=== PATIENT | male | born 1935 | race Caucasian/White ===

== ENCOUNTER 2016-12-31 15:19 | Emergency (ER) | payer OTHER ==
[2016-12-31 15:20] VITALS: BMI 30.7
[2016-12-31 15:38] VITALS: TEMP 98.5
[2016-12-31 16:12] LABS: URINE BILIRUBIN NEGATIVE (NEGATIVE); URINE BLOOD TRACE-LYSED (NEGATIVE); URINE GLUCOSE (UA) >=1000 mg/dL (NEGATIVE); URINE LEUKOCYTE ESTERASE NEGATIVE Leu/uL (NEGATIVE); URINE NITRATE NEGATIVE (NEGATIVE); URINE PROTEIN NEGATIVE mg/dL (<30 mg/dL); URINE UROBILINOGEN 0.2 E.U./dL (<1 E.U./dL)
[2016-12-31 16:20] LABS: URINE APPEARANCE CLEAR (CLEAR); URINE COLOR YELLOW (YELLOW)
[2016-12-31 16:32] LABS: URINE BACTERIA NEG (NEG); URINE RBC 0 - 2 /hpf (0-2); URINE WBC 0 - 2 /hpf (0-6)
--- NOTE | 2016-12-31 16:34 | ED PDOC ---
Arrival/HPI - General Historian: Patient - History of Present Illness Time/Duration: 24 hours Symptom Onset: Gradual Symptom Course: Worsening Quality: Pressure Activities at Onset: Rest <Long Cardoso - Last Filed: 12/31/16 17:24> <Janell Gambino - Last Filed: 12/31/16 18:12> - General Chief Complaint: Male Genitourinary Time Seen by Provider: 12/31/16 15:26 - History of Present Illness Narrative History of Present Illness (Text): 12/31/16 16:21 81yo M with Past medical history of BPH s/p TURP in [place] here for evaluation of urinary retention. Patient states that his symptoms started 4 days ago and was able to pass urine last night at 10PM. He has been unable to pass urine since. She states that he has had similar symptoms in the past after undergoing the TURP in [place] and was told to self-cath at home whenever symptoms such as this arise. He last saw his urologist in [place] 13 months ago, when he moved here to visit family. He states that he follows up with Dr. Nery Joyner while he has been here, however, he has not been needing to self-cath since moving up to [place] 13 months ago. He is unable to travel back to [facility] due to Right Hip Fracture s/p ORIF. Currently, patient states that he has received complete relief of symptoms since having a catheter placed here in the emergency department. He denies any nausea, vomiting. No abd pain. No diarrhea. No headaches. No Fevers, chills. No chest pain, no shortness of breath. No back pain. No flank pain. No other complaints. Urologist - Dr. Nery Joyner PMHx; HTN, Hypercholesterolemia, Diabetes, Hip Fx s/p ORIF, Vitiligo, BPH s/p TURP PSHx: Carotid Endarterectomy, Right Hip Fx ORIF, TURP Social Hx: Denies any Tobacco products, Denies any ETOH, Denies any illicit drugs NKDA (Long Cardoso) Past Medical History - Provider Review Nursing Documentation Reviewed: Yes - Infectious Disease Hx of Infectious Diseases: None - Tetanus Immunization Tetanus Immunization: Unknown - Reproductive Currently : No Currently Lactating: No - Cardiac Hx Pacemaker: No - Pulmonary Hx Respiratory Disorders: No - Neurological Hx Paralysis: No - HEENT Hx HEENT Disorder: Yes (eyeglasses) - Renal Hx Renal Disorder: No - Endocrine/Metabolic Hx Diabetes Mellitus Type 1: Yes - Hematological/Oncological Hx Blood Transfusions: Yes Hx Blood Transfusion Reaction: No - Integumentary Hx Dermatological Disorder: Yes - Musculoskeletal/Rheumatological Hx Musculoskeletal Disorders: Yes (b/l knees) - Gastrointestinal Hx Gastrointestinal Disorders: No - Genitourinary/Gynecological Hx Reproductive Disorders: Yes - Psychiatric Hx Emotional Abuse: No Hx Physical Abuse: No Hx Substance Use: No - Surgical History Other/Comment: Right femur ORIF (12/07/2015) - Anesthesia Hx Anesthesia Reactions: No Hx Malignant Hyperthermia: No - Suicidal Assessment Feels Threatened In Home Enviroment: No <Long Cardoso - Last Filed: 12/31/16 17:24> <Janell Gambino - Last Filed: 12/31/16 18:12> - Patient History Narrative Patient History: Pertinent history: BPH s/p TURP (Long Cardoso) Family/Social History - Physician Review Nursing Documentation Reviewed: Yes Family/Social History: No Known Family HX Smoking Status: Former Smoker Hx Alcohol Use: No Hx Substance Use: No Hx Substance Use Treatment: No <Long Cardoso - Last Filed: 12/31/16 17:24> Allergies/Home Meds <Long Cardoso - Last Filed: 12/31/16 17:24> <Janell Gambino - Last Filed: 12/31/16 18:12> Allergies/Adverse Reactions: Allergies No Known Allergies Allergy (Verified 01/09/16 18:32) Home Medications: Home Meds Medication Instructions Recorded Confirmed Aspirin [Ecotrin] 81 mg PO DAILY 12/02/15 12/31/16 Metformin HCl 1,000 mg PO BID 12/02/15 12/31/16 Simvastatin 40 mg PO DAILY 12/02/15 12/31/16 GlipiZIDE SR [Glucotrol XL] 10 mg PO PRN PRN 02/23/16 12/31/16 Pantoprazole [Protonix EC Tab] 40 mg PO PRN PRN 02/23/16 12/31/16 Insulin 70/30 50 units SC BID 12/31/16 12/31/16 Levocetirizine Dihydrochloride 5 mg PO DAILY 12/31/16 12/31/16 [Xyzal] Linaclotide [Linzess] 290 mcg PO DAILY 12/31/16 12/31/16 Prednisone [Deltasone] 10 mg PO DAILY 12/31/16 12/31/16 Pregabalin [Lyrica] 300 mg PO DAILY 12/31/16 12/31/16 Vitamind 50,000 iu PO QWK 12/31/16 12/31/16 Review of Systems - Physician Review All systems were reviewed & negative as marked: Yes - Review of Systems Constitutional: absent: Fevers Respiratory: absent: Cough Cardiovascular: absent: Chest Pain, Edema, Calf Pain Gastrointestinal: absent: Abdominal Pain, Nausea, Vomiting Genitourinary Male: Urinary Output Changes, Other (urinary retention) Musculoskeletal: absent: Back Pain Neurological: absent: Dizziness <Long Cardoso - Last Filed: 12/31/16 17:24> Physical Exam Vital Signs Reviewed: Yes Temperature: Afebrile Blood Pressure: Hypertensive Pulse: Regular Respiratory Rate: Normal Appearance: Positive for: Well-Appearing, Non-Toxic, Comfortable Pain Distress: None Mental Status: Positive for: Alert and Oriented X 3 - Systems Exam Head: Present: Atraumatic, Normocephalic Extroacular Muscles: Present: EOMI Mouth: Present: Moist Mucous Membranes Neck: Present: Normal Range of Motion Respiratory/Chest: Present: Clear to Auscultation, Good Air Exchange. No: Respiratory Distress, Accessory Muscle Use, Wheezes Cardiovascular: Present: Normal S1, S2. No: Murmurs Abdomen: No: Tenderness, Distention, Rebound, Guarding Genitourinary Male: Present: Normal External Genitalia, Other (Urinary catheter in place, clear/yellow urine in bag. No suprapubic tenderness. ) Upper Extremity: Present: Normal Inspection. No: Edema Lower Extremity: Present: Normal Inspection. No: Edema, CALF TENDERNESS Neurological: Present: GCS=15 Skin: Present: Warm, Dry, Normal Color. No: Rashes Psychiatric: Present: Alert, Oriented x 3 <Long Cardoso - Last Filed: 12/31/16 17:24> Medical Decision Making - Lab Interpretations I have reviewed the lab results: Yes <Long Cardoso - Last Filed: 12/31/16 17:24> <Janell Gambino - Last Filed: 12/31/16 18:12> ED Course and Treatment: 12/31/16 16:38 81yo M with Past medical history including BPH s/p TURP here for urinary retention - Symptoms significantly improved s/p placement of Sharp catheter - Urinalysis - Will discuss case with Dr. Joyner - Reassess and dispo 12/31/16 17:24 - Upon re-examination, patient complaining of penile pain. Ordered Lidocaine gel topical - Urinalysis negative - Patient is improved with his urinary symptoms. - Call placed to Dr. Joyner in order to discuss case. - Plan for discharge home with leg bag and follow up with Dr. Joyner next week. - Patient understands and agrees with plan (Long Cardoso) 12/31/16 18:10 Patient seen and examined with resident. Seen with urinary retention. Suprapubic discomfort resolved with sharp catheter. Patient put out 1050 cc of urine. Urine shows no UTI - will d/c with leg bag. Case discussed with Dr. Joyner, who said to have the patient see him in the office in two days. Ok for d/c. (Janell Gambino) - Lab Interpretations Lab Results: Lab Results 12/31/16 15:50: Urine Color Yellow, Urine Appearance Clear, Urine pH 6.0, Ur Specific [place] 1.010, Urine Protein Negative, Urine Glucose (UA) >=1000, Urine Ketones Negative, Urine Blood Trace-lysed H, Urine Nitrate Negative, Urine Bilirubin Negative, Urine Urobilinogen 0.2, Ur Leukocyte Esterase Negative , Urine RBC 0 - 2, Urine WBC 0 - 2, Ur Epithelial Cells 1 - 3, Urine Bacteria Neg - Medication Orders Current Medication Orders: Discontinued Medications Lidocaine HCl (Xylocaine 2% (Uro-Jet)) 1 ea TOP ONCE ONE Stop: 12/31/16 17:23 Last Admin: 12/31/16 17:32 Dose: 1 applic Comments: 1 application to tip of penis - PA / COSTUME MAKER / Resident Statement PAULINA has reviewed & agrees with the documentation as recorded. PAULINA has examined the patient and agrees with the treatment plan. <Long Cardoso - Last Filed: 12/31/16 17:24> - PA / COSTUME MAKER / Resident Statement PAULINA has reviewed & agrees with the documentation as recorded. PAULINA has examined the patient and agrees with the treatment plan. - Scribe Statement The provider has reviewed the documentation as recorded by the Scribe <Janell Gambino - Last Filed: 12/31/16 18:12> - Scribe Statement Carlita De La Garza Provider Scribe Attestation: All medical record entries made by the Scribe were at my direction and personally dictated by me. I have reviewed the chart and agree that the record accurately reflects my personal performance of the history, physical exam, medical decision making, and the department course for this patient. I have also personally directed, reviewed, and agree with the discharge instructions and disposition. (Janell Gambino) Disposition/Present on Arrival - Present on Arrival Any Indicators Present on Arrival: Yes History of DVT/PE: No History of Uncontrolled Diabetes: Yes Urinary Catheter: Yes History of Decub. Ulcer: No History Surgical Site Infection Following: None - Disposition Have Diagnosis and Disposition been Completed?: Yes Disposition Time: 17:28 Patient Plan: Discharge <Long Cardoso - Last Filed: 12/31/16 17:24> <Janell Gambino - Last Filed: 12/31/16 18:12> - Disposition Diagnosis: Urinary retention, Sharp catheter in place Disposition: HOME/ ROUTINE Patient Problems: Current Active Problems Problem Status Onset Sharp catheter in place Acute Urinary retention Acute Condition: GOOD Discharge Instructions (ExitCare): Urinary Retention in Men (ED) Additional Instructions: 1. Follow up with Dr. Nery Joyner in 2 days - Monday (01/02 at 5 pm in [place]). 2. Keep Sharp in place until follow up with Urology 3. Return to the emergency department with any concerning symptoms Referrals: Bandar Joyner MD [Staff Provider] - Follow up with primary Forms: [employer] ([place])
[2016-12-31] MEDS ORDERED: Lidocaine 2% Jelly (Uro-Jet) TOP ONE (17:22)
[2016-12-31 18:55] VITALS: BP 150/83; PULSE 85; RESP 18; O2SAT 98
== END 2016-12-31 18:57 | disposition home or self-care (01) ==
LOC: ED 15:19
DX: N40.1 Benign prostatic hyperplasia with lower urinary tract symptoms (principal); R33.8 Other retention of urine; I10 Essential (primary) hypertension; E11.9 Type 2 diabetes mellitus without complications; E78.00 Pure hypercholesterolemia, unspecified

== ENCOUNTER 2017-08-23 06:25 | Day surgery (SDC) | payer OTHER ==
[2017-08-22 10:23] VITALS: BMI 32.1
[2017-08-23] MEDS ORDERED: Sevoflurane - Inhalation Anesthetic Liq (250 ml) ONE (07:58)
[2017-08-23] MEDS ORDERED: ePHEDrine 50 mg/ml Inj ONE (08:02)
[2017-08-23] MEDS ORDERED: Lidocaine 1% Inj (20ml) ONE (08:02)
[2017-08-23] MEDS ORDERED: Propofol 10 mg/ml Inj (20 ML) ONE (08:02)
[2017-08-23] MEDS ORDERED: cefTRIAXone (Rocephin) 1 gm Inj ONE (08:13)
[2017-08-23] MEDS ORDERED: Liquid Adhesive TOP ONE (08:54)
[2017-08-23 10:52] VITALS: RESP 18; TEMP 96.4; O2SAT 98
[2017-08-23 11:20] VITALS: BP 162/68; PULSE 84
--- NOTE | 2017-08-23 14:45 | PN ---
DATE: This is an immediate postop note. PREOPERATIVE DIAGNOSES: Voiding dysfunction, prostate cancer, urinary incontinence, incomplete bladder emptying, urinary retention. POSTOPERATIVE DIAGNOSES: Voiding dysfunction, prostate cancer, urinary incontinence, incomplete bladder emptying, urinary retention. PROCEDURE: As mentioned, PVP GreenLight laser. The patient is in recovery room in stable condition. Diamond catheter draining well. The plans as before, he will be discharged home or admission for observation depending on the patient how he is feeling. He is currently stable. Vital signs within normal limits. The patient tolerated the procedure without complication. Bang Joyner MD
--- NOTE | 2017-08-23 20:39 | HP ---
UROLOGY HISTORY AND PHYSICAL REASON FOR ADMISSION: PVP GreenLight laser. In preparation for eventually an artificial urinary sphincter, see below plan. HISTORY OF PRESENT ILLNESS: This is a very pleasant gentleman. He is 81 years old. He has a history of prostate cancer, this was treated down in [place] with radiation. He has much voiding dysfunction since that time. He also has a history of TUR. Besides various medications for the patient including the anticholinergic including Sudafed. Today, he is coming in for a GreenLight laser to make sure he is wide open and then afterwards, we are planning for an artificial urinary sphincter. I explained to the patient he is currently NAD, but he is still fairly elderly for such procedures, but it bothers him a lot. PAST MEDICAL AND SURGICAL HISTORY: As follows: A patient of Dr. Griffith with multiple medical issues. See the medical clearance noted moderate risk of surgery. No history of NE or CVA. REVIEW OF SYSTEMS: In general, no weight loss, chest pain, shortness of breath, night sweats. He is actually in reasonably good shape. Of note, one little thing is that he has underlying vitiligo . This is stable and not under the care . MEDICATIONS: See chart. ALLERGIES: NONE. SOCIAL HISTORY: He comes to the office with his children and grandchildren. PHYSICAL EXAMINATION: GENERAL: A well-nourished male, in no apparent distress. VITAL SIGNS: Noted. SKIN: Noted. HEENT: Normocephalic, atraumatic. NECK: No cervical or axillary lymphadenopathy. LUNGS: Clear. HEART: Normal S1, S2. ABDOMEN: Soft, nontender. GENITOURINARY: Normal phallus with discharge. No testicular masses. RECTAL: Relatively soft prostate, 20 to 30 g. LABORATORY DATA: See chart. BUN and creatinine noted. Hematocrit noted. PSA noted. DIAGNOSES: 1. History of prostate cancer. 2. Status post radiation, NAD, with voiding dysfunction, urinary incontinence, incomplete bladder emptying, and multiple issues. PLAN: We discussed the options. At this point, the plan is as follows: 1. We are going to do a GreenLight laser today to make sure he is wide open. 2. We are going to plan when he heals for an artificial urinary sphincter. I discussed with him AMS and prosthesis and that is going to be our plan. So further plans will follow. I discussed with the patient, but it is not very relevant to him in terms of sexual functioning and ejaculatory function, risks, benefits, and treatment alternatives. The plan is as follows: 1. Antibiotic prophylaxis. 2. PVP and then further plans will follow. Bang Joyner MD
--- NOTE | 2017-08-24 07:49 | OP ---
PROCEDURE DATE:08/23/2017 PREOPERATIVE DIAGNOSES: Prostate cancer, no evidence of disease, voiding dysfunction, incomplete bladder emptying, retention, incontinence. POSTOPERATIVE DIAGNOSES: Prostate cancer, no evidence of disease, voiding dysfunction, incomplete bladder emptying, retention, incontinence. PROCEDURE: Photoselective vaporization of the prostate GreenLight laser. SURGEON: Bandar Joyner M.D. ESTIMATED BLOOD LOSS: Less than 10 mL. COMPLICATIONS: There were no complications. DRAIN: Diamond catheter with about 50 mL with moderate amount of traction. FINDINGS: Normal anterior urethra, no strictures, Verumontanum is somewhat open, not wide open, by the time we finished it was wide wide open. Ureteral orifices were draining clear efflux. No other abnormality noted. No bladder tumors or cancers identified. No bladder stones identified. INDICATIONS: See history and physical for further details. This is a very pleasant gentleman here for part one. We are going to make sure it is wide open and then afterwards we are planning for an artificial urinary sphincter. I discussed with the patient after so much surgery, we are very concerned. I do want to ensure he does not develop any bladder neck contracture or urethral stricture. He does not have any urethral strictures. I discussed with him radiation side effects years later, etc. But at this point, we are making sure he is wide open in preparation for the artificial urinary sphincter. DESCRIPTION OF PROCEDURE: The patient was placed on the table. Routine monitors were placed. Timeout was called. We confirmed the patient positioning. Risk and benefits were discussed, risk of incontinence getting worse, risks of scar tissue, risks of ejaculatory dysfunction although he does not seem to be concerned to this. After discussing all these options, I also discussed the benefits of perhaps even this may solve some of his problems as he is able to void better, but also make it easier when we plan for the prosthesis to make sure he is not going back into retention. After discussing all these options, I also discussed the above procedure, we obtained medical clearance for the patient seeing Dr. Griffith, his medical doctor. We discussed all the options, risks, benefits and alternatives and will plan to proceed. Antibiotic prophylaxis was given. Timeout was called. Patient is appropriately positioned on the table. Fire risk assessment is assessed. All the usual monitoring is done. We proceeded to begin with inserted the cystoscope via the urethra under direct vision with visual obturator. We identified landmark verumontanum on in. Bladder neck was identified. Ureteral orifice was identified with clear efflux from both, bladder was inspected carefully and there were no bladder tumors. We now converted to laser fiber bridge and we began at bladder neck between 5 and 7 and make sure we work with 7 and 11, and we go along the roof making sure it is time to achieve systematically, making sure we are wide open in achieving hemostasis, where appropriate we did coagulation. Overall, patient is tolerating procedure well. Turned off the water, I washed. There is no bleeders. It is nicely wide open and multiple pictures are taken. The ureteral orifice was grossly intact. At this point, we inserted Diamond catheter via urethra, put it on a mild traction. Patient tolerated it without any complications. I want to mention I took some pictures of urine flow, it is a good flow. Pictures were little bit blurry, but we did take some pictures with a good flow. Patient tolerated it without complications. Addendum: The plan will be for an AUS (artificial urinary sphincter) at an appropriate time. Bang Joyner MD KIANNA
== END 2017-08-23 12:34 | disposition home or self-care (01) ==
LOC: SDS 06:25
PROVIDERS: ATTEND Urology
DX: C61 Malignant neoplasm of prostate (principal); R33.9 Retention of urine, unspecified; Z92.3 Personal history of irradiation; R32 Unspecified urinary incontinence
CPT/HCPCS: 52648; 82948; A4358; J0696; J2704; J2765; J3010; J7120

== ENCOUNTER 2018-01-07 09:36 | Emergency (ER) | payer OTHER ==
[2018-01-07 09:41] VITALS: BMI 32.1
--- NOTE | 2018-01-07 10:09 | ED PDOC ---
Arrival/HPI - General Chief Complaint: Male Genitourinary Time Seen by Provider: 01/07/18 09:43 Historian: Patient - History of Present Illness Narrative History of Present Illness (Text): 01/07/18 10:03 82 year old male, with past medical history of hypertension, hyperlipidemia, IDDM, hip fracture, vitiligo, BPH s/p TURP, urinary incontinence, UTI, presents to the Emergency department accompanied by grandson complaining of leaking sharp since this morning. Patient informs associated pain to the groin area and states blood in the bag. Patient denies taking any antibiotics and states his last sharp bag placement was 10 days ago. Patient does not know when he is scheduled for a replacement but believed it is on the of this month. Patient denies any fever, chills, nausea, vomiting, diarrhea, abdominal pain, chest pain, shortness of breath, cough, headache, dizziness, neck pain, chest pain or any other complaints. Time/Duration: 1-3 hours Symptom Onset: Gradual Symptom Course: Unchanged Activities at Onset: Light Context: Home Past Medical History - Provider Review Nursing Documentation Reviewed: Yes - Past History Past History: Non-Contributing - Infectious Disease Hx of Infectious Diseases: None - Tetanus Immunization Tetanus Immunization: Unknown - Reproductive Currently Lactating: No - Cardiac Hx Hypertension: Yes - Pulmonary Hx Respiratory Disorders: No - Neurological Hx Neurological Disorder: No - HEENT Hx HEENT Disorder: Yes (eyeglasses) - Renal Hx Renal Disorder: No - Endocrine/Metabolic Hx Diabetes Mellitus Type 1: Yes - Hematological/Oncological Hx Blood Transfusions: Yes - Integumentary Hx Dermatological Disorder: Yes - Musculoskeletal/Rheumatological Hx Musculoskeletal Disorders: Yes (b/l knees) - Gastrointestinal Hx Gastrointestinal Disorders: No - Genitourinary/Gynecological Hx Genitourinary Disorders: (has 2 way sharp) - Psychiatric Hx Psychophysiologic Disorder: No Hx Substance Use: No - Surgical History Other/Comment: Right femur ORIF (12/07/2015) - Anesthesia Hx Anesthesia Reactions: No Hx Malignant Hyperthermia: No - Suicidal Assessment Feels Threatened In Home Enviroment: No Family/Social History - Physician Review Nursing Documentation Reviewed: Yes Family/Social History: No Known Family HX Smoking Status: Never Smoked Hx Alcohol Use: No Hx Substance Use: No Hx Substance Use Treatment: No Allergies/Home Meds Allergies/Adverse Reactions: Allergies No Known Allergies Allergy (Verified 01/07/18 09:50) Review of Systems - Physician Review All systems were reviewed & negative as marked: Yes - Review of Systems Constitutional: absent: Fevers Respiratory: absent: SOB, Cough Cardiovascular: absent: Chest Pain Gastrointestinal: absent: Abdominal Pain, Diarrhea, Nausea, Vomiting Genitourinary Male: Other (leaking sharp bag) Musculoskeletal: absent: Back Pain, Neck Pain Neurological: absent: Headache, Dizziness Physical Exam Vital Signs Reviewed: Yes Vital Signs Temp Pulse Resp BP Pulse Ox 01/07/18 11:17 98.4 F 97 01/07/18 11:14 82 18 139/85 97 01/07/18 09:41 98.2 F 85 18 140/87 98 Temperature: Afebrile Respiratory Rate: Normal Appearance: Positive for: Well-Appearing, Non-Toxic, Comfortable Pain Distress: None Mental Status: Positive for: Alert and Oriented X 3 - Systems Exam Head: Present: Atraumatic, Normocephalic Pupils: Present: PERRL Extroacular Muscles: Present: EOMI Conjunctiva: Present: Normal Respiratory/Chest: Present: Clear to Auscultation, Good Air Exchange. No: Respiratory Distress, Accessory Muscle Use Cardiovascular: Present: Regular Rate and Rhythm, Normal S1, S2. No: Murmurs Abdomen: Present: Normal Bowel Sounds. No: Tenderness, Distention, Peritoneal Signs Back: Present: Normal Inspection Upper Extremity: Present: Normal Inspection. No: Cyanosis, Edema Lower Extremity: Present: Normal Inspection. No: Edema Neurological: Present: GCS=15, CN II-XII Intact, Speech Normal Skin: Present: Warm, Dry, Normal Color. No: Rashes Psychiatric: Present: Alert, Oriented x 3, Normal Insight, Normal Concentration Medical Decision Making ED Course and Treatment: 01/07/18 10:11 Impression: 82 year old male presents to the Emergency department for leaking sharp bag. Plan: -- Urine Culture -- Urinalysis -- Reassess and disposition Prior Visits: Notes and results from previous visits were reviewed. Progress Notes: 01/07/18 11:[address] bandar joyner, states ok to dc. no antibiotics to be initiated. - Lab Interpretations Lab Results: Lab Results 01/07/18 10:19: Urine Color Dark yellow, Urine Appearance Cloudy, Urine pH 7.0, Ur Specific [place] 1.020, Urine Protein 100 H, Urine Glucose (UA) Negative, Urine Ketones Negative, Urine Blood Large H, Urine Nitrate Negative, Urine Bilirubin Negative, Urine Urobilinogen 0.2, Ur Leukocyte Esterase Large H, Urine RBC Pending, Urine WBC Pending - Scribe Statement The provider has reviewed the documentation as recorded by the Scribe Celena Winters. All medical record entries made by the Scribe were at my direction and personally dictated by me. I have reviewed the chart and agree that the record accurately reflects my personal performance of the history, physical exam, medical decision making, and the department course for this patient. I have also personally directed, reviewed, and agree with the discharge instructions and disposition. Disposition/Present on Arrival - Present on Arrival Any Indicators Present on Arrival: No History of DVT/PE: No History of Uncontrolled Diabetes: Yes Urinary Catheter: Yes History of Decub. Ulcer: No History Surgical Site Infection Following: None - Disposition Have Diagnosis and Disposition been Completed?: Yes Diagnosis: Sharp catheter problem Disposition: HOME/ ROUTINE Disposition Time: 11:00 Condition: STABLE Discharge Instructions (ExitCare): How to Care for Your Sharp Catheter, Male, Sharp Catheter, Male Additional Instructions: please follow up with your doctor/and specailsit. return to er with worsening s ymptoms or concerns. Referrals: Bandar Joyner MD [Staff Provider] - Follow up with primary Forms: [employer] ([place])
[2018-01-07 10:20] VITALS: RESP 18
[2018-01-07 10:32] LABS: URINE BILIRUBIN NEGATIVE (NEGATIVE); URINE BLOOD LARGE (NEGATIVE); URINE GLUCOSE (UA) NEGATIVE (NEGATIVE); URINE LEUKOCYTE ESTERASE LARGE Leu/uL (NEGATIVE); URINE PROTEIN 100 mg/dL (<30 mg/dL); URINE UROBILINOGEN 0.2 E.U./dL (<1 E.U./dL)
[2018-01-07 10:38] LABS: URINE APPEARANCE CLOUDY (CLEAR); URINE COLOR DARK YELLOW (YELLOW)
[2018-01-07 11:16] VITALS: BP 139/85; PULSE 82; O2SAT 97
[2018-01-07 11:17] VITALS: TEMP 98.4
[2018-01-07 11:29] LABS: URINE BACTERIA FEW (NEG); URINE EPITHELIAL CELLS MANY /hpf (0-5); URINE RBC 20 - 25 /hpf (0-2); URINE WBC TNTC /hpf (0-6)
== END 2018-01-07 11:16 | disposition home or self-care (01) ==
LOC: ED 09:36
DX: T83.098A Other mechanical complication of other urinary catheter, initial encounter (principal); Y84.8 Other medical procedures as the cause of abnormal reaction of the patient, or of later complication, without mention of misadventure at the time of the procedure; Y92.89 Other specified places as the place of occurrence of the external cause

== ENCOUNTER 2018-04-07 11:22 | Emergency (ER) | payer OTHER ==
[2018-04-07 11:23] VITALS: BMI 32.1
--- NOTE | 2018-04-07 11:38 | ED PDOC ---
Arrival/HPI - General Time Seen by Provider: 04/07/18 11:31 Historian: Patient - History of Present Illness Narrative History of Present Illness (Text): 04/07/18 11:37 82 year old male, whose past medical history includes hypertension, hyperlipidemia, IDDM, hip fracture, vitiligo, BPH s/p TURP, urinary incontinence, UTI, presents to the Emergency department complaining of lower abdominal pain and urinary retention that began 3-4 hours ago. Patient reports he had his sharp cath placed 1 week ago. Patient reports similar symptoms in the past. Patient denies any fever, chills, chest pain, shortness of breath, nausea, vomiting, diarrhea, back pain, neck pain, headache, dizziness, or any other complaints. PMD: Dr. Griffith Urologist: Dr. Joyner Time/Duration: Other (3-4 hours ago) Symptom Onset: Gradual Symptom Course: Unchanged Activities at Onset: Light Context: Home Past Medical History - Provider Review Nursing Documentation Reviewed: Yes - Past History Past History: Non-Contributing - Infectious Disease Hx of Infectious Diseases: None - Tetanus Immunization Tetanus Immunization: Unknown - Reproductive Currently Lactating: No - Cardiac Hx Hypertension: Yes - Pulmonary Hx Respiratory Disorders: No - Neurological Hx Neurological Disorder: No - HEENT Hx HEENT Disorder: Yes (eyeglasses) - Renal Hx Renal Disorder: No - Endocrine/Metabolic Hx Diabetes Mellitus Type 1: Yes - Hematological/Oncological Hx Blood Transfusions: Yes - Integumentary Hx Dermatological Disorder: Yes - Musculoskeletal/Rheumatological Hx Musculoskeletal Disorders: Yes (b/l knees) - Gastrointestinal Hx Gastrointestinal Disorders: No - Genitourinary/Gynecological Hx Genitourinary Disorders: (has 2 way sharp) - Psychiatric Hx Psychophysiologic Disorder: No Hx Substance Use: No - Surgical History Other/Comment: Right femur ORIF (12/07/2015) - Anesthesia Hx Anesthesia Reactions: No Hx Malignant Hyperthermia: No - Suicidal Assessment Feels Threatened In Home Enviroment: No Family/Social History - Physician Review Nursing Documentation Reviewed: Yes Family/Social History: No Known Family HX Smoking Status: Never Smoked Hx Alcohol Use: No Hx Substance Use: No Hx Substance Use Treatment: No Allergies/Home Meds Allergies/Adverse Reactions: Allergies No Known Allergies Allergy (Verified 01/07/18 09:50) Home Medications: Home Meds Medication Instructions Recorded Confirmed Carvedilol [Coreg] 3.125 mg PO BID 04/07/18 04/07/18 Furosemide [Lasix] 40 mg PO DAILY 04/07/18 04/07/18 GlipiZIDE [Glucotrol] 10 mg PO BID 04/07/18 04/07/18 Levocetirizine Dihydrochloride 5 mg PO DAILY 04/07/18 04/07/18 Metformin HCl [Fortamet] 1,000 mg PO BID 04/07/18 04/07/18 Montelukast [Singulair] 10 mg PO DAILY 04/07/18 04/07/18 Pantoprazole [Protonix EC Tab] 40 mg PO DAILY 04/07/18 04/07/18 Pregabalin [Lyrica] 100 mg PO TID 04/07/18 04/07/18 Simvastatin [Zocor] 40 mg PO DAILY 04/07/18 04/07/18 Tamsulosin [Flomax] 0.4 mg PO BID 04/07/18 04/07/18 Review of Systems - Physician Review All systems were reviewed & negative as marked: Yes - Review of Systems Constitutional: absent: Fevers, Other (Chills) Respiratory: absent: SOB Cardiovascular: absent: Chest Pain Gastrointestinal: Abdominal Pain. absent: Diarrhea, Nausea, Vomiting Genitourinary Male: Urinary Output Changes. absent: Dysuria, Frequency, Hematuria Musculoskeletal: absent: Back Pain, Neck Pain Neurological: absent: Headache, Dizziness Physical Exam - Physical Exam Narrative Physical Exam (Text): Gen: VS reviewed, alert, well developed, well nourished, nontoxic, mild distress. ENT: normal pharynx. Eye: EOMI, PERRL. Neck: no JVD, supple, no adenopathy. CV: regular rate, regular rhythm, no rubs, no murmur, no gallops, S1, S2, pulses equal and strong. Pulm: no distress, clear to auscultation, no wheeze, no rhonchi, breath sounds equal, no rales. Abd: mild to moderate lower abdominal tenderness, no guarding, no rebound, no rigidity, normal bowel sounds. Sharp cath in place with yellow urine in collection bag Ext: no edema. Skin: good color, no rash, no cyanosis. Psych: responds appropriately to questions, normal affect. Neuro: oriented x 3, CN2-12 intact grossly, motor intact, sensation intact. Vital Signs Reviewed: Yes Temperature: Afebrile Blood Pressure: Hypertensive Pulse: Regular Respiratory Rate: Normal Medical Decision Making ED Course and Treatment: 04/07/18 11:38 Impression: 82 year old male presents complaining lower abdominal pain and urinary retention that began 3-4 hours ago. Plan: -- Bladder Scan PRN -- CT Abdomen and Pelvis IV contrast -- Labs -- Morphine -- Reassess and disposition Prior Visits: Notes and results from previous visits were reviewed. Progress Notes: 04/07/18 14:12 re-eval, patient reports that his pain has resolved. patient reports that he had a bout of diarrhea yesterday but stools nonbloody. urine appears to be following well throughout sharp catheter, patient feels well to go home and he will follow up with his pcp. - RAD Interpretation Narrative RAD Interpretations (Text): PROCEDURE: CT Abdomen and Pelvis with contrast Dictator : Marsha Richards MD Report Date : 04/07/2018 13:57:07 IMPRESSION: Mild dilatation of fluid-filled proximal and mid small bowel loops which may represent nonspecific infectious/inflammatory enteritis or ileus. No evidence for bowel obstruction. Computer Systems Analyst: Radiologist - Scribe Statement The provider has reviewed the documentation as recorded by the James August Provider Scribe Attestation: All medical record entries made by the Scribe were at my direction and personally dictated by me. I have reviewed the chart and agree that the record accurately reflects my personal performance of the history, physical exam, medical decision making, and the department course for this patient. I have also personally directed, reviewed, and agree with the discharge instructions and disposition. Disposition/Present on Arrival - Present on Arrival Any Indicators Present on Arrival: No History of DVT/PE: No History of Uncontrolled Diabetes: Yes Urinary Catheter: Yes History Surgical Site Infection Following: None - Disposition Have Diagnosis and Disposition been Completed?: Yes Diagnosis: Abdominal pain Disposition: HOME/ ROUTINE Disposition Time: 14:14 Patient Plan: Discharge Condition: STABLE Discharge Instructions (ExitCare): Acute Abdomen (Belly Pain) Additional Instructions: Return for any new or worsening symptoms especially persistent pain, vomiting, fever greater than 100.4, bloody stools. Follow up with your primary care doctors as soon as possible. BAN CARLSON, thank you for letting us take care of you today. Your provider was Dr.Lamont Barillas and you were treated for abdominal pain. The emergency medical care you received today was directed at your acute symptoms. If you were prescribed any medication, please fill it and take as directed. It may take several days for your symptoms to resolve. Return to the Emergency Department if your symptoms worsen, do not improve, or if you have any other problems. Please contact your doctor or call one of the physicians/clinics you have been referred to that are listed on the Patient Visit Information form that is included in your discharge packet. Bring any paperwork you were given at [facility] with you along with any medications you are taking to your follow up visit. Our treatment cannot replace ongoing medical care by a primary care provider outside of the emergency department. Thank you for allowing the [facility] team to be part of your care today. If you had an X-Ray or CT scan: A Radiologist will review the ED reading if any change in treatment is needed we will contact you. If you had a blood, urine, or wound culture: It will take several days for the results, if any change in treatment is needed we will contact you. If you had an STI test: It will take 48 hours for the results. Please call after 1 week if you have not heard back.
[2018-04-07 11:41] VITALS: RESP 18; TEMP 98
[2018-04-07] MEDS ORDERED: Morphine 4 mg/ml ISec IVP STA (12:02)
[2018-04-07 12:17] LABS: BASO # 0.02 K/mm3 (0.0-2.0); BASO % 0.2 % (0.0-3.0); EOS # 0.5 (0.0-0.7); EOS % 6.3 % (1.5-5.0); GRAN # 3.11 (1.4-6.5); GRAN % 37.9 % (50.0-68.0); HEMOGLOBIN 10.9 g/dL (14.0-18.0); LYMPH # 3.8 (1.2-3.4); LYMPH % 46.4 % (22.0-35.0); MEAN CELL VOLUME 87.1 fl (80.0-105.0); MEAN CORPUSCULAR HEMOGLOBIN 28.7 pg (25.0-35.0); MEAN CORPUSCULAR HGB CONC 32.9 g/dl (31.0-37.0); MEAN PLATELET VOLUME 10.3 fl (7.0-11.0); MONO # 0.8 (0.1-0.6); MONO % 9.2 % (1.0-6.0); RBC 3.8 10^6/uL (3.5-6.1); RED CELL DISTRIBUTION WIDTH 15.7 % (11.5-14.5); WHITE BLOOD COUNT 8.2 10^3/uL (4.5-11.0)
[2018-04-07 12:38] VITALS: O2SAT 96
[2018-04-07 12:42] LABS: ALBUMIN 3.5 g/dL (3.0-4.8); ALT/SGPT 43 U/L (7-56); AST/SGOT 32 U/L (17-59); BLOOD UREA NITROGEN 18 mg/dL (7-21); CALCIUM 9.2 mg/dL (8.4-10.5); GFR NON-AFRICAN AMERICAN > 60
[2018-04-07] MEDS ORDERED: Iohexol 350 MG/100 ML VIAL ONE (13:38)
[2018-04-07 13:56] VITALS: BP 135/67; PULSE 66
--- NOTE | 2018-04-07 14:00 | CT ---
Date of service: 04/07/2018 PROCEDURE: CT Abdomen and Pelvis with contrast HISTORY: Lower abdominal pain, sharp cath in place COMPARISON: 10/02/2017. TECHNIQUE: CT scan of the abdomen and pelvis was performed after administration of intravenous contrast. Oral contrast was not administered. Coronal and sagittal reformatted images were obtained. Contrast dose: 100 mL Omnipaque 350 Radiation dose: Total exam DLP = 1076.94 mGy-cm. This CT exam was performed using one or more of the following dose reduction techniques: Automated exposure control, adjustment of the mA and/or kV according to patient size, and/or use of iterative reconstruction technique. FINDINGS: LOWER THORAX: The visualized lungs are clear. LIVER: Mild hepatomegaly and fatty liver. No gross lesion or ductal dilatation. GALLBLADDER AND BILE DUCTS: Well distended. No calcified gallstones, wall thickening or pericholecystic fluid. PANCREAS: Diffuse fatty atrophy of the pancreas. No gross lesion or ductal dilatation. SPLEEN: Normal in size and appearance. ADRENALS: No discrete nodule. KIDNEYS AND URETERS: Normal in size with homogeneous enhancement. No hydronephrosis. No solid mass. There is a 3.9 x 4.1 cm simple cyst in the lower pole of the right kidney. VASCULATURE: No aortic aneurysm. Aortic and iliac arteries atherosclerotic vascular calcifications and mural plaque present. BOWEL: Evaluation of the bowel is limited in the absence of oral contrast. There is mild dilatation of fluid-filled proximal and mid small bowel loops. The distal small bowel loops are normal in caliber. The colon is grossly normal in appearance. No bowel wall thickening or obstruction. APPENDIX: Normal appendix. PERITONEUM: No free fluid. No free air. LYMPH NODES: No enlarged lymph nodes. BLADDER: Indwelling Sharp catheter with partial decompression of the urinary bladder. REPRODUCTIVE: The uterus is normal in size. BONES: Status post open reduction and internal fixation of right intertrochanteric fracture. Old superior endplate compression deformities in the L1 and L2 vertebral bodies. Diffuse bone demineralization and multilevel degenerative changes. OTHER FINDINGS: Small right inguinal scrotal hernia and a presumable postsurgical changes in the right lower abdomen and groin. IMPRESSION: Mild dilatation of fluid-filled proximal and mid small bowel loops which may represent nonspecific infectious/inflammatory enteritis or ileus. No evidence for bowel obstruction.
--- NOTE | 2018-04-08 10:40 | CARD ---
APPROVED REPORT Date of service: 04/07/2018 EKG Measurement Heart [id number] <Conclusion> Sinus rhythm with fusion complexes Otherwise normal ECG
== END 2018-04-07 14:32 | disposition home or self-care (01) ==
LOC: ED 11:22
DX: R10.9 Unspecified abdominal pain (principal); I10 Essential (primary) hypertension; E78.5 Hyperlipidemia, unspecified; N40.1 Benign prostatic hyperplasia with lower urinary tract symptoms
CPT/HCPCS: 74177; 80053; 85025; 93005; 96374; 99284; J2270; Q9967

== ENCOUNTER 2018-06-15 16:10 | Emergency (ER) | payer OTHER ==
[2018-06-15 16:12] VITALS: BMI 32.1
--- NOTE | 2018-06-15 17:28 | ED PDOC ---
Arrival/HPI - General Chief Complaint: Male Genitourinary Time Seen by Provider: 06/15/18 16:35 Historian: Patient - History of Present Illness Narrative History of Present Illness (Text): 06/15/18 17:25 82 year old male, whose past medical history includes hypertension, hyperlipidemia, IDDM, hip fracture, vitiligo, BPH s/p TURP, urinary incontinence, UTI, presents to the Emergency department complaining of suprapubic discomfort, and leaking around the urinary catheter, states that he is currently wearing a pad and diaper and urine is leaking around the catheter. He states that he has had the sharp in x 10 days. Patient denies any fever, chills, chest pain, shortness of breath, nausea, vomiting, diarrhea, back pain, neck pain, headache, dizziness, or any other complaints. PMD: Dr. Griffith Urologist: Dr. Joyner Past Medical History - Past History Past History: Non-Contributing - Infectious Disease Hx of Infectious Diseases: None - Tetanus Immunization Tetanus Immunization: Unknown - Reproductive Currently Lactating: No - Cardiac Hx Hypertension: Yes - Pulmonary Hx Respiratory Disorders: No - Neurological Hx Neurological Disorder: No - HEENT Hx HEENT Disorder: Yes (eyeglasses) - Renal Hx Renal Disorder: No - Endocrine/Metabolic Hx Diabetes Mellitus Type 1: Yes - Hematological/Oncological Hx Blood Transfusions: Yes - Integumentary Hx Dermatological Disorder: Yes - Musculoskeletal/Rheumatological Hx Musculoskeletal Disorders: Yes (b/l knees) - Gastrointestinal Hx Gastrointestinal Disorders: No - Genitourinary/Gynecological Hx Genitourinary Disorders: (has 2 way sharp) - Psychiatric Hx Psychophysiologic Disorder: No Hx Substance Use: No - Surgical History Other/Comment: Right femur ORIF (12/07/2015) - Anesthesia Hx Anesthesia Reactions: No Hx Malignant Hyperthermia: No - Suicidal Assessment Feels Threatened In Home Enviroment: No Family/Social History Family/Social History: No Known Family HX Smoking Status: Never Smoked Hx Alcohol Use: No Hx Substance Use: No Hx Substance Use Treatment: No Allergies/Home Meds Allergies/Adverse Reactions: Allergies No Known Allergies Allergy (Verified 01/07/18 09:50) Home Medications: Home Meds Medication Instructions Recorded Confirmed Furosemide [Lasix] 40 mg PO DAILY 04/07/18 04/07/18 Levocetirizine Dihydrochloride 5 mg PO DAILY 04/07/18 04/07/18 Montelukast [Singulair] 10 mg PO DAILY 04/07/18 04/07/18 Pregabalin [Lyrica] 100 mg PO TID 04/07/18 04/07/18 RX: Carvedilol [Coreg] 3.125 mg PO BID 04/07/18 04/07/18 RX: GlipiZIDE [Glucotrol] 10 mg PO BID 04/07/18 04/07/18 RX: Metformin HCl [Fortamet] 1,000 mg PO BID 04/07/18 04/07/18 RX: Pantoprazole [Protonix EC Tab] 40 mg PO DAILY 04/07/18 04/07/18 Simvastatin [Zocor] 40 mg PO DAILY 04/07/18 04/07/18 Tamsulosin [Flomax] 0.4 mg PO BID 04/07/18 04/07/18 Review of Systems - Review of Systems Constitutional: absent: Fatigue, Weight Change Respiratory: absent: SOB, Cough Cardiovascular: absent: Chest Pain, Palpitations Gastrointestinal: Abdominal Pain. absent: Diarrhea, Nausea, Vomiting Musculoskeletal: absent: Arthralgias, Back Pain Skin: absent: Rash, Pruritis Physical Exam Vital Signs Temp Pulse Resp BP Pulse Ox 06/15/18 16:29 97.4 F L 65 18 127/59 L 95 Temperature: Afebrile Blood Pressure: Normal Pulse: Regular Respiratory Rate: Normal Appearance: Positive for: Well-Appearing, Non-Toxic, Comfortable Pain Distress: None Mental Status: Positive for: Alert and Oriented X 3 - Systems Exam Head: Present: Atraumatic, Normocephalic Pupils: Present: PERRL Extroacular Muscles: Present: EOMI Conjunctiva: Present: Normal Mouth: Present: Moist Mucous Membranes Neck: Present: Normal Range of Motion Respiratory/Chest: Present: Clear to Auscultation, Good Air Exchange. No: Respiratory Distress, Accessory Muscle Use Cardiovascular: Present: Regular Rate and Rhythm, Normal S1, S2. No: Murmurs Abdomen: No: Tenderness, Distention, Peritoneal Signs, Rebound Genitourinary Male: Present: Normal External Genitalia, Circumcised Penis, Other (+sharp catheter in place, there is noted leakage of urine from the urethra, +leg bag with yellow urine insde) Back: Present: Normal Inspection Upper Extremity: Present: Normal Inspection. No: Cyanosis, Edema Lower Extremity: Present: Normal Inspection. No: Edema Neurological: Present: GCS=15, CN II-XII Intact, Speech Normal, Motor Func Grossly Intact, Normal Sensory Function Skin: Present: Warm, Dry, Normal Color. No: Rashes Psychiatric: Present: Alert, Oriented x 3, Normal Insight, Normal Concentration Medical Decision Making ED Course and Treatment: 06/15/18 17:28 Plan : - bladder scan - UA - Urine cx - toradol IM 30 mg Bladder scan shows 36 ml of urine in the bladder. Sharp catheter changed. Irrigated sharp catheter with NS, which flushes well. Dr. Joyner called, notified that catheter was changed, he states that the patient can then follow up as an outpatient as long as the sharp is changed and is functional. UA shows +UTI, on last urine cx, patient tested + for e coli sensitive to bactrim. Patient given a dose of bactrim PO. 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 Advised to follow up with Dr. Joyner in 1-2 days without fail. Advised to take medication as prescribed. Return to the emergency room at any time for any new or worsening symptoms. Patient states he fully agrees with and understands discharge instructions. States that he agrees with the plan and disposition. Verbalized and repeated discharge instructions and plan. I have given the patient opportunity to ask any additional questions. - Medication Orders Current Medication Orders: Ketorolac Tromethamine (Toradol) 30 mg IM STAT STA Stop: 06/15/18 17:25 - PA / CABINET BUILDER / Resident Statement MD/DO has reviewed & agrees with the documentation as recorded. Disposition/Present on Arrival - Present on Arrival Any Indicators Present on Arrival: Yes History of DVT/PE: No History of Uncontrolled Diabetes: Yes Urinary Catheter: Yes History of Decub. Ulcer: No History Surgical Site Infection Following: None - Disposition Have Diagnosis and Disposition been Completed?: Yes Diagnosis: UTI (urinary tract infection), Malfunction of Sharp catheter Disposition: HOME/ ROUTINE Disposition Time: 18:30 Patient Plan: Discharge Condition: STABLE Discharge Instructions (ExitCare): Urinary Tract Infections in Adults Additional Instructions: Thank you for letting us take care of you today. You were treated for sharp catheter malfunction, UTI. The emergency medical care you received today was directed at your acute symptoms. If you were prescribed any medication, please fill it and take as directed. It may take several days for your symptoms to resolve. Return to the Emergency Department if your symptoms worsen, do not improve, or if you have any other problems. Please contact your doctor in 2 days for re-evaluation and follow up. Bring any paperwork you were given at discharge with you along with any medications you are taking to your follow up visit. Our treatment cannot replace ongoing medical care by a primary care provider (PCP) outside of the emergency department. Thank you for allowing the [facility] team to be part of your care today. If you had a urine culture: It will take several days for the results, if any change in treatment is needed we will contact you. Prescriptions: Sulfamethoxazole/Trimethoprim [Bactrim DS 800 mg-160 mg] 1 tab PO BID #14 tab Referrals: Tramaine Griffith MD [Primary Care Provider] - Follow up with primary Forms: [employer] (Citizen [place])
[2018-06-15 18:23] LABS: URINE BILIRUBIN NEGATIVE (NEGATIVE); URINE BLOOD LARGE (NEGATIVE); URINE GLUCOSE (UA) NEGATIVE (NEGATIVE); URINE LEUKOCYTE ESTERASE MODERATE Leu/uL (NEGATIVE); URINE PROTEIN 100 mg/dL (<30 mg/dL); URINE UROBILINOGEN 0.2 E.U./dL (<1 E.U./dL)
[2018-06-15 18:29] LABS: URINE APPEARANCE SL CLOUDY (CLEAR); URINE COLOR YELLOW (YELLOW)
[2018-06-15] MEDS ORDERED: Tmp-Smz 800 mg-160 mg DS Tab PO STA (18:36)
[2018-06-15 18:55] LABS: URINE RBC 25 - 30 /hpf (0-2)
[2018-06-15 18:56] LABS: URINE BACTERIA MANY /hpf; URINE WBC TNTC /hpf (0-6)
[2018-06-15 19:39] VITALS: BP 131/79; PULSE 68; RESP 16; TEMP 97.6; O2SAT 100
== END 2018-06-15 20:09 | disposition home or self-care (01) ==
LOC: ED 16:10
DX: N39.0 Urinary tract infection, site not specified (principal); T83.018A Breakdown (mechanical) of other urinary catheter, initial encounter; Y84.8 Other medical procedures as the cause of abnormal reaction of the patient, or of later complication, without mention of misadventure at the time of the procedure; Y92.89 Other specified places as the place of occurrence of the external cause; I10 Essential (primary) hypertension; E11.9 Type 2 diabetes mellitus without complications; Z79.4 Long term (current) use of insulin
CPT/HCPCS: 81001; 87086; 87181; 96372; 99284; J1885

== ENCOUNTER 2018-06-20 10:23 | Inpatient (IN) | payer OTHER ==
--- NOTE | 2018-06-20 10:30 | ED PDOC ---
Arrival/HPI - General Historian: Patient - History of Present Illness Narrative History of Present Illness (Text): 06/20/18 10:30 82 year old male, whose past medical history includes hypertension, hyperlipidemia, IDDM, hip fracture, vitiligo, BPH s/p TURP, urinary incontinence, UTI, presents to the Emergency department complaining of Left Sided Chest Pain x 2 hours. Patient reports the pain came on suddenly while laying in bed and reading. Patient reports the pain was pressure-like and radiating down his left arm. Patient quantifies the pain at 9/10 at its worst and constant. After ALS arrived to his house, Patient states the pain was relieved to 5/10 in intensity after taking ASA 324mg PO and having Nitro sprays in the field. Patient otherwise denies nausea, vomiting, fever, chills, shortness of breath, blurred vision, headache, abdominal pain, diarrhea, numbness/tingling and/or weakness. PMD: Dr. Griffith Urologist: Dr. Joyner Time/Duration: 1-3 hours Symptom Onset: Sudden Symptom Course: Improving Quality: Pressure Severity Level: 5 <Mai Pang - Last Filed: 06/20/18 12:22> <Yvon Aguayo - Last Filed: 06/20/18 13:08> - General Time Seen by Provider: 06/20/18 10:25 Past Medical History - Past History Past History: Non-Contributing - Infectious Disease Hx of Infectious Diseases: None - Tetanus Immunization Tetanus Immunization: Unknown - Reproductive Currently Lactating: No - Cardiac Hx Hypertension: Yes - Pulmonary Hx Respiratory Disorders: No - Neurological Hx Neurological Disorder: No - HEENT Hx HEENT Disorder: Yes (eyeglasses) - Renal Hx Renal Disorder: No - Endocrine/Metabolic Hx Diabetes Mellitus Type 1: Yes - Hematological/Oncological Hx Blood Transfusions: Yes - Integumentary Hx Dermatological Disorder: Yes - Musculoskeletal/Rheumatological Hx Musculoskeletal Disorders: Yes (b/l knees) - Gastrointestinal Hx Gastrointestinal Disorders: No - Genitourinary/Gynecological Hx Genitourinary Disorders: (has 2 way sharp) - Psychiatric Hx Psychophysiologic Disorder: No Hx Substance Use: No - Surgical History Other/Comment: Right femur ORIF (12/07/2015) - Anesthesia Hx Anesthesia Reactions: No Hx Malignant Hyperthermia: No - Suicidal Assessment Feels Threatened In Home Enviroment: No <TerriguimimiMai - Last Filed: 06/20/18 12:22> Family/Social History Family/Social History: No Known Family HX Smoking Status: Never Smoked Hx Alcohol Use: No Hx Substance Use: No Hx Substance Use Treatment: No <TseringMai zapata - Last Filed: 06/20/18 12:22> Allergies/Home Meds <TerriMai palacios - Last Filed: 06/20/18 12:22> <DanielpiaYvon L - Last Filed: 06/20/18 13:08> Allergies/Adverse Reactions: Allergies No Known Allergies Allergy (Verified 01/07/18 09:50) Home Medications: Home Meds Medication Instructions Recorded Confirmed Carvedilol [Coreg] 3.125 mg PO BID 04/07/18 06/20/18 Furosemide [Lasix] 40 mg PO DAILY 04/07/18 06/20/18 GlipiZIDE [Glucotrol] 10 mg PO BID 04/07/18 06/20/18 Levocetirizine Dihydrochloride 5 mg PO DAILY 04/07/18 06/20/18 Metformin HCl [Fortamet] 1,000 mg PO BID 04/07/18 06/20/18 Montelukast [Singulair] 10 mg PO DAILY 04/07/18 06/20/18 Pantoprazole [Protonix EC Tab] 40 mg PO DAILY 04/07/18 06/20/18 Pregabalin [Lyrica] 100 mg PO TID 04/07/18 06/20/18 Simvastatin [Zocor] 40 mg PO DAILY 04/07/18 06/20/18 Tamsulosin [Flomax] 0.4 mg PO BID 04/07/18 06/20/18 Linaclotide [Linzess] 290 mcg PO DAILY 06/20/18 06/20/18 Review of Systems - Review of Systems Constitutional: Normal. absent: Night Sweats Eyes: Normal. absent: Vision Changes ENT: Normal Respiratory: Normal. absent: SOB Cardiovascular: Chest Pain. absent: Palpitations, Calf Pain, Syncope Gastrointestinal: Normal. absent: Abdominal Pain, Nausea, Vomiting Musculoskeletal: Normal Neurological: Normal Endocrine: Normal Hemo/Lymphatic: Normal Psychiatric: Normal <Mai Pang - Last Filed: 06/20/18 12:22> Physical Exam Vital Signs Reviewed: Yes Blood Pressure: Normal Pulse: Regular Respiratory Rate: Normal Appearance: Positive for: Non-Toxic, Comfortable Pain Distress: Mild Mental Status: Positive for: Alert and Oriented X 3 - Systems Exam Head: Present: Atraumatic, Normocephalic Pupils: Present: PERRL Extroacular Muscles: Present: EOMI Conjunctiva: Present: Normal Mouth: Present: Moist Mucous Membranes Nose (Internal): Present: Normal Inspection Neck: Present: Normal Range of Motion Respiratory/Chest: Present: Clear to Auscultation, Good Air Exchange. No: Respi ratory Distress, Accessory Muscle Use Cardiovascular: Present: Regular Rate and Rhythm, Normal S1, S2, Peripheal Pulses Present. No: Murmurs, Tachycardic, Bradycardic Abdomen: Present: Normal Bowel Sounds. No: Tenderness, Distention, Peritoneal Signs, Rebound, Guarding Back: Present: Normal Inspection Upper Extremity: Present: Normal Inspection. No: Cyanosis, Edema Lower Extremity: Present: Normal Inspection. No: Edema, CALF TENDERNESS Neurological: Present: GCS=15, CN II-XII Intact, Speech Normal Skin: Present: Warm, Dry, Other (vitiligo throughout face and body). No: Rashes Psychiatric: Present: Alert, Oriented x 3, Normal Insight, Normal Concentration <Mai Pang - Last Filed: 06/20/18 12:22> Vital Signs Pulse Resp BP Pulse Ox 06/20/18 10:31 70 18 132/75 97 <Yvon Aguayo - Last Filed: 06/20/18 13:08> Medical Decision Making ED Course and Treatment: 06/20/18 11:05 IMPRESSION 82 year old male, whose past medical history includes hypertension, hyperlipidemia, IDDM, hip fracture, vitiligo, BPH s/p TURP, urinary incontinence, UTI, presents to the Emergency department complaining of Left Sided Chest Pain x 2 hours. ASSESSMENT Chest Pain / ACS Rule-Out PLAN - EKG obtained, results per above - CXR - Troponin - CMP - CBC - Nitro Ointment PRN 06/20/18 12:23 Patient will be admitted under Dr. Griffith's service. <Mai Pang - Last Filed: 06/20/18 12:22> ED Course and Treatment: 06/20/18 10:45 EKG: Ordered, reviewed, and independently interpreted the EKG. Rate : 61 BPM Rhythm : NSR Interpretation : T-wave inversions. Comparison : 04/07/2018 no change. In agreement with resident note, which includes further HPI details. Patient was seen and evaluated with resident, came up with plan and treatment together. 06/20/18 13:06 I discussed the case in detail with Dr. Griffith who agrees to admit patient to Telemetry. Patient improved and chest pain almost resolved. Consult was placed for Dr. Finch. <Yvon Aguayo - Last Filed: 06/20/18 13:08> Disposition/Present on Arrival - Present on Arrival Any Indicators Present on Arrival: Yes History of DVT/PE: No History of Uncontrolled Diabetes: Yes Urinary Catheter: Yes History Surgical Site Infection Following: None - Disposition Have Diagnosis and Disposition been Completed?: Yes Disposition Time: 11:45 Patient Plan: Admission <Mai Pang - Last Filed: 06/20/18 12:22> <Yvon Aguayo - Last Filed: 06/20/18 13:08> - Disposition Diagnosis: Chest pain Disposition: HOSPITALIZED Patient Problems: Current Active Problems Problem Status Onset Chest pain Acute Condition: GUARDED
[2018-06-20] MEDS ORDERED: Nitroglycerin 2% Ointment Foilpak UD TOP STA (10:57)
[2018-06-20 11:01] LABS: BASO # 0.03 K/mm3 (0.0-2.0); BASO % 0.4 % (0.0-3.0); EOS # 0.3 (0.0-0.7); EOS % 4.3 % (1.5-5.0); GRAN # 2.97 (1.4-6.5); GRAN % 38.1 % (50.0-68.0); HEMOGLOBIN 11.5 g/dL (14.0-18.0); LYMPH # 3.8 (1.2-3.4); LYMPH % 48.8 % (22.0-35.0); MEAN CELL VOLUME 86.4 fl (80.0-105.0); MEAN CORPUSCULAR HEMOGLOBIN 27.9 pg (25.0-35.0); MEAN CORPUSCULAR HGB CONC 32.3 g/dl (31.0-37.0); MEAN PLATELET VOLUME 10.5 fl (7.0-11.0); MONO # 0.7 (0.1-0.6); MONO % 8.4 % (1.0-6.0); RBC 4.12 10^6/uL (3.5-6.1); RED CELL DISTRIBUTION WIDTH 15.5 % (11.5-14.5); WHITE BLOOD COUNT 7.8 10^3/uL (4.5-11.0)
[2018-06-20 11:14] LABS: ALB/GLOB RATIO 1.1 (1.1-1.8); ALT/SGPT 34 U/L (7-56); AST/SGOT 38 U/L (17-59); BLOOD UREA NITROGEN 17 mg/dL (7-21); CALCIUM 9.2 mg/dL (8.4-10.5); GFR NON-AFRICAN AMERICAN > 60
[2018-06-20 11:25] LABS: TROPONIN I < 0.01 ng/mL
[2018-06-20] MEDS ORDERED: Dextrose 50% SYRINGE Inj (50 ml) IV PRN (11:42)
[2018-06-20] MEDS ORDERED: Pantoprazole 40 mg EC Tab PO SCH (11:45)
[2018-06-20] MEDS ORDERED: Enoxaparin 40 mg Syringe SC SCH (11:45)
[2018-06-20 12:17] VITALS: BMI 31.8
[2018-06-20] MEDS ORDERED: Influenza Vaccine 60 mcg/0.5 mL SYR (4YR UP) IM ONE (13:40)
[2018-06-20] MEDS ORDERED: Pneumococcal 23-Valent Vaccine IM ONE (13:40)
--- NOTE | 2018-06-20 13:45 | RAD ---
Date of service: 06/20/2018 HISTORY: Chest pain COMPARISON: 09/18/2017 FINDINGS: LUNGS: No active pulmonary disease. PLEURA: No significant pleural effusion identified, no pneumothorax apparent. CARDIOVASCULAR: No aortic atherosclerotic calcification present. Mild cardiomegaly no pulmonary vascular congestion. OSSEOUS STRUCTURES: No significant abnormalities. VISUALIZED UPPER ABDOMEN: Normal. OTHER FINDINGS: None. IMPRESSION: No active disease.
[2018-06-20 14:05] LABS: FREE T4 0.95 ng/dL (0.78-2.19)
[2018-06-20] MEDS: POLYETHYLENE GLYCOL 3350 17 GM/Dose PACKET PO SCH ×2 (14:11→17:18)
[2018-06-20] MEDS: Nitroglycerin 2% Ointment Foilpak UD TOP SCH ×3 (14:12→23:04)
--- NOTE | 2018-06-20 14:28 | CP.PCM.HP ---
History of Present Illness - History of Present Illness History of Present Illness: H&P for Dr. Griffith Chief Complaint: Chest pain with radiation to the arm HPI: Patient is a 82 year old male with a past medical history of hypertension, hyperlipidemia, DM, hip fracture, vitiligo, BPH s/p TURP, urinary incontinence, UTI, who presented to the Emergency department complaining of Left Sided Chest Pain which began 8:30 this morning after prayer. Patient states the pain started while he was reading the news on his ipad. Patient then told hi daughter which called EMS right away. When pain started, he states it radiated down his left arm. He rates the pain 10/10 initially describing it as sharp pain which he has never experienced before. When EMS arrived he was given aspirin 324 and nitrog lycerin, this he states decreased his pain to a 4/10. Patient denies any associated nausea, vomiting, dizziness, shortness of breath. PMD: Dr. Griffith Social Hx: denies tobacco, alcohol, or drug abuse Surgical Hx:Right femur ORIF, BPH s/p TURP Present on Admission - Present on Admission Any Indicators Present on Admission: No Review of Systems - Review of Systems All systems: reviewed and no additional remarkable complaints except (for what's stated in the HPI) Past Patient History - Infectious Disease Hx of Infectious Diseases: None - Tetanus Immunizations Tetanus Immunization: Unknown - Past Social History Smoking Status: Former Smoker - CARDIAC Hx Cardiac Disorders: Yes Hx Hypercholesterolemia: Yes Hx Hypertension: Yes - PULMONARY Hx Respiratory Disorders: Yes (USED TO SMOKE 2 PPD. QUIT 50 YRS AGO.) - NEUROLOGICAL Hx Neurological Disorder: No - HEENT Hx HEENT Problems: Yes (eyeglasses) Hx Cataracts: Yes (L EYE SX) - RENAL Hx Chronic Kidney Disease: No - ENDOCRINE/METABOLIC Hx Endocrine Disorders: Yes Hx Diabetes Mellitus Type 1: Yes - HEMATOLOGICAL/ONCOLOGICAL Hx Blood Disorders: Yes Hx Anemia: Yes (BLOOD TRANSFUSION.) Hx Cancer: Yes (prostate w/ radiation in 2004) - INTEGUMENTARY Hx Dermatological Problems: Yes (VITILIGO) - MUSCULOSKELETAL/RHEUMATOLOGICAL Hx Musculoskeletal Disorders: Yes (b/l knee SX) Hx Falls: No Hx Fractures: Yes (RIGHT FEMUR FX 2016 ORIF) - GASTROINTESTINAL Hx Gastrointestinal Disorders: No - GENITOURINARY/GYNECOLOGICAL Hx Genitourinary Disorders: Yes (has 2 way sharp) Hx Urinary Tract Infection: Yes - PSYCHIATRIC Hx Psychophysiologic Disorder: No Hx Substance Use: No - SURGICAL HISTORY Hx Surgeries: Yes (BILATERAL KNEE SX,LEFT EYE SX,PROSTATE SX.) Other/Comment: Right femur ORIF (12/07/2015) - ANESTHESIA Hx Anesthesia Reactions: No Hx Malignant Hyperthermia: No Meds Allergies/Adverse Reactions: Allergies Allergy/AdvReac Type Severity Reaction Status Date / Time No Known Allergies Allergy Verified 01/07/18 09:50 Physical Exam - Head Exam Head Exam: ATRAUMATIC, NORMAL INSPECTION, NORMOCEPHALIC - Eye Exam Eye Exam: EOMI - ENT Exam ENT Exam: Mucous Membranes Moist - Respiratory Exam Respiratory Exam: Clear to Auscultation Bilateral, NORMAL BREATHING PATTERN. absent: Rhonchi, Wheezes - Cardiovascular Exam Cardiovascular Exam: REGULAR RHYTHM, +S1, +S2 - GI/Abdominal Exam GI & Abdominal Exam: Normal Bowel Sounds, Soft - Extremities Exam Extremities exam: Positive for: normal inspection - Back Exam Back exam: NORMAL INSPECTION - Neurological Exam Neurological exam: Alert, CN II-XII Intact, Oriented x3 - Psychiatric Exam Psychiatric exam: Normal Affect, Normal Mood (vitiligo) Results - Vital Signs Recent Vital Signs: Last Vital Signs Temp Pulse 67 06/20/18 12:59 Resp 18 06/20/18 13:02 BP 181/101 H 06/20/18 12:59 Pulse Ox 97 06/20/18 10:31 - Labs Result Diagrams: 06/20/18 10:35 06/20/18 10:35 Labs: Laboratory Results - last 24 hr 06/20/18 06/20/18 06/20/18 10:35 10:35 11:50 WBC 7.8 RBC 4.12 Hgb 11.5 L Hct 35.6 L MCV 86.4 MCH 27.9 MCHC 32.3 RDW 15.5 H Plt Count 234 MPV 10.5 Gran % 38.1 L Lymph % (Auto) 48.8 H [place] % (Auto) 8.4 H Eos % (Auto) 4.3 Baso % (Auto) 0.4 Gran # 2.97 Lymph # (Auto) 3.8 H [place] # (Auto) 0.7 H Eos # (Auto) 0.3 Baso # (Auto) 0.03 ESR 43 H Sodium 134 Potassium 4.9 Chloride 97 L Carbon Dioxide 31 Anion Gap 11 BUN 17 Creatinine 0.8 Est GFR ( Amer) > 60 Est GFR (Non-Af Amer) > 60 Random Glucose 163 H Calcium 9.2 Total Bilirubin 0.3 AST 38 ALT 34 Alkaline Phosphatase 86 Troponin I < 0.01 Total Protein 7.6 Albumin 4.0 Globulin 3.6 Albumin/Globulin Ratio 1.1 Free T4 Thyroxine (T4) TSH 3rd Generation 06/20/18 13:25 WBC RBC Hgb Hct MCV MCH MCHC RDW Plt Count MPV Gran % Lymph % (Auto) [place] % (Auto) Eos % (Auto) Baso % (Auto) Gran # Lymph # (Auto) [place] # (Auto) Eos # (Auto) Baso # (Auto) ESR Sodium Potassium Chloride Carbon Dioxide Anion Gap BUN Creatinine Est GFR ( Amer) Est GFR (Non-Af Amer) Random Glucose Calcium Total Bilirubin AST ALT Alkaline Phosphatase Troponin I Total Protein Albumin Globulin Albumin/Globulin Ratio Free T4 0.95 Thyroxine (T4) 6.0 TSH 3rd Generation 1.14 Assessment & Plan - Assessment and Plan (Free Text) Assessment: Patient is a 82 year old male with a past medical history of hypertension, hyperlipidemia, NIDDM, hip fracture, vitiligo, BPH s/p TURP, urinary incontinence, UTI, who presented to the Emergency department complaining of Left Sided Chest Pain which began 8:30 this morning after prayer. Chest pain r/o ACS -Continue with serial EKGs; initital EKG shows t wave inversions as seen in previous EKGs -Initial and second troponins were <0.01, will continue with serial troponins -Continue with aspirin, nitroglycerin, carvedilol, lipitor -Cardiology consulted -Echoardiogram ordered -Consistent carb diet -Physical and occupational therapy Hypertension -Continue carvedilol -Start lisinopril considering DM and hypertension DM -ISS-Med -HgA1c BPH s/p TURP -Continue flomax GI/DVT prophylaxis: Protonix/Lovenox
[2018-06-20 15:40] LABS: TROPONIN I < 0.01 ng/mL
[2018-06-20 15:47] LABS: PARTIAL THROMBOPLASTIN TIME 29.8 Seconds (26.9-38.3); PROTHROMBIN TIME 11.1 SECONDS (9.4-12.5)
--- NOTE | 2018-06-20 17:01 | CARD ---
APPROVED REPORT Date of service: 06/20/2018 EXAM: Two-dimensional and M-mode echocardiogram with Doppler and color Doppler. INDICATION Chest Pain 2D DIMENSIONS Left Atrium (2D)3.9 (1.6-4.0cm)IVSd1.0 (0.7-1.1cm) LVDd4.6 (3.9-5.9cm)PWd1.1 (0.7-1.1cm) LVDs3.3 (2.5-4.0cm)FS (%) 28.7 % LVEF (%)55.4 (>50%) M-Mode DIMENSIONS Aortic Root3.90 (2.2-3.7cm)Aortic Cusp Exc.1.90 (1.5-2.0cm) Aortic Valve AoV Peak Wunnuzjk128.0cm/Oscar Peak GR.9mmHg Mitral Valve MV E Orryuwgd50.7cm/sMV A Mmqvoevt443.0cm/sE/A ratio0.6 TDI Lateral E' Peak V7.90cm/sMedial E' Peak V7.24cm/sE/Lateral E'8.8 E/Medial E'9.6 Pulmonary Valve PV Peak Elxzgzam19.5cm/sPV Peak Grad.2mmHg Tricuspid Valve TR Peak Pitnuyrw916dk/sRAP [id number] Peak Gr.6mmHg [id number] LEFT VENTRICLE The left ventricle is normal size. There is normal left ventricular wall thickness. The left ventricular function is normal. The left ventricular ejection fraction is within the normal range. There is normal LV segmental wall motion. Transmitral Doppler flow pattern is Grade I-abnormal relaxation pattern. RIGHT VENTRICLE The right ventricle is normal size. There is normal right ventricular wall thickness. The right ventricular systolic function is normal. ATRIA The left atrium size is normal. The right atrium size is normal. AORTIC VALVE The aortic valve is not well visualized. No aortic regurgitation is present. There is no aortic valvular stenosis. MITRAL VALVE The mitral valve is not well visualized. There is no mitral valve regurgitation noted. There is no mitral valve stenosis. TRICUSPID VALVE There is no tricuspid valve regurgitation noted. GREAT VESSELS The aortic root is mildly enlarged. The IVC is normal in size and collapses >50% with inspiration. PERICARDIAL EFFUSION There is a trace pericardial effusion. <Conclusion> There is normal left ventricular wall thickness. The left ventricular function is normal. The left ventricular ejection fraction is within the normal range. There is normal LV segmental wall motion. Transmitral Doppler flow pattern is Grade I-abnormal relaxation pattern. The aortic root is mildly enlarged.
[2018-06-20] MEDS: Insulin Lispro (humaLOG) MEDIUM Coverage SC SCH (17:17)
--- NOTE | 2018-06-20 20:58 | CON ---
DATE: 06/20/2018 CARDIOLOGY CONSULTATION HISTORY: The patient is an 82-year-old male who presents with new onset of substernal chest discomfort, radiation down the left arm, at rest. PAST MEDICAL HISTORY: Notable for history of hypercholesterolemia, diabetes mellitus and hypertension. No previous cardiac history was noted. No previous peptic ulcer disease or bleeding disorder noted. SOCIAL HISTORY: The patient does not smoke. REVIEW OF SYSTEMS: Fourteen-point review of systems was reviewed. No allergies noted. No edema in the lower extremities. No dyspnea. PHYSICAL EXAMINATION: VITAL SIGNS: Blood pressure is 132/75, heart rate is in the 70s. NECK: Negative JVD. LUNGS: Without rales. HEART: S1, S2. EXTREMITIES: Without edema. EKG shows normal sinus rhythm with nonspecific ST-T changes. LABORATORY DATA: Hemoglobin is 11.5. Troponin is negative x1. The glucose is 163. IMPRESSION: 1. New-onset angina including angina at rest consistent with unstable angina. 2. High probability for coronary artery disease. 3. Diabetes mellitus. 4. Hypertension. 5. Hypercholesterolemia. 6. Diabetes mellitus. 7. Hypertension. Given these findings, we will start the patient on aspirin which was given on the field. Plavix 300 mg was ordered and given. We will start the patient on subcu Lovenox. Given these ongoing symptoms and high probability for CAD, we will proceed to cardiac catheterization in the morning which the patient is agreeable. Hermilo Finch MD
[2018-06-20] MEDS ORDERED: Insulin Lispro 1 UNITS/0.01 ML SC ONE (21:58)
--- NOTE | 2018-06-21 00:05 | CARD ---
APPROVED REPORT Date of service: 06/20/2018 EKG Measurement Heart [id number] <Conclusion> Sinus bradycardia Otherwise normal ECG
--- NOTE | 2018-06-21 00:19 | CARD ---
APPROVED REPORT Date of service: 06/20/2018 EKG Measurement Heart [id number] <Conclusion> Normal sinus rhythm Nonspecific T wave abnormality Abnormal ECG
[2018-06-21 00:20] LABS: TROPONIN I < 0.01 ng/mL
[2018-06-21] MEDS: Pantoprazole 40 mg EC Tab PO SCH (05:51)
[2018-06-21] MEDS: Nitroglycerin 2% Ointment Foilpak UD TOP SCH ×3 (05:52→17:44)
[2018-06-21 06:48] LABS: BASO # 0.02 K/mm3 (0.0-2.0); BASO % 0.3 % (0.0-3.0); EOS # 0.3 (0.0-0.7); EOS % 4.1 % (1.5-5.0); GRAN # 4.02 (1.4-6.5); GRAN % 51.8 % (50.0-68.0); HEMOGLOBIN 11.1 g/dL (14.0-18.0); LYMPH # 2.6 (1.2-3.4); LYMPH % 33.6 % (22.0-35.0); MEAN CORPUSCULAR HEMOGLOBIN 27.8 pg (25.0-35.0); MEAN CORPUSCULAR HGB CONC 32.6 g/dl (31.0-37.0); MEAN PLATELET VOLUME 10.6 fl (7.0-11.0); MONO # 0.8 (0.1-0.6); MONO % 10.2 % (1.0-6.0); RED CELL DISTRIBUTION WIDTH 15.3 % (11.5-14.5); WHITE BLOOD COUNT 7.8 10^3/uL (4.5-11.0)
[2018-06-21 06:50] LABS: LDL CHOLESTEROL 63 mg/dL (0-129)
[2018-06-21 06:55] LABS: ALBUMIN 3.6 g/dL (3.0-4.8); ALT/SGPT 39 U/L (7-56); AST/SGOT 30 U/L (17-59); BILIRUBIN,DIRECT 0.1 mg/dL (0.0-0.4); BLOOD UREA NITROGEN 15 mg/dL (7-21); CALCIUM 8.8 mg/dL (8.4-10.5); GFR NON-AFRICAN AMERICAN > 60; HDL CHOLESTEROL 44 mg/dL (29-60)
[2018-06-21] MEDS: Insulin Lispro (humaLOG) MEDIUM Coverage SC SCH ×3 (08:15→17:16)
[2018-06-21] MEDS ORDERED: Lidocaine 2% Inj (20ml) ONE (09:17)
[2018-06-21] MEDS ORDERED: Iohexol 350mgl/ml 50 ML ONE (09:17)
[2018-06-21] MEDS ORDERED: Iodixanol 320 MG/ML 100 ML BOTTLE IV ONE (09:17)
[2018-06-21] MEDS ORDERED: Iodixanol 320 MG/ML 200 ML BOTTLE IV ONE (09:18)
[2018-06-21] MEDS ORDERED: Midazolam 2 MG/2 ML VIAL ONE ×3 (09:33→09:57)
--- NOTE | 2018-06-21 09:33 | PN ---
DATE: 06/21/2018 SUBJECTIVE: The patient is in room 276, bed 2. The patient is awake, responsive. Overnight nurse's notes were reviewed. The patient overnight complained of neuropathic pain for which the patient was given Lyrica 100 mg with relief. The patient's chest pain has significantly responded to the treatment with aspirin, Plavix and Nitropaste. The patient does have some mild left-sided chest pain with and without left upper extremity radiation. Patient seen and examined in component lab tech holding area. OBJECTIVE: VITAL SIGNS: Telemetry shows sinus rhythm, heart rate 71-75, T-max 98.6, blood pressure 126/62, respiration 20, O2 sat 97%. HEENT: Head is normocephalic, atraumatic. Skin examination shows positive . Eyes; pinkish pale conjunctivae. Anicteric sclerae. No oropharyngeal lesion. NECK: No neck rigidity. CHEST: Kyphosis. LUNGS: Shows no audible crackle, rales, or wheezing. CARDIOVASCULAR: S1, S2, regular rhythm. No audible murmur, gallop, or rub. ABDOMEN: Protuberant, obese. Positive bowel sound. Healed surgical scar of suprapubic cystostomy. GENITALIA: Male. Positive Diamond catheter. EXTREMITIES: Shows no pitting edema, no calf tenderness, no Homans' sign. Positive LOU stockings and SCDs noted. MUSCULOSKELETAL: Shows an elevated body mass index. DIAGNOSTICS: On 06/21/2018; WBC 7.8, hemoglobin/hematocrit 11.1/34.0, platelet 223. Sodium 133, potassium 4.4, chloride 98, CO2 of 29, BUN 15, creatinine 0.7, glucose 213, calcium 8.8, phosphorus 3.9, magnesium 2.1. LFTs are within normal limit. Cholesterol 128, LDL 68, HDL 44, triglyceride 116. IMPRESSION: 1. New onset unstable angina and rest angina. 2. Chest pain. 3. Elevated erythrocyte sedimentation rate of 43. 4. Uncontrolled insulin-requiring diabetes mellitus with hemoglobin A1c of 8.9 and fructosamine of 305. 5. History of left ventricle ejection fraction of 55%. 6. Grade I abnormal relaxation pattern. 7. Inferolateral nonspecific ST changes. 8. Morbid obesity. 9. Neurogenic bladder. 10. History of prostate carcinoma, history of prostate surgery. 11. Voiding dysfunction and neurogenic bladder, Diamond catheter requiring. 12. Chronic indwelling Diamond catheter. 13. Normocytic anemia. 14. History of hyperlipidemia. 15. History of hypertriglyceridemia. 16. Diabetic neuropathy. 17. Hyperglycemia. PLAN: At this time, the patient is to be continued on aspirin, Plavix, statins, Nitropaste, GI, DVT prophylaxis, sliding scale insulin coverage, and Lyrica. The patient is awaiting for a cardiac catheterization today by Dr. Hermilo Finch, which the patient was explained about yesterday at length and the patient's grandson was also explained about the patient's need for further diagnostic therapeutic intervention including cardiac catheterization and depending upon the results of the cardiac catheterization and angiogram, further therapeutic intervention. The patient is agreeable to proceed with above which has also been discussed with the patient by the Cardiology. The patient's further management will be dependent upon the patient's clinical condition, hemodynamic status and as per the patient response to therapeutic intervention as per the patient's diagnostic test results and as per therapeutic intervention as per recommendation by all the physician involved the care of the patient. The patient and the patient's family updated about his condition, diagnosis, test results and other data. Dictated and electronically signed, not read. Tramaine Griffith MD MTDD
[2018-06-21] MEDS ORDERED: D5W IV ONE (10:19)
[2018-06-21] MEDS ORDERED: NITROGLYCERIN IV ONE (10:19)
[2018-06-21] MEDS ORDERED: Morphine 2 mg/ml ISec ONE ×4 (10:24→10:43)
[2018-06-21] MEDS ORDERED: Phenylephrine 10 mg/ml Inj ONE (10:40)
[2018-06-21] MEDS ORDERED: Morphine 4 mg/ml ISec ONE (10:48)
[2018-06-21] MEDS ORDERED: Metoprolol 1 mg/ml Inj ONE (10:53)
[2018-06-21] MEDS ORDERED: Heparin25000 units/250ml 1/2NS 25,000 UNITS/250 ML BAG IV SCH (11:30)
[2018-06-21] MEDS ORDERED: Nitroglycerin 50mg in D5W 50 MG/250 ML BOTTLE IV PRN (11:34)
[2018-06-21] MEDS: Morphine 2 mg/ml ISec IVP PRN ×3 (12:00→21:31)
--- NOTE | 2018-06-21 12:13 | CP.PCM.CON ---
<Fede Bowers - Last Filed: 06/21/18 13:00> History of Present Illness - History of Present Illness History of Present Illness: Gabriel Robinson PGY2 - ICU Consult Note on behalf of Dr. Tapia Consult: s/p LHC showing LAD occlusion requiring IABP HPI: Patient is an 82 year old male with past medical history of HTN, HLD, DM2, BPH s/p TURP who presented to [facility] in the AM of 06/20/18 with complaints for left sided chest pain x 2 hours. At that time patient had been given ASA 325mg and nitro spray with some relief of his pain symptoms. Patient was evaluated with EKG showing NSR with T wave inversions and admitted to telemetry floor for monitoring. Patient was evaluated by cardiology with Dr. Finch and was taken for scheduled cardiac catheterization in AM of 06/21/18 for high suspicion for CAD. During LHC patient was noted to have occlusion of the distal LAD. Patient had attempted angioplasty with limited success and subsequent coronary artery dissection. He was placed on Intra-aortic balloon pump in high density press laborer for further supplementation of diastolic heart function and transferred to ICU for further monitoring. While in ICU patient complained of continued left sided chest pain described as pressure. He denies shortness of breath, abdominal pain, numbness, neurological deficits, nausea, vomiting, fever, chills. PMH: Angina, HTN, HLD, DM, Vitiligo, BPH s/p TURP, UTI, urinary incontinence PSH: Hx of right femur ORIF, BPH s/p TURP SOCHX: Denies tobacco, ETOH, ID ALL: [id number] MEDS: MAR reviewed PDM: Dr. Tramaine Griffith Review of Systems - Review of Systems All systems: reviewed and no additional remarkable complaints except (as mentioned in HPI) Past Patient History - Infectious Disease Hx of Infectious Diseases: None - Tetanus Immunizations Tetanus Immunization: Unknown - Past Social History Smoking Status: Former Smoker Cigar Use: No Alcohol: None Drugs: Denies - CARDIAC Hx Cardiac Disorders: Yes Hx Hypercholesterolemia: Yes Hx Hypertension: Yes - PULMONARY Hx Respiratory Disorders: Yes (USED TO SMOKE 2 PPD. QUIT 50 YRS AGO.) - NEUROLOGICAL Hx Neurological Disorder: No - HEENT Hx HEENT Problems: Yes (eyeglasses) Hx Cataracts: Yes (L EYE SX) - RENAL Hx Chronic Kidney Disease: No - ENDOCRINE/METABOLIC Hx Endocrine Disorders: Yes Hx Diabetes Mellitus Type 1: Yes - HEMATOLOGICAL/ONCOLOGICAL Hx Blood Disorders: Yes Hx Anemia: Yes (BLOOD TRANSFUSION.) Hx Cancer: Yes (prostate w/ radiation in 2004) - INTEGUMENTARY Hx Dermatological Problems: Yes (VITILIGO) - MUSCULOSKELETAL/RHEUMATOLOGICAL Hx Musculoskeletal Disorders: Yes (b/l knee SX) Hx Falls: No Hx Fractures: Yes (RIGHT FEMUR FX 2016 ORIF) - GASTROINTESTINAL Hx Gastrointestinal Disorders: No - GENITOURINARY/GYNECOLOGICAL Hx Genitourinary Disorders: Yes (has 2 way sharp) Hx Urinary Tract Infection: Yes - PSYCHIATRIC Hx Psychophysiologic Disorder: No Hx Substance Use: No - SURGICAL HISTORY Hx Surgeries: Yes (BILATERAL KNEE SX,LEFT EYE SX,PROSTATE SX.) Other/Comment: Right femur ORIF (12/07/2015) - ANESTHESIA Hx Anesthesia Reactions: No Hx Malignant Hyperthermia: No Meds Allergies/Adverse Reactions: Allergies Allergy/AdvReac Type Severity Reaction Status Date / Time No Known Allergies Allergy Verified 01/07/18 09:50 - Medications Medications: Current Medications Acetaminophen (Tylenol 325mg Tab) 650 mg PO Q6 PRN PRN Reason: TEMP>=99.5F Last Admin: 06/20/18 15:48 Dose: 650 mg Acetaminophen (Tylenol 650 Mg Supp) 650 mg RC Q6H PRN PRN Reason: TEMP>=99.5F Aspirin (Ecotrin) 81 mg PO DAILY [facility] Last Admin: 06/21/18 05:51 Dose: 81 mg Atorvastatin Calcium (Lipitor) 20 mg PO DAILY [facility] Last Admin: 06/20/18 12:59 Dose: 20 mg Carvedilol (Coreg) 3.125 mg PO BID [facility] Last Admin: 06/20/18 17:25 Dose: 3.125 mg Dextrose (Dextrose 50% Inj) 0 ml IV STAT PRN; Protocol PRN Reason: Hypoglycemia Protocol Docusate Sodium (Colace) 100 mg PO TID [facility] Last Admin: 06/20/18 17:18 Dose: 100 mg Dextrose (Dextrose 5% In Water 1000 Ml) 1,000 mls @ 0 mls/hr IV .Q0M PRN; Protocol PRN Reason: Hypoglycemia Protocol Heparin Sodium/Sodium Chloride (Heparin 18561 Units/250ml 1/2 Normal Saline) 25,000 units in 250 mls @ 12.41 mls/hr IV .Q20H9M [facility]; Protocol Last Admin: 06/21/18 11:46 Dose: 12 units/kg/hr, 12.41 mls/hr Nitroglycerin/Dextrose (Nitroglycerin 50 Mg/250 Ml D5w) 50 mg in 250 mls @ 1.5 mls/hr IV .Q24H PRN; Protocol PRN Reason: Pain, severe (8-10) Insulin Human Lispro (Humalog Med) 0 units SC [facility]; Protocol Last Admin: 06/21/18 08:15 Dose: Not Given Lisinopril (Zestril) 5 mg PO DAILY [facility] Last Admin: 06/20/18 17:17 Dose: 5 mg Montelukast Sodium (Singulair) 10 mg PO DAILY [facility] Last Admin: 06/20/18 13:04 Dose: 10 mg Morphine Sulfate (Morphine) 2 mg IVP Q4H PRN PRN Reason: Pain, moderate (4-7) Nitroglycerin (Nitro-Bid 2% Oint) 1 ea TOP Q6H [facility] Last Admin: 06/21/18 05:52 Dose: 1 ea Ondansetron HCl (Zofran Inj) 4 mg IVP Q4H PRN PRN Reason: Nausea/Vomiting Pantoprazole Sodium (Protonix Ec Tab) 40 mg PO 0600 [facility] Last Admin: 06/21/18 05:51 Dose: 40 mg Polyethylene Glycol (Miralax) 17 gm PO BID [facility] Last Admin: 06/20/18 17:18 Dose: 17 gm Pregabalin (Lyrica) 100 mg PO TID [facility] Tamsulosin HCl (Flomax) 0.4 mg PO BID [facility] Last Admin: 06/20/18 17:17 Dose: 0.4 mg Physical Exam - Constitutional Appears: Non-toxic - Head Exam Head Exam: ATRAUMATIC, NORMAL INSPECTION, NORMOCEPHALIC - Eye Exam Eye Exam: EOMI, PERRL - ENT Exam ENT Exam: Mucous Membranes Moist - Neck Exam Neck exam: Positive for: Full Rom - Respiratory Exam Respiratory Exam: Clear to Auscultation Bilateral, NORMAL BREATHING PATTERN. absent: Rales, Rhonchi - Cardiovascular Exam Cardiovascular Exam: REGULAR RHYTHM, +S1, +S2. absent: JVD - GI/Abdominal Exam GI & Abdominal Exam: Normal Bowel Sounds, Soft. absent: Firm, Guarding, Tenderness - Extremities Exam Extremities exam: Negative for: pedal edema Additional comments: right lower extremity with cath site clean, dry, without hematoma and dressing intact IABP tubing intact Distal pulses attainable b/l - Neurological Exam Neurological exam: Alert, Oriented x3 Additional comments: Neuro exam limited secondary to patient being s/p cath - Psychiatric Exam Psychiatric exam: Normal Affect, Normal Mood - Skin Skin Exam: Dry, Intact Additional comments: Vitligo Results - Vital Signs Recent Vital Signs: Last Vital Signs Temp 98.6 F 06/21/18 06:00 Pulse 75 06/21/18 06:00 Resp 20 06/21/18 06:00 BP 126/62 06/21/18 06:00 Pulse Ox 97 06/21/18 06:00 - Labs Result Diagrams: 06/21/18 06:10 06/21/18 06:10 Labs: Laboratory Results - last 24 hr 06/20/18 06/20/18 06/20/18 11:50 11:50 13:25 WBC RBC Hgb Hct MCV MCH MCHC RDW Plt Count MPV Gran % Lymph % (Auto) [place] % (Auto) Eos % (Auto) Baso % (Auto) Gran # Lymph # (Auto) [place] # (Auto) Eos # (Auto) Baso # (Auto) ESR 43 H PT INR APTT Sodium Potassium Chloride Carbon Dioxide Anion Gap BUN Creatinine Est GFR ( Amer) Est GFR (Non-Af Amer) POC Glucose (mg/dL) Random Glucose Hemoglobin A1c 8.9 H Fructosamine 305 H Calcium Phosphorus Magnesium Total Bilirubin Direct Bilirubin AST ALT Alkaline Phosphatase Total Creatine Kinase Troponin I Total Protein Albumin Globulin Albumin/Globulin Ratio Triglycerides Cholesterol LDL Cholesterol Direct HDL Cholesterol Free T4 Thyroxine (T4) TSH 3rd Generation 06/20/18 06/20/18 06/20/18 13:25 15:00 15:16 WBC RBC Hgb Hct MCV MCH MCHC RDW Plt Count MPV Gran % Lymph % (Auto) [place] % (Auto) Eos % (Auto) Baso % (Auto) Gran # Lymph # (Auto) [place] # (Auto) Eos # (Auto) Baso # (Auto) ESR PT 11.1 INR 1.00 APTT 29.8 Sodium Potassium Chloride Carbon Dioxide Anion Gap BUN Creatinine Est GFR ( Amer) Est GFR (Non-Af Amer) POC Glucose (mg/dL) Random Glucose Hemoglobin A1c Fructosamine Calcium Phosphorus Magnesium Total Bilirubin Direct Bilirubin AST ALT Alkaline Phosphatase Total Creatine Kinase 68 Troponin I < 0.01 Total Protein Albumin Globulin Albumin/Globulin Ratio Triglycerides Cholesterol LDL Cholesterol Direct HDL Cholesterol Free T4 0.95 Thyroxine (T4) 6.0 TSH 3rd Generation 1.14 06/20/18 06/20/18 06/20/18 16:59 21:15 23:50 WBC RBC Hgb Hct MCV MCH MCHC RDW Plt Count MPV Gran % Lymph % (Auto) [place] % (Auto) Eos % (Auto) Baso % (Auto) Gran # Lymph # (Auto) [place] # (Auto) Eos # (Auto) Baso # (Auto) ESR PT INR APTT Sodium Potassium Chloride Carbon Dioxide Anion Gap BUN Creatinine Est GFR ( Amer) Est GFR (Non-Af Amer) POC Glucose (mg/dL) 241 H 355 H Random Glucose Hemoglobin A1c Fructosamine Calcium Phosphorus Magnesium Total Bilirubin Direct Bilirubin AST ALT Alkaline Phosphatase Total Creatine Kinase 69 Troponin I < 0.01 Total Protein Albumin Globulin Albumin/Globulin Ratio Triglycerides Cholesterol LDL Cholesterol Direct HDL Cholesterol Free T4 Thyroxine (T4) TSH 3rd Generation 06/21/18 06/21/18 06/21/18 02:00 06:10 06:10 WBC 7.8 RBC 4.00 Hgb 11.1 L Hct 34.0 L MCV 85.0 MCH 27.8 MCHC 32.6 RDW 15.3 H Plt Count 223 MPV 10.6 Gran % 51.8 Lymph % (Auto) 33.6 [place] % (Auto) 10.2 H Eos % (Auto) 4.1 Baso % (Auto) 0.3 Gran # 4.02 Lymph # (Auto) 2.6 [place] # (Auto) 0.8 H Eos # (Auto) 0.3 Baso # (Auto) 0.02 ESR PT INR APTT Sodium 133 Potassium 4.4 Chloride 98 Carbon Dioxide 29 Anion Gap 10 BUN 15 Creatinine 0.7 L Est GFR ( Amer) > 60 Est GFR (Non-Af Amer) > 60 POC Glucose (mg/dL) 173 H Random Glucose 213 H Hemoglobin A1c Fructosamine Calcium 8.8 Phosphorus 3.9 Magnesium 2.1 Total Bilirubin 0.3 Direct Bilirubin 0.1 AST 30 ALT 39 Alkaline Phosphatase 88 Total Creatine Kinase Troponin I Total Protein 7.1 Albumin 3.6 Globulin 3.5 Albumin/Globulin Ratio 1.0 L Triglycerides 116 Cholesterol 128 L LDL Cholesterol Direct 63 HDL Cholesterol 44 Free T4 Thyroxine (T4) TSH 3rd Generation 06/21/18 07:17 WBC RBC Hgb Hct MCV MCH MCHC RDW Plt Count MPV Gran % Lymph % (Auto) [place] % (Auto) Eos % (Auto) Baso % (Auto) Gran # Lymph # (Auto) [place] # (Auto) Eos # (Auto) Baso # (Auto) ESR PT INR APTT Sodium Potassium Chloride Carbon Dioxide Anion Gap BUN Creatinine Est GFR ( Amer) Est GFR (Non-Af Amer) POC Glucose (mg/dL) 236 H Random Glucose Hemoglobin A1c Fructosamine Calcium Phosphorus Magnesium Total Bilirubin Direct Bilirubin AST ALT Alkaline Phosphatase Total Creatine Kinase Troponin I Total Protein Albumin Globulin Albumin/Globulin Ratio Triglycerides Cholesterol LDL Cholesterol Direct HDL Cholesterol Free T4 Thyroxine (T4) TSH 3rd Generation Assessment & Plan - Assessment and Plan (Free Text) Assessment: 82 year old male with past medical history of of HTN, HLD, DM2, BPH s/p TURP who presented to [facility] 06/20 with new onset angina taken for heart catheterization by Dr. Finch 06/21. Patient was noted to have mid-distal LAD disease/occlusion with unsuccessful angioplasty and subsequent coronary artery dissection. Patient was stabilized and IABP placed for diastolic supplementation and transferred to ICU for further monitoring and evaluation. Plan: Neuro: -AAOx3 without sedation Cardio: s/p LHC with unsuccessful angioplasty of mid/distal LAD and subsequent coronary artery dissection -Initial EKG showing T wave inversions and trop negative x2 from admission -Trend troponins, serial ekg's to monitor for further evolution of ischemia -Patient placed on IABP at 1:1 setting, 100% inflation with goal MAP >60 -Daily CXR for evaluation of placement of IABP to be above Left main stem -Started on Heparin gtt and Nitro gtt -Check PT/PTT this evening -Start Morphine 2mg Q4H PRN pain -Continue with ASA, Lipitor -Plavix held per cardiology -Cardiology with Dr. Finch consulted, follow up recs Stable CAD, HTN -Maintain MAP >60s as per cardiology -Continue coreg 3.125mg BID, Lisinopril 5mg Daily, ASA 81mg, Plavix as per Dr. Finch HLD -Continue with Lipitor Pulm: -Supplemental O2, maintain SaO2 >90% -Incentive spirometer GI: Chronic constipation -Continue with linzess and miralax as per primary GI ppx with protonix Renal: BPH s/p TURP -Continue with flomax Hx of cystitis, hx of hematuria -monitor UOP, WBC Monitor and replete lytes as necessary Heme/Onc: -Monitor PT/PTT while patient on heparin gtt Normocytic anemia -Anemia of chronic disease -Monitor CBC, Maintain Hg >8 in cardiac patient, transfuse as needed Endo: DM2 -HgA1C of 8.9, fructosamine of 305 -Continue with ISS medium and ACHS -Maintain euglycemia with target bg 140-180 Peripheral Neuropathy -Continue with Lyrica 100mg PO TID ID: -No leukocytosis, afebrile -Continue to monitor - Date & Time Date: 06/21/18 Time: 13:07 <Elio Tapia - Last Filed: 06/21/18 13:33> Meds - Medications Medications: Current Medications Acetaminophen (Tylenol 325mg Tab) 650 mg PO Q6 PRN PRN Reason: TEMP>=99.5F Last Admin: 06/20/18 15:48 Dose: 650 mg Acetaminophen (Tylenol 650 Mg Supp) 650 mg RC Q6H PRN PRN Reason: TEMP>=99.5F Aspirin (Ecotrin) 81 mg PO DAILY [facility] Last Admin: 06/21/18 05:51 Dose: 81 mg Atorvastatin Calcium (Lipitor) 20 mg PO DAILY [facility] Last Admin: 06/20/18 12:59 Dose: 20 mg Carvedilol (Coreg) 3.125 mg PO BID [facility] Last Admin: 06/20/18 17:25 Dose: 3.125 mg Dextrose (Dextrose 50% Inj) 0 ml IV STAT PRN; Protocol PRN Reason: Hypoglycemia Protocol Docusate Sodium (Colace) 100 mg PO TID [facility] Last Admin: 06/20/18 17:18 Dose: 100 mg Dextrose (Dextrose 5% In Water 1000 Ml) 1,000 mls @ 0 mls/hr IV .Q0M PRN; Protocol PRN Reason: Hypoglycemia Protocol Heparin Sodium/Sodium Chloride (Heparin 58361 Units/250ml 1/2 Normal Saline) 25,000 units in 250 mls @ 12.41 mls/hr IV .Q20H9M [facility]; Protocol Last Admin: 06/21/18 11:46 Dose: 12 units/kg/hr, 12.41 mls/hr Nitroglycerin/Dextrose (Nitroglycerin 50 Mg/250 Ml D5w) 50 mg in 250 mls @ 1.5 mls/hr IV .Q24H PRN; Protocol PRN Reason: Pain, severe (8-10) Last Titration: 06/21/18 12:45 Dose: 40 mcg/min, 12 mls/hr Insulin Human Lispro (Humalog Med) 0 units SC [facility]; Protocol Last Admin: 06/21/18 08:15 Dose: Not Given Lisinopril (Zestril) 5 mg PO DAILY [facility] Last Admin: 06/20/18 17:17 Dose: 5 mg Montelukast Sodium (Singulair) 10 mg PO DAILY [facility] Last Admin: 06/20/18 13:04 Dose: 10 mg Morphine Sulfate (Morphine) 2 mg IVP Q4H PRN PRN Reason: Pain, moderate (4-7) Last Admin: 06/21/18 12:00 Dose: 2 mg Nitroglycerin (Nitro-Bid 2% Oint) 1 ea TOP Q6H [facility] Last Admin: 06/21/18 12:50 Dose: Not Given Ondansetron HCl (Zofran Inj) 4 mg IVP Q4H PRN PRN Reason: Nausea/Vomiting Pantoprazole Sodium (Protonix Ec Tab) 40 mg PO 0600 [facility] Last Admin: 06/21/18 05:51 Dose: 40 mg Polyethylene Glycol (Miralax) 17 gm PO BID [facility] Last Admin: 06/20/18 17:18 Dose: 17 gm Pregabalin (Lyrica) 100 mg PO TID [facility] Tamsulosin HCl (Flomax) 0.4 mg PO BID [facility] Last Admin: 06/20/18 17:17 Dose: 0.4 mg Results - Vital Signs Recent Vital Signs: Last Vital Signs Temp 98.6 F 06/21/18 06:00 Pulse 67 06/21/18 12:30 Resp 12 06/21/18 12:30 BP 130/79 06/21/18 12:30 Pulse Ox 96 06/21/18 12:30 - Labs Result Diagrams: 06/21/18 06:10 06/21/18 06:10 Labs: Laboratory Results - last 24 hr 06/20/18 06/20/18 06/20/18 11:50 13:25 13:25 WBC RBC Hgb Hct MCV MCH MCHC RDW Plt Count MPV Gran % Lymph % (Auto) [place] % (Auto) Eos % (Auto) Baso % (Auto) Gran # Lymph # (Auto) [place] # (Auto) Eos # (Auto) Baso # (Auto) PT INR APTT Sodium Potassium Chloride Carbon Dioxide Anion Gap BUN Creatinine Est GFR ( Amer) Est GFR (Non-Af Amer) POC Glucose (mg/dL) Random Glucose Hemoglobin A1c 8.9 H Fructosamine 305 H Calcium Phosphorus Magnesium Total Bilirubin Direct Bilirubin AST ALT Alkaline Phosphatase Total Creatine Kinase Troponin I Total Protein Albumin Globulin Albumin/Globulin Ratio Triglycerides Cholesterol LDL Cholesterol Direct HDL Cholesterol Free T4 0.95 Thyroxine (T4) 6.0 TSH 3rd Generation 1.14 06/20/18 06/20/18 06/20/18 15:00 15:16 16:59 WBC RBC Hgb Hct MCV MCH MCHC RDW Plt Count MPV Gran % Lymph % (Auto) [place] % (Auto) Eos % (Auto) Baso % (Auto) Gran # Lymph # (Auto) [place] # (Auto) Eos # (Auto) Baso # (Auto) PT 11.1 INR 1.00 APTT 29.8 Sodium Potassium Chloride Carbon Dioxide Anion Gap BUN Creatinine Est GFR ( Amer) Est GFR (Non-Af Amer) POC Glucose (mg/dL) 241 H Random Glucose Hemoglobin A1c Fructosamine Calcium Phosphorus Magnesium Total Bilirubin Direct Bilirubin AST ALT Alkaline Phosphatase Total Creatine Kinase 68 Troponin I < 0.01 Total Protein Albumin Globulin Albumin/Globulin Ratio Triglycerides Cholesterol LDL Cholesterol Direct HDL Cholesterol Free T4 Thyroxine (T4) TSH 3rd Generation 06/20/18 06/20/18 06/21/18 21:15 23:50 02:00 WBC RBC Hgb Hct MCV MCH MCHC RDW Plt Count MPV Gran % Lymph % (Auto) [place] % (Auto) Eos % (Auto) Baso % (Auto) Gran # Lymph # (Auto) [place] # (Auto) Eos # (Auto) Baso # (Auto) PT INR APTT Sodium Potassium Chloride Carbon Dioxide Anion Gap BUN Creatinine Est GFR ( Amer) Est GFR (Non-Af Amer) POC Glucose (mg/dL) 355 H 173 H Random Glucose Hemoglobin A1c Fructosamine Calcium Phosphorus Magnesium Total Bilirubin Direct Bilirubin AST ALT Alkaline Phosphatase Total Creatine Kinase 69 Troponin I < 0.01 Total Protein Albumin Globulin Albumin/Globulin Ratio Triglycerides Cholesterol LDL Cholesterol Direct HDL Cholesterol Free T4 Thyroxine (T4) TSH 3rd Generation 06/21/18 06/21/18 06/21/18 06:10 06:10 07:17 WBC 7.8 RBC 4.00 Hgb 11.1 L Hct 34.0 L MCV 85.0 MCH 27.8 MCHC 32.6 RDW 15.3 H Plt Count 223 MPV 10.6 Gran % 51.8 Lymph % (Auto) 33.6 [place] % (Auto) 10.2 H Eos % (Auto) 4.1 Baso % (Auto) 0.3 Gran # 4.02 Lymph # (Auto) 2.6 [place] # (Auto) 0.8 H Eos # (Auto) 0.3 Baso # (Auto) 0.02 PT INR APTT Sodium 133 Potassium 4.4 Chloride 98 Carbon Dioxide 29 Anion Gap 10 BUN 15 Creatinine 0.7 L Est GFR ( Amer) > 60 Est GFR (Non-Af Amer) > 60 POC Glucose (mg/dL) 236 H Random Glucose 213 H Hemoglobin A1c Fructosamine Calcium 8.8 Phosphorus 3.9 Magnesium 2.1 Total Bilirubin 0.3 Direct Bilirubin 0.1 AST 30 ALT 39 Alkaline Phosphatase 88 Total Creatine Kinase Troponin I Total Protein 7.1 Albumin 3.6 Globulin 3.5 Albumin/Globulin Ratio 1.0 L Triglycerides 116 Cholesterol 128 L LDL Cholesterol Direct 63 HDL Cholesterol 44 Free T4 Thyroxine (T4) TSH 3rd Generation 06/21/18 12:48 WBC RBC Hgb Hct MCV MCH MCHC RDW Plt Count MPV Gran % Lymph % (Auto) [place] % (Auto) Eos % (Auto) Baso % (Auto) Gran # Lymph # (Auto) [place] # (Auto) Eos # (Auto) Baso # (Auto) PT INR APTT Sodium Potassium Chloride Carbon Dioxide Anion Gap BUN Creatinine Est GFR ( Amer) Est GFR (Non-Af Amer) POC Glucose (mg/dL) 292 H Random Glucose Hemoglobin A1c Fructosamine Calcium Phosphorus Magnesium Total Bilirubin Direct Bilirubin AST ALT Alkaline Phosphatase Total Creatine Kinase Troponin I Total Protein Albumin Globulin Albumin/Globulin Ratio Triglycerides Cholesterol LDL Cholesterol Direct HDL Cholesterol Free T4 Thyroxine (T4) TSH 3rd Generation Attending/Attestation - Attestation I have personally seen and examined this patient.: Yes I have fully participated in the care of the patient.: Yes I have reviewed all pertinent clinical information: Yes Notes (Text): 06/21/18 13:25 82 yo male who came for scheduled angiography and was found to have clinically significant stenosis of LAD, s/p unsuccessful attempt of angioplasty, complicated by plaque dissection. Patient remained hemodynamically stable and not in shock, but decision to IABP was made to augmentate diastolic blood flow in to the coronaries. Patient was trasnfered to ICU, heparin drip started, nitro drip started and morphine prn for pain control initiated. no expanding hematoma. dopplerable pulss on both DPAs. will cont bb, statins, DAP. IABP 1:1 ccm time 40 min
--- NOTE | 2018-06-21 14:20 | CP.PCM.PN ---
Subjective - Date & Time of Evaluation Date of Evaluation: 06/21/18 Time of Evaluation: 14:18 - Subjective Subjective: Patient seen and examined at bedside s/p catheterization with daughter and grandaughters. Patient states he is currently having chest pain. Patient is aware of the outcome of his procedure. Objective - Vital Signs/Intake and Output Vital Signs (last 24 hours): Temp Pulse Resp BP Pulse Ox 98.6 F 78 14 129/65 98 06/21/18 06:00 06/21/18 14:00 06/21/18 14:00 06/21/18 14:00 06/21/18 14:00 Intake and Output: 06/21/18 06/21/18 06:59 18:59 Intake Total 0 47 Output Total 1000 Balance -1000 47 - Medications Medications: Current Medications Acetaminophen (Tylenol 325mg Tab) 650 mg PO Q6 PRN PRN Reason: TEMP>=99.5F Last Admin: 06/20/18 15:48 Dose: 650 mg Acetaminophen (Tylenol 650 Mg Supp) 650 mg RC Q6H PRN PRN Reason: TEMP>=99.5F Aspirin (Ecotrin) 81 mg PO DAILY [facility] Last Admin: 06/21/18 05:51 Dose: 81 mg Atorvastatin Calcium (Lipitor) 20 mg PO DAILY [facility] Last Admin: 06/20/18 12:59 Dose: 20 mg Carvedilol (Coreg) 3.125 mg PO BID [facility] Last Admin: 06/20/18 17:25 Dose: 3.125 mg Dextrose (Dextrose 50% Inj) 0 ml IV STAT PRN; Protocol PRN Reason: Hypoglycemia Protocol Docusate Sodium (Colace) 100 mg PO TID [facility] Last Admin: 06/21/18 14:11 Dose: Not Given Dextrose (Dextrose 5% In Water 1000 Ml) 1,000 mls @ 0 mls/hr IV .Q0M PRN; Protocol PRN Reason: Hypoglycemia Protocol Heparin Sodium/Sodium Chloride (Heparin 65861 Units/250ml 1/2 Normal Saline) 25,000 units in 250 mls @ 12.41 mls/hr IV .Q20H9M [facility]; Protocol Last Admin: 06/21/18 11:46 Dose: 12 units/kg/hr, 12.41 mls/hr Nitroglycerin/Dextrose (Nitroglycerin 50 Mg/250 Ml D5w) 50 mg in 250 mls @ 1.5 mls/hr IV .Q24H PRN; Protocol PRN Reason: Pain, severe (8-10) Last Titration: 06/21/18 12:45 Dose: 40 mcg/min, 12 mls/hr Insulin Human Lispro (Humalog Med) 0 units SC [facility]; Protocol Last Admin: 06/21/18 08:15 Dose: Not Given Lisinopril (Zestril) 5 mg PO DAILY [facility] Last Admin: 06/20/18 17:17 Dose: 5 mg Montelukast Sodium (Singulair) 10 mg PO DAILY [facility] Last Admin: 06/20/18 13:04 Dose: 10 mg Morphine Sulfate (Morphine) 2 mg IVP Q4H PRN PRN Reason: Pain, moderate (4-7) Last Admin: 06/21/18 12:00 Dose: 2 mg Nitroglycerin (Nitro-Bid 2% Oint) 1 ea TOP Q6H [facility] Last Admin: 06/21/18 12:50 Dose: Not Given Ondansetron HCl (Zofran Inj) 4 mg IVP Q4H PRN PRN Reason: Nausea/Vomiting Pantoprazole Sodium (Protonix Ec Tab) 40 mg PO 0600 [facility] Last Admin: 06/21/18 05:51 Dose: 40 mg Polyethylene Glycol (Miralax) 17 gm PO BID [facility] Last Admin: 06/20/18 17:18 Dose: 17 gm Pregabalin (Lyrica) 100 mg PO TID [facility] Tamsulosin HCl (Flomax) 0.4 mg PO BID [facility] Last Admin: 06/20/18 17:17 Dose: 0.4 mg - Labs Labs: 06/21/18 06:10 06/21/18 06:10 PT 11.1 SECONDS (9.4-12.5) 06/20/18 15:00 INR 1.00 06/20/18 15:00 APTT 29.8 Seconds (26.9-38.3) 06/20/18 15:00 Assessment and Plan - Assessment and Plan (Free Text) Assessment: Patient is a 82 year old male with a past medical history of hypertension, hyperlipidemia, NIDDM, hip fracture, vitiligo, BPH s/p TURP, urinary incontinence, UTI, who presented to the Emergency department complaining of Left Sided Chest Pain which began 8:30 am 06/20. Chest pain r/o ACS -Trop negative x 3 -EKG reveals non specific ST-T wave changes -Continue with aspirin and heparin drip -Nitrogylcerin drip started -Continue with statin IABP s/p PTCA -Patient found to have significant stenosis of LAD, however cath not successful -IABP placed to continue blood flow into coronary arteries -Continue with aspirin and heparin drip -Nitrogylcerin drip started -Morphine for pain Hypertension -Continue carvedilol -Start lisinopril considering DM and hypertension DM -ISS-Med -HgA1c 8.9; poorly controlled -Diabetic education BPH s/p TURP -Continue flomax GI/DVT prophylaxis: Protonix/Lovenox
--- NOTE | 2018-06-21 15:46 | CARDCATH ---
PROCEDURE DATE: 06/21/2018 HISTORY: The patient is a 82-year-old male who presents with symptoms consistent with unstable angina. His troponins on admission x1 was negative. 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 PROCEDURE: Left heart catheterization with coronary aortography, attempted PTCA of an LAD followed by intra-aortic balloon pump placement. The right femoral artery was cannulated with 6-[place] sheath. I performed moderate sedation which included the presence of an independent trained observer that assisted in monitoring the patient's level of consciousness and physiologic status. After administration of Versed and fentanyl, my intra-service time was 1 hour. Findings on catheterization revealed a left ventricle that contracted normally. Estimated ejection fraction is 50-55%. His coronary anatomy revealed a left dominant circulation. The RCA was a small vessel with intimal irregularities without critical lesions. The left main artery revealed intimal irregularities without critical lesions. The circumflex artery was a large vessel with diffuse atherosclerosis and calcification without critical lesions. The LAD was a long vessel that had diffuse calcification and intimal irregularities. At the area of the lesion, there was a marked tortuous segment with a lesion of approximately 90% stenoses. The patient was started on intravenous Angiomax under fluoroscopic guide, the guiding catheter was placed in the ostium of left main artery. A 0.014 ATW wire followed by a run-through wire followed by BMW, followed by across the wire was used to try to cross the 90% lesion. Multiple techniques were used after extensive work at his marked tortuosity, the wire would not cross, instead resulted occlusion of the LAD at the point of the 90% stenoses. The patient developed chest pain at that point. Multiple attempts were used to cross the total occlusion which were unsuccessful. The right groin sheath was then exchanged for a balloon pump sheath. The intra-aortic balloon pump was placed for hemodynamic support and to increase diastolic filling of the coronary arteries. The patient was brought to the coronary care unit with hemodynamically stable condition with a balloon pump. In summary, the procedure was unsuccessful for PTCA of a 90% mid LAD stenoses which was markedly tortuous and calcified. The attempted PTCA resulted in an occluded mid and distal LAD which could not be reopened. The patient remained hemodynamically stable. 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 As long as the patient remains hemodynamically stable, we will continue the balloon pump for the next 24 to 48 hours. Hermilo Finch MD
[2018-06-21] MEDS: POLYETHYLENE GLYCOL 3350 17 GM/Dose PACKET PO SCH ×2 (16:40→17:18)
[2018-06-21 18:03] LABS: HEMOGLOBIN 10.2 g/dL (14.0-18.0); MEAN CELL VOLUME 86.5 fl (80.0-105.0); MEAN CORPUSCULAR HEMOGLOBIN 28.1 pg (25.0-35.0); MEAN CORPUSCULAR HGB CONC 32.5 g/dl (31.0-37.0); MEAN PLATELET VOLUME 10.4 fl (7.0-11.0); RBC 3.63 10^6/uL (3.5-6.1); RED CELL DISTRIBUTION WIDTH 15.5 % (11.5-14.5); WHITE BLOOD COUNT 8.4 10^3/uL (4.5-11.0)
[2018-06-21 18:17] LABS: INR 1.16; PROTHROMBIN TIME 12.9 SECONDS (9.4-12.5)
[2018-06-21 18:27] LABS: PARTIAL THROMBOPLASTIN TIME 102.9 Seconds (26.9-38.3)
--- NOTE | 2018-06-21 23:01 | CARD ---
APPROVED REPORT Date of service: 06/21/2018 EKG Measurement Heart [id number] <Conclusion> Sinus bradycardia Possible Anterior infarct, age undetermined Abnormal ECG
[2018-06-22] MEDS: Nitroglycerin 2% Ointment Foilpak UD TOP SCH ×4 (00:06→17:18)
[2018-06-22 01:35] LABS: URINE BILIRUBIN NEGATIVE (NEGATIVE); URINE BLOOD LARGE (NEGATIVE); URINE GLUCOSE (UA) NEGATIVE (NEGATIVE); URINE LEUKOCYTE ESTERASE TRACE Leu/uL (NEGATIVE); URINE PROTEIN 30 mg/dL (<30 mg/dL); URINE UROBILINOGEN 0.2 E.U./dL (<1 E.U./dL)
[2018-06-22 01:41] LABS: URINE APPEARANCE CLEAR (CLEAR); URINE COLOR YELLOW (YELLOW)
[2018-06-22 02:03] LABS: URINE BACTERIA FEW /hpf
[2018-06-22 05:33] LABS: BASO # 0.02 K/mm3 (0.0-2.0); BASO % 0.2 % (0.0-3.0); EOS # 0.2 (0.0-0.7); EOS % 1.6 % (1.5-5.0); GRAN # 7.05 (1.4-6.5); GRAN % 64.6 % (50.0-68.0); HEMOGLOBIN 10.2 g/dL (14.0-18.0); LYMPH # 2.5 (1.2-3.4); LYMPH % 22.4 % (22.0-35.0); MEAN CELL VOLUME 86.9 fl (80.0-105.0); MEAN CORPUSCULAR HEMOGLOBIN 28.5 pg (25.0-35.0); MEAN CORPUSCULAR HGB CONC 32.8 g/dl (31.0-37.0); MEAN PLATELET VOLUME 10.7 fl (7.0-11.0); MONO # 1.2 (0.1-0.6); MONO % 11.2 % (1.0-6.0); RBC 3.58 10^6/uL (3.5-6.1); RED CELL DISTRIBUTION WIDTH 15.6 % (11.5-14.5); WHITE BLOOD COUNT 10.9 10^3/uL (4.5-11.0)
[2018-06-22 05:34] LABS: INR 1.13; PROTHROMBIN TIME 12.8 SECONDS (9.4-12.5)
[2018-06-22 05:43] LABS: ALBUMIN 3.5 g/dL (3.0-4.8); ALT/SGPT 38 U/L (7-56); AST/SGOT 78 U/L (17-59); BILIRUBIN,DIRECT 0.2 mg/dL (0.0-0.4); BLOOD UREA NITROGEN 14 mg/dL (7-21); CALCIUM 8.7 mg/dL (8.4-10.5); GFR NON-AFRICAN AMERICAN > 60
[2018-06-22] MEDS: Pantoprazole 40 mg EC Tab PO SCH (05:45)
[2018-06-22] MEDS: Morphine 2 mg/ml ISec IVP PRN ×2 (06:13→09:47)
[2018-06-22] MEDS: Insulin Lispro (humaLOG) MEDIUM Coverage SC SCH ×3 (07:58→17:22)
--- NOTE | 2018-06-22 09:17 | CP.CCUPN ---
<Priscila Ho - Last Filed: 06/22/18 11:00> CCU Subjective - Physician Review Subjective (Free Text): 06/22/18 09:15 Priscila Ho PGY1 Critical Care Progress Note Patient seen and examined at bedside this morning. No acute events overnight. Patient states he slept comfortably and denies any complaints at this time including chest pain, SOB, back pain, numbness, tingling, swelling, back pain, nausea and vomiting. He is s/p IABP removal this morning. Echo pending today. CCU Objective - Vital Signs / Intake & Output Vital Signs (Last 4 hours): Vital Signs Temp Pulse 06/22/18 09:00 77 06/22/18 08:00 78 06/22/18 07:49 98.2 F 06/22/18 07:00 74 06/22/18 06:00 78 Intake and Output (Last 8hrs): Intake & Output 06/21/18 06/22/18 06/22/18 22:59 06:59 14:59 Intake Total 1597 54 13 Output Total 1350 Balance 247 54 13 Weight 228 lb Intake: IV 957 54 13 Left Antecubital 849 Oral 640 Output: Urine 1350 Urethral (Sharp) 1350 Other: # Bowel Movements 0 - Physical Exam Head: Positive for: Atraumatic, Normocephalic Pupils: Positive for: PERRL Extroacular Muscles: Positive for: EOMI Conjunctiva: Positive for: Normal Mouth: Positive for: Moist Mucous Membranes Nose (Internal): Positive for: Normal Inspection Neck: Positive for: Normal Range of Motion Respiratory/Chest: Positive for: Clear to Auscultation, Good Air Exchange. Negative for: Respiratory Distress, Accessory Muscle Use Cardiovascular: Positive for: Regular Rate and Rhythm, Normal S1, S2, Peripheal Pulses Present. Negative for: Murmurs, Tachycardic, Bradycardic Abdomen: Positive for: Normal Bowel Sounds. Negative for: Tenderness, Distention, Peritoneal Signs, Rebound, Guarding Back: Positive for: Normal Inspection Upper Extremity: Positive for: Normal Inspection. Negative for: Cyanosis, Edema Lower Extremity: Positive for: Normal Inspection, Other (right groin balloon insertion site is clean, minimial bleeding, no hemotoma appreciated ). Negative for: Edema, CALF TENDERNESS Neurological: Positive for: GCS=15, CN II-XII Intact, Speech Normal Skin: Positive for: Warm, Dry, Other (vitiligo throughout face and body). Negative for: Rashes Psychiatric: Positive for: Alert, Oriented x 3, Normal Insight, Normal Concentration - Medications Active Medications: Active Medications Generic Name Dose Route Start Last Admin Trade Name Freq PRN Reason Stop Dose Admin Acetaminophen 650 mg 06/20/18 11:42 06/22/18 04:05 Tylenol 325mg Tab PO 650 mg Q6 PRN Administration TEMP>=99.5F Acetaminophen 650 mg 06/20/18 11:42 Tylenol 650 Mg Supp RC Q6H PRN TEMP>=99.5F Aspirin 81 mg 06/20/18 11:45 06/21/18 16:39 Ecotrin PO Not Given DAILY PENDING SALE TO [facility] Atorvastatin Calcium 20 mg 06/20/18 11:45 06/21/18 16:40 Lipitor PO Not Given DAILY PENDING SALE TO [facility] Carvedilol 3.125 mg 06/20/18 11:45 06/21/18 17:17 Coreg PO 3.125 mg BID PENDING SALE TO [facility] Administration Dextrose 0 ml 06/20/18 11:42 Dextrose 50% Inj IV STAT PRN Hypoglycemia Protocol Protocol Docusate Sodium 100 mg 06/20/18 14:00 06/21/18 17:18 Colace PO Not Given TID PENDING SALE TO [facility] Dextrose 1,000 mls @ 0 mls/hr 06/20/18 11:42 Dextrose 5% In Water 1000 Ml IV .Q0M PRN Hypoglycemia Protocol Protocol Per Protocol Nitroglycerin/Dextrose 50 mg in 250 mls @ 1.5 mls/hr 06/21/18 11:34 06/22/18 08:03 Nitroglycerin 50 Mg/250 Ml D5w IV 30 mcg/min .Q24H PRN 9 mls/hr Pain, severe (8-10) Titration Protocol 5 MCG/MIN Insulin Human Lispro 0 units 06/20/18 16:30 06/22/18 07:58 Humalog Med SC 7 units AC KAUSHIK Administration Protocol Lisinopril 5 mg 06/20/18 16:00 06/21/18 16:41 Zestril PO Not Given DAILY PENDING SALE TO [facility] Montelukast Sodium 10 mg 06/20/18 11:45 06/22/18 09:01 Singulair PO 10 mg DAILY KAUSHIK Administration Morphine Sulfate 2 mg 06/21/18 11:31 06/22/18 06:13 Morphine IVP 2 mg Q4H PRN Administration Pain, moderate (4-7) Nitroglycerin 1 ea 06/20/18 12:00 06/22/18 05:46 Nitro-Bid 2% Oint TOP Not Given Q6H PENDING SALE TO [facility] Ondansetron HCl 4 mg 06/20/18 11:42 Zofran Inj IVP Q4H PRN Nausea/Vomiting Pantoprazole Sodium 40 mg 06/21/18 06:00 06/22/18 05:45 Protonix Ec Tab PO 40 mg 0600 KAUSHIK Administration Polyethylene Glycol 17 gm 06/20/18 11:45 06/21/18 17:18 Miralax PO Not Given BID PENDING SALE TO [facility] Pregabalin 100 mg 06/21/18 10:00 06/22/18 09:01 Lyrica PO 100 mg TID KAUSHIK Administration Tamsulosin HCl 0.4 mg 06/20/18 11:45 06/21/18 17:18 Flomax PO 0.4 mg BID KAUSHIK Administration - Patient Studies Lab Studies: Lab Studies 06/22/18 06/22/18 06/22/18 Range/Units 05:05 05:05 03:10 WBC 10.9 D (4.5-11.0) 10^3/uL RBC 3.58 (3.5-6.1) 10^6/uL Hgb 10.2 L (14.0-18.0) g/dL Hct 31.1 L (42.0-52.0) % MCV 86.9 (80.0-105.0) fl MCH 28.5 (25.0-35.0) pg MCHC 32.8 (31.0-37.0) g/dl RDW 15.6 H (11.5-14.5) % Plt Count 204 (120.0-450.0) 10^3/uL MPV 10.7 (7.0-11.0) fl Gran % 64.6 (50.0-68.0) % Lymph % (Auto) 22.4 (22.0-35.0) % Gre[place] % (Auto) 11.2 H (1.0-6.0) % Eos % (Auto) 1.6 (1.5-5.0) % Baso % (Auto) 0.2 (0.0-3.0) % Gran # 7.05 H (1.4-6.5) Lymph # (Auto) 2.5 (1.2-3.4) [place] # (Auto) 1.2 H (0.1-0.6) Eos # (Auto) 0.2 (0.0-0.7) Baso # (Auto) 0.02 (0.0-2.0) K/mm3 PT (9.4-12.5) SECONDS INR APTT 57.5 H (26.9-38.3) Seconds Sodium 132 (132-148) mmol/L Potassium 4.6 (3.6-5.0) mmol/L Chloride 94 L (98-107) mmol/L Carbon Dioxide 32 (21-33) mmol/L Anion Gap 10 (10-20) BUN 14 (7-21) mg/dL Creatinine 0.8 (0.8-1.5) mg/dl Est GFR ( Amer) > 60 Est GFR (Non-Af Amer) > 60 POC Glucose (mg/dL) (65-110) mg/dL Random Glucose 226 H (70-110) mg/dL Calcium 8.7 (8.4-10.5) mg/dL Phosphorus 3.3 (2.5-4.5) mg/dL Magnesium 2.0 (1.7-2.2) mg/dL Total Bilirubin 0.2 (0.2-1.3) mg/dL Direct Bilirubin 0.2 (0.0-0.4) mg/dL AST 78 H D (17-59) U/L ALT 38 (7-56) U/L Alkaline Phosphatase 87 (38-126) U/L Total Protein 6.9 (5.8-8.3) g/dL Albumin 3.5 (3.0-4.8) g/dL Globulin 3.4 gm/dL Albumin/Globulin Ratio 1.0 L (1.1-1.8) Urine Color (YELLOW) Urine Appearance (CLEAR) Urine pH (4.7-8.0) Ur Specific [place] (1.005-1.035) Urine Protein (<30 mg/dL) mg/dL Urine Glucose (UA) (NEGATIVE) mg/dL Urine Ketones (NEGATIVE) mg/dL Urine Blood (NEGATIVE) Urine Nitrate (NEGATIVE) Urine Bilirubin (NEGATIVE) Urine Urobilinogen (<1 E.U./dL) E.U./dL Ur Leukocyte Esterase (NEGATIVE) Sunshine/uL Urine RBC (0-2) /hpf Urine WBC (0-6) /hpf Ur Epithelial Cells (0-5) /hpf Urine Bacteria (NONE) /hpf 06/22/18 06/22/18 06/21/18 Range/Units 03:10 01:15 21:59 WBC (4.5-11.0) 10^3/uL RBC (3.5-6.1) 10^6/uL Hgb (14.0-18.0) g/dL Hct (42.0-52.0) % MCV (80.0-105.0) fl MCH (25.0-35.0) pg MCHC (31.0-37.0) g/dl RDW (11.5-14.5) % Plt Count (120.0-450.0) 10^3/uL MPV (7.0-11.0) fl Gran % (50.0-68.0) % Lymph % (Auto) (22.0-35.0) % [place] % (Auto) (1.0-6.0) % Eos % (Auto) (1.5-5.0) % Baso % (Auto) (0.0-3.0) % Gran # (1.4-6.5) Lymph # (Auto) (1.2-3.4) [place] # (Auto) (0.1-0.6) Eos # (Auto) (0.0-0.7) Baso # (Auto) (0.0-2.0) K/mm3 PT 12.8 H (9.4-12.5) SECONDS INR 1.13 APTT (26.9-38.3) Seconds Sodium (132-148) mmol/L Potassium (3.6-5.0) mmol/L Chloride (98-107) mmol/L Carbon Dioxide (21-33) mmol/L Anion Gap (10-20) BUN (7-21) mg/dL Creatinine (0.8-1.5) mg/dl Est GFR ( Amer) Est GFR (Non-Af Amer) POC Glucose (mg/dL) 264 H (65-110) mg/dL Random Glucose (70-110) mg/dL Calcium (8.4-10.5) mg/dL Phosphorus (2.5-4.5) mg/dL Magnesium (1.7-2.2) mg/dL Total Bilirubin (0.2-1.3) mg/dL Direct Bilirubin (0.0-0.4) mg/dL AST (17-59) U/L ALT (7-56) U/L Alkaline Phosphatase (38-126) U/L Total Protein (5.8-8.3) g/dL Albumin (3.0-4.8) g/dL Globulin gm/dL Albumin/Globulin Ratio (1.1-1.8) Urine Color Yellow (YELLOW) Urine Appearance Clear (CLEAR) Urine pH 6.0 (4.7-8.0) Ur Specific [place] >= 1.030 (1.005-1.035) Urine Protein 30 H (<30 mg/dL) mg/dL Urine Glucose (UA) Negative (NEGATIVE) mg/dL Urine Ketones Negative (NEGATIVE) mg/dL Urine Blood Large H (NEGATIVE) Urine Nitrate Negative (NEGATIVE) Urine Bilirubin Negative (NEGATIVE) Urine Urobilinogen 0.2 (<1 E.U./dL) E.U./dL Ur Leukocyte Esterase Trace H (NEGATIVE) Sunshine/uL Urine RBC 2 - 5 H (0-2) /hpf Urine WBC 2 - 5 (0-6) /hpf Ur Epithelial Cells 1 - 3 (0-5) /hpf Urine Bacteria Few (NONE) /hpf 06/21/18 06/21/18 06/21/18 Range/Units 17:50 17:50 16:12 WBC 8.4 (4.5-11.0) 10^3/uL RBC 3.63 (3.5-6.1) 10^6/uL Hgb 10.2 L (14.0-18.0) g/dL Hct 31.4 L (42.0-52.0) % MCV 86.5 (80.0-105.0) fl MCH 28.1 (25.0-35.0) pg MCHC 32.5 (31.0-37.0) g/dl RDW 15.5 H (11.5-14.5) % Plt Count 205 (120.0-450.0) 10^3/uL MPV 10.4 (7.0-11.0) fl Gran % (50.0-68.0) % Lymph % (Auto) (22.0-35.0) % [place] % (Auto) (1.0-6.0) % Eos % (Auto) (1.5-5.0) % Baso % (Auto) (0.0-3.0) % Gran # (1.4-6.5) Lymph # (Auto) (1.2-3.4) [place] # (Auto) (0.1-0.6) Eos # (Auto) (0.0-0.7) Baso # (Auto) (0.0-2.0) K/mm3 PT 12.9 H (9.4-12.5) SECONDS INR 1.16 APTT 102.9 H* (26.9-38.3) Seconds Sodium (132-148) mmol/L Potassium (3.6-5.0) mmol/L Chloride (98-107) mmol/L Carbon Dioxide (21-33) mmol/L Anion Gap (10-20) BUN (7-21) mg/dL Creatinine (0.8-1.5) mg/dl Est GFR ( Amer) Est GFR (Non-Af Amer) POC Glucose (mg/dL) 311 H (65-110) mg/dL Random Glucose (70-110) mg/dL Calcium (8.4-10.5) mg/dL Phosphorus (2.5-4.5) mg/dL Magnesium (1.7-2.2) mg/dL Total Bilirubin (0.2-1.3) mg/dL Direct Bilirubin (0.0-0.4) mg/dL AST (17-59) U/L ALT (7-56) U/L Alkaline Phosphatase (38-126) U/L Total Protein (5.8-8.3) g/dL Albumin (3.0-4.8) g/dL Globulin gm/dL Albumin/Globulin Ratio (1.1-1.8) Urine Color (YELLOW) Urine Appearance (CLEAR) Urine pH (4.7-8.0) Ur Specific [place] (1.005-1.035) Urine Protein (<30 mg/dL) mg/dL Urine Glucose (UA) (NEGATIVE) mg/dL Urine Ketones (NEGATIVE) mg/dL Urine Blood (NEGATIVE) Urine Nitrate (NEGATIVE) Urine Bilirubin (NEGATIVE) Urine Urobilinogen (<1 E.U./dL) E.U./dL Ur Leukocyte Esterase (NEGATIVE) Sunshine/uL Urine RBC (0-2) /hpf Urine WBC (0-6) /hpf Ur Epithelial Cells (0-5) /hpf Urine Bacteria (NONE) /hpf 06/21/18 06/21/18 Range/Units 12:48 07:17 WBC (4.5-11.0) 10^3/uL RBC (3.5-6.1) 10^6/uL Hgb (14.0-18.0) g/dL Hct (42.0-52.0) % MCV (80.0-105.0) fl MCH (25.0-35.0) pg MCHC (31.0-37.0) g/dl RDW (11.5-14.5) % Plt Count (120.0-450.0) 10^3/uL MPV (7.0-11.0) fl Gran % (50.0-68.0) % Lymph % (Auto) (22.0-35.0) % [place] % (Auto) (1.0-6.0) % Eos % (Auto) (1.5-5.0) % Baso % (Auto) (0.0-3.0) % Gran # (1.4-6.5) Lymph # (Auto) (1.2-3.4) [place] # (Auto) (0.1-0.6) Eos # (Auto) (0.0-0.7) Baso # (Auto) (0.0-2.0) K/mm3 PT (9.4-12.5) SECONDS INR APTT (26.9-38.3) Seconds Sodium (132-148) mmol/L Potassium (3.6-5.0) mmol/L Chloride (98-107) mmol/L Carbon Dioxide (21-33) mmol/L Anion Gap (10-20) BUN (7-21) mg/dL Creatinine (0.8-1.5) mg/dl Est GFR ( Amer) Est GFR (Non-Af Amer) POC Glucose (mg/dL) 292 H 236 H (65-110) mg/dL Random Glucose (70-110) mg/dL Calcium (8.4-10.5) mg/dL Phosphorus (2.5-4.5) mg/dL Magnesium (1.7-2.2) mg/dL Total Bilirubin (0.2-1.3) mg/dL Direct Bilirubin (0.0-0.4) mg/dL AST (17-59) U/L ALT (7-56) U/L Alkaline Phosphatase (38-126) U/L Total Protein (5.8-8.3) g/dL Albumin (3.0-4.8) g/dL Globulin gm/dL Albumin/Globulin Ratio (1.1-1.8) Urine Color (YELLOW) Urine Appearance (CLEAR) Urine pH (4.7-8.0) Ur Specific [place] (1.005-1.035) Urine Protein (<30 mg/dL) mg/dL Urine Glucose (UA) (NEGATIVE) mg/dL Urine Ketones (NEGATIVE) mg/dL Urine Blood (NEGATIVE) Urine Nitrate (NEGATIVE) Urine Bilirubin (NEGATIVE) Urine Urobilinogen (<1 E.U./dL) E.U./dL Ur Leukocyte Esterase (NEGATIVE) Sunshine/uL Urine RBC (0-2) /hpf Urine WBC (0-6) /hpf Ur Epithelial Cells (0-5) /hpf Urine Bacteria (NONE) /hpf Laboratory Results - last 24 hr 06/21/18 06/21/18 06/21/18 07:17 12:48 16:12 WBC RBC Hgb Hct MCV MCH MCHC RDW Plt Count MPV Gran % Lymph % (Auto) [place] % (Auto) Eos % (Auto) Baso % (Auto) Gran # Lymph # (Auto) [place] # (Auto) Eos # (Auto) Baso # (Auto) PT INR APTT Sodium Potassium Chloride Carbon Dioxide Anion Gap BUN Creatinine Est GFR ( Amer) Est GFR (Non-Af Amer) POC Glucose (mg/dL) 236 H 292 H 311 H Random Glucose Calcium Phosphorus Magnesium Total Bilirubin Direct Bilirubin AST ALT Alkaline Phosphatase Total Protein Albumin Globulin Albumin/Globulin Ratio Urine Color Urine Appearance Urine pH Ur Specific [place] Urine Protein Urine Glucose (UA) Urine Ketones Urine Blood Urine Nitrate Urine Bilirubin Urine Urobilinogen Ur Leukocyte Esterase Urine RBC Urine WBC Ur Epithelial Cells Urine Bacteria 06/21/18 06/21/18 06/21/18 17:50 17:50 21:59 WBC 8.4 RBC 3.63 Hgb 10.2 L Hct 31.4 L MCV 86.5 MCH 28.1 MCHC 32.5 RDW 15.5 H Plt Count 205 MPV 10.4 Gran % Lymph % (Auto) [place] % (Auto) Eos % (Auto) Baso % (Auto) Gran # Lymph # (Auto) [place] # (Auto) Eos # (Auto) Baso # (Auto) PT 12.9 H INR 1.16 APTT 102.9 H* Sodium Potassium Chloride Carbon Dioxide Anion Gap BUN Creatinine Est GFR ( Amer) Est GFR (Non-Af Amer) POC Glucose (mg/dL) 264 H Random Glucose Calcium Phosphorus Magnesium Total Bilirubin Direct Bilirubin AST ALT Alkaline Phosphatase Total Protein Albumin Globulin Albumin/Globulin Ratio Urine Color Urine Appearance Urine pH Ur Specific [place] Urine Protein Urine Glucose (UA) Urine Ketones Urine Blood Urine Nitrate Urine Bilirubin Urine Urobilinogen Ur Leukocyte Esterase Urine RBC Urine WBC Ur Epithelial Cells Urine Bacteria 06/22/18 06/22/18 06/22/18 01:15 03:10 03:10 WBC RBC Hgb Hct MCV MCH MCHC RDW Plt Count MPV Gran % Lymph % (Auto) [place] % (Auto) Eos % (Auto) Baso % (Auto) Gran # Lymph # (Auto) [place] # (Auto) Eos # (Auto) Baso # (Auto) PT 12.8 H INR 1.13 APTT 57.5 H Sodium Potassium Chloride Carbon Dioxide Anion Gap BUN Creatinine Est GFR ( Amer) Est GFR (Non-Af Amer) POC Glucose (mg/dL) Random Glucose Calcium Phosphorus Magnesium Total Bilirubin Direct Bilirubin AST ALT Alkaline Phosphatase Total Protein Albumin Globulin Albumin/Globulin Ratio Urine Color Yellow Urine Appearance Clear Urine pH 6.0 Ur Specific [place] >= 1.030 Urine Protein 30 H Urine Glucose (UA) Negative Urine Ketones Negative Urine Blood Large H Urine Nitrate Negative Urine Bilirubin Negative Urine Urobilinogen 0.2 Ur Leukocyte Esterase Trace H Urine RBC 2 - 5 H Urine WBC 2 - 5 Ur Epithelial Cells 1 - 3 Urine Bacteria Few 06/22/18 06/22/18 05:05 05:05 WBC 10.9 D RBC 3.58 Hgb 10.2 L Hct 31.1 L MCV 86.9 MCH 28.5 MCHC 32.8 RDW 15.6 H Plt Count 204 MPV 10.7 Gran % 64.6 Lymph % (Auto) 22.4 [place] % (Auto) 11.2 H Eos % (Auto) 1.6 Baso % (Auto) 0.2 Gran # 7.05 H Lymph # (Auto) 2.5 [place] # (Auto) 1.2 H Eos # (Auto) 0.2 Baso # (Auto) 0.02 PT INR APTT Sodium 132 Potassium 4.6 Chloride 94 L Carbon Dioxide 32 Anion Gap 10 BUN 14 Creatinine 0.8 Est GFR ( Amer) > 60 Est GFR (Non-Af Amer) > 60 POC Glucose (mg/dL) Random Glucose 226 H Calcium 8.7 Phosphorus 3.3 Magnesium 2.0 Total Bilirubin 0.2 Direct Bilirubin 0.2 AST 78 H D ALT 38 Alkaline Phosphatase 87 Total Protein 6.9 Albumin 3.5 Globulin 3.4 Albumin/Globulin Ratio 1.0 L Urine Color Urine Appearance Urine pH Ur Specific [place] Urine Protein Urine Glucose (UA) Urine Ketones Urine Blood Urine Nitrate Urine Bilirubin Urine Urobilinogen Ur Leukocyte Esterase Urine RBC Urine WBC Ur Epithelial Cells Urine Bacteria EKG/Cardiology Studies: Cardiology / EKG Studies 06/22/18 07:00 EKG [ELECTROCARDIOGRAM] DAILY Comment: Reason For Exam: CP Fingerstick Blood Sugar Results: 316 Critical Care Progress Note - Nutrition Nutrition: Nutrition Category Date Time Status Consistent Carbohydrate [DIET] Diets 06/22/18 Breakfast Ordered Assessment/Plan - Assessment and Plan (Free Text) Assessment: 82 year old male with past medical history of of HTN, HLD, DM2, BPH s/p TURP who [place] [facility] [place] with new onset angina taken for heart catheterization by Dr. Finch 06/21. Patient was noted to have mid-distal LAD disease/occlusion with unsuccessful angioplasty and subsequent coronary artery dissection. Patient was stabilized with IABP placed on 06/21 and subsequently removed on 06/22. Patient is currently being monitored in the ICU. Plan: Neuro: -AAOx3 without sedation, moving extremities spontaneously past midline, speaking in full sentences Cardio: s/p LHC with angioplasty of mid/distal LAD on 06/21/18 -intra aortic balloon pump placed on 06/21 to augment coronary blood flow, with removal of balloon pump on 06/22 -goal MAP >60 -troponin x 1 pending -echo pending -CXR 06/22 shows no active disease per my interpretation -heparin drip stopped this morning, currently on day 2 drip of nitro -continue Morphine 2mg Q4H PRN pain -Continue with ASA, Lipitor -Plavix held per cardiology -Cardiology with Dr. Finch consulted, follow up recs -PT/OT for deconditioning Stable CAD, HTN -Continue coreg 3.125mg BID, Lisinopril 5mg Daily, ASA 81mg, Plavix as per Dr. Finch HLD -Continue with Lipitor Pulm: -Supplemental O2 as needed, maintain SaO2 >90% -continue singulair -Incentive spirometer ID: Urine Cx positive for MRSA -day 1 vancomycin -No leukocytosis, afebrile -blood culture pending -contact precautions -continue to monitor GI: Chronic constipation -Continue with linzess, miralax -GI ppx with protonix Renal: BPH s/p TURP with chronic indwelling sharp catheter, hx of cystitis -Continue with flomax -BUN/Cr WNL -sharp output of 1.35L today, positive balance of 364cc today -monitor UOP -Monitor and replete lytes as necessary Heme/Onc: -heparin drip stopped this morning as per cardiology recommendations Normocytic anemia -Anemia of chronic disease -Monitor CBC, Maintain Hg >8 in cardiac patient, transfuse as needed Endo: DM2 -HgA1C of 8.9 -Continue with ISS medium and ACHS -Maintain euglycemia with target blood glucose of 140-180 Peripheral Neuropathy -Continue with Lyrica 100mg PO TID Patient seen and case discussed with attending, Dr. Tapia <Elio Tapia - Last Filed: 06/22/18 15:25> CCU Objective - Vital Signs / Intake & Output Vital Signs (Last 4 hours): Vital Signs Pulse Resp BP Pulse Ox 06/22/18 14:00 76 14 97 06/22/18 13:50 77 15 97 06/22/18 13:43 74 14 132/70 06/22/18 13:40 74 13 97 06/22/18 13:32 72 13 132/70 96 06/22/18 13:30 73 30 H 96 06/22/18 13:20 78 15 95 06/22/18 13:10 76 15 96 06/22/18 13:00 76 14 131/78 97 06/22/18 12:53 78 19 167/106 H 97 06/22/18 12:50 92 H 19 97 06/22/18 12:40 76 16 97 06/22/18 12:30 73 22 142/74 97 06/22/18 12:20 68 13 99 06/22/18 12:10 71 18 98 06/22/18 12:00 68 13 142/67 98 06/22/18 11:50 70 14 97 06/22/18 11:45 69 13 146/84 97 06/22/18 11:43 69 18 146/84 06/22/18 11:40 70 13 97 06/22/18 11:30 68 12 146/67 96 06/22/18 11:28 70 18 151/69 H Intake and Output (Last 8hrs): Intake & Output 06/22/18 06/22/18 06/22/18 06:59 14:59 22:59 Intake Total 54 13 63 Balance 54 13 63 Weight 228 lb Intake: IV 54 13 63 - Medications Active Medications: Active Medications Generic Name Dose Route Start Last Admin Trade Name Freq PRN Reason Stop Dose Admin Acetaminophen 650 mg 06/20/18 11:42 06/22/18 04:05 Tylenol 325mg Tab PO 650 mg Q6 PRN Administration TEMP>=99.5F Acetaminophen 650 mg 06/20/18 11:42 Tylenol 650 Mg Supp RC Q6H PRN TEMP>=99.5F Aspirin 81 mg 06/20/18 11:45 06/22/18 11:03 Ecotrin PO 81 mg DAILY KAUSHIK Administration Atorvastatin Calcium 20 mg 06/20/18 11:45 06/22/18 11:02 Lipitor PO 20 mg DAILY KAUSHIK Administration Carvedilol 3.125 mg 06/20/18 11:45 06/22/18 11:03 Coreg PO 3.125 mg BID KAUSHIK Administration Dextrose 0 ml 06/20/18 11:42 Dextrose 50% Inj IV STAT PRN Hypoglycemia Protocol Protocol Docusate Sodium 100 mg 06/20/18 14:00 06/22/18 14:13 Colace PO 100 mg TID KAUSHIK Administration Dextrose 1,000 mls @ 0 mls/hr 06/20/18 11:42 Dextrose 5% In Water 1000 Ml IV .Q0M PRN Hypoglycemia Protocol Protocol Per Protocol Nitroglycerin/Dextrose 50 mg in 250 mls @ 1.5 mls/hr 06/21/18 11:34 06/22/18 15:09 Nitroglycerin 50 Mg/250 Ml D5w IV 20 mcg/min .Q24H PRN 6 mls/hr Pain, severe (8-10) Titration Protocol 5 MCG/MIN Vancomycin HCl 500 mg in 100 mls @ 200 mls/hr 06/22/18 10:00 06/22/18 11:04 Vancomycin 500mg In Ns IVPB 200 mls/hr Q12 KAUSHIK Administration Protocol Insulin Human Lispro 0 units 06/20/18 16:30 06/22/18 11:16 Humalog Med SC 5 units AC KAUSHIK Administration Protocol Isosorbide Mononitrate 60 mg 06/23/18 10:00 Imdur PO DAILY KAUSHIK Lisinopril 5 mg 06/20/18 16:00 06/22/18 11:02 Zestril PO 5 mg DAILY KAUSHIK Administration Montelukast Sodium 10 mg 06/20/18 11:45 06/22/18 09:01 Singulair PO 10 mg DAILY KAUSHIK Administration Morphine Sulfate 2 mg 06/21/18 11:31 06/22/18 09:47 Morphine IVP 2 mg Q4H PRN Administration Pain, moderate (4-7) Nitroglycerin 1 ea 06/20/18 12:00 06/22/18 12:01 Nitro-Bid 2% Oint TOP 1 ea Q6H KAUSHIK Administration Ondansetron HCl 4 mg 06/20/18 11:42 06/22/18 12:54 Zofran Inj IVP 4 mg Q4H PRN Administration Nausea/Vomiting Pantoprazole Sodium 40 mg 06/21/18 06:00 06/22/18 05:45 Protonix Ec Tab PO 40 mg 0600 KAUSHIK Administration Polyethylene Glycol 17 gm 06/20/18 11:45 06/22/18 11:04 Miralax PO 17 gm BID KAUSHIK Administration Pregabalin 100 mg 06/21/18 10:00 06/22/18 14:15 Lyrica PO 100 mg TID KAUSHIK Administration Tamsulosin HCl 0.4 mg 06/20/18 11:45 06/22/18 11:03 Flomax PO 0.4 mg BID KAUSHIK Administration - Patient Studies Lab Studies: Lab Studies 06/22/18 06/22/18 06/22/18 Range/Units 11:00 11:00 05:05 WBC 10.9 D (4.5-11.0) 10^3/uL RBC 3.58 (3.5-6.1) 10^6/uL Hgb 10.2 L (14.0-18.0) g/dL Hct 31.1 L (42.0-52.0) % MCV 86.9 (80.0-105.0) fl MCH 28.5 (25.0-35.0) pg MCHC 32.8 (31.0-37.0) g/dl RDW 15.6 H (11.5-14.5) % Plt Count 204 (120.0-450.0) 10^3/uL MPV 10.7 (7.0-11.0) fl Gran % 64.6 (50.0-68.0) % Lymph % (Auto) 22.4 (22.0-35.0) % [place] % (Auto) 11.2 H (1.0-6.0) % Eos % (Auto) 1.6 (1.5-5.0) % Baso % (Auto) 0.2 (0.0-3.0) % Gran # 7.05 H (1.4-6.5) Lymph # (Auto) 2.5 (1.2-3.4) Greer # (Auto) 1.2 H (0.1-0.6) Eos # (Auto) 0.2 (0.0-0.7) Baso # (Auto) 0.02 (0.0-2.0) K/mm3 PT (9.4-12.5) SECONDS INR APTT 28.0 (26.9-38.3) Seconds Sodium (132-148) mmol/L Potassium (3.6-5.0) mmol/L Chloride (98-107) mmol/L Carbon Dioxide (21-33) mmol/L Anion Gap (10-20) BUN (7-21) mg/dL Creatinine (0.8-1.5) mg/dl Est GFR ( Amer) Est GFR (Non-Af Amer) POC Glucose (mg/dL) (65-110) mg/dL Random Glucose (70-110) mg/dL Calcium (8.4-10.5) mg/dL Phosphorus (2.5-4.5) mg/dL Magnesium (1.7-2.2) mg/dL Total Bilirubin (0.2-1.3) mg/dL Direct Bilirubin (0.0-0.4) mg/dL AST (17-59) U/L ALT (7-56) U/L Alkaline Phosphatase (38-126) U/L Troponin I 8.67 H* D ng/mL Total Protein (5.8-8.3) g/dL Albumin (3.0-4.8) g/dL Globulin gm/dL Albumin/Globulin Ratio (1.1-1.8) Urine Color (YELLOW) Urine Appearance (CLEAR) Urine pH (4.7-8.0) Ur Specific [place] (1.005-1.035) Urine Protein (<30 mg/dL) mg/dL Urine Glucose (UA) (NEGATIVE) mg/dL Urine Ketones (NEGATIVE) mg/dL Urine Blood (NEGATIVE) Urine Nitrate (NEGATIVE) Urine Bilirubin (NEGATIVE) Urine Urobilinogen (<1 E.U./dL) E.U./dL Ur Leukocyte Esterase (NEGATIVE) Sunshine/uL Urine RBC (0-2) /hpf Urine WBC (0-6) /hpf Ur Epithelial Cells (0-5) /hpf Urine Bacteria (NONE) /hpf 06/22/18 06/22/18 06/22/18 Range/Units 05:05 03:10 03:10 WBC (4.5-11.0) 10^3/uL RBC (3.5-6.1) 10^6/uL Hgb (14.0-18.0) g/dL Hct (42.0-52.0) % MCV (80.0-105.0) fl MCH (25.0-35.0) pg MCHC (31.0-37.0) g/dl RDW (11.5-14.5) % Plt Count (120.0-450.0) 10^3/uL MPV (7.0-11.0) fl Gran % (50.0-68.0) % Lymph % (Auto) (22.0-35.0) % [place] % (Auto) (1.0-6.0) % Eos % (Auto) (1.5-5.0) % Baso % (Auto) (0.0-3.0) % Gran # (1.4-6.5) Lymph # (Auto) (1.2-3.4) [place] # (Auto) (0.1-0.6) Eos # (Auto) (0.0-0.7) Baso # (Auto) (0.0-2.0) K/mm3 PT 12.8 H (9.4-12.5) SECONDS INR 1.13 APTT 57.5 H (26.9-38.3) Seconds Sodium 132 (132-148) mmol/L Potassium 4.6 (3.6-5.0) mmol/L Chloride 94 L (98-107) mmol/L Carbon Dioxide 32 (21-33) mmol/L Anion Gap 10 (10-20) BUN 14 (7-21) mg/dL Creatinine 0.8 (0.8-1.5) mg/dl Est GFR ( Amer) > 60 Est GFR (Non-Af Amer) > 60 POC Glucose (mg/dL) (65-110) mg/dL Random Glucose 226 H (70-110) mg/dL Calcium 8.7 (8.4-10.5) mg/dL Phosphorus 3.3 (2.5-4.5) mg/dL Magnesium 2.0 (1.7-2.2) mg/dL Total Bilirubin 0.2 (0.2-1.3) mg/dL Direct Bilirubin 0.2 (0.0-0.4) mg/dL AST 78 H D (17-59) U/L ALT 38 (7-56) U/L Alkaline Phosphatase 87 (38-126) U/L Troponin I ng/mL Total Protein 6.9 (5.8-8.3) g/dL Albumin 3.5 (3.0-4.8) g/dL Globulin 3.4 gm/dL Albumin/Globulin Ratio 1.0 L (1.1-1.8) Urine Color (YELLOW) Urine Appearance (CLEAR) Urine pH (4.7-8.0) Ur Specific [place] (1.005-1.035) Urine Protein (<30 mg/dL) mg/dL Urine Glucose (UA) (NEGATIVE) mg/dL Urine Ketones (NEGATIVE) mg/dL Urine Blood (NEGATIVE) Urine Nitrate (NEGATIVE) Urine Bilirubin (NEGATIVE) Urine Urobilinogen (<1 E.U./dL) E.U./dL Ur Leukocyte Esterase (NEGATIVE) Sunshine/uL Urine RBC (0-2) /hpf Urine WBC (0-6) /hpf Ur Epithelial Cells (0-5) /hpf Urine Bacteria (NONE) /hpf 06/22/18 06/21/18 06/21/18 Range/Units 01:15 21:59 17:50 WBC 8.4 (4.5-11.0) 10^3/uL RBC 3.63 (3.5-6.1) 10^6/uL Hgb 10.2 L (14.0-18.0) g/dL Hct 31.4 L (42.0-52.0) % MCV 86.5 (80.0-105.0) fl MCH 28.1 (25.0-35.0) pg MCHC 32.5 (31.0-37.0) g/dl RDW 15.5 H (11.5-14.5) % Plt Count 205 (120.0-450.0) 10^3/uL MPV 10.4 (7.0-11.0) fl Gran % (50.0-68.0) % Lymph % (Auto) (22.0-35.0) % [place] % (Auto) (1.0-6.0) % Eos % (Auto) (1.5-5.0) % Baso % (Auto) (0.0-3.0) % Gran # (1.4-6.5) Lymph # (Auto) (1.2-3.4) Greer # (Auto) (0.1-0.6) Eos # (Auto) (0.0-0.7) Baso # (Auto) (0.0-2.0) K/mm3 PT (9.4-12.5) SECONDS INR APTT (26.9-38.3) Seconds Sodium (132-148) mmol/L Potassium (3.6-5.0) mmol/L Chloride (98-107) mmol/L Carbon Dioxide (21-33) mmol/L Anion Gap (10-20) BUN (7-21) mg/dL Creatinine (0.8-1.5) mg/dl Est GFR ( Amer) Est GFR (Non-Af Amer) POC Glucose (mg/dL) 264 H (65-110) mg/dL Random Glucose (70-110) mg/dL Calcium (8.4-10.5) mg/dL Phosphorus (2.5-4.5) mg/dL Magnesium (1.7-2.2) mg/dL Total Bilirubin (0.2-1.3) mg/dL Direct Bilirubin (0.0-0.4) mg/dL AST (17-59) U/L ALT (7-56) U/L Alkaline Phosphatase (38-126) U/L Troponin I ng/mL Total Protein (5.8-8.3) g/dL Albumin (3.0-4.8) g/dL Globulin gm/dL Albumin/Globulin Ratio (1.1-1.8) Urine Color Yellow (YELLOW) Urine Appearance Clear (CLEAR) Urine pH 6.0 (4.7-8.0) Ur Specific [place] >= 1.030 (1.005-1.035) Urine Protein 30 H (<30 mg/dL) mg/dL Urine Glucose (UA) Negative (NEGATIVE) mg/dL Urine Ketones Negative (NEGATIVE) mg/dL Urine Blood Large H (NEGATIVE) Urine Nitrate Negative (NEGATIVE) Urine Bilirubin Negative (NEGATIVE) Urine Urobilinogen 0.2 (<1 E.U./dL) E.U./dL Ur Leukocyte Esterase Trace H (NEGATIVE) Sunshine/uL Urine RBC 2 - 5 H (0-2) /hpf Urine WBC 2 - 5 (0-6) /hpf Ur Epithelial Cells 1 - 3 (0-5) /hpf Urine Bacteria Few (NONE) /hpf 06/21/18 06/21/18 Range/Units 17:50 16:12 WBC (4.5-11.0) 10^3/uL RBC (3.5-6.1) 10^6/uL Hgb (14.0-18.0) g/dL Hct (42.0-52.0) % MCV (80.0-105.0) fl MCH (25.0-35.0) pg MCHC (31.0-37.0) g/dl RDW (11.5-14.5) % Plt Count (120.0-450.0) 10^3/uL MPV (7.0-11.0) fl Gran % (50.0-68.0) % Lymph % (Auto) (22.0-35.0) % Greer % (Auto) (1.0-6.0) % Eos % (Auto) (1.5-5.0) % Baso % (Auto) (0.0-3.0) % Gran # (1.4-6.5) Lymph # (Auto) (1.2-3.4) Greer # (Auto) (0.1-0.6) Eos # (Auto) (0.0-0.7) Baso # (Auto) (0.0-2.0) K/mm3 PT 12.9 H (9.4-12.5) SECONDS INR 1.16 APTT 102.9 H* (26.9-38.3) Seconds Sodium (132-148) mmol/L Potassium (3.6-5.0) mmol/L Chloride (98-107) mmol/L Carbon Dioxide (21-33) mmol/L Anion Gap (10-20) BUN (7-21) mg/dL Creatinine (0.8-1.5) mg/dl Est GFR ( Amer) Est GFR (Non-Af Amer) POC Glucose (mg/dL) 311 H (65-110) mg/dL Random Glucose (70-110) mg/dL Calcium (8.4-10.5) mg/dL Phosphorus (2.5-4.5) mg/dL Magnesium (1.7-2.2) mg/dL Total Bilirubin (0.2-1.3) mg/dL Direct Bilirubin (0.0-0.4) mg/dL AST (17-59) U/L ALT (7-56) U/L Alkaline Phosphatase (38-126) U/L Troponin I ng/mL Total Protein (5.8-8.3) g/dL Albumin (3.0-4.8) g/dL Globulin gm/dL Albumin/Globulin Ratio (1.1-1.8) Urine Color (YELLOW) Urine Appearance (CLEAR) Urine pH (4.7-8.0) Ur Specific [place] (1.005-1.035) Urine Protein (<30 mg/dL) mg/dL Urine Glucose (UA) (NEGATIVE) mg/dL Urine Ketones (NEGATIVE) mg/dL Urine Blood (NEGATIVE) Urine Nitrate (NEGATIVE) Urine Bilirubin (NEGATIVE) Urine Urobilinogen (<1 E.U./dL) E.U./dL Ur Leukocyte Esterase (NEGATIVE) Sunshine/uL Urine RBC (0-2) /hpf Urine WBC (0-6) /hpf Ur Epithelial Cells (0-5) /hpf Urine Bacteria (NONE) /hpf Laboratory Results - last 24 hr 06/21/18 06/21/18 06/21/18 16:12 17:50 17:50 WBC 8.4 RBC 3.63 Hgb 10.2 L Hct 31.4 L MCV 86.5 MCH 28.1 MCHC 32.5 RDW 15.5 H Plt Count 205 MPV 10.4 Gran % Lymph % (Auto) [place] % (Auto) Eos % (Auto) Baso % (Auto) Gran # Lymph # (Auto) [place] # (Auto) Eos # (Auto) Baso # (Auto) PT 12.9 H INR 1.16 APTT 102.9 H* Sodium Potassium Chloride Carbon Dioxide Anion Gap BUN Creatinine Est GFR ( Amer) Est GFR (Non-Af Amer) POC Glucose (mg/dL) 311 H Random Glucose Calcium Phosphorus Magnesium Total Bilirubin Direct Bilirubin AST ALT Alkaline Phosphatase Troponin I Total Protein Albumin Globulin Albumin/Globulin Ratio Urine Color Urine Appearance Urine pH Ur Specific [place] Urine Protein Urine Glucose (UA) Urine Ketones Urine Blood Urine Nitrate Urine Bilirubin Urine Urobilinogen Ur Leukocyte Esterase Urine RBC Urine WBC Ur Epithelial Cells Urine Bacteria 06/21/18 06/22/18 06/22/18 21:59 01:15 03:10 WBC RBC Hgb Hct MCV MCH MCHC RDW Plt Count MPV Gran % Lymph % (Auto) Gre[place] % (Auto) Eos % (Auto) Baso % (Auto) Gran # Lymph # (Auto) [place] # (Auto) Eos # (Auto) Baso # (Auto) PT 12.8 H INR 1.13 APTT Sodium Potassium Chloride Carbon Dioxide Anion Gap BUN Creatinine Est GFR ( Amer) Est GFR (Non-Af Amer) POC Glucose (mg/dL) 264 H Random Glucose Calcium Phosphorus Magnesium Total Bilirubin Direct Bilirubin AST ALT Alkaline Phosphatase Troponin I Total Protein Albumin Globulin Albumin/Globulin Ratio Urine Color Yellow Urine Appearance Clear Urine pH 6.0 Ur Specific [place] >= 1.030 Urine Protein 30 H Urine Glucose (UA) Negative Urine Ketones Negative Urine Blood Large H Urine Nitrate Negative Urine Bilirubin Negative Urine Urobilinogen 0.2 Ur Leukocyte Esterase Trace H Urine RBC 2 - 5 H Urine WBC 2 - 5 Ur Epithelial Cells 1 - 3 Urine Bacteria Few 06/22/18 06/22/18 06/22/18 03:10 05:05 05:05 WBC 10.9 D RBC 3.58 Hgb 10.2 L Hct 31.1 L MCV 86.9 MCH 28.5 MCHC 32.8 RDW 15.6 H Plt Count 204 MPV 10.7 Gran % 64.6 Lymph % (Auto) 22.4 Greer % (Auto) 11.2 H Eos % (Auto) 1.6 Baso % (Auto) 0.2 Gran # 7.05 H Lymph # (Auto) 2.5 Greer # (Auto) 1.2 H Eos # (Auto) 0.2 Baso # (Auto) 0.02 PT INR APTT 57.5 H Sodium 132 Potassium 4.6 Chloride 94 L Carbon Dioxide 32 Anion Gap 10 BUN 14 Creatinine 0.8 Est GFR ( Amer) > 60 Est GFR (Non-Af Amer) > 60 POC Glucose (mg/dL) Random Glucose 226 H Calcium 8.7 Phosphorus 3.3 Magnesium 2.0 Total Bilirubin 0.2 Direct Bilirubin 0.2 AST 78 H D ALT 38 Alkaline Phosphatase 87 Troponin I Total Protein 6.9 Albumin 3.5 Globulin 3.4 Albumin/Globulin Ratio 1.0 L Urine Color Urine Appearance Urine pH Ur Specific [place] Urine Protein Urine Glucose (UA) Urine Ketones Urine Blood Urine Nitrate Urine Bilirubin Urine Urobilinogen Ur Leukocyte Esterase Urine RBC Urine WBC Ur Epithelial Cells Urine Bacteria 06/22/18 06/22/18 11:00 11:00 WBC RBC Hgb Hct MCV MCH MCHC RDW Plt Count MPV Gran % Lymph % (Auto) [place] % (Auto) Eos % (Auto) Baso % (Auto) Gran # Lymph # (Auto) [place] # (Auto) Eos # (Auto) Baso # (Auto) PT INR APTT 28.0 Sodium Potassium Chloride Carbon Dioxide Anion Gap BUN Creatinine Est GFR ( Amer) Est GFR (Non-Af Amer) POC Glucose (mg/dL) Random Glucose Calcium Phosphorus Magnesium Total Bilirubin Direct Bilirubin AST ALT Alkaline Phosphatase Troponin I 8.67 H* D Total Protein Albumin Globulin Albumin/Globulin Ratio Urine Color Urine Appearance Urine pH Ur Specific [place] Urine Protein Urine Glucose (UA) Urine Ketones Urine Blood Urine Nitrate Urine Bilirubin Urine Urobilinogen Ur Leukocyte Esterase Urine RBC Urine WBC Ur Epithelial Cells Urine Bacteria Radiology Impressions: Radiology Impressions Chest X-Ray 06/22/18 05:00 IMPRESSION: The tip of the aortic balloon pump is seen in the proximal descending aorta. EKG/Cardiology Studies: Cardiology / EKG Studies 06/22/18 07:00 EKG [ELECTROCARDIOGRAM] DAILY Comment: Reason For Exam: CP Critical Care Progress Note - Nutrition Nutrition: Nutrition Category Date Time Status Consistent Carbohydrate [DIET] Diets 06/22/18 Breakfast Ordered Attending/Attestation - Attestation I have personally seen and examined this patient.: Yes I have fully participated in the care of the patient.: Yes I have reviewed all pertinent clinical information: Yes Notes (Text): 06/22/18 15:24 patient remains hemodynamically and respiratory coulter stable. IABP was removed. small hematoma at the place of insertion, pressure applied. bb-ers, sattins, asa, cardiology follow up. will follow troponin ccm time 40 min
--- NOTE | 2018-06-22 09:55 | RAD ---
Date of service: 06/22/2018 HISTORY: evaluation of IABP COMPARISON: 06/20/2018 FINDINGS: LUNGS: No active pulmonary disease. PLEURA: No significant pleural effusion identified, no pneumothorax apparent. CARDIOVASCULAR: The tip of the aortic balloon pump is seen in the proximal descending aorta. Mild aortic calcification Mild cardiomegaly no pulmonary vascular congestion. OSSEOUS STRUCTURES: No significant abnormalities. VISUALIZED UPPER ABDOMEN: Normal. OTHER FINDINGS: None. IMPRESSION: The tip of the aortic balloon pump is seen in the proximal descending aorta.
[2018-06-22 10:50] LABS: GLYCOMARK(R) 4.1 mcg/mL (7.3-36.6)
[2018-06-22] MEDS: Vancomycin 500mg in NS 500 MG/100 ML BAG IVPB SCH ×2 (11:04→21:20)
[2018-06-22] MEDS: POLYETHYLENE GLYCOL 3350 17 GM/Dose PACKET PO SCH ×2 (11:04→17:18)
--- NOTE | 2018-06-22 12:03 | PN ---
DATE: 06/22/2018 SUBJECTIVE: The patient is seen in ICU bed 4. The patient is lying in the bed. The patient's balloon pump has been removed. The patient is comfortable. The patient denies any chest pain today. Denies any nausea, vomiting, diarrhea, denies any constipation. OBJECTIVE: VITAL SIGNS: T-max 98.6. Telemetry shows sinus rhythm, heart rate 78, 74, blood pressure 129/55, 116/68, respirations 20, O2 sat 97%. INTAKE/OUTPUT: Intake was 1597, output is 1350. GENERAL: The patient is seen lying in the bed. HEAD: Normocephalic, atraumatic. HEENT examination shows pinkish conjunctivae. Anicteric sclerae. No oropharyngeal lesion. NECK: No neck rigidity. CHEST: Kyphosis. LUNGS: Shows no audible crackle, rales or wheezing. CARDIOVASCULAR: Shows S1, S2, regular rhythm. Questionable soft systolic murmur left sternal border, left second intercostal space. ABDOMEN: Soft, obese, protuberant. GENITALIA: Male. Positive Diamond catheter. Right groin dressing is noted. The patient's intra-aortic balloon pump is removed. EXTREMITIES AND SKIN: Shows positive atypical. MUSCULOSKELETAL: Shows a body mass index of 32. GAIT: Deferred. DIAGNOSTICS: 06/22, WBC 10.9, hemoglobin/hematocrit 10.2, 31.1, platelet 204. PTT is 57.5. Sodium 132, potassium 4.6, chloride 94, CO2 32, anion gap 10, BUN 14, creatinine 0.8, GFR greater than 60, glucose 226. Fingerstick blood sugar 264, 311 292, 236, calcium 8.7, phosphorus 3.3, magnesium 2.0, AST 78. Chest x-ray report was reviewed which was done prior to the removal of the balloon pump. The tip of the intra-aortic balloon pump was proximal descending aorta with cardiomegaly. EKG shows sinus rhythm, age-indeterminate anterior infarct. The patient's cardiac catheterization report was noted. IMPRESSION AND PLAN: 1. Status post intra-aortic balloon placement. 2. Status post cardiac catheterization, attempted angioplasty of the left anterior descending artery, unsuccessful. 3. Left ventricle ejection fraction of 50-55%. 4. Right coronary artery, left main coronary artery intimal irregularities. 5. 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 6. Acute left anterior descending artery occlusion with development of chest pain. 7. Status post unsuccessful angioplasty of the 90% mid-left anterior descending stenosis. 8. Questionable possible anterior wall apical infarct secondary to acute left anterior descending closure and occlusion. 9. Hyper and hypotension. 10. Normocytic anemia. 11. Elevated erythrocyte sedimentation rate of 43. 12. Uncontrolled insulin-requiring diabetes mellitus with hemoglobin A1c of 8.9 with hyperglycemia. 13. History of hyperlipidemia. 14. Hyperfructosenemia. 15. Proteinuria. 16. Microscopic hematuria, pyuria, bacteriuria. 17. 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 18. Left ventricular ejection fraction of 55%. 19. Grade 1 abnormal relaxation pattern. 20. Acute left anterior descending occlusion secondary to unsuccessful angioplasties status attempt of the left anterior descending. 21. Morbid obesity with elevated body mass index of 32. 22. History of constipation. 23. Neurogenic bladder and voiding dysfunction with indwelling Diamond catheter. 24. Diabetic neuropathy. 25. Constipation. 26. Unstable angina. 27. Methicillin-resistant Staphylococcus aureus urinary tract infection from urine culture of 06/15/2018. 28. Gait dysfunction. PLAN: At this time, the patient has been ordered serial labs. Repeat urine cultures ordered. Current consultation Cardiology. The patient's case is referred for diabetic education evaluation, TCU evaluation. CURRENT MEDICATIONS: Colace 100 three times a day, Coreg 3.125 twice a day, Ecotrin 81 mg daily, Flomax 0.4 mg twice a day, Lipitor 20 mg daily, Lyrica 100 mg three times a day, MiraLax 17 g twice a day, morphine 2 mg IV every four hours p.r.n., nitro paste 1 inch every six hours, Protonix 40 mg daily, Singulair 10 mg daily, Tylenol p.r.n. suppository p.o., vancomycin 500 mg IV every 12 hours, Zestril 5 mg daily, Zofran 4 mg IV every four hours p.r.n. At present, we are awaiting for further Cardiology recommendation at this time for further management details. Dictated and electronically signed, not read. Tramaine Griffith MD [facility] # [id number]
--- NOTE | 2018-06-22 13:07 | PN ---
DATE: 06/22/2018 SUBJECTIVE: The patient through the night on a balloon pump was stable. He is chest pain free. PHYSICAL EXAMINATION: VITAL SIGNS: Stable. NECK: Negative JVD. LUNGS: Without rales. HEART: S1 and S2. EXTREMITIES: Without edema. EKG shows nonspecific ST-T changes. IMPRESSION: 1. Unstable angina. 2. 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 3. Diabetes mellitus. 4. Hypertension. 5. Hypercholesterolemia. PLAN: Given these findings, the patient is hemodynamically stable. EKG shows no major changes. We will discontinue the balloon pump today and obtain an echocardiogram later in the day. Hermilo Finch MD
--- NOTE | 2018-06-22 15:46 | CARD ---
APPROVED REPORT Date of service: 06/22/2018 EKG Measurement [id number] <Conclusion> Normal sinus rhythm Low voltage QRS Poor R wave progression in Precordial leads Abnormal ECG
[2018-06-23] MEDS: Nitroglycerin 2% Ointment Foilpak UD TOP SCH ×2 (00:45→05:53)
[2018-06-23] MEDS: Pantoprazole 40 mg EC Tab PO SCH (05:52)
[2018-06-23 06:01] LABS: INR 1.13; PARTIAL THROMBOPLASTIN TIME 27.6 Seconds (26.9-38.3); PROTHROMBIN TIME 12.8 SECONDS (9.4-12.5)
[2018-06-23 06:04] LABS: BASO # 0.01 K/mm3 (0.0-2.0); BASO % 0.1 % (0.0-3.0); EOS # 0.1 (0.0-0.7); EOS % 1.4 % (1.5-5.0); HEMOGLOBIN 10.8 g/dL (14.0-18.0); LYMPH # 2.4 (1.2-3.4); LYMPH % 24.6 % (22.0-35.0); MEAN CELL VOLUME 86.2 fl (80.0-105.0); MEAN CORPUSCULAR HEMOGLOBIN 28.2 pg (25.0-35.0); MEAN CORPUSCULAR HGB CONC 32.7 g/dl (31.0-37.0); MEAN PLATELET VOLUME 10.9 fl (7.0-11.0); MONO # 1.3 (0.1-0.6); MONO % 13.7 % (1.0-6.0); RBC 3.83 10^6/uL (3.5-6.1); RED CELL DISTRIBUTION WIDTH 15.2 % (11.5-14.5); WHITE BLOOD COUNT 9.7 10^3/uL (4.5-11.0)
[2018-06-23 06:26] LABS: ALBUMIN 3.7 g/dL (3.0-4.8); ALT/SGPT 37 U/L (7-56); AST/SGOT 83 U/L (17-59); BILIRUBIN,DIRECT 0.1 mg/dL (0.0-0.4); BLOOD UREA NITROGEN 10 mg/dL (7-21); CALCIUM 8.8 mg/dL (8.4-10.5); GFR NON-AFRICAN AMERICAN > 60; TROPONIN I 9.52 ng/mL
[2018-06-23 08:17] LABS: CK-MB 9.8 ng/mL (0.0-3.6)
--- NOTE | 2018-06-23 08:21 | CP.CCUPN ---
<Priscila Ho - Last Filed: 06/23/18 11:44> CCU Subjective - Physician Review Subjective (Free Text): Priscila Ho PGY1 Critical Care Progress Note Patient seen and examined at bedside this morning. No acute events overnight. Right groin site is non bleeding and non draining. Patient denies any chest pain, SOB, numbness, tingling, nausea at this time. He is resting comfortably and admits to good appetite. CCU Objective - Vital Signs / Intake & Output Vital Signs (Last 4 hours): Vital Signs Temp Pulse Resp BP Pulse Ox 06/23/18 07:10 83 26 H 95 06/23/18 07:00 85 17 125/73 94 L 06/23/18 06:55 98.9 F 06/23/18 06:50 83 10 L 96 06/23/18 06:40 88 36 H 94 L 06/23/18 06:30 90 19 95 06/23/18 06:20 85 21 95 06/23/18 06:10 86 18 95 06/23/18 06:00 81 21 124/53 L 97 06/23/18 05:50 80 18 96 06/23/18 05:40 82 97 06/23/18 05:30 81 19 97 06/23/18 05:20 78 18 97 06/23/18 05:10 90 19 97 06/23/18 05:01 80 18 117/47 L 96 06/23/18 05:00 84 98 06/23/18 04:50 84 17 96 06/23/18 04:40 85 96 06/23/18 04:30 87 16 96 06/23/18 04:20 79 15 94 L 06/23/18 04:17 98.5 F 80 15 147/67 94 L Intake and Output (Last 8hrs): Intake & Output 06/22/18 06/23/18 06/23/18 22:59 06:59 14:59 Intake Total 890 820 Output Total 1200 1850 Balance -310 -1030 Intake: IV 890 0 Left Antecubital 708 0 Left Wrist 100 0 Oral 720 Tube Feeding 0 TPN/PPN 0 Blood Product 0 Lipid 0 Albumin 0 Other 100 Output: Urine 1200 1850 Urethral (Sharp) 1200 1850 Stool 0 Urine/Stool Mix 0 Emesis 0 Oral Regurgitation 0 Other 0 Other: # Voids Urethral (Sharp) 0 # Bowel Movements 0 - Physical Exam Head: Positive for: Atraumatic, Normocephalic Pupils: Positive for: PERRL Extroacular Muscles: Positive for: EOMI Conjunctiva: Positive for: Normal Mouth: Positive for: Moist Mucous Membranes Nose (Internal): Positive for: Normal Inspection Neck: Positive for: Normal Range of Motion Respiratory/Chest: Positive for: Clear to Auscultation, Good Air Exchange. Negative for: Respiratory Distress, Accessory Muscle Use Cardiovascular: Positive for: Regular Rate and Rhythm, Normal S1, S2, Peripheal Pulses Present. Negative for: Murmurs, Tachycardic, Bradycardic Abdomen: Positive for: Normal Bowel Sounds. Negative for: Tenderness, Distention, Peritoneal Signs, Rebound, Guarding Back: Positive for: Normal Inspection Upper Extremity: Positive for: Normal Inspection. Negative for: Cyanosis, Edema Lower Extremity: Positive for: Normal Inspection, Other (right groin site is clean, no bleeding, no hemotoma appreciated ). Negative for: Edema, CALF TENDERNESS Neurological: Positive for: GCS=15, CN II-XII Intact, Speech Normal Skin: Positive for: Warm, Dry, Other (vitiligo throughout face and body). Negative for: Rashes Psychiatric: Positive for: Alert, Oriented x 3, Normal Insight, Normal Concentration - Medications Active Medications: Active Medications Generic Name Dose Route Start Last Admin Trade Name Freq PRN Reason Stop Dose Admin Acetaminophen 650 mg 06/20/18 11:42 06/23/18 06:55 Tylenol 325mg Tab PO 650 mg Q6 PRN Administration TEMP>=99.5F Acetaminophen 650 mg 06/20/18 11:42 Tylenol 650 Mg Supp RC Q6H PRN TEMP>=99.5F Aspirin 81 mg 06/20/18 11:45 06/22/18 11:03 Ecotrin PO 81 mg DAILY KAUSHIK Administration Atorvastatin Calcium 20 mg 06/20/18 11:45 06/22/18 11:02 Lipitor PO 20 mg DAILY KAUSHIK Administration Carvedilol 3.125 mg 06/20/18 11:45 06/22/18 17:19 Coreg PO 3.125 mg BID KAUSHIK Administration Dextrose 0 ml 06/20/18 11:42 Dextrose 50% Inj IV STAT PRN Hypoglycemia Protocol Protocol Docusate Sodium 100 mg 06/20/18 14:00 06/22/18 17:18 Colace PO 100 mg TID KAUSHIK Administration Nitroglycerin/Dextrose 50 mg in 250 mls @ 1.5 mls/hr 06/21/18 11:34 06/22/18 19:12 Nitroglycerin 50 Mg/250 Ml D5w IV 0 mcg/min .Q24H PRN 0 mls/hr Pain, severe (8-10) Titration Protocol 5 MCG/MIN Vancomycin HCl 500 mg in 100 mls @ 200 mls/hr 06/22/18 10:00 06/22/18 21:20 Vancomycin 500mg In Ns IVPB 200 mls/hr Q12 KAUSHIK Administration Protocol Sodium Chloride 1,000 mls @ 60 mls/hr 06/23/18 07:30 Sodium Chloride 0.9% IV 06/30/18 22:49 .[id number] [facility] Insulin Human Lispro 0 units 06/20/18 16:30 06/22/18 17:22 Humalog Med SC 5 units AC KAUSHIK Administration Protocol Isosorbide Mononitrate 60 mg 06/23/18 10:00 Imdur PO DAILY [facility] Lisinopril 5 mg 06/20/18 16:00 06/22/18 11:02 Zestril PO 5 mg DAILY KAUSHIK Administration Montelukast Sodium 10 mg 06/20/18 11:45 06/22/18 09:01 Singulair PO 10 mg DAILY KAUSHIK Administration Morphine Sulfate 2 mg 06/21/18 11:31 06/22/18 09:47 Morphine IVP 2 mg Q4H PRN Administration Pain, moderate (4-7) Nitroglycerin 1 ea 06/20/18 12:00 06/23/18 05:53 Nitro-Bid 2% Oint TOP 1 ea Q6H KAUSHIK Administration Ondansetron HCl 4 mg 06/20/18 11:42 06/22/18 12:54 Zofran Inj IVP 4 mg Q4H PRN Administration Nausea/Vomiting Pantoprazole Sodium 40 mg 06/21/18 06:00 06/23/18 05:52 Protonix Ec Tab PO 40 mg 0600 KAUSHIK Administration Polyethylene Glycol 17 gm 06/20/18 11:45 06/22/18 17:18 Miralax PO 17 gm BID KAUSHIK Administration Pregabalin 100 mg 06/21/18 10:00 06/22/18 17:19 Lyrica PO 100 mg TID KAUSHIK Administration Tamsulosin HCl 0.4 mg 06/20/18 11:45 06/22/18 17:18 Flomax PO 0.4 mg BID KAUSHIK Administration - Patient Studies Lab Studies: Microbiology Studies 06/21/18 14:30 MRSA Culture (Admit) - Final Naris MRSA NOT DETECTED Lab Studies 06/23/18 06/23/18 06/23/18 Range/Units 05:00 05:00 05:00 WBC 9.7 (4.5-11.0) 10^3/uL RBC 3.83 (3.5-6.1) 10^6/uL Hgb 10.8 L (14.0-18.0) g/dL Hct 33.0 L (42.0-52.0) % MCV 86.2 (80.0-105.0) fl MCH 28.2 (25.0-35.0) pg MCHC 32.7 (31.0-37.0) g/dl RDW 15.2 H (11.5-14.5) % Plt Count 190 (120.0-450.0) 10^3/uL MPV 10.9 (7.0-11.0) fl Neut % (Auto) 60.2 (50.0-68.0) % Lymph % (Auto) 24.6 (22.0-35.0) % [place] % (Auto) 13.7 H (1.0-6.0) % Eos % (Auto) 1.4 L (1.5-5.0) % Baso % (Auto) 0.1 (0.0-3.0) % Lymph # (Auto) 2.4 (1.2-3.4) [place] # (Auto) 1.3 H (0.1-0.6) Eos # (Auto) 0.1 (0.0-0.7) Baso # (Auto) 0.01 (0.0-2.0) K/mm3 Absolute Neuts (auto) 5.85 (1.4-6.5) PT 12.8 H (9.4-12.5) SECONDS INR 1.13 APTT 27.6 (26.9-38.3) Seconds Sodium 131 L (132-148) mmol/L Potassium 4.2 (3.6-5.0) mmol/L Chloride 90 L (98-107) mmol/L Carbon Dioxide 36 H (21-33) mmol/L Anion Gap 10 (10-20) BUN 10 (7-21) mg/dL Creatinine 0.7 L (0.8-1.5) mg/dl Est GFR ( Amer) > 60 Est GFR (Non-Af Amer) > 60 POC Glucose (mg/dL) (65-110) mg/dL Random Glucose 268 H (70-110) mg/dL Calcium 8.8 (8.4-10.5) mg/dL Phosphorus 2.7 (2.5-4.5) mg/dL Magnesium 2.0 (1.7-2.2) mg/dL Total Bilirubin 0.3 (0.2-1.3) mg/dL Direct Bilirubin 0.1 (0.0-0.4) mg/dL AST 83 H (17-59) U/L ALT 37 (7-56) U/L Alkaline Phosphatase 83 (38-126) U/L Total Creatine Kinase 323 H (35-230) U/L Troponin I 9.52 H* ng/mL Total Protein 7.3 (5.8-8.3) g/dL Albumin 3.7 (3.0-4.8) g/dL Globulin 3.6 gm/dL Albumin/Globulin Ratio 1.0 L (1.1-1.8) 06/22/18 06/22/18 06/22/18 Range/Units 21:30 16:27 11:09 WBC (4.5-11.0) 10^3/uL RBC (3.5-6.1) 10^6/uL Hgb (14.0-18.0) g/dL Hct (42.0-52.0) % MCV (80.0-105.0) fl MCH (25.0-35.0) pg MCHC (31.0-37.0) g/dl RDW (11.5-14.5) % Plt Count (120.0-450.0) 10^3/uL MPV (7.0-11.0) fl Neut % (Auto) (50.0-68.0) % Lymph % (Auto) (22.0-35.0) % [place] % (Auto) (1.0-6.0) % Eos % (Auto) (1.5-5.0) % Baso % (Auto) (0.0-3.0) % Lymph # (Auto) (1.2-3.4) [place] # (Auto) (0.1-0.6) Eos # (Auto) (0.0-0.7) Baso # (Auto) (0.0-2.0) K/mm3 Absolute Neuts (auto) (1.4-6.5) PT (9.4-12.5) SECONDS INR APTT (26.9-38.3) Seconds Sodium (132-148) mmol/L Potassium (3.6-5.0) mmol/L Chloride (98-107) mmol/L Carbon Dioxide (21-33) mmol/L Anion Gap (10-20) BUN (7-21) mg/dL Creatinine (0.8-1.5) mg/dl Est GFR ( Amer) Est GFR (Non-Af Amer) POC Glucose (mg/dL) 284 H 278 H 289 H (65-110) mg/dL Random Glucose (70-110) mg/dL Calcium (8.4-10.5) mg/dL Phosphorus (2.5-4.5) mg/dL Magnesium (1.7-2.2) mg/dL Total Bilirubin (0.2-1.3) mg/dL Direct Bilirubin (0.0-0.4) mg/dL AST (17-59) U/L ALT (7-56) U/L Alkaline Phosphatase (38-126) U/L Total Creatine Kinase (35-230) U/L Troponin I ng/mL Total Protein (5.8-8.3) g/dL Albumin (3.0-4.8) g/dL Globulin gm/dL Albumin/Globulin Ratio (1.1-1.8) 06/22/18 06/22/18 06/22/18 Range/Units 11:00 11:00 07:43 WBC (4.5-11.0) 10^3/uL RBC (3.5-6.1) 10^6/uL Hgb (14.0-18.0) g/dL Hct (42.0-52.0) % MCV (80.0-105.0) fl MCH (25.0-35.0) pg MCHC (31.0-37.0) g/dl RDW (11.5-14.5) % Plt Count (120.0-450.0) 10^3/uL MPV (7.0-11.0) fl Neut % (Auto) (50.0-68.0) % Lymph % (Auto) (22.0-35.0) % [place] % (Auto) (1.0-6.0) % Eos % (Auto) (1.5-5.0) % Baso % (Auto) (0.0-3.0) % Lymph # (Auto) (1.2-3.4) [place] # (Auto) (0.1-0.6) Eos # (Auto) (0.0-0.7) Baso # (Auto) (0.0-2.0) K/mm3 Absolute Neuts (auto) (1.4-6.5) PT (9.4-12.5) SECONDS INR APTT 28.0 (26.9-38.3) Seconds Sodium (132-148) mmol/L Potassium (3.6-5.0) mmol/L Chloride (98-107) mmol/L Carbon Dioxide (21-33) mmol/L Anion Gap (10-20) BUN (7-21) mg/dL Creatinine (0.8-1.5) mg/dl Est GFR ( Amer) Est GFR (Non-Af Amer) POC Glucose (mg/dL) 316 H (65-110) mg/dL Random Glucose (70-110) mg/dL Calcium (8.4-10.5) mg/dL Phosphorus (2.5-4.5) mg/dL Magnesium (1.7-2.2) mg/dL Total Bilirubin (0.2-1.3) mg/dL Direct Bilirubin (0.0-0.4) mg/dL AST (17-59) U/L ALT (7-56) U/L Alkaline Phosphatase (38-126) U/L Total Creatine Kinase (35-230) U/L Troponin I 8.67 H* D ng/mL Total Protein (5.8-8.3) g/dL Albumin (3.0-4.8) g/dL Globulin gm/dL Albumin/Globulin Ratio (1.1-1.8) Laboratory Results - last 24 hr 06/22/18 06/22/18 06/22/18 07:43 11:00 11:00 WBC RBC Hgb Hct MCV MCH MCHC RDW Plt Count MPV Neut % (Auto) Lymph % (Auto) [place] % (Auto) Eos % (Auto) Baso % (Auto) Lymph # (Auto) [place] # (Auto) Eos # (Auto) Baso # (Auto) Absolute Neuts (auto) PT INR APTT 28.0 Sodium Potassium Chloride Carbon Dioxide Anion Gap BUN Creatinine Est GFR ( Amer) Est GFR (Non-Af Amer) POC Glucose (mg/dL) 316 H Random Glucose Calcium Phosphorus Magnesium Total Bilirubin Direct Bilirubin AST ALT Alkaline Phosphatase Total Creatine Kinase Troponin I 8.67 H* D Total Protein Albumin Globulin Albumin/Globulin Ratio 06/22/18 06/22/18 06/22/18 11:09 16:27 21:30 WBC RBC Hgb Hct MCV MCH MCHC RDW Plt Count MPV Neut % (Auto) Lymph % (Auto) [place] % (Auto) Eos % (Auto) Baso % (Auto) Lymph # (Auto) [place] # (Auto) Eos # (Auto) Baso # (Auto) Absolute Neuts (auto) PT INR APTT Sodium Potassium Chloride Carbon Dioxide Anion Gap BUN Creatinine Est GFR ( Amer) Est GFR (Non-Af Amer) POC Glucose (mg/dL) 289 H 278 H 284 H Random Glucose Calcium Phosphorus Magnesium Total Bilirubin Direct Bilirubin AST ALT Alkaline Phosphatase Total Creatine Kinase Troponin I Total Protein Albumin Globulin Albumin/Globulin Ratio 06/23/18 06/23/18 06/23/18 05:00 05:00 05:00 WBC 9.7 RBC 3.83 Hgb 10.8 L Hct 33.0 L MCV 86.2 MCH 28.2 MCHC 32.7 RDW 15.2 H Plt Count 190 MPV 10.9 Neut % (Auto) 60.2 Lymph % (Auto) 24.6 [place] % (Auto) 13.7 H Eos % (Auto) 1.4 L Baso % (Auto) 0.1 Lymph # (Auto) 2.4 [place] # (Auto) 1.3 H Eos # (Auto) 0.1 Baso # (Auto) 0.01 Absolute Neuts (auto) 5.85 PT 12.8 H INR 1.13 APTT 27.6 Sodium 131 L Potassium 4.2 Chloride 90 L Carbon Dioxide 36 H Anion Gap 10 BUN 10 Creatinine 0.7 L Est GFR ( Amer) > 60 Est GFR (Non-Af Amer) > 60 POC Glucose (mg/dL) Random Glucose 268 H Calcium 8.8 Phosphorus 2.7 Magnesium 2.0 Total Bilirubin 0.3 Direct Bilirubin 0.1 AST 83 H ALT 37 Alkaline Phosphatase 83 Total Creatine Kinase 323 H Troponin I 9.52 H* Total Protein 7.3 Albumin 3.7 Globulin 3.6 Albumin/Globulin Ratio 1.0 L Radiology Impressions: Radiology Impressions Chest X-Ray 06/22/18 05:00 IMPRESSION: The tip of the aortic balloon pump is seen in the proximal descending aorta. Fingerstick Blood Sugar Results: 284 Critical Care Progress Note - Nutrition Nutrition: Nutrition Category Date Time Status Consistent Carbohydrate [DIET] Diets 06/22/18 Breakfast Ordered Assessment/Plan - Assessment and Plan (Free Text) Assessment: 82 year old male with past medical history of of HTN, HLD, DM2, BPH s/p TURP who presented to [facility] ED 06/20 with new onset angina taken for heart catheterization by Dr. Finch 06/21. Patient was noted to have mid-distal LAD disease/occlusion with unsuccessful angioplasty and subsequent coronary artery dissection. Patient was stabilized with IABP placed on 06/21 and subsequently removed on 06/22. Patient is currently being monitored in the ICU. No cardiopulmonary issue at this time. Plan: Neuro: -AAOx3 without sedation, moving extremities spontaneously past midline, speaking in full sentences Cardio: s/p LHC with angioplasty of mid/distal LAD on 06/21/18 -intra aortic balloon pump placed on 06/21 to augment coronary blood flow, with removal of balloon pump on 06/22 -goal MAP >60 -troponin x2 are elevated, as expected s/p LHC -echo final read pending -CXR 06/22 shows no active disease per my interpretation -heparin drip stopped this morning, currently on day 2 drip of nitro -continue Morphine 2mg Q4H PRN pain -Continue with ASA, Lipitor -Cardiology with Dr. Finch consulted, follow up recs -PT/OT for deconditioning Stable CAD, HTN -Continue coreg 3.125mg BID, Lisinopril 5mg Daily, ASA 81mg, Plavix as per Dr. Finch HLD -Continue with Lipitor Pulm: -Supplemental O2 as needed, maintain SaO2 >90% -continue singulair -Incentive spirometer ID: Urine Cx positive for MRSA -day 2 vancomycin -No leukocytosis, afebrile -blood cx pending, urine cx shows staph aureus -contact precautions -continue to monitor GI: Chronic constipation -Continue with linzess, miralax -GI ppx with protonix Renal: BPH s/p TURP with chronic indwelling sharp catheter, hx of cystitis -Continue with flomax -BUN/Cr WNL -sharp output of 3L today, negative balance of 1.3L -monitor UOP -Monitor and replete lytes as necessary Heme/Onc: -s/p heparin drip discontinued on 06/22 Normocytic anemia -Anemia of chronic disease -Monitor CBC, Maintain Hg >8 in cardiac patient, transfuse as needed Endo: DM2 -HgA1C of 8.9 -Continue with ISS medium and ACHS -Maintain euglycemia with target blood glucose of 140-180 Peripheral Neuropathy -Continue with Lyrica 100mg PO TID Patient seen and case discussed with attending, Dr. Moran <J Luis Moran - Last Filed: 06/23/18 17:57> CCU Objective - Vital Signs / Intake & Output Vital Signs (Last 4 hours): Vital Signs Pulse Resp BP Pulse Ox 06/23/18 17:40 78 18 93 L 06/23/18 17:30 76 39 H 96 06/23/18 17:20 73 22 95 06/23/18 17:10 74 26 H 95 06/23/18 17:01 74 108/64 06/23/18 17:00 74 29 H 109/58 L 94 L 06/23/18 16:50 72 94 L 06/23/18 16:40 76 14 93 L 06/23/18 16:30 76 36 H 94 L 06/23/18 16:20 72 20 97 06/23/18 16:10 70 20 99 06/23/18 16:00 73 18 108/42 L 98 06/23/18 15:50 75 20 99 06/23/18 15:40 71 21 98 06/23/18 15:30 79 98 06/23/18 15:20 72 12 96 01/26/19 15:10 73 25 H 99 06/23/18 15:00 75 19 81/49 L 96 06/23/18 14:50 77 17 98 06/23/18 14:40 70 14 98 06/23/18 14:30 74 14 97 06/23/18 14:20 75 98 06/23/18 14:10 77 25 H 92 L 06/23/18 14:01 76 17 94/57 L 93 L 06/23/18 14:00 79 26 H 93 L Intake and Output (Last 8hrs): Intake & Output 06/23/18 06/23/18 06/23/18 06:59 14:59 22:59 Intake Total 820 Output Total 1850 Balance -1030 Intake: IV 0 Left Antecubital 0 Left Wrist 0 Oral 720 Tube Feeding 0 TPN/PPN 0 Blood Product 0 Lipid 0 Albumin 0 Other 100 Output: Urine 1850 Urethral (Sharp) 1850 Stool 0 Urine/Stool Mix 0 Emesis 0 Oral Regurgitation 0 Other 0 Other: # Voids Urethral (Sharp) 0 # Bowel Movements 0 - Medications Active Medications: Active Medications Generic Name Dose Route Start Last Admin Trade Name Freq PRN Reason Stop Dose Admin Acetaminophen 650 mg 06/20/18 11:42 06/23/18 06:55 Tylenol 325mg Tab PO 650 mg Q6 PRN Administration TEMP>=99.5F Acetaminophen 650 mg 06/20/18 11:42 Tylenol 650 Mg Supp RC Q6H PRN TEMP>=99.5F Aspirin 81 mg 06/20/18 11:45 06/23/18 09:07 Ecotrin PO 81 mg DAILY KAUSHIK Administration Atorvastatin Calcium 20 mg 06/20/18 11:45 06/23/18 09:10 Lipitor PO 20 mg DAILY KAUSHIK Administration Carvedilol 3.125 mg 06/20/18 11:45 06/23/18 17:01 Coreg PO 3.125 mg BID KAUSHIK Administration Dextrose 0 ml 06/20/18 11:42 Dextrose 50% Inj IV STAT PRN Hypoglycemia Protocol Protocol Docusate Sodium 100 mg 06/20/18 14:00 06/23/18 17:00 Colace PO 100 mg TID KAUSHIK Administration Vancomycin HCl 500 mg in 100 mls @ 200 mls/hr 06/22/18 10:00 06/23/18 11:00 Vancomycin 500mg In Ns IVPB 200 mls/hr Q12 KAUSHIK Administration Protocol Sodium Chloride 1,000 mls @ 60 mls/hr 06/23/18 07:30 06/23/18 09:30 Sodium Chloride 0.9% IV 06/30/18 22:49 60 mls/hr .[id number] KAUSHIK Administration Insulin Human Lispro 0 units 06/23/18 16:30 06/23/18 17:46 Humalog High SC Not Given ACHS KAUSHIK Protocol Insulin Lispro Protam/Lispro Human 50 units 06/23/18 16:30 06/23/18 17:47 Humalog Mix 75/25 SC 50 u ACBD KAUSHIK Administration Isosorbide Mononitrate 60 mg 06/23/18 10:00 06/23/18 09:08 Imdur PO 60 mg DAILY KAUSHIK Administration Lisinopril 5 mg 06/20/18 16:00 06/23/18 09:12 Zestril PO 5 mg DAILY KAUSHIK Administration Montelukast Sodium 10 mg 06/20/18 11:45 06/23/18 10:00 Singulair PO 10 mg DAILY KAUSHIK Administration Morphine Sulfate 2 mg 06/21/18 11:31 06/22/18 09:47 Morphine IVP 2 mg Q4H PRN Administration Pain, moderate (4-7) Ondansetron HCl 4 mg 06/20/18 11:42 06/22/18 12:54 Zofran Inj IVP 4 mg Q4H PRN Administration Nausea/Vomiting Pantoprazole Sodium 40 mg 06/21/18 06:00 06/23/18 05:52 Protonix Ec Tab PO 40 mg 0600 KAUSHIK Administration Polyethylene Glycol 17 gm 06/20/18 11:45 06/23/18 17:00 Miralax PO 17 gm BID KAUSHIK Administration Pregabalin 100 mg 06/21/18 10:00 06/23/18 14:00 Lyrica PO 100 mg TID KAUSHIK Administration Tamsulosin HCl 0.4 mg 06/20/18 11:45 06/23/18 17:01 Flomax PO 0.4 mg BID KAUSHIK Administration - Patient Studies Lab Studies: Microbiology Studies 06/22/18 01:15 Urine Culture - Preliminary Urine,Sharp Staphylococcus Aureus 06/21/18 14:30 MRSA Culture (Admit) - Final Naris MRSA NOT DETECTED Lab Studies 06/23/18 06/23/18 06/23/18 Range/Units 05:00 05:00 05:00 WBC 9.7 (4.5-11.0) 10^3/uL RBC 3.83 (3.5-6.1) 10^6/uL Hgb 10.8 L (14.0-18.0) g/dL Hct 33.0 L (42.0-52.0) % MCV 86.2 (80.0-105.0) fl MCH 28.2 (25.0-35.0) pg MCHC 32.7 (31.0-37.0) g/dl RDW 15.2 H (11.5-14.5) % Plt Count 190 (120.0-450.0) 10^3/uL MPV 10.9 (7.0-11.0) fl Neut % (Auto) 60.2 (50.0-68.0) % Lymph % (Auto) 24.6 (22.0-35.0) % [place] % (Auto) 13.7 H (1.0-6.0) % Eos % (Auto) 1.4 L (1.5-5.0) % Baso % (Auto) 0.1 (0.0-3.0) % Lymph # (Auto) 2.4 (1.2-3.4) [place] # (Auto) 1.3 H (0.1-0.6) Eos # (Auto) 0.1 (0.0-0.7) Baso # (Auto) 0.01 (0.0-2.0) K/mm3 Absolute Neuts (auto) 5.85 (1.4-6.5) PT 12.8 H (9.4-12.5) SECONDS INR 1.13 APTT 27.6 (26.9-38.3) Seconds Sodium 131 L (132-148) mmol/L Potassium 4.2 (3.6-5.0) mmol/L Chloride 90 L (98-107) mmol/L Carbon Dioxide 36 H (21-33) mmol/L Anion Gap 10 (10-20) BUN 10 (7-21) mg/dL Creatinine 0.7 L (0.8-1.5) mg/dl Est GFR ( Amer) > 60 Est GFR (Non-Af Amer) > 60 POC Glucose (mg/dL) (65-110) mg/dL Random Glucose 268 H (70-110) mg/dL Calcium 8.8 (8.4-10.5) mg/dL Phosphorus 2.7 (2.5-4.5) mg/dL Magnesium 2.0 (1.7-2.2) mg/dL Total Bilirubin 0.3 (0.2-1.3) mg/dL Direct Bilirubin 0.1 (0.0-0.4) mg/dL AST 83 H (17-59) U/L ALT 37 (7-56) U/L Alkaline Phosphatase 83 (38-126) U/L Total Creatine Kinase 323 H (35-230) U/L CK-MB (CK-2) 9.8 H (0.0-3.6) ng/mL CK-MB (CK-2) % 3.0 (2.5-3.0) % Troponin I 9.52 H* ng/mL Total Protein 7.3 (5.8-8.3) g/dL Albumin 3.7 (3.0-4.8) g/dL Globulin 3.6 gm/dL Albumin/Globulin Ratio 1.0 L (1.1-1.8) 06/22/18 Range/Units 21:30 WBC (4.5-11.0) 10^3/uL RBC (3.5-6.1) 10^6/uL Hgb (14.0-18.0) g/dL Hct (42.0-52.0) % MCV (80.0-105.0) fl MCH (25.0-35.0) pg MCHC (31.0-37.0) g/dl RDW (11.5-14.5) % Plt Count (120.0-450.0) 10^3/uL MPV (7.0-11.0) fl Neut % (Auto) (50.0-68.0) % Lymph % (Auto) (22.0-35.0) % [place] % (Auto) (1.0-6.0) % Eos % (Auto) (1.5-5.0) % Baso % (Auto) (0.0-3.0) % Lymph # (Auto) (1.2-3.4) [place] # (Auto) (0.1-0.6) Eos # (Auto) (0.0-0.7) Baso # (Auto) (0.0-2.0) K/mm3 Absolute Neuts (auto) (1.4-6.5) PT (9.4-12.5) SECONDS INR APTT (26.9-38.3) Seconds Sodium (132-148) mmol/L Potassium (3.6-5.0) mmol/L Chloride (98-107) mmol/L Carbon Dioxide (21-33) mmol/L Anion Gap (10-20) BUN (7-21) mg/dL Creatinine (0.8-1.5) mg/dl Est GFR ( Amer) Est GFR (Non-Af Amer) POC Glucose (mg/dL) 284 H (65-110) mg/dL Random Glucose (70-110) mg/dL Calcium (8.4-10.5) mg/dL Phosphorus (2.5-4.5) mg/dL Magnesium (1.7-2.2) mg/dL Total Bilirubin (0.2-1.3) mg/dL Direct Bilirubin (0.0-0.4) mg/dL AST (17-59) U/L ALT (7-56) U/L Alkaline Phosphatase (38-126) U/L Total Creatine Kinase (35-230) U/L CK-MB (CK-2) (0.0-3.6) ng/mL CK-MB (CK-2) % (2.5-3.0) % Troponin I ng/mL Total Protein (5.8-8.3) g/dL Albumin (3.0-4.8) g/dL Globulin gm/dL Albumin/Globulin Ratio (1.1-1.8) Laboratory Results - last 24 hr 06/22/18 06/23/18 06/23/18 21:30 05:00 05:00 WBC 9.7 RBC 3.83 Hgb 10.8 L Hct 33.0 L MCV 86.2 MCH 28.2 MCHC 32.7 RDW 15.2 H Plt Count 190 MPV 10.9 Neut % (Auto) 60.2 Lymph % (Auto) 24.6 [place] % (Auto) 13.7 H Eos % (Auto) 1.4 L Baso % (Auto) 0.1 Lymph # (Auto) 2.4 [place] # (Auto) 1.3 H Eos # (Auto) 0.1 Baso # (Auto) 0.01 Absolute Neuts (auto) 5.85 PT INR APTT Sodium 131 L Potassium 4.2 Chloride 90 L Carbon Dioxide 36 H Anion Gap 10 BUN 10 Creatinine 0.7 L Est GFR ( Amer) > 60 Est GFR (Non-Af Amer) > 60 POC Glucose (mg/dL) 284 H Random Glucose 268 H Calcium 8.8 Phosphorus 2.7 Magnesium 2.0 Total Bilirubin 0.3 Direct Bilirubin 0.1 AST 83 H ALT 37 Alkaline Phosphatase 83 Total Creatine Kinase 323 H CK-MB (CK-2) 9.8 H CK-MB (CK-2) % 3.0 Troponin I 9.52 H* Total Protein 7.3 Albumin 3.7 Globulin 3.6 Albumin/Globulin Ratio 1.0 L 06/23/18 05:00 WBC RBC Hgb Hct MCV MCH MCHC RDW Plt Count MPV Neut % (Auto) Lymph % (Auto) [place] % (Auto) Eos % (Auto) Baso % (Auto) Lymph # (Auto) [place] # (Auto) Eos # (Auto) Baso # (Auto) Absolute Neuts (auto) PT 12.8 H INR 1.13 APTT 27.6 Sodium Potassium Chloride Carbon Dioxide Anion Gap BUN Creatinine Est GFR ( Amer) Est GFR (Non-Af Amer) POC Glucose (mg/dL) Random Glucose Calcium Phosphorus Magnesium Total Bilirubin Direct Bilirubin AST ALT Alkaline Phosphatase Total Creatine Kinase CK-MB (CK-2) CK-MB (CK-2) % Troponin I Total Protein Albumin Globulin Albumin/Globulin Ratio Radiology Impressions: Radiology Impressions Chest X-Ray 06/23/18 05:00 IMPRESSION: No evidence of acute pulmonary disease. EKG/Cardiology Studies: Cardiology / EKG Studies 06/24/18 07:00 ELECTROCARDIOGRAM Routine Comment: s/p ptca Reason For Exam: CAD PRE OP:: N Does Patient Have a Pacemaker?: No Critical Care Progress Note - Nutrition Nutrition: Nutrition Category Date Time Status Consistent Carbohydrate [DIET] Diets 06/22/18 Breakfast Ordered Addendum Addendum: 06/23/18 17:57 MICU Attending Addendum: Patient seen and examined with housestaff. Agree with note above with the following additions/exceptions: 82 M HTN, HLD, DM2, BPH s/p TURP p/w ACS s/p cath 06/21 found to have mid-distal LAD disease/occlusion with unsuccessful angioplasty and subsequent coronary artery dissection. Patient was stabilized with IABP placed on 06/21 removed on 06/22. hemodynmcailly stable no acute chest pain cont to monitor in ICU f/u cardio recs on vanc for SA in urine (chronic indwelling sharp) Rest of care as above J Luis Moran MD MICU Attending
--- NOTE | 2018-06-23 08:50 | RAD ---
Date of service: 06/23/2018 HISTORY: evaluation of IABP COMPARISON: Comparison is made with 06/22/2018 FINDINGS: LUNGS: No evidence of new infiltrate or consolidation in the lungs. PLEURA: No significant pleural effusion identified, no pneumothorax apparent. CARDIOVASCULAR: No aortic atherosclerotic calcification present. Normal cardiac size. No pulmonary vascular congestion. OSSEOUS STRUCTURES: No significant abnormalities. VISUALIZED UPPER ABDOMEN: Normal. OTHER FINDINGS: Previously noted the tip of the aortic balloon pump in left aspect of the mediastinum in the previous exam is not seen in the current study. IMPRESSION: No evidence of acute pulmonary disease.
--- NOTE | 2018-06-23 08:50 | PN ---
DATE: 06/23/2018 SUBJECTIVE: The patient is seen in ICU, bed 4. Overnight nurse's notes were reviewed. The patient tolerated the removal of intra-aortic balloon pump. There was no reports or documentation or calls about the patient's chest pain or shortness of breath. There was no groin bleeding noted. Right groin site was intact. PHYSICAL EXAMINATION: VITAL SIGNS: T-max 98.5. Telemetry shows sinus rhythm, heart rate 80-83; blood pressure 147/67; respiration 15-18 and O2 sat 97%. HEENT: Head examination, normocephalic and atraumatic. HEENT examination shows pinkish pale conjunctivae. Anicteric sclerae. No oropharyngeal lesion. No neck rigidity. CHEST: Symmetrical. LUNGS: Shows no audible crackle, rales or wheezing. Questionable decreased breath sound at the bases. CARDIOVASCULAR: S1 and S2, regular rhythm. Questionable soft systolic murmur left sternal border, left second intercostal space. ABDOMEN: Protuberant and obese. Positive bowel sound. GENITALIA: Male. Positive Diamond catheter. EXTREMITIES: Shows upper and lower extremity and skin examination shows positive vitiligo. No pitting edema noted. MUSCULOSKELETAL: Shows an elevated body mass index. NEUROLOGIC: The patient is alert, awake, oriented x3. Gait examination is not tested. DIAGNOSTICS: June 23, 2018, WBC 9.7, hemoglobin/hematocrit 10.8 and 33.0 with platelet 190. Sodium is going down to 131, potassium 4.2, chloride 90, CO2 of 36, BUN 10, creatinine 0.7, glucose 268, calcium 8.8, phosphorus 2.7, magnesium 2.0. Troponin has gone up to 8.67 and 9.52 today. CPK has gone up to 323. IMPRESSION: 1. Acute non-ST elevation myocardial infarction with elevated troponin and mid to distal left anterior descending artery dissection and acute occlusion. 2. Status post unsuccessful angioplasty and stent placement of the left anterior descending artery leading into mid to distal left anterior descending artery dissection and acute closure and occlusion with acute non-ST elevation myocardial infarction with elevated troponin. 3. Normocytic anemia. 4. Hyponatremia. 5. Uncontrolled insulin-requiring diabetes mellitus with hyperglycemia and elevated hemoglobin A1c. 6. Morbid obesity. 7. Diabetic neuropathy. 8. Neurogenic bladder with chronic indwelling Diamond catheter placement. 9. Methicillin-resistant Staphylococcus aureus urinary tract infection. 10. History of left carotid endarterectomy. 11. History of left carotid stenosis and left carotid endarterectomy. 12. History of vitiligo. 13. Deconditioning. 14. Gait dysfunction. 15. Hyperlipidemia and hypertriglyceridemia. 16. Unstable angina. 17. Acute coronary syndrome. PLAN: At this time, the patient is to be started on low-dose a normal saline to reverse hyponatremia. The patient is to be continued on sliding scale insulin coverage. The patient is already started on nitroglycerin. The patient will be continued on GI, DVT prophylaxis. The patient will be considered out of bed to chair. The patient is awaiting further cardiology evaluation and recommendation. If the patient is found to be stable subjectively, objectively and if the patient is cleared by Cardiology for transfer out of ICU, the patient will be considered for transfer out of ICU. Once the patient is out of the ICU, the patient will be ordered physical therapy, occupational therapy, ambulation therapy and gait training. I have met with the patient and the patient's granddaughter yesterday at length and the night before. I have explained to the patient and the patient's granddaughter who is a former medical student. I have explained to her and the patient extensively about the patient's condition, diagnosis, overall guarded prognosis in detail. All tests, diagnostics, recommendation by all physician involved in the care of the patient was extensively explained to the patient and the patient's granddaughter in layman's language and all questions concerned answered. Dictated and electronically signed, not read. Tramaine Griffith MD
[2018-06-23] MEDS: Sodium Chloride 0.9% 1,000 ML IV SCH (09:30)
[2018-06-23] MEDS: POLYETHYLENE GLYCOL 3350 17 GM/Dose PACKET PO SCH ×2 (10:00→17:00)
[2018-06-23] MEDS: Insulin Lispro (humaLOG) MEDIUM Coverage SC SCH (10:29)
[2018-06-23] MEDS: Vancomycin 500mg in NS 500 MG/100 ML BAG IVPB SCH ×2 (11:00→21:33)
--- NOTE | 2018-06-23 14:21 | PN ---
DATE: 06/23/2018 REASON FOR CONSULTATION: Covering Dr. Hermilo Finch. SUBJECTIVE: The patient denies any chest pain, shortness of breath, any palpitation, feels a lot better, though occasionally feels chest pain, but feels essentially headache, nitrate. OBJECTIVE: GENERAL: Not in apparent distress, is still in ICU, lying flat in the bed. VITAL SIGNS: Temperature afebrile, heart rate , blood pressure 114/68. HEENT: PERRLA. Extraocular muscles intact. NECK: Supple. No carotid bruits. No thyromegaly. CHEST: Clear to auscultation. HEART: S1, S2 regular. ABDOMEN: Soft. EXTREMITIES: Clubbing, cyanosis negative. LABORATORY DATA: EKG shows normal sinus, decreased in V2, V3. Blood work: WBC 9.7, hemoglobin 10.8, hematocrit 33, platelet count 190. Chemistry shows sodium 131, potassium 4.2, chloride 90, carbon dioxide 36, anion gap 10, BUN 10 and creatinine 0.7. Troponin 9.52. IMPRESSION: An 82-year-old male with past medical history significant for coronary artery disease, status post percutaneous transluminal coronary angioplasty attempted, dissection distal left anterior descending, hemodynamically stable, off balloon pump. He has diabetes, hypertension, hyperlipidemia. RECOMMENDATIONS: Continue Coreg, continue aspirin, continue isosorbide nitrate 60 mg, we will discontinue Nitropaste. Continue Tylenol p.r.n. Upon discharge, the patient can get the benefit from Ranexa which is non formulary here, 500 mg p.o. b.i.d. His blood pressure is tolerated. Discussed with the team present here in taking care of the patient, will follow with you. We will transfer care on Monday to Dr. Hermilo Finch. We will discontinue Nitropaste and put Imdur. We will also discontinue Tridil and see the response with Imdur. Repeat the blood workup in the morning and EKG in the morning. Thank you Dr. Griffith for providing us the opportunity in taking care of the patient, Erin Chi. Adalberto Fontenot MD [facility] # [phone]
[2018-06-23] MEDS ORDERED: Insulin Reg-HIGH-Coverage SC SCH (16:30)
[2018-06-23] MEDS: Insulin Lispro (HUMAlog) HIGH Coverage SC SCH ×2 (17:46→21:17)
[2018-06-23] MEDS: Insulin Lispro (humaLOG) MIX 75/25(10 ml) SC SCH (17:47)
[2018-06-24] MEDS: Sodium Chloride 0.9% 1,000 ML IV SCH (04:00)
[2018-06-24 05:35] LABS: BASO # 0.01 K/mm3 (0.0-2.0); BASO % 0.1 % (0.0-3.0); EOS # 0.3 (0.0-0.7); EOS % 3.2 % (1.5-5.0); HEMOGLOBIN 9.7 g/dL (14.0-18.0); LYMPH # 2.6 (1.2-3.4); LYMPH % 30.9 % (22.0-35.0); MEAN CELL VOLUME 86.5 fl (80.0-105.0); MEAN CORPUSCULAR HEMOGLOBIN 28.4 pg (25.0-35.0); MEAN CORPUSCULAR HGB CONC 32.8 g/dl (31.0-37.0); MEAN PLATELET VOLUME 10.5 fl (7.0-11.0); MONO # 0.9 (0.1-0.6); MONO % 11.1 % (1.0-6.0); RBC 3.42 10^6/uL (3.5-6.1); RED CELL DISTRIBUTION WIDTH 15.3 % (11.5-14.5); WHITE BLOOD COUNT 8.5 10^3/uL (4.5-11.0)
[2018-06-24 06:05] LABS: ALBUMIN 3.1 g/dL (3.0-4.8); ALT/SGPT 32 U/L (7-56); AST/SGOT 46 U/L (17-59); BILIRUBIN,DIRECT 0.1 mg/dL (0.0-0.4); BLOOD UREA NITROGEN 13 mg/dL (7-21); CALCIUM 8.4 mg/dL (8.4-10.5); GFR NON-AFRICAN AMERICAN > 60; TROPONIN I 5.58 ng/mL
[2018-06-24] MEDS: Pantoprazole 40 mg EC Tab PO SCH (06:08)
[2018-06-24] MEDS: Insulin Lispro (HUMAlog) HIGH Coverage SC SCH ×4 (07:30→21:36)
--- NOTE | 2018-06-24 07:38 | CP.CCUPN ---
<Priscila Ho - Last Filed: 06/24/18 13:29> CCU Subjective - Physician Review Subjective (Free Text): Priscila Ho PGY1 Critical Care Progress Note Patient seen and examined at bedside this morning. No acute events overnight. Transfer to [facility] today. Patient denies any chest pain, headaches, SOB, numbness, tingling, nausea at this time. CCU Objective - Vital Signs / Intake & Output Vital Signs (Last 4 hours): Vital Signs Temp Pulse Resp BP Pulse Ox 06/24/18 06:00 66 06/24/18 05:00 65 17 103/44 L 99 06/24/18 04:50 63 17 99 06/24/18 04:40 65 16 99 06/24/18 04:30 66 16 99 06/24/18 04:20 69 98 06/24/18 04:10 71 14 99 06/24/18 04:00 98.2 F 67 32 H 123/63 99 06/24/18 03:50 80 93 H 97 06/24/18 03:40 78 15 92 L Intake and Output (Last 8hrs): Intake & Output 06/23/18 06/24/18 06/24/18 22:59 06:59 14:59 Intake Total 1250 1090 Output Total 1200 1100 Balance 50 -10 Weight 233 lb 12.8 oz Intake: IV 450 790 Left Wrist 450 Right Forearm 790 Oral 800 300 Output: Urine 1200 1100 Urethral (Sharp) 1200 1100 Other: # Bowel Movements 0 0 - Physical Exam Head: Positive for: Atraumatic, Normocephalic Pupils: Positive for: PERRL Extroacular Muscles: Positive for: EOMI Conjunctiva: Positive for: Normal Mouth: Positive for: Moist Mucous Membranes Nose (Internal): Positive for: Normal Inspection Neck: Positive for: Normal Range of Motion Respiratory/Chest: Positive for: Clear to Auscultation, Good Air Exchange. Ne gative for: Respiratory Distress, Accessory Muscle Use Cardiovascular: Positive for: Regular Rate and Rhythm, Normal S1, S2, Peripheal Pulses Present. Negative for: Murmurs, Tachycardic, Bradycardic Abdomen: Positive for: Normal Bowel Sounds. Negative for: Tenderness, Distention, Peritoneal Signs, Rebound, Guarding Back: Positive for: Normal Inspection Upper Extremity: Positive for: Normal Inspection. Negative for: Cyanosis, Edema Lower Extremity: Positive for: Normal Inspection, Other (right groin site is clean, no bleeding, no hemotoma appreciated ). Negative for: Edema, CALF TENDERNESS Neurological: Positive for: GCS=15, CN II-XII Intact, Speech Normal Skin: Positive for: Warm, Dry, Other (vitiligo throughout face and body). Negative for: Rashes Psychiatric: Positive for: Alert, Oriented x 3, Normal Insight, Normal Concentration - Medications Active Medications: Active Medications Generic Name Dose Route Start Last Admin Trade Name Freq PRN Reason Stop Dose Admin Acetaminophen 650 mg 06/20/18 11:42 06/23/18 06:55 Tylenol 325mg Tab PO 650 mg Q6 PRN Administration TEMP>=99.5F Acetaminophen 650 mg 06/20/18 11:42 Tylenol 650 Mg Supp RC Q6H PRN TEMP>=99.5F Aspirin 81 mg 06/20/18 11:45 06/23/18 09:07 Ecotrin PO 81 mg DAILY KAUSHIK Administration Atorvastatin Calcium 20 mg 06/20/18 11:45 06/23/18 09:10 Lipitor PO 20 mg DAILY KAUSHIK Administration Carvedilol 3.125 mg 06/20/18 11:45 06/23/18 17:01 Coreg PO 3.125 mg BID KAUSHIK Administration Dextrose 0 ml 06/20/18 11:42 Dextrose 50% Inj IV STAT PRN Hypoglycemia Protocol Protocol Docusate Sodium 100 mg 06/20/18 14:00 06/23/18 17:00 Colace PO 100 mg TID KAUSHIK Administration Vancomycin HCl 500 mg in 100 mls @ 200 mls/hr 06/22/18 10:00 06/23/18 21:33 Vancomycin 500mg In Ns IVPB 200 mls/hr Q12 KAUSHIK Administration Protocol Sodium Chloride 1,000 mls @ 60 mls/hr 06/23/18 07:30 06/24/18 04:00 Sodium Chloride 0.9% IV 06/30/18 22:49 60 mls/hr .[id number] KAUSHIK Administration Insulin Human Lispro 0 units 06/23/18 16:30 06/23/18 21:17 Humalog High SC Not Given ACHS KAUSHIK Protocol Insulin Lispro Protam/Lispro Human 50 units 06/23/18 16:30 06/23/18 17:47 Humalog Mix 75/25 SC 50 u ACBD KAUSHIK Administration Isosorbide Mononitrate 60 mg 06/23/18 10:00 06/23/18 09:08 Imdur PO 60 mg DAILY KAUSHIK Administration Lisinopril 5 mg 06/20/18 16:00 06/23/18 09:12 Zestril PO 5 mg DAILY KAUSHIK Administration Montelukast Sodium 10 mg 06/20/18 11:45 06/23/18 10:00 Singulair PO 10 mg DAILY KAUSHIK Administration Morphine Sulfate 2 mg 06/21/18 11:31 06/22/18 09:47 Morphine IVP 2 mg Q4H PRN Administration Pain, moderate (4-7) Ondansetron HCl 4 mg 06/20/18 11:42 06/22/18 12:54 Zofran Inj IVP 4 mg Q4H PRN Administration Nausea/Vomiting Pantoprazole Sodium 40 mg 06/21/18 06:00 06/24/18 06:08 Protonix Ec Tab PO 40 mg 0600 KAUSHIK Administration Polyethylene Glycol 17 gm 06/20/18 11:45 06/23/18 17:00 Miralax PO 17 gm BID KAUSHIK Administration Pregabalin 100 mg 06/21/18 10:00 06/23/18 14:00 Lyrica PO 100 mg TID KAUSHIK Administration Tamsulosin HCl 0.4 mg 06/20/18 11:45 06/23/18 17:01 Flomax PO 0.4 mg BID KAUSHIK Administration - Patient Studies Lab Studies: Microbiology Studies 06/22/18 01:15 Urine Culture - Preliminary Urine,Sharp Staphylococcus Aureus Lab Studies 06/24/18 06/24/18 06/23/18 Range/Units 05:00 05:00 05:00 WBC 8.5 (4.5-11.0) 10^3/uL RBC 3.42 L (3.5-6.1) 10^6/uL Hgb 9.7 L (14.0-18.0) g/dL Hct 29.6 L (42.0-52.0) % MCV 86.5 (80.0-105.0) fl MCH 28.4 (25.0-35.0) pg MCHC 32.8 (31.0-37.0) g/dl RDW 15.3 H (11.5-14.5) % Plt Count 170 (120.0-450.0) 10^3/uL MPV 10.5 (7.0-11.0) fl Neut % (Auto) 54.7 (50.0-68.0) % Lymph % (Auto) 30.9 (22.0-35.0) % [place] % (Auto) 11.1 H (1.0-6.0) % Eos % (Auto) 3.2 (1.5-5.0) % Baso % (Auto) 0.1 (0.0-3.0) % Lymph # (Auto) 2.6 (1.2-3.4) [place] # (Auto) 0.9 H (0.1-0.6) Eos # (Auto) 0.3 (0.0-0.7) Baso # (Auto) 0.01 (0.0-2.0) K/mm3 Absolute Neuts (auto) 4.64 (1.4-6.5) Sodium 132 (132-148) mmol/L Potassium 3.9 (3.6-5.0) mmol/L Chloride 94 L (98-107) mmol/L Carbon Dioxide 35 H (21-33) mmol/L Anion Gap 7 L (10-20) BUN 13 (7-21) mg/dL Creatinine 0.7 L (0.8-1.5) mg/dl Est GFR ( Amer) > 60 Est GFR (Non-Af Amer) > 60 Random Glucose 228 H (70-110) mg/dL Calcium 8.4 (8.4-10.5) mg/dL Phosphorus 3.1 (2.5-4.5) mg/dL Magnesium 2.1 (1.7-2.2) mg/dL Total Bilirubin 0.2 (0.2-1.3) mg/dL Direct Bilirubin 0.1 (0.0-0.4) mg/dL AST 46 (17-59) U/L ALT 32 (7-56) U/L Alkaline Phosphatase 67 (38-126) U/L Total Creatine Kinase 128 (35-230) U/L CK-MB (CK-2) 9.8 H (0.0-3.6) ng/mL CK-MB (CK-2) % 3.0 (2.5-3.0) % Troponin I 5.58 H* D ng/mL Total Protein 6.3 (5.8-8.3) g/dL Albumin 3.1 (3.0-4.8) g/dL Globulin 3.2 gm/dL Albumin/Globulin Ratio 1.0 L (1.1-1.8) Laboratory Results - last 24 hr 06/23/18 06/24/18 06/24/18 05:00 05:00 05:00 WBC 8.5 RBC 3.42 L Hgb 9.7 L Hct 29.6 L MCV 86.5 MCH 28.4 MCHC 32.8 RDW 15.3 H Plt Count 170 MPV 10.5 Neut % (Auto) 54.7 Lymph % (Auto) 30.9 [place] % (Auto) 11.1 H Eos % (Auto) 3.2 Baso % (Auto) 0.1 Lymph # (Auto) 2.6 [place] # (Auto) 0.9 H Eos # (Auto) 0.3 Baso # (Auto) 0.01 Absolute Neuts (auto) 4.64 Sodium 132 Potassium 3.9 Chloride 94 L Carbon Dioxide 35 H Anion Gap 7 L BUN 13 Creatinine 0.7 L Est GFR ( Amer) > 60 Est GFR (Non-Af Amer) > 60 Random Glucose 228 H Calcium 8.4 Phosphorus 3.1 Magnesium 2.1 Total Bilirubin 0.2 Direct Bilirubin 0.1 AST 46 ALT 32 Alkaline Phosphatase 67 Total Creatine Kinase 128 CK-MB (CK-2) 9.8 H CK-MB (CK-2) % 3.0 Troponin I 5.58 H* D Total Protein 6.3 Albumin 3.1 Globulin 3.2 Albumin/Globulin Ratio 1.0 L Radiology Impressions: Radiology Impressions Chest X-Ray 06/23/18 05:00 IMPRESSION: No evidence of acute pulmonary disease. EKG/Cardiology Studies: Cardiology / EKG Studies 06/24/18 07:00 ELECTROCARDIOGRAM Routine Comment: s/p ptca Reason For Exam: CAD PRE OP:: N Does Patient Have a Pacemaker?: No Fingerstick Blood Sugar Results: 224 Critical Care Progress Note - Nutrition Nutrition: Nutrition Category Date Time Status Consistent Carbohydrate [DIET] Diets 06/22/18 Breakfast Ordered Assessment/Plan - Assessment and Plan (Free Text) Assessment: 82 year old male with past medical history of of HTN, HLD, DM2, BPH s/p TURP who [place] [facility] [place] with new onset angina taken for heart catheterization by Dr. Finch 06/21. Patient was noted to have mid-distal LAD disease/occlusion with unsuccessful angioplasty and subsequent coronary artery dissection. Patient was stabilized with IABP placed on 06/21 and subsequently removed on 06/22. Patient is currently being monitored in the ICU. No cardiopulmonary issue at this time. Transfer to [facility] today. Plan: Neuro: -AAOx3 -moving extremities spontaneously past midline, speaking in full sentences Cardio: s/p LHC with angioplasty of mid/distal LAD on 06/21/18 -intra aortic balloon pump placed on 06/21 to augment coronary blood flow, with removal of balloon pump on 06/22 -goal MAP >60 -troponin x3 are elevated and downtrending , as expected s/p LHC -echo final read pending -CXR 06/22 shows no active disease -started on imdur on 06/23 -continue Morphine 2mg Q4H PRN pain -Continue with ASA, Lipitor -Cardiology with Dr. Finch consulted, follow up recs -PT/OT for deconditioning Stable CAD, HTN -Continue coreg 3.125mg BID, Lisinopril 5mg Daily, ASA 81mg, Plavix as per Dr. Finch HLD -Continue with Lipitor Pulm: -Supplemental O2 as needed, maintain SaO2 >90% -continue singulair ID: Urine Cx positive for MRSA -day 3 vancomycin -No leukocytosis, afebrile -blood cx pending, urine cx shows staph aureus -contact precautions GI: Chronic constipation -Continue with linzess, miralax -GI ppx with protonix Renal: BPH s/p TURP with chronic indwelling sharp catheter, hx of cystitis -Continue with flomax -BUN/Cr WNL -sharp output of 3L today, negative balance of 1.3L -monitor UOP -Monitor and replete lytes as necessary Heme/Onc: -s/p heparin drip discontinued on 06/22 Normocytic anemia -Anemia of chronic disease -Monitor CBC, Maintain Hg >8 in cardiac patient, transfuse as needed Endo: DM2 -HgA1C of 8.9 -Continue with ISS high sliding scale and insulin 50units -Maintain euglycemia with target blood glucose of 140-180 Peripheral Neuropathy -Continue with Lyrica 100mg PO TID Patient seen and case discussed with attending, Dr. Moran <J Luis Moran - Last Filed: 06/24/18 15:04> CCU Objective - Vital Signs / Intake & Output Intake and Output (Last 8hrs): Intake & Output 06/24/18 06/24/18 06/24/18 06:59 14:59 22:59 Intake Total 1090 Output Total 1100 Balance -10 Weight 106.05 kg Intake: IV 790 Right Forearm 790 Oral 300 Output: Urine 1100 Urethral (Sharp) 1100 Other: # Bowel Movements 0 - Medications Active Medications: Active Medications Generic Name Dose Route Start Last Admin Trade Name Freq PRN Reason Stop Dose Admin Acetaminophen 650 mg 06/20/18 11:42 06/23/18 06:55 Tylenol 325mg Tab PO 650 mg Q6 PRN Administration TEMP>=99.5F Acetaminophen 650 mg 06/20/18 11:42 Tylenol 650 Mg Supp RC Q6H PRN TEMP>=99.5F Aspirin 81 mg 06/20/18 11:45 06/24/18 08:33 Ecotrin PO 81 mg DAILY KAUSHIK Administration Atorvastatin Calcium 20 mg 06/20/18 11:45 06/24/18 08:34 Lipitor PO 20 mg DAILY KAUSHIK Administration Carvedilol 3.125 mg 06/20/18 11:45 06/24/18 08:34 Coreg PO 3.125 mg BID KAUSHIK Administration Dextrose 0 ml 06/20/18 11:42 Dextrose 50% Inj IV STAT PRN Hypoglycemia Protocol Protocol Docusate Sodium 100 mg 06/20/18 14:00 06/24/18 08:34 Colace PO 100 mg TID KAUSHIK Administration Vancomycin HCl 500 mg in 100 mls @ 200 mls/hr 06/22/18 10:00 06/24/18 11:00 Vancomycin 500mg In Ns IVPB 200 mls/hr Q12 KAUSHIK Administration Protocol Insulin Human Lispro 0 units 06/23/18 16:30 06/24/18 12:26 Humalog High SC 4 u ACHS KAUSHIK Administration Protocol Insulin Lispro Protam/Lispro Human 50 units 06/23/18 16:30 06/23/18 17:47 Humalog Mix 75/25 SC 50 u ACBD KUASHIK Administration Isosorbide Mononitrate 60 mg 06/23/18 10:00 06/24/18 08:32 Imdur PO 60 mg DAILY KAUSHIK Administration Lisinopril 5 mg 06/20/18 16:00 06/24/18 08:33 Zestril PO 5 mg DAILY KAUSHIK Administration Montelukast Sodium 10 mg 06/20/18 11:45 06/24/18 08:33 Singulair PO 10 mg DAILY KAUSHIK Administration Ondansetron HCl 4 mg 06/20/18 11:42 06/22/18 12:54 Zofran Inj IVP 4 mg Q4H PRN Administration Nausea/Vomiting Pantoprazole Sodium 40 mg 06/21/18 06:00 06/24/18 06:08 Protonix Ec Tab PO 40 mg 0600 KAUSHIK Administration Polyethylene Glycol 17 gm 06/20/18 11:45 06/24/18 08:32 Miralax PO 17 gm BID KAUSHIK Administration Pregabalin 100 mg 06/21/18 10:00 06/24/18 08:38 Lyrica PO 100 mg TID KAUSHIK Administration Tamsulosin HCl 0.4 mg 06/20/18 11:45 06/24/18 08:32 Flomax PO 0.4 mg BID KAUSHIK Administration - Patient Studies Lab Studies: Microbiology Studies 06/22/18 01:15 Urine Culture - Final Urine,Sharp Methicillin Resistant S Aureus Lab Studies 06/24/18 06/24/18 Range/Units 05:00 05:00 WBC 8.5 (4.5-11.0) 10^3/uL RBC 3.42 L (3.5-6.1) 10^6/uL Hgb 9.7 L (14.0-18.0) g/dL Hct 29.6 L (42.0-52.0) % MCV 86.5 (80.0-105.0) fl MCH 28.4 (25.0-35.0) pg MCHC 32.8 (31.0-37.0) g/dl RDW 15.3 H (11.5-14.5) % Plt Count 170 (120.0-450.0) 10^3/uL MPV 10.5 (7.0-11.0) fl Neut % (Auto) 54.7 (50.0-68.0) % Lymph % (Auto) 30.9 (22.0-35.0) % [place] % (Auto) 11.1 H (1.0-6.0) % Eos % (Auto) 3.2 (1.5-5.0) % Baso % (Auto) 0.1 (0.0-3.0) % Lymph # (Auto) 2.6 (1.2-3.4) [place] # (Auto) 0.9 H (0.1-0.6) Eos # (Auto) 0.3 (0.0-0.7) Baso # (Auto) 0.01 (0.0-2.0) K/mm3 Absolute Neuts (auto) 4.64 (1.4-6.5) Sodium 132 (132-148) mmol/L Potassium 3.9 (3.6-5.0) mmol/L Chloride 94 L (98-107) mmol/L Carbon Dioxide 35 H (21-33) mmol/L Anion Gap 7 L (10-20) BUN 13 (7-21) mg/dL Creatinine 0.7 L (0.8-1.5) mg/dl Est GFR ( Amer) > 60 Est GFR (Non-Af Amer) > 60 Random Glucose 228 H (70-110) mg/dL Calcium 8.4 (8.4-10.5) mg/dL Phosphorus 3.1 (2.5-4.5) mg/dL Magnesium 2.1 (1.7-2.2) mg/dL Total Bilirubin 0.2 (0.2-1.3) mg/dL Direct Bilirubin 0.1 (0.0-0.4) mg/dL AST 46 (17-59) U/L ALT 32 (7-56) U/L Alkaline Phosphatase 67 (38-126) U/L Total Creatine Kinase 128 (35-230) U/L Troponin I 5.58 H* D ng/mL Total Protein 6.3 (5.8-8.3) g/dL Albumin 3.1 (3.0-4.8) g/dL Globulin 3.2 gm/dL Albumin/Globulin Ratio 1.0 L (1.1-1.8) Laboratory Results - last 24 hr 06/24/18 06/24/18 05:00 05:00 WBC 8.5 RBC 3.42 L Hgb 9.7 L Hct 29.6 L MCV 86.5 MCH 28.4 MCHC 32.8 RDW 15.3 H Plt Count 170 MPV 10.5 Neut % (Auto) 54.7 Lymph % (Auto) 30.9 [place] % (Auto) 11.1 H Eos % (Auto) 3.2 Baso % (Auto) 0.1 Lymph # (Auto) 2.6 [place] # (Auto) 0.9 H Eos # (Auto) 0.3 Baso # (Auto) 0.01 Absolute Neuts (auto) 4.64 Sodium 132 Potassium 3.9 Chloride 94 L Carbon Dioxide 35 H Anion Gap 7 L BUN 13 Creatinine 0.7 L Est GFR ( Amer) > 60 Est GFR (Non-Af Amer) > 60 Random Glucose 228 H Calcium 8.4 Phosphorus 3.1 Magnesium 2.1 Total Bilirubin 0.2 Direct Bilirubin 0.1 AST 46 ALT 32 Alkaline Phosphatase 67 Total Creatine Kinase 128 Troponin I 5.58 H* D Total Protein 6.3 Albumin 3.1 Globulin 3.2 Albumin/Globulin Ratio 1.0 L EKG/Cardiology Studies: Cardiology / EKG Studies 06/24/18 07:00 ELECTROCARDIOGRAM Routine Comment: s/p ptca Reason For Exam: CAD PRE OP:: N Does Patient Have a Pacemaker?: No Critical Care Progress Note - Nutrition Nutrition: Nutrition Category Date Time Status Consistent Carbohydrate [DIET] Diets 06/22/18 Breakfast Ordered Addendum Addendum: 06/24/18 15:03 MICU Attending Addendum: Patient seen and examined with housestaff. Agree with note above with the following additions/exceptions: 82 M HTN, HLD, DM2, BPH s/p TURP p/w ACS s/p cath 06/21 found to have mid-distal LAD disease/occlusion with unsuccessful angioplasty and subsequent coronary artery dissection. Patient was stabilized with IABP placed on 06/21 removed on 06/22. 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
[2018-06-24] MEDS: POLYETHYLENE GLYCOL 3350 17 GM/Dose PACKET PO SCH ×2 (08:32→17:13)
[2018-06-24] MEDS ORDERED: Magnesium Citrate Oral SOL (300 ml) PO ONE (08:43)
[2018-06-24] MEDS: Vancomycin 500mg in NS 500 MG/100 ML BAG IVPB SCH ×2 (11:00→22:02)
--- NOTE | 2018-06-24 13:35 | PN ---
DATE: 06/24/2018 SUBJECTIVE: The patient is seen lying in the bed. The patient is awake, responsive. The patient is complaining of constipation. Denies any chest pain or shortness of breath. PHYSICAL EXAMINATION: VITAL SIGNS: T-max is 98.2. Telemetry shows sinus rhythm. Heart rate 72, 74, 67; blood pressure 107/59, respirations 20, O2 sat 97% to 98%. Intake and output was noted. Output was 1100. HEENT: Head is normocephalic, atraumatic. Pinkish pale conjunctivae. Anicteric sclerae. No oropharyngeal lesion. NECK: No neck rigidity. CHEST: Kyphosis. LUNGS: Shows no audible crackle, rales or wheezing. Questionable decreased breath sounds at the bases. ABDOMEN: Protuberant, obese. Positive bowel sounds. Positive diffuse vitiligo noted. Right groin dressing is intact. No hematoma, no bleeding noted. EXTREMITIES: Lower extremity shows no pitting edema, no calf tenderness, no Homans' sign. Positive vitiligo noted of the skin. MUSCULOSKELETAL: Shows a body mass index of 33. DIAGNOSTIC DATA: On 06/24/2018, WBC 8.5, hemoglobin/hematocrit 9.7/29.6, platelets 170. Sodium has gone up to 132, potassium 3.9, chloride 94, CO2 of 35, anion gap 7, BUN 13, creatinine 0.7, GFR greater than 60, glucose 228, calcium 8.4, phosphorus 3.1, magnesium 2.1. LFTs are normal. Troponin is trending down to 5.58. Urine culture is growing Staphylococcus aureus 10 to 50,000. EKG shows sinus rhythm, anterolateral ischemic changes noted, questionable ST elevation noted in V2, V3 and T-wave inversion V4, V5, V6. IMPRESSION: 1. Age-indeterminate anterior infarct with anterolateral coronary ischemia. 2. Unstable angina. 3. Left ventricular ejection fraction of 50% to 55%. 4. Right coronary artery and left main intimal irregularities. 5. Diffuse atherosclerosis of the left circumflex artery. 6. A 90% stenosis of the left anterior descending artery. 7. Status post unsuccessful angioplasty of the 90% mid left anterior descending artery stenosis complicated by dissection and acute occlusion. 8. Acute non-ST elevation myocardial infarction with elevated troponin. 9. Status post intraaortic balloon pump placement and removal. 10. Unstable angina. 11. Status post dissection of the mid to distal left anterior descending artery with acute closure and occlusion of the left anterior descending artery. 12. Hypotension. 13. Normocytic anemia with decreasing hemoglobin and hematocrit. 14. Elevated erythrocyte sedimentation rate. 15. Transient hyponatremia. 16. 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 17. Proteinuria, microscopic hematuria, pyuria, bacteruria. 18. Methicillin-resistant Staphylococcus aureus urinary tract infection. 19. Morbid obesity. 20. Diabetic neuropathy. 21. Constipation. 22. 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 23. Hyperlipidemia. 24. Deconditioning. 25. Gait dysfunction. PLAN: At this time, the patient was seen by Cardiology. Currently, the patient has been ordered magnesium citrate, Colace 100 three times a day, Coreg 3.125 twice a day, aspirin 81 daily, Flomax 0.4 mg twice a day, Humalog mix 75/25 50 units with breakfast and dinner, Imdur 60 mg daily, Lipitor 20 mg daily, Lyrica 100 mg three times a day, MiraLax 17 g twice a day, morphine stopped, Protonix 40 mg daily, Singulair 10 mg daily, IV fluid 0.9 normal saline at 60 mL an hour, Tylenol 650 mg p.o. suppository every 6 hours p.r.n., vancomycin 500 mg intravenous every 12 hours, Zestril 5 mg daily, Zofran 4 mg intravenous every four hours p.r.n. Once the patient is out of intensive care unit, the patient will be considered for physical therapy. The patient will be considered to be transferred out of the intensive care unit after cleared by Cardiology. Dictated and electronically signed, not read. Tramaine Griffith MD
--- NOTE | 2018-06-24 14:59 | PN ---
DATE: 06/24/2018 REASON FOR DICTATION: Covering Dr. Hermilo Finch. REASON FOR CONSULTATION: Coronary artery status post PTCA. SUBJECTIVE: The patient denies any chest pain, shortness of breath, any palpitation. OBJECTIVE: GENERAL: Not in apparent distress, lying flat. Denies any further episode of the chest pain, was out of bed to easy chair two and half hours, no chest pain. VITAL SIGNS: Temperature afebrile, heart rate 62, blood pressure 107/59. HEENT: PERRLA. Extraocular muscles intact. NECK: Supple. No carotid bruits. No thyromegaly. CHEST: Clear to auscultation. HEART: S1, S2 regular. ABDOMEN: Soft. EXTREMITIES: Clubbing, cyanosis negative. LABORATORY DATA: Blood work as follows; WBC 8.5, hemoglobin 9.7, hematocrit 29.6, platelet count 170. Chemistry shows sodium 132. potassium 3.9, chloride 94, carbon dioxide 35, anion gap of 7, BUN 13 and creatinine 0.7. Troponin trend down to 5.58. EKG shows normal sinus PT-wave in V2, V3, and V4. IMPRESSION: An 82-year-old male with past medical history of coronary artery disease, status post percutaneous transluminal coronary angioplasty attempted, distal dissection and left anterior descending occluded. Initially hemodynamically stable, now initially was now off balloon pump, off topical nitrate on p.o. Imdur. He is stable. No further episode of chest pain while the patient was sitting in the easy chair and in the ICU. RECOMMENDATIONS: Nitropaste was discontinued. Continue Imdur 60 mg daily, continue Tylenol p.r.n. for headache. Although bed to chair and transferred to telemetry ambulate and was consider Ranexa as an outpatient which is non formulary here. Interim, continue aspirin 81 mg, continue Coreg, continue Flomax for his prostate, continue atorvastatin. Discussed with in taking care of. We will discontinue IV fluid. CVS status is stable. Thank you Dr. Griffith for providing us the opportunity in taking care of the patient. We will transfer care tomorrow to Dr. Griffith. Adalberto Fontenot MD
[2018-06-24] MEDS: Insulin Lispro (humaLOG) MIX 75/25(10 ml) SC SCH ×2 (17:00→17:02)
--- NOTE | 2018-06-24 21:51 | PCM.URO ---
Urology Progress Note - Subjective Other: sharp to sd - Objective Lab Results Last 24 Hours: Laboratory Results - last 24 hr 06/24/18 06/24/18 05:00 05:00 WBC 8.5 RBC 3.42 L Hgb 9.7 L Hct 29.6 L MCV 86.5 MCH 28.4 MCHC 32.8 RDW 15.3 H Plt Count 170 MPV 10.5 Neut % (Auto) 54.7 Lymph % (Auto) 30.9 [place]bour % (Auto) 11.1 H Eos % (Auto) 3.2 Baso % (Auto) 0.1 Lymph # (Auto) 2.6 [place] # (Auto) 0.9 H Eos # (Auto) 0.3 Baso # (Auto) 0.01 Absolute Neuts (auto) 4.64 Sodium 132 Potassium 3.9 Chloride 94 L Carbon Dioxide 35 H Anion Gap 7 L BUN 13 Creatinine 0.7 L Est GFR ( Amer) > 60 Est GFR (Non-Af Amer) > 60 Random Glucose 228 H Calcium 8.4 Phosphorus 3.1 Magnesium 2.1 Total Bilirubin 0.2 Direct Bilirubin 0.1 AST 46 ALT 32 Alkaline Phosphatase 67 Total Creatine Kinase 128 Troponin I 5.58 H* D Total Protein 6.3 Albumin 3.1 Globulin 3.2 Albumin/Globulin Ratio 1.0 L Intake & Output: Intake & Output 06/24/18 06/24/18 06/25/18 06:59 18:59 06:59 Intake Total 1090 1300 Output Total 1100 650 Balance -10 650 Weight 233 lb 12.8 oz Intake: IV 790 500 Right Forearm 790 500 Oral 300 800 Output: Urine 1100 650 Urethral (Sharp) 1100 650 Other: # Bowel Movements 0 Vital Signs: Vital Signs - 24 hr 06/23/18 06/23/18 06/23/18 22:00 22:02 22:10 Temperature Pulse Rate 64 63 66 Respiratory 14 16 17 Rate Blood Pressure 87/44 L 100/47 L O2 Sat by Pulse 99 99 99 Oximetry 06/23/18 06/23/18 06/23/18 22:20 22:30 22:40 Temperature Pulse Rate 63 64 67 Respiratory 17 17 21 Rate Blood Pressure O2 Sat by Pulse 99 99 98 Oximetry 06/23/18 06/23/18 06/23/18 22:50 23:00 23:10 Temperature Pulse Rate 64 63 69 Respiratory 18 19 25 H Rate Blood Pressure 130/56 L O2 Sat by Pulse 98 100 98 Oximetry 06/23/18 06/23/18 06/23/18 23:20 23:30 23:40 Temperature Pulse Rate 68 66 64 Respiratory 16 16 17 Rate Blood Pressure O2 Sat by Pulse 99 99 99 Oximetry 06/23/18 06/24/18 06/24/18 23:50 00:00 00:10 Temperature 98.2 F Pulse Rate 65 65 72 Respiratory 18 17 23 Rate Blood Pressure 101/44 L O2 Sat by Pulse 99 99 98 Oximetry 06/24/18 06/24/18 06/24/18 00:13 00:20 00:30 Temperature Pulse Rate 86 72 69 Respiratory 25 H 14 19 Rate Blood Pressure O2 Sat by Pulse 95 95 94 L Oximetry 06/24/18 06/24/18 06/24/18 00:40 00:50 01:00 Temperature Pulse Rate 70 72 74 Respiratory 17 11 L 17 Rate Blood Pressure 99/46 L O2 Sat by Pulse 93 L 93 L 92 L Oximetry 06/24/18 06/24/18 06/24/18 01:10 01:20 01:30 Temperature Pulse Rate 71 72 67 Respiratory 42 H 17 Rate Blood Pressure O2 Sat by Pulse 92 L 94 L 98 Oximetry 06/24/18 06/24/18 06/24/18 01:40 01:50 02:00 Temperature Pulse Rate 70 69 70 Respiratory 22 11 L 17 Rate Blood Pressure 116/54 L O2 Sat by Pulse 98 98 97 Oximetry 06/24/18 06/24/18 06/24/18 02:10 02:20 02:30 Temperature Pulse Rate 68 78 69 Respiratory 27 H 17 Rate Blood Pressure O2 Sat by Pulse 98 99 97 Oximetry 06/24/18 06/24/18 06/24/18 02:40 02:50 03:00 Temperature Pulse Rate 71 71 69 Respiratory 19 17 20 Rate Blood Pressure 100/47 L O2 Sat by Pulse 97 97 98 Oximetry 06/24/18 06/24/18 06/24/18 03:10 03:20 03:30 Temperature Pulse Rate 72 68 71 Respiratory 23 42 H 18 Rate Blood Pressure O2 Sat by Pulse 93 L 94 L 92 L Oximetry 06/24/18 06/24/18 06/24/18 03:40 03:50 04:00 Temperature 98.2 F Pulse Rate 78 80 67 Respiratory 15 93 H 32 H Rate Blood Pressure 123/63 O2 Sat by Pulse 92 L 97 99 Oximetry 06/24/18 06/24/18 06/24/18 04:10 04:20 04:30 Temperature Pulse Rate 71 69 66 Respiratory 14 16 Rate Blood Pressure O2 Sat by Pulse 99 98 99 Oximetry 06/24/18 06/24/18 06/24/18 04:40 04:50 05:00 Temperature Pulse Rate 65 63 65 Respiratory 16 17 17 Rate Blood Pressure 103/44 L O2 Sat by Pulse 99 99 99 Oximetry 06/24/18 06/24/18 06/24/18 05:10 05:20 05:30 Temperature Pulse Rate 63 74 Respiratory 18 23 Rate Blood Pressure O2 Sat by Pulse 99 98 97 Oximetry 06/24/18 06/24/18 06/24/18 05:51 06:00 06:10 Temperature Pulse Rate 73 67 69 Respiratory 19 32 H 17 Rate Blood Pressure 118/67 O2 Sat by Pulse Oximetry 06/24/18 06/24/18 06/24/18 06:20 06:30 06:40 Temperature Pulse Rate 81 69 67 Respiratory 18 18 21 Rate Blood Pressure O2 Sat by Pulse 99 98 98 Oximetry 06/24/18 06/24/18 06/24/18 06:50 07:00 07:03 Temperature Pulse Rate 68 70 68 Respiratory 20 19 21 Rate Blood Pressure 115/62 O2 Sat by Pulse 98 98 99 Oximetry 06/24/18 06/24/18 06/24/18 07:10 07:20 07:30 Temperature Pulse Rate 67 67 69 Respiratory 15 17 17 Rate Blood Pressure O2 Sat by Pulse 99 99 99 Oximetry 06/24/18 06/24/18 06/24/18 07:40 07:50 08:00 Temperature Pulse Rate 66 67 68 Respiratory 20 15 20 Rate Blood Pressure 107/59 L O2 Sat by Pulse 99 98 97 Oximetry 06/24/18 06/24/18 06/24/18 08:10 08:33 08:34 Temperature Pulse Rate 67 72 72 Respiratory 52 H Rate Blood Pressure 107/59 L 107/59 L O2 Sat by Pulse 98 Oximetry 06/24/18 06/24/18 06/24/18 16:00 16:02 16:10 Temperature Pulse Rate 71 72 73 Respiratory 29 H 21 Rate Blood Pressure 120/88 100/66 O2 Sat by Pulse 96 96 94 L Oximetry 06/24/18 06/24/18 06/24/18 16:20 16:22 16:24 Temperature Pulse Rate 70 74 72 Respiratory 18 25 H 34 H Rate Blood Pressure 86/37 L 97/51 L O2 Sat by Pulse 95 95 94 L Oximetry 06/24/18 06/24/18 06/24/18 16:31 16:32 16:40 Temperature Pulse Rate 74 70 71 Respiratory 17 17 19 Rate Blood Pressure 90/48 L 102/52 L O2 Sat by Pulse 97 95 96 Oximetry 06/24/18 06/24/18 06/24/18 16:50 16:51 17:00 Temperature Pulse Rate 70 74 72 Respiratory 23 Rate Blood Pressure 93/63 L O2 Sat by Pulse 96 98 96 Oximetry 06/24/18 06/24/18 06/24/18 17:05 17:10 17:20 Temperature Pulse Rate 76 70 75 Respiratory 21 21 Rate Blood Pressure 93/63 L 107/56 L O2 Sat by Pulse 96 96 Oximetry 06/24/18 06/24/18 06/24/18 17:30 17:40 17:50 Temperature Pulse Rate 72 74 77 Respiratory 20 25 H Rate Blood Pressure 121/64 163/68 H O2 Sat by Pulse 95 100 100 Oximetry 06/24/18 06/24/18 06/24/18 18:00 18:01 18:10 Temperature Pulse Rate 73 73 74 Respiratory 24 17 20 Rate Blood Pressure 128/54 L 133/74 O2 Sat by Pulse 99 99 99 Oximetry 06/24/18 06/24/18 06/24/18 18:20 18:21 18:30 Temperature Pulse Rate 76 73 71 Respiratory 26 H 22 20 Rate Blood Pressure 97/40 L 118/65 O2 Sat by Pulse 99 99 98 Oximetry 06/24/18 06/24/18 06/24/18 18:40 18:41 18:50 Temperature Pulse Rate 72 72 76 Respiratory 20 68 H 19 Rate Blood Pressure 94/53 L 124/73 O2 Sat by Pulse 98 99 99 Oximetry 06/24/18 06/24/18 06/24/18 19:00 19:01 19:10 Temperature Pulse Rate 75 75 72 Respiratory 20 20 27 H Rate Blood Pressure 109/45 L 122/97 H O2 Sat by Pulse 98 97 98 Oximetry 06/24/18 06/24/18 06/24/18 19:20 19:30 19:40 Temperature Pulse Rate 82 80 77 Respiratory 19 Rate Blood Pressure O2 Sat by Pulse 98 94 L 98 Oximetry 06/24/18 06/24/18 06/24/18 19:50 19:54 20:00 Temperature 97.8 F Pulse Rate 71 69 66 Respiratory 18 16 13 Rate Blood Pressure 98/47 L 102/50 L O2 Sat by Pulse 99 98 98 Oximetry 06/24/18 06/24/18 06/24/18 20:10 20:11 20:20 Temperature Pulse Rate 68 68 69 Respiratory 23 28 H Rate Blood Pressure 111/63 98/48 L O2 Sat by Pulse 99 98 98 Oximetry 06/24/18 06/24/18 06/24/18 20:30 20:31 20:40 Temperature Pulse Rate 67 70 67 Respiratory 18 17 12 Rate Blood Pressure 99/37 L 98/49 L O2 Sat by Pulse 98 99 99 Oximetry 06/24/18 06/24/18 06/24/18 20:50 21:00 21:10 Temperature Pulse Rate 67 66 65 Respiratory 17 18 17 Rate Blood Pressure 97/51 L 103/53 L 97/44 L O2 Sat by Pulse 99 97 94 L Oximetry 06/24/18 21:20 Temperature Pulse Rate 63 Respiratory 19 Rate Blood Pressure 86/39 L O2 Sat by Pulse 95 Oximetry
--- NOTE | 2018-06-24 23:03 | CARD ---
APPROVED REPORT Date of service: 06/24/2018 EKG Measurement Heart [id number] <Conclusion> Normal sinus rhythm Low voltage QRS Slow R wave progression V1-4. Cannot exclude remote AMI CCR T wave abnormality, consider anterior- lateral ischemia Abnormal ECG
[2018-06-25] MEDS: Pantoprazole 40 mg EC Tab PO SCH (06:08)
[2018-06-25 07:09] LABS: BASO # 0.02 K/mm3 (0.0-2.0); BASO % 0.2 % (0.0-3.0); EOS # 0.3 (0.0-0.7); EOS % 3.1 % (1.5-5.0); HEMOGLOBIN 9.8 g/dL (14.0-18.0); LYMPH # 2.6 (1.2-3.4); LYMPH % 30.2 % (22.0-35.0); MEAN CELL VOLUME 87.1 fl (80.0-105.0); MEAN CORPUSCULAR HEMOGLOBIN 28.2 pg (25.0-35.0); MEAN CORPUSCULAR HGB CONC 32.3 g/dl (31.0-37.0); MEAN PLATELET VOLUME 10.6 fl (7.0-11.0); RBC 3.48 10^6/uL (3.5-6.1); RED CELL DISTRIBUTION WIDTH 15.7 % (11.5-14.5); WHITE BLOOD COUNT 8.7 10^3/uL (4.5-11.0)
[2018-06-25 07:44] LABS: ALBUMIN 3.2 g/dL (3.0-4.8); ALT/SGPT 35 U/L (7-56); AST/SGOT 51 U/L (17-59); BILIRUBIN,DIRECT 0.1 mg/dL (0.0-0.4); BLOOD UREA NITROGEN 15 mg/dL (7-21); CALCIUM 8.6 mg/dL (8.4-10.5); GFR NON-AFRICAN AMERICAN > 60; TROPONIN I 4.62 ng/mL
[2018-06-25] MEDS: Insulin Lispro (HUMAlog) HIGH Coverage SC SCH ×4 (07:48→21:37)
[2018-06-25] MEDS: Insulin Lispro (humaLOG) MIX 75/25(10 ml) SC SCH ×2 (08:08→17:04)
[2018-06-25] MEDS: POLYETHYLENE GLYCOL 3350 17 GM/Dose PACKET PO SCH ×2 (09:38→18:03)
--- NOTE | 2018-06-25 09:45 | CP.CCUPN ---
<Priscila Ho - Last Filed: 06/25/18 11:13> CCU Subjective - Physician Review Subjective (Free Text): Priscila Ho PGY1 Critical Care Progress Note Patient seen and examined at bedside this morning. No acute events overnight. Patient slept comfortably and is eating well. Patient denies any chest pain, headaches, SOB and nausea, Transferred to [facility]. BP stable overnight. CCU Objective - Vital Signs / Intake & Output Vital Signs (Last 4 hours): Vital Signs Temp Pulse BP 06/25/18 09:38 61 149/75 06/25/18 09:36 61 149/75 06/25/18 08:00 98 F 06/25/18 06:00 52 L Intake and Output (Last 8hrs): Intake & Output 06/24/18 06/25/18 06/25/18 22:59 06:59 14:59 Intake Total 1300 380 Output Total 650 400 Balance 650 -20 Weight 238 lb 4.8 oz Intake: IV 500 100 Right Forearm 500 100 Oral 800 280 Output: Urine 650 400 Urethral (Sharp) 650 400 Other: # Bowel Movements 2 - Physical Exam Head: Positive for: Atraumatic, Normocephalic Pupils: Positive for: PERRL Extroacular Muscles: Positive for: EOMI Conjunctiva: Positive for: Normal Mouth: Positive for: Moist Mucous Membranes Nose (Internal): Positive for: Normal Inspection Neck: Positive for: Normal Range of Motion Respiratory/Chest: Positive for: Clear to Auscultation, Good Air Exchange. Negative for: Respiratory Distress, Accessory Muscle Use Cardiovascular: Positive for: Regular Rate and Rhythm, Normal S1, S2, Peripheal Pulses Present. Negative for: Murmurs, Tachycardic, Bradycardic Abdomen: Positive for: Normal Bowel Sounds. Negative for: Tenderness, Distention, Peritoneal Signs, Rebound, Guarding Back: Positive for: Normal Inspection Upper Extremity: Positive for: Normal Inspection. Negative for: Cyanosis, Edema Lower Extremity: Positive for: Normal Inspection, Other (right groin site is clean, no bleeding, no hemotoma appreciated ). Negative for: Edema, CALF TENDERNESS Neurological: Positive for: GCS=15, CN II-XII Intact, Speech Normal Skin: Positive for: Warm, Dry, Other (vitiligo throughout face and body). Negative for: Rashes Psychiatric: Positive for: Alert, Oriented x 3, Normal Insight, Normal Concentration - Medications Active Medications: Active Medications Generic Name Dose Route Start Last Admin Trade Name Freq PRN Reason Stop Dose Admin Acetaminophen 650 mg 06/20/18 11:42 06/24/18 21:55 Tylenol 325mg Tab PO 650 mg Q6 PRN Administration TEMP>=99.5F Acetaminophen 650 mg 06/20/18 11:42 Tylenol 650 Mg Supp RC Q6H PRN TEMP>=99.5F Aspirin 81 mg 06/20/18 11:45 06/25/18 09:37 Ecotrin PO 81 mg DAILY KAUSHIK Administration Atorvastatin Calcium 20 mg 06/20/18 11:45 06/25/18 09:37 Lipitor PO 20 mg DAILY KAUSHIK Administration Carvedilol 3.125 mg 06/20/18 11:45 06/25/18 09:36 Coreg PO 3.125 mg BID KAUSHIK Administration Dextrose 0 ml 06/20/18 11:42 Dextrose 50% Inj IV STAT PRN Hypoglycemia Protocol Protocol Docusate Sodium 100 mg 06/20/18 14:00 06/25/18 09:36 Colace PO 100 mg TID KAUSHIK Administration Vancomycin HCl 500 mg in 100 mls @ 200 mls/hr 06/22/18 10:00 06/24/18 22:02 Vancomycin 500mg In Ns IVPB 200 mls/hr Q12 KAUSHIK Administration Protocol Insulin Human Lispro 0 units 06/23/18 16:30 06/25/18 07:48 Humalog High SC Not Given ACHS KAUSHIK Protocol Insulin Lispro Protam/Lispro Human 50 units 06/23/18 16:30 06/25/18 08:08 Humalog Mix 75/25 SC 50 u ACBD KAUSHIK Administration Isosorbide Mononitrate 60 mg 06/23/18 10:00 06/25/18 09:37 Imdur PO 60 mg DAILY KAUSHIK Administration Lisinopril 5 mg 06/20/18 16:00 06/25/18 09:38 Zestril PO 5 mg DAILY KAUSHIK Administration Midodrine 2.5 mg 06/24/18 18:00 06/25/18 09:38 Proamatine PO 2.5 mg TID KAUSHIK Administration Montelukast Sodium 10 mg 06/20/18 11:45 06/25/18 09:38 Singulair PO 10 mg DAILY KAUSHIK Administration Ondansetron HCl 4 mg 06/20/18 11:42 06/22/18 12:54 Zofran Inj IVP 4 mg Q4H PRN Administration Nausea/Vomiting Pantoprazole Sodium 40 mg 06/21/18 06:00 06/25/18 06:08 Protonix Ec Tab PO 40 mg 0600 KAUSHIK Administration Polyethylene Glycol 17 gm 06/20/18 11:45 06/25/18 09:38 Miralax PO 17 gm BID KAUSHIK Administration Pregabalin 100 mg 06/21/18 10:00 06/25/18 09:37 Lyrica PO 100 mg TID KAUSHIK Administration Tamsulosin HCl 0.4 mg 06/20/18 11:45 06/25/18 09:37 Flomax PO 0.4 mg BID KAUSHIK Administration - Patient Studies Lab Studies: Microbiology Studies 06/22/18 01:15 Urine Culture - Final Urine,Sharp Methicillin Resistant S Aureus Lab Studies 06/25/18 06/25/18 Range/Units 05:45 05:45 WBC 8.7 (4.5-11.0) 10^3/uL RBC 3.48 L (3.5-6.1) 10^6/uL Hgb 9.8 L (14.0-18.0) g/dL Hct 30.3 L (42.0-52.0) % MCV 87.1 (80.0-105.0) fl MCH 28.2 (25.0-35.0) pg MCHC 32.3 (31.0-37.0) g/dl RDW 15.7 H (11.5-14.5) % Plt Count 190 (120.0-450.0) 10^3/uL MPV 10.6 (7.0-11.0) fl Neut % (Auto) 55.5 (50.0-68.0) % Lymph % (Auto) 30.2 (22.0-35.0) % [place] % (Auto) 11.0 H (1.0-6.0) % Eos % (Auto) 3.1 (1.5-5.0) % Baso % (Auto) 0.2 (0.0-3.0) % Lymph # (Auto) 2.6 (1.2-3.4) [place] # (Auto) 1.0 H (0.1-0.6) Eos # (Auto) 0.3 (0.0-0.7) Baso # (Auto) 0.02 (0.0-2.0) K/mm3 Absolute Neuts (auto) 4.81 (1.4-6.5) Sodium 134 (132-148) mmol/L Potassium 4.1 (3.6-5.0) mmol/L Chloride 98 (98-107) mmol/L Carbon Dioxide 34 H (21-33) mmol/L Anion Gap 6 L (10-20) BUN 15 (7-21) mg/dL Creatinine 0.6 L (0.8-1.5) mg/dl Est GFR ( Amer) > 60 Est GFR (Non-Af Amer) > 60 Random Glucose 78 (70-110) mg/dL Calcium 8.6 (8.4-10.5) mg/dL Phosphorus 3.9 (2.5-4.5) mg/dL Magnesium 2.6 H (1.7-2.2) mg/dL Total Bilirubin 0.3 (0.2-1.3) mg/dL Direct Bilirubin 0.1 (0.0-0.4) mg/dL AST 51 (17-59) U/L ALT 35 (7-56) U/L Alkaline Phosphatase 74 (38-126) U/L Total Creatine Kinase 93 (35-230) U/L Troponin I 4.62 H* ng/mL Total Protein 6.6 (5.8-8.3) g/dL Albumin 3.2 (3.0-4.8) g/dL Globulin 3.4 gm/dL Albumin/Globulin Ratio 1.0 L (1.1-1.8) Laboratory Results - last 24 hr 06/25/18 06/25/18 05:45 05:45 WBC 8.7 RBC 3.48 L Hgb 9.8 L Hct 30.3 L MCV 87.1 MCH 28.2 MCHC 32.3 RDW 15.7 H Plt Count 190 MPV 10.6 Neut % (Auto) 55.5 Lymph % (Auto) 30.2 [place] % (Auto) 11.0 H Eos % (Auto) 3.1 Baso % (Auto) 0.2 Lymph # (Auto) 2.6 [place] # (Auto) 1.0 H Eos # (Auto) 0.3 Baso # (Auto) 0.02 Absolute Neuts (auto) 4.81 Sodium 134 Potassium 4.1 Chloride 98 Carbon Dioxide 34 H Anion Gap 6 L BUN 15 Creatinine 0.6 L Est GFR ( Amer) > 60 Est GFR (Non-Af Amer) > 60 Random Glucose 78 Calcium 8.6 Phosphorus 3.9 Magnesium 2.6 H Total Bilirubin 0.3 Direct Bilirubin 0.1 AST 51 ALT 35 Alkaline Phosphatase 74 Total Creatine Kinase 93 Troponin I 4.62 H* Total Protein 6.6 Albumin 3.2 Globulin 3.4 Albumin/Globulin Ratio 1.0 L Fingerstick Blood Sugar Results: 104 Critical Care Progress Note - Nutrition Nutrition: Nutrition Category Date Time Status Consistent Carbohydrate [DIET] Diets 06/22/18 Breakfast Ordered Assessment/Plan - Assessment and Plan (Free Text) Assessment: 82 year old male with past medical history of of HTN, HLD, DM2, BPH s/p TURP who presented to [facility] 06/20 with new onset angina taken for heart catheterization by Dr. Finch 06/21. Patient was noted to have mid-distal LAD disease/occlusion with unsuccessful angioplasty and subsequent coronary artery dissection. Patient was stabilized with IABP placed on 06/21 and subsequently removed on 06/22. Patient is currently being monitored in the ICU. No cardiopulmonary issue at this time. Transfer to [facility] today; BP stable overnight. Plan: Neuro: -AAOx3 -moving extremities spontaneously past midline, speaking in full sentences Cardio: s/p LHC with angioplasty of mid/distal LAD on 06/21/18 -intra aortic balloon pump placed on 06/21 to augment coronary blood flow, with removal of balloon pump on 06/22 -goal MAP >60 -troponins downtrending, as expected s/p LHC -echo final read pending -CXR 06/23 shows no active disease -started on imdur on 06/23, stable BP overnight -continue Morphine 2mg Q4H PRN pain, continue with ASA, Lipitor -Cardiology with Dr. Finch consulted, follow up recs -PT/OT for deconditioning and OOB Stable CAD, HTN -Continue coreg 3.125mg BID, Lisinopril 5mg Daily, ASA 81mg, Plavix as per Dr. Finch HLD -Continue with Lipitor Pulm: -Supplemental O2 as needed, maintain SaO2 >90% -continue singulair ID: Urine Cx positive for MRSA -day 4 vancomycin -No leukocytosis, afebrile -blood cx pending, urine cx shows staph aureus -contact precautions for MRSA GI: Chronic constipation -Continue with linzess miralax -GI ppx with protonix Renal: BPH s/p TURP with chronic indwelling sharp catheter, hx of cystitis -Continue with flomax -BUN/Cr WNL -monitor UOP, Monitor and replete lytes as necessary Heme/Onc: -s/p heparin drip discontinued on 06/22 Normocytic anemia -Anemia of chronic disease -Monitor CBC, Maintain Hg >8 in cardiac patient, transfuse as needed Endo: DM2 -HgA1C of 8.9 -Continue with ISS high sliding scale and insulin 50units -Maintain euglycemia with target blood glucose of 140-180 Peripheral Neuropathy -Continue with Lyrica 100mg PO TID Patient seen and case discussed with attending, Dr. Moran <J Luis Moran - Last Filed: 06/25/18 16:35> CCU Objective - Vital Signs / Intake & Output Intake and Output (Last 8hrs): Intake & Output 06/25/18 06/25/18 06/25/18 06:59 14:59 22:59 Intake Total 380 Output Total 400 Balance -20 Weight 108.091 kg Intake: IV 100 Right Forearm 100 Oral 280 Output: Urine 400 Urethral (Sharp) 400 Other: # Bowel Movements 2 - Medications Active Medications: Active Medications Generic Name Dose Route Start Last Admin Trade Name Freq PRN Reason Stop Dose Admin Acetaminophen 650 mg 06/20/18 11:42 06/24/18 21:55 Tylenol 325mg Tab PO 650 mg Q6 PRN Administration TEMP>=99.5F Acetaminophen 650 mg 06/20/18 11:42 Tylenol 650 Mg Supp RC Q6H PRN TEMP>=99.5F Aspirin 81 mg 06/20/18 11:45 06/25/18 09:37 Ecotrin PO 81 mg DAILY KAUSHIK Administration Atorvastatin Calcium 20 mg 06/20/18 11:45 06/25/18 09:37 Lipitor PO 20 mg DAILY KAUSHIK Administration Carvedilol 3.125 mg 06/20/18 11:45 06/25/18 09:36 Coreg PO 3.125 mg BID KAUSHIK Administration Dextrose 0 ml 06/20/18 11:42 Dextrose 50% Inj IV STAT PRN Hypoglycemia Protocol Protocol Docusate Sodium 100 mg 06/20/18 14:00 06/25/18 14:17 Colace PO 100 mg TID KAUSHIK Administration Vancomycin HCl 500 mg in 100 mls @ 200 mls/hr 06/22/18 10:00 06/25/18 10:23 Vancomycin 500mg In Ns IVPB 200 mls/hr Q12 KAUSHIK Administration Protocol Insulin Human Lispro 0 units 06/23/18 16:30 06/25/18 14:20 Humalog High SC 2 u ACHS KAUSHIK Administration Protocol Insulin Lispro Protam/Lispro Human 50 units 06/23/18 16:30 06/25/18 08:08 Humalog Mix 75/25 SC 50 u ACBD KAUSHIK Administration Isosorbide Mononitrate 60 mg 06/23/18 10:00 06/25/18 09:37 Imdur PO 60 mg DAILY KAUSHIK Administration Lisinopril 5 mg 06/20/18 16:00 06/25/18 09:38 Zestril PO 5 mg DAILY KAUSHIK Administration Midodrine 2.5 mg 06/24/18 18:00 06/25/18 14:18 Proamatine PO 2.5 mg TID KAUSHIK Administration Montelukast Sodium 10 mg 06/20/18 11:45 06/25/18 09:38 Singulair PO 10 mg DAILY KAUSHIK Administration Ondansetron HCl 4 mg 06/20/18 11:42 06/22/18 12:54 Zofran Inj IVP 4 mg Q4H PRN Administration Nausea/Vomiting Pantoprazole Sodium 40 mg 06/21/18 06:00 06/25/18 06:08 Protonix Ec Tab PO 40 mg 0600 KAUSHIK Administration Polyethylene Glycol 17 gm 06/20/18 11:45 06/25/18 09:38 Miralax PO 17 gm BID KAUSHIK Administration Pregabalin 100 mg 06/21/18 10:00 06/25/18 14:18 Lyrica PO 100 mg TID KAUSHIK Administration Tamsulosin HCl 0.4 mg 06/20/18 11:45 06/25/18 09:37 Flomax PO 0.4 mg BID KAUSHIK Administration - Patient Studies Lab Studies: Microbiology Studies 06/22/18 01:15 Urine Culture - Final Urine,Sharp Methicillin Resistant S Aureus Lab Studies 06/25/18 06/25/18 Range/Units 05:45 05:45 WBC 8.7 (4.5-11.0) 10^3/uL RBC 3.48 L (3.5-6.1) 10^6/uL Hgb 9.8 L (14.0-18.0) g/dL Hct 30.3 L (42.0-52.0) % MCV 87.1 (80.0-105.0) fl MCH 28.2 (25.0-35.0) pg MCHC 32.3 (31.0-37.0) g/dl RDW 15.7 H (11.5-14.5) % Plt Count 190 (120.0-450.0) 10^3/uL MPV 10.6 (7.0-11.0) fl Neut % (Auto) 55.5 (50.0-68.0) % Lymph % (Auto) 30.2 (22.0-35.0) % [place] % (Auto) 11.0 H (1.0-6.0) % Eos % (Auto) 3.1 (1.5-5.0) % Baso % (Auto) 0.2 (0.0-3.0) % Lymph # (Auto) 2.6 (1.2-3.4) [place] # (Auto) 1.0 H (0.1-0.6) Eos # (Auto) 0.3 (0.0-0.7) Baso # (Auto) 0.02 (0.0-2.0) K/mm3 Absolute Neuts (auto) 4.81 (1.4-6.5) Sodium 134 (132-148) mmol/L Potassium 4.1 (3.6-5.0) mmol/L Chloride 98 (98-107) mmol/L Carbon Dioxide 34 H (21-33) mmol/L Anion Gap 6 L (10-20) BUN 15 (7-21) mg/dL Creatinine 0.6 L (0.8-1.5) mg/dl Est GFR ( Amer) > 60 Est GFR (Non-Af Amer) > 60 Random Glucose 78 (70-110) mg/dL Calcium 8.6 (8.4-10.5) mg/dL Phosphorus 3.9 (2.5-4.5) mg/dL Magnesium 2.6 H (1.7-2.2) mg/dL Total Bilirubin 0.3 (0.2-1.3) mg/dL Direct Bilirubin 0.1 (0.0-0.4) mg/dL AST 51 (17-59) U/L ALT 35 (7-56) U/L Alkaline Phosphatase 74 (38-126) U/L Total Creatine Kinase 93 (35-230) U/L Troponin I 4.62 H* ng/mL Total Protein 6.6 (5.8-8.3) g/dL Albumin 3.2 (3.0-4.8) g/dL Globulin 3.4 gm/dL Albumin/Globulin Ratio 1.0 L (1.1-1.8) Laboratory Results - last 24 hr 06/25/18 06/25/18 05:45 05:45 WBC 8.7 RBC 3.48 L Hgb 9.8 L Hct 30.3 L MCV 87.1 MCH 28.2 MCHC 32.3 RDW 15.7 H Plt Count 190 MPV 10.6 Neut % (Auto) 55.5 Lymph % (Auto) 30.2 [place] % (Auto) 11.0 H Eos % (Auto) 3.1 Baso % (Auto) 0.2 Lymph # (Auto) 2.6 [place] # (Auto) 1.0 H Eos # (Auto) 0.3 Baso # (Auto) 0.02 Absolute Neuts (auto) 4.81 Sodium 134 Potassium 4.1 Chloride 98 Carbon Dioxide 34 H Anion Gap 6 L BUN 15 Creatinine 0.6 L Est GFR ( Amer) > 60 Est GFR (Non-Af Amer) > 60 Random Glucose 78 Calcium 8.6 Phosphorus 3.9 Magnesium 2.6 H Total Bilirubin 0.3 Direct Bilirubin 0.1 AST 51 ALT 35 Alkaline Phosphatase 74 Total Creatine Kinase 93 Troponin I 4.62 H* Total Protein 6.6 Albumin 3.2 Globulin 3.4 Albumin/Globulin Ratio 1.0 L Critical Care Progress Note - Nutrition Nutrition: Nutrition Category Date Time Status Consistent Carbohydrate [DIET] Diets 06/22/18 Breakfast Ordered Addendum Addendum: 06/25/18 16:35 Patient seen and examined with housestaff. Agree with note above with the following additions/exceptions: 82 M HTN, HLD, DM2, BPH s/p TURP p/w ACS s/p cath 06/21 found to have mid-distal LAD disease/occlusion with unsuccessful angioplasty and subsequent coronary artery dissection. Patient was stabilized with IABP placed on 06/21 removed on 06/22. 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
[2018-06-25] MEDS: Vancomycin 500mg in NS 500 MG/100 ML BAG IVPB SCH ×2 (10:23→21:42)
--- NOTE | 2018-06-25 11:54 | CP.PCM.PN ---
Subjective - Date & Time of Evaluation Date of Evaluation: 06/25/18 Time of Evaluation: 08:00 - Subjective Subjective: Patient seen and examined at bedside with family in no acute distress talking with his daughter and grandson. Patient states he feels great and has not had any chest pain since balloon pump was removed. Objective - Vital Signs/Intake and Output Vital Signs (last 24 hours): Temp Pulse Resp BP Pulse Ox 98 F 61 15 149/75 100 06/25/18 08:00 06/25/18 09:38 06/25/18 04:40 06/25/18 09:38 06/25/18 04:40 Intake and Output: 06/25/18 06/25/18 06:59 18:59 Intake Total 380 Output Total 400 Balance -20 - Medications Medications: Current Medications Acetaminophen (Tylenol 325mg Tab) 650 mg PO Q6 PRN PRN Reason: TEMP>=99.5F Last Admin: 06/24/18 21:55 Dose: 650 mg Acetaminophen (Tylenol 650 Mg Supp) 650 mg RC Q6H PRN PRN Reason: TEMP>=99.5F Aspirin (Ecotrin) 81 mg PO DAILY [facility] Last Admin: 06/25/18 09:37 Dose: 81 mg Atorvastatin Calcium (Lipitor) 20 mg PO DAILY [facility] Last Admin: 06/25/18 09:37 Dose: 20 mg Carvedilol (Coreg) 3.125 mg PO BID [facility] Last Admin: 06/25/18 09:36 Dose: 3.125 mg Dextrose (Dextrose 50% Inj) 0 ml IV STAT PRN; Protocol PRN Reason: Hypoglycemia Protocol Docusate Sodium (Colace) 100 mg PO TID [facility] Last Admin: 06/25/18 09:36 Dose: 100 mg Vancomycin HCl (Vancomycin 500mg In Ns) 500 mg in 100 mls @ 200 mls/hr IVPB Q12 [facility]; Protocol Last Admin: 06/25/18 10:23 Dose: 200 mls/hr Insulin Human Lispro (Humalog High) 0 units SC ACHS [facility]; Protocol Last Admin: 06/25/18 07:48 Dose: Not Given Insulin Lispro Protam/Lispro Human (Humalog Mix 75/25) 50 units SC ACBD [facility] Last Admin: 06/25/18 08:08 Dose: 50 u Isosorbide Mononitrate (Imdur) 60 mg PO DAILY [facility] Last Admin: 06/25/18 09:37 Dose: 60 mg Lisinopril (Zestril) 5 mg PO DAILY [facility] Last Admin: 06/25/18 09:38 Dose: 5 mg Midodrine (Proamatine) 2.5 mg PO TID [facility] Last Admin: 06/25/18 09:38 Dose: 2.5 mg Montelukast Sodium (Singulair) 10 mg PO DAILY [facility] Last Admin: 06/25/18 09:38 Dose: 10 mg Ondansetron HCl (Zofran Inj) 4 mg IVP Q4H PRN PRN Reason: Nausea/Vomiting Last Admin: 06/22/18 12:54 Dose: 4 mg Pantoprazole Sodium (Protonix Ec Tab) 40 mg PO 0600 [facility] Last Admin: 06/25/18 06:08 Dose: 40 mg Polyethylene Glycol (Miralax) 17 gm PO BID [facility] Last Admin: 06/25/18 09:38 Dose: 17 gm Pregabalin (Lyrica) 100 mg PO TID [facility] Last Admin: 06/25/18 09:37 Dose: 100 mg Tamsulosin HCl (Flomax) 0.4 mg PO BID [facility] Last Admin: 06/25/18 09:37 Dose: 0.4 mg - Labs Labs: 06/25/18 05:45 06/25/18 05:45 PT 12.8 SECONDS (9.4-12.5) H 06/23/18 05:00 INR 1.13 06/23/18 05:00 APTT 27.6 Seconds (26.9-38.3) 06/23/18 05:00 - Constitutional Appears: Non-toxic, No Acute Distress - Head Exam Head Exam: ATRAUMATIC, NORMAL INSPECTION - Eye Exam Eye Exam: EOMI - ENT Exam ENT Exam: Mucous Membranes Moist - Neck Exam Neck Exam: Normal Inspection - Respiratory Exam Respiratory Exam: Clear to Ausculation Bilateral, NORMAL BREATHING PATTERN - Cardiovascular Exam Cardiovascular Exam: REGULAR RHYTHM, +S1, +S2 - GI/Abdominal Exam GI & Abdominal Exam: Soft, Normal Bowel Sounds Assessment and Plan - Assessment and Plan (Free Text) Assessment: Patient is a 82 year old male with a past medical history of hypertension, hyperlipidemia, NIDDM, hip fracture, vitiligo, BPH s/p TURP, urinary incontinence, UTI, who presented to the Emergency department complaining of Left Sided Chest Pain which began 8:30 am 06/20. Patient is now S/P IABP; now removed and patient is asymptomatic on imdur with the plan to start ranexa once discharged. Chest pain ACS r/o s/p IABP placement and removal due to unsuccessful cardiac catheterization -Patient found to have significant stenosis of LAD, however cath not successful -IABP was placed to continue blood flow into coronary arteries. Patient is now s/p IABP removal and asymptomatic -Patient currently on PO imdur will start ranexa upon discharge Hypertension -Continue carvedilol -Start lisinopril considering DM and hypertension DM -ISS-Med -Humalog 75/25 50 Units ACBD -HgA1c 8.9; poorly controlled -Diabetic education BPH s/p TURP -Continue flomax UTI -Secondary to MRSA -Patient currently on vancomycin day 4 GI/DVT prophylaxis: Protonix/Lovenox
--- NOTE | 2018-06-25 12:23 | PN ---
DATE: 06/25/2018 SUBJECTIVE: The patient is chest pain free in bed. OBJECTIVE: VITAL SIGNS: Blood pressure is 149/75, heart rate in the 60s. NECK: Negative JVD. LUNGS: Without rales. HEART: S1, S2. EXTREMITIES: Without edema. LABORATORY: Hemoglobin is 9.8. Chemistries; troponins are on a descending trend. EKG shows T wave abnormalities across the anterior precordium. IMPRESSION: 1. Status post occlusion of the mid to distal left anterior descending. 2. Non-ST elevation myocardial infarction. 3. Coronary artery disease. 4. Hypercholesterolemia. 5. Diabetes mellitus. 6. Methicillin-resistant Staphylococcus aureus in his Diamond catheter. Given these findings, the patient will continue on vancomycin. The patient can be transferred to the floor. Need to get the patient out of bed and begin mobilizing the patient. Hermilo Finch MD
--- NOTE | 2018-06-25 13:48 | PN ---
DATE OF SERVICE: 06/25/2018 SUBJECTIVE: The patient is seen lying in the bed in ICU bed 4. The patient's daughter and the grandson is bedside. The patient is comfortable. According to the nurses, the patient was noted to have a small right groin lump which is palpable and tender to touch. Pulses are palpable. Overnight nurse's notes were reviewed. PHYSICAL EXAMINATION VITAL SIGNS: T-max 98, heart rate 61, 52, 48 and 49. Telemetry present. Heart rate is 62, blood pressure 149/75, respiration is 15-18 and O2 sat is 98% to 100%. HEENT: Head examination normocephalic and atraumatic. HEENT examination shows pinkish pale conjunctivae. Anicteric sclerae. No oropharyngeal lesion. No neck rigidity. CHEST: Kyphosis. LUNGS: Shows questionable decreased breath sound at the bases. CARDIOVASCULAR: S1 and S2, regular rhythm. Questionable soft systolic murmur left sternal border, left second intercostal space, right second intercostal space. ABDOMEN: Soft, obese and protuberant. Positive bowel sounds. Positive right groin dressing noted. Questionable small palpable lump noted in the right medial groin, which is tender to touch. EXTREMITIES: Shows no pitting edema, no calf tenderness, no Homans' sign. NEUROLOGIC: The patient is alert, awake and oriented x3. MUSCULOSKELETAL: Shows a body mass index of 33.2. Gait examination not tested. LABORATORY DATA: On June 25, 2018, WBC 8.7, hemoglobin/hematocrit is 9.8 and 30.3, with platelets 190. Sodium 134, potassium 4.1, chloride 98, CO2 of 34, anion gap 6, BUN 15, creatinine 0.6, GFR greater than 60, glucose 78, calcium 8.6, phosphorus 3.9 and magnesium is up to 2.6. LFTs are normal. Troponin has trended down to 4.62. Urine culture repeat MRSA. Chest x-ray from June 23 is reported to be negative. His EKG from today shows sinus rhythm, low voltage, poor R-wave progression V1-V4, karin-lateral coronary ischemic change. Echocardiogram report pending. Preliminary report reviewed. Echo preliminary report shows an ejection fraction is anywhere from 55% to 60% and right ventricular systolic pressure is 21 mmHg. The patient seen by Urology, unable to see any recommendations. IMPRESSION: 1. Acute myocardial infarction with attempted angioplasty and stent placement of the left anterior descending with acute left anterior descending dissection and occlusion. 2. Single-vessel coronary artery disease with 90% stenosis of the left anterior descending artery. 3. Status post intra-aortic balloon placement. 4. Status post dissection of the mid to distal left anterior descending artery with closure of acute occlusion of the left anterior descending artery. 5. Transient hypotension. 6. Unstable angina. 7. Questionable sinus bradycardia. 8. Normocytic anemia. 9. Uncontrolled insulin-requiring diabetes mellitus with hemoglobin A1c of 8.9 and high fructosamine of 305. 10. Obesity. 11. Gait dysfunction. 12. Questionable right groin hematoma. 13. Methicillin-resistant Staphylococcus aureus urinary tract infection with proteinuria, microscopic hematuria and pyuria. 14. Morbid obesity. 15. Dietary noncompliance. 16. Grade 1 abnormal relaxation pattern. PLAN: At this time, a stat Doppler of the right groin has been ordered for evaluation of any pseudoaneurysm.. The patient is on Colace 100 mg three times a day, Coreg 3.125 twice a day, aspirin 81 daily, Flomax 0.4 mg twice a day, Humalog high-dose sliding a.c. and at bedtime, Humalog Mix 75/25 of 50 units with breakfast and dinner, Imdur 60 mg daily, Lipitor 20 mg daily, Lyrica 100 mg three times a day, MiraLax 17 twice a day, midodrine 2.5 mg three times a day, Protonix 40 mg daily, Singulair 10 mg daily, Tylenol p.r.n., vancomycin 500 mg IV every 12 hours, Zestril 5 mg daily and Zofran 4 mg IV every 4 p.r.n. Arterial Doppler was not ordered for the right groin. Incentive spirometry, out of bed, LOU stockings has been ordered. The patient will be considered for transfer to telemetry once cleared by Cardiology. Dictated and electronically signed, not read. Signing off Tramaine Griffith MD. Tramaine Griffith MD
--- NOTE | 2018-06-25 20:13 | US ---
PROCEDURE: Duplex arterial ultrasound of the right groin. HISTORY: Recent cardiac catheterization. Pain and pulsatile mass in the right groin. Evaluate for pseudoaneurysm or fistula. PHYSICIAN(S): Hermilo Fletcher MD. FINDINGS: The right common femoral artery is patent with a normal triphasic waveform. No sonographic evidence of a pseudoaneurysm or AV fistula is seen. The right superficial femoral artery and profunda femoral artery are patent proximally. The visualized venous segments the right groin are patent and compressible. IMPRESSION: 1. No sonographic evidence for pseudoaneurysm or AV fistula in the right groin.
[2018-06-26] MEDS: Pantoprazole 40 mg EC Tab PO SCH (05:08)
[2018-06-26 07:22] LABS: BASO # 0.02 K/mm3 (0.0-2.0); BASO % 0.3 % (0.0-3.0); EOS # 0.3 (0.0-0.7); EOS % 3.4 % (1.5-5.0); HEMOGLOBIN 9.7 g/dL (14.0-18.0); LYMPH # 2.4 (1.2-3.4); LYMPH % 30.4 % (22.0-35.0); MEAN CELL VOLUME 86.8 fl (80.0-105.0); MEAN CORPUSCULAR HEMOGLOBIN 28.5 pg (25.0-35.0); MEAN CORPUSCULAR HGB CONC 32.9 g/dl (31.0-37.0); MONO # 0.8 (0.1-0.6); MONO % 10.2 % (1.0-6.0); RBC 3.4 10^6/uL (3.5-6.1)
[2018-06-26 07:34] LABS: ALBUMIN 3.2 g/dL (3.0-4.8); ALT/SGPT 39 U/L (7-56); AST/SGOT 38 U/L (17-59); BILIRUBIN,DIRECT 0.1 mg/dL (0.0-0.4); BLOOD UREA NITROGEN 12 mg/dL (7-21); CALCIUM 8.6 mg/dL (8.4-10.5); GFR NON-AFRICAN AMERICAN > 60
[2018-06-26] MEDS: Insulin Lispro (HUMAlog) HIGH Coverage SC SCH ×4 (07:53→23:06)
[2018-06-26] MEDS: Insulin Lispro (humaLOG) MIX 75/25(10 ml) SC SCH ×2 (08:27→17:39)
--- NOTE | 2018-06-26 08:32 | CON ---
DATE: 06/24/2018 UROLOGY CONSULT REASON FOR CONSULTATION: Voiding dysfunction. HISTORY OF PRESENT ILLNESS: Mr. Khan is a very pleasant gentleman who has prostate cancer. Before I ever met him, he was treated with radiation and multiple surgical procedures. We met him and he was in retention. We subsequently had done multiple procedures for him to try to help further. Most recently on 09/03/2017, we did an insertion of an artificial urinary sphincter that then failed with a urethral erosion. Since that point, we have been monitoring the patient very closely and changing his Diamond catheter on a regular basis. He is currently here, he has an indwelling 22-Korean Diamond catheter. He is in the hospital for cardiac reasons, the Urology is consulted for further recommendations. See below. PAST MEDICAL AND SURGICAL HISTORY: As listed on the chart and the patient of Dr. Griffith. REVIEW OF SYSTEMS: As listed above, noncontributory. PHYSICAL EXAMINATION: GENERAL: A well-nourished male, who is currently resting comfortably in his bed. VITAL SIGNS: Noted. ABDOMEN: Soft. Diamond catheter is in place, draining well through 22-Korean, it looks like catheter from my office. 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 PLAN: As follows: The patient has been monitored as such with the Diamond catheter. We have discussed the option of going to another doctor that I would like to send him to repair his such difficult situations. Just arranging for transportation and getting the patient medical clearance maybe somewhat of an issue, but the patient may be best served. An alternative I have discussed with the patient is living with an indwelling suprapubic catheter. I have also discussed with him just living with the catheter now and just changing it, it is a but it has been straight. He has not had any urethral strictures. I did discuss the possibility that he would not even have recurrent stricture, we had done repair after the erosion. dictated in separate notes. So, in the meantime, the patient is thinking about weighing his options, he is currently in the cardiac, he is in the ICU. The Urology plan is as follows: 1. Maintain his Diamond. 2. We will change it somewhere along the way. 3. Continue treatment as above according to Cardiology , Infectious Disease, [facility], we will follow up. PLAN: The plan is as follows: 1. Maintain Diamond. 2. No other changes for now. Bang Joyner MD
[2018-06-26] MEDS: POLYETHYLENE GLYCOL 3350 17 GM/Dose PACKET PO SCH ×2 (10:49→17:40)
[2018-06-26] MEDS: Vancomycin 500mg in NS 500 MG/100 ML BAG IVPB SCH ×2 (10:50→22:26)
--- NOTE | 2018-06-26 12:05 | CP.PCM.PN ---
Subjective - Date & Time of Evaluation Date of Evaluation: 06/26/18 Time of Evaluation: 07:00 - Subjective Subjective: Patient seen and examined at bedside in no acute distress. Patient request scrotal support. States he has no chest pain and slept well overnight. Currently has no complaints. Objective - Vital Signs/Intake and Output Vital Signs (last 24 hours): Temp Pulse Resp BP Pulse Ox 98.3 F 77 20 124/63 97 06/26/18 05:48 06/26/18 10:49 06/26/18 05:48 06/26/18 10:49 06/26/18 05:48 Intake and Output: 06/26/18 06/26/18 06:59 18:59 Intake Total 480 Output Total 970 Balance -490 - Medications Medications: Current Medications Acetaminophen (Tylenol 325mg Tab) 650 mg PO Q6 PRN PRN Reason: TEMP>=99.5F Last Admin: 06/24/18 21:55 Dose: 650 mg Acetaminophen (Tylenol 650 Mg Supp) 650 mg RC Q6H PRN PRN Reason: TEMP>=99.5F Aspirin (Ecotrin) 81 mg PO DAILY [facility] Last Admin: 06/26/18 10:49 Dose: 81 mg Atorvastatin Calcium (Lipitor) 20 mg PO DAILY [facility] Last Admin: 06/26/18 10:49 Dose: 20 mg Carvedilol (Coreg) 3.125 mg PO BID [facility] Last Admin: 06/26/18 10:49 Dose: 3.125 mg Dextrose (Dextrose 50% Inj) 0 ml IV STAT PRN; Protocol PRN Reason: Hypoglycemia Protocol Docusate Sodium (Colace) 100 mg PO TID [facility] Last Admin: 06/26/18 10:49 Dose: 100 mg Vancomycin HCl (Vancomycin 500mg In Ns) 500 mg in 100 mls @ 200 mls/hr IVPB Q12 [facility]; Protocol Last Admin: 06/26/18 10:50 Dose: 200 mls/hr Insulin Human Lispro (Humalog High) 0 units SC ACHS [facility]; Protocol Last Admin: 06/26/18 07:53 Dose: Not Given Insulin Lispro Protam/Lispro Human (Humalog Mix 75/25) 50 units SC ACBD [facility] Last Admin: 06/26/18 08:27 Dose: 50 u Montelukast Sodium (Singulair) 10 mg PO DAILY [facility] Last Admin: 06/26/18 10:49 Dose: 10 mg Ondansetron HCl (Zofran Inj) 4 mg IVP Q4H PRN PRN Reason: Nausea/Vomiting Last Admin: 06/22/18 12:54 Dose: 4 mg Pantoprazole Sodium (Protonix Ec Tab) 40 mg PO 0600 [facility] Last Admin: 06/26/18 05:08 Dose: 40 mg Polyethylene Glycol (Miralax) 17 gm PO BID [facility] Last Admin: 06/26/18 10:49 Dose: 17 gm Pregabalin (Lyrica) 100 mg PO TID [facility] Last Admin: 06/26/18 10:49 Dose: 100 mg Tamsulosin HCl (Flomax) 0.4 mg PO BID [facility] Last Admin: 06/26/18 10:49 Dose: 0.4 mg - Labs Labs: 06/26/18 07:00 06/26/18 07:00 PT 12.8 SECONDS (9.4-12.5) H 06/23/18 05:00 INR 1.13 06/23/18 05:00 APTT 27.6 Seconds (26.9-38.3) 06/23/18 05:00 - Constitutional Appears: Non-toxic - Head Exam Head Exam: ATRAUMATIC, NORMAL INSPECTION, NORMOCEPHALIC - Eye Exam Eye Exam: EOMI - ENT Exam ENT Exam: Mucous Membranes Moist - Cardiovascular Exam Cardiovascular Exam: REGULAR RHYTHM, +S1, +S2 - GI/Abdominal Exam GI & Abdominal Exam: Soft, Normal Bowel Sounds - Neurological Exam Neurological Exam: Alert, Awake, CN II-XII Intact Neuro motor strength exam: Left Upper Extremity: 4, Right Upper Extremity: 4, Left Lower Extremity: 4, Right Lower Extremity: 4 - Psychiatric Exam Psychiatric exam: Normal Affect, Normal Mood - Skin Skin Exam: Dry, Intact, Warm Additional comments: vitiligo Assessment and Plan - Assessment and Plan (Free Text) Assessment: Patient is a 82 year old male with a past medical history of hypertension, hyperlipidemia, NIDDM, hip fracture, vitiligo, BPH s/p TURP, urinary incontinence, UTI, who presented to the Emergency department complaining of Left Sided Chest Pain which began 8:30 am 06/20. Patient is now S/P IABP; now removed and patient is asymptomatic on imdur with the plan to start ranexa once discharged. Chest pain ACS r/o s/p IABP placement and removal due to unsuccessful cardiac catheterization -Patient found to have significant stenosis of LAD, however cath not successful -IABP was placed to continue blood flow into coronary arteries. Patient is now s/p IABP removal and asymptomatic -Patient currently on PO imdur will start ranexa upon discharge Hypertension -Continue carvedilol -Start lisinopril considering DM and hypertension DM -ISS-Med -Humalog 75/25 50 Units ACBD -HgA1c 8.9; poorly controlled -Diabetic education BPH s/p TURP -Continue flomax UTI -Secondary to MRSA -Patient currently on vancomycin day 5 -Will repeat urine cultures GI/DVT prophylaxis: Protonix/Lovenox
--- NOTE | 2018-06-26 12:21 | PN ---
DATE: 06/26/2018 LOCATION: The patient is now in room 265, bed 1. SUBJECTIVE: The patient was transferred out of the ICU yesterday. Overnight nurse's notes were reviewed. No adverse events were documented, reported or notified. PHYSICAL EXAMINATION: VITAL SIGNS: T-max 98.7. Telemetry shows normal sinus rhythm, heart rate 66, blood pressure 131/69, respirations 20, O2 sat 97%. HEAD: Normocephalic, atraumatic. HEENT: Pinkish pale conjunctivae. Anicteric sclerae. No oropharyngeal lesion. NECK: No neck rigidity. CHEST: Kyphosis. LUNGS: Examination shows questionable decreased breath sounds at the bases. CARDIOVASCULAR: S1, S2, regular rhythm. Questionable soft systolic murmur, left sternal border, right second intercostal space, left second intercostal space. ABDOMEN: Protuberant, obese. Positive bowel sounds. GENITALIA: Male. Positive Diamond catheter. Positive diffuse vitiligo noted. Right groin dressing is there. Positive right groin mild tenderness noted. VASCULAR: Positive palpable pulses noted. EXTREMITIES: No pitting edema. Trace swelling of the ankle. No calf tenderness. No Homans' sign. NEUROLOGIC: The patient is alert and responsive, able to move upper and lower extremities without assistance. MUSCULOSKELETAL: Examination shows an elevated body mass index. LABORATORY DATA: On 06/26/2018; WBC 8, hemoglobin/hematocrit 9.7 and 29.5, platelet 197. Sodium 132, potassium 4.1, chloride 96, CO2 of 32, BUN 12, creatinine 0.6, glucose 142, calcium 8.6, phosphorus 4.2, magnesium 2.2. IMPRESSION: 1. Acute [id number] myocardial infarction with elevated troponin. 2. Unstable angina. 3. Single-vessel coronary artery disease. 4. Attempt at angioplasty of the left anterior descending artery dissection and acute occlusion and closure post unsuccessful angioplasty attempt. 5. Normocytic anemia. 6. Uncontrolled insulin-requiring diabetes mellitus with elevated hemoglobin A1c and elevated fructosamine. 7. Relative hyponatremia. 8. Methicillin-resistant Staphylococcus aureus urinary tract infection. 9. History of prostate carcinoma. 10. Voiding dysfunction. 11. Neurogenic bladder with chronic indwelling Diamond catheter. 12. Gait dysfunction. 13. Deconditioning. 14. Morbid obesity. 15. Hypotension. 16. Coronary artery disease. 17. History of vitiligo. 18. History of hyperlipidemia, hypertriglyceridemia. 19. Diabetic neuropathy. PLAN: At this time, the patient is to be continued on therapeutic intervention as per the MAR. The patient will be continued on GI, DVT prophylaxis. The patient has been ordered out of bed to chair. The patient has been ordered daily physical therapy, occupational therapy, ambulation therapy, gait training. The patient's condition, diagnosis, treatment plan, outpatient followup plans, especially with Cardiology all discussed and explained with the patient and the patient's daughter and the grandson yesterday in the ICU. I have extensively explained about the patient's diagnosis, clinical condition, test results, recommendation by all physicians in layman's language and also in their chilkoot language to the patient and the patient's daughter and granddaughter and the grandson during this hospitalization on a few occasions. All questions concerned answered. Plan at this time to continue therapeutic intervention as per the MAR, daily physical therapy, occupational therapy, ambulation therapy, gait training. DISCHARGE DISPOSITION: Possible TCU versus subacute rehab versus home wherever the patient is eligible and accepted. The patient's family has been advised to contact social welfare administrator regarding discharge planning options. Tramaine Griffith MD
--- NOTE | 2018-06-26 13:23 | CARD ---
APPROVED REPORT Date of service: 06/22/2018 EXAM: Two-dimensional and M-mode echocardiogram with Doppler and color Doppler. INDICATION ASMI 2D DIMENSIONS Left Atrium (2D)4.0 (1.6-4.0cm)IVSd1.1 (0.7-1.1cm) LVDd5.3 (3.9-5.9cm)PWd1.2 (0.7-1.1cm) LVDs3.7 (2.5-4.0cm)FS (%) 29.4 % LVEF (%)55.7 (>50%) M-Mode DIMENSIONS Aortic Root3.70 (2.2-3.7cm)Aortic Cusp Exc.1.90 (1.5-2.0cm) Aortic Valve AoV Peak Fgilnpcr419.0cm/Oscar Peak GR.12mmHg Mitral Valve MV E Weykxjwn01.3cm/sMV A Obmzpynt793.0cm/sE/A ratio0.8 TDI Lateral E' Peak V8.29cm/sMedial E' Peak V5.95cm/sE/Lateral E'11.1 E/Medial E'15.5 Pulmonary Valve PV Peak Kuuqgadv86.3cm/sPV Peak Grad.3mmHg Tricuspid Valve TR Peak Opsiqbvc750je/sRAP MMHMJDFR76zcHkHB Peak Gr.11mmHg [id number] LEFT VENTRICLE Normal EF Mild apical hypokinesis RIGHT VENTRICLE The right ventricle is normal size. ATRIA The left atrium is mildly dilated. The right atrium size is normal. AORTIC VALVE The aortic valve is thickened but opens well. MITRAL VALVE The mitral valve is thickened but opens well. Mitral regurgitation is trace. TRICUSPID VALVE The tricuspid valve leaflets are thickened , but open well. There is trace to mild tricuspid regurgitation. There is no pulmonary hypertension. PERICARDIAL EFFUSION There is no pericardial effusion. <Conclusion> Mild Apical hypokinesis Normal LV EF Mildly dilated LA Mild TR No pulmonary hypertension
--- NOTE | 2018-06-26 14:55 | PN ---
DATE: 06/26/2018 CARDIOLOGY FOLLOWUP SUBJECTIVE: The patient is ambulating in the room without symptoms. PHYSICAL EXAMINATION VITAL SIGNS: Blood pressure is 131/69, heart rates in the 60s. NECK: Negative JVD. LUNGS: Without rales. HEART: S1 and S2. EXTREMITIES: Without edema. LABORATORY DATA: Hemoglobin is 9.7. BUN and creatinine are unremarkable. Glucose is 142. IMPRESSION 1. Status post rzh-GQ-lacnyimxm myocardial infarction. 2. Coronary artery disease. 3. Diabetes mellitus. 4. Hypercholesterolemia. 5. Retained Diamond catheter with treatment for methicillin-resistant staph. Given these findings, we will begin ambulation on the floor. If the patient is stable and asymptomatic, ambulating on the floor, we will continue the patient's medications, which include aspirin, statin therapy, and low-dose beta blockers. Hermilo Finch MD
--- NOTE | 2018-06-26 15:34 | PN ---
DATE: 06/26/2018 CARDIOLOGY FOLLOWUP SUBJECTIVE: The patient is chest pain free. PHYSICAL EXAMINATION VITAL SIGNS: Blood pressure is 131/69, heart rates in the 60s. NECK: Negative JVD. LUNGS: Without rales. HEART: S1 and S2. EXTREMITIES: Without edema. LABORATORY DATA: Reviewed. IMPRESSION 1. Status post non-ST elevation myocardial infarction. 2. Coronary artery disease. 3. Diabetes mellitus. 4. Hypercholesterolemia. 5. Transient hypotension. PLAN: Given these findings, we will need to re-arrange all of his medications, we will hold off on the lisinopril. We will discontinue the Imdur. We will discontinue the midodrine. The patient needs to ambulate on the floor see how he feels. Hermilo Finch MD
[2018-06-27] MEDS: Pantoprazole 40 mg EC Tab PO SCH (05:30)
[2018-06-27 06:55] LABS: BASO # 0.02 K/mm3 (0.0-2.0); BASO % 0.2 % (0.0-3.0); EOS # 0.2 (0.0-0.7); EOS % 1.7 % (1.5-5.0); HEMOGLOBIN 11.2 g/dL (14.0-18.0); LYMPH # 3.2 (1.2-3.4); LYMPH % 35.7 % (22.0-35.0); MEAN CELL VOLUME 86.4 fl (80.0-105.0); MEAN CORPUSCULAR HEMOGLOBIN 28.2 pg (25.0-35.0); MEAN CORPUSCULAR HGB CONC 32.7 g/dl (31.0-37.0); MEAN PLATELET VOLUME 10.9 fl (7.0-11.0); MONO # 0.8 (0.1-0.6); MONO % 8.4 % (1.0-6.0); RBC 3.97 10^6/uL (3.5-6.1); RED CELL DISTRIBUTION WIDTH 15.9 % (11.5-14.5); WHITE BLOOD COUNT 8.9 10^3/uL (4.5-11.0)
[2018-06-27 07:01] LABS: ALBUMIN 3.9 g/dL (3.0-4.8); ALT/SGPT 33 U/L (7-56); AST/SGOT 37 U/L (17-59); BILIRUBIN,DIRECT 0.2 mg/dL (0.0-0.4); BLOOD UREA NITROGEN 12 mg/dL (7-21); CALCIUM 9.3 mg/dL (8.4-10.5); GFR NON-AFRICAN AMERICAN > 60
--- NOTE | 2018-06-27 09:26 | PN ---
DATE: 06/27/2018 CARDIOLOGY FOLLOWUP SUBJECTIVE: The patient is chest pain free. He ambulated twice around the nurse's station without issues. OBJECTIVE: VITAL SIGNS: Blood pressure 138/77 and heart rates in the 60s. NECK: Negative JVD. LUNGS: Without rales. HEART: Reveal S1 and S2. EXTREMITIES: Without edema. LABORATORY DATA: Hemoglobin is 11.2 and white count is 8.9. BUN and creatinine are unremarkable. IMPRESSION: 1. Non-ST elevation myocardial infarction. 2. Occluded distal left anterior descending artery. 3. Echocardiogram reveals preserved left ventricular function. 4. Diabetes mellitus. 5. Hypercholesterolemia. 6. Urinary retention with retained Diamond. PLAN: Given these findings, from a cardiac perspective, the patient is stable and can be discharged on his present medications. He needs to go home on aspirin, statin therapy and undergo a cardiac risk reduction program. Hermilo Finch MD
[2018-06-27] MEDS: Insulin Lispro (HUMAlog) HIGH Coverage SC SCH ×3 (09:30→22:35)
[2018-06-27] MEDS: Vancomycin 500mg in NS 500 MG/100 ML BAG IVPB SCH ×2 (12:02→22:34)
[2018-06-27] MEDS: POLYETHYLENE GLYCOL 3350 17 GM/Dose PACKET PO SCH ×2 (12:03→18:06)
[2018-06-27] MEDS: Insulin Lispro (humaLOG) MIX 75/25(10 ml) SC SCH ×2 (12:06→18:06)
--- NOTE | 2018-06-27 15:06 | CP.PCM.PN ---
Subjective - Date & Time of Evaluation Date of Evaluation: 06/27/18 Time of Evaluation: 07:35 - Subjective Subjective: Patient seen and examined at bedside in no acute distress. Denies dysuria, chest pain, abdominal pain, shortness of breath. Physical exam - Constitutional Appears: Non-toxic - Head Exam Head Exam: ATRAUMATIC, NORMAL INSPECTION, NORMOCEPHALIC - Eye Exam Eye Exam: EOMI - ENT Exam ENT Exam: Mucous Membranes Moist - Cardiovascular Exam Cardiovascular Exam: REGULAR RHYTHM, +S1, +S2 - GI/Abdominal Exam GI & Abdominal Exam: Soft, Normal Bowel Sounds - Neurological Exam Neurological Exam: Alert, Awake, CN II-XII Intact Neuro motor strength exam: Left Upper Extremity: 4, Right Upper Extremity: 4, Left Lower Extremity: 4, Right Lower Extremity: 4 - Psychiatric Exam Psychiatric exam: Normal Affect, Normal Mood - Skin Skin Exam: Dry, Intact, Warm Additional comments: vitiligo Objective - Vital Signs/Intake and Output Vital Signs (last 24 hours): Temp Pulse Resp BP Pulse Ox 98.2 F 93 H 18 157/79 H 95 06/27/18 12:00 06/27/18 12:06 06/27/18 12:00 06/27/18 12:00 06/27/18 05:43 Intake and Output: 06/27/18 06/27/18 06:59 18:59 Intake Total 1740 Output Total 2520 Balance -780 - Medications Medications: Current Medications Acetaminophen (Tylenol 325mg Tab) 650 mg PO Q6 PRN PRN Reason: TEMP>=99.5F Last Admin: 06/24/18 21:55 Dose: 650 mg Acetaminophen (Tylenol 650 Mg Supp) 650 mg RC Q6H PRN PRN Reason: TEMP>=99.5F Aspirin (Ecotrin) 81 mg PO DAILY [facility] Last Admin: 06/27/18 12:03 Dose: 81 mg Atorvastatin Calcium (Lipitor) 20 mg PO DAILY [facility] Last Admin: 06/27/18 12:03 Dose: 20 mg Carvedilol (Coreg) 3.125 mg PO BID [facility] Last Admin: 06/27/18 12:06 Dose: 3.125 mg Dextrose (Dextrose 50% Inj) 0 ml IV STAT PRN; Protocol PRN Reason: Hypoglycemia Protocol Docusate Sodium (Colace) 100 mg PO TID [facility] Last Admin: 06/27/18 12:03 Dose: 100 mg Vancomycin HCl (Vancomycin 500mg In Ns) 500 mg in 100 mls @ 200 mls/hr IVPB Q12 [facility]; Protocol Last Admin: 06/27/18 12:02 Dose: 200 mls/hr Insulin Human Lispro (Humalog High) 0 units SC ACHS [facility]; Protocol Last Admin: 06/27/18 09:30 Dose: Not Given Insulin Lispro Protam/Lispro Human (Humalog Mix 75/25) 50 units SC ACBD [facility] Last Admin: 06/27/18 12:06 Dose: 50 u Montelukast Sodium (Singulair) 10 mg PO DAILY [facility] Last Admin: 06/27/18 12:03 Dose: 10 mg Ondansetron HCl (Zofran Inj) 4 mg IVP Q4H PRN PRN Reason: Nausea/Vomiting Last Admin: 06/22/18 12:54 Dose: 4 mg Pantoprazole Sodium (Protonix Ec Tab) 40 mg PO 0600 [facility] Last Admin: 06/27/18 05:30 Dose: 40 mg Polyethylene Glycol (Miralax) 17 gm PO BID [facility] Last Admin: 06/27/18 12:03 Dose: 17 gm Pregabalin (Lyrica) 100 mg PO TID [facility] Last Admin: 06/27/18 12:03 Dose: 100 mg Tamsulosin HCl (Flomax) 0.4 mg PO BID [facility] Last Admin: 06/27/18 12:03 Dose: 0.4 mg - Labs Labs: 06/27/18 06:00 06/27/18 06:00 PT 12.8 SECONDS (9.4-12.5) H 06/23/18 05:00 INR 1.13 06/23/18 05:00 APTT 27.6 Seconds (26.9-38.3) 06/23/18 05:00 Assessment and Plan - Assessment and Plan (Free Text) Assessment: Patient is a 82 year old male with a past medical history of hypertension, hyperlipidemia, NIDDM, hip fracture, vitiligo, BPH s/p TURP, urinary incontinence, UTI, who presented to the Emergency department complaining of Left Sided Chest Pain which began 8:30 am 06/20. Patient is now S/P IABP; now removed and patient is asymptomatic on imdur with the plan to start ranexa once discharged. Chest pain ACS r/o s/p IABP placement and removal due to unsuccessful cardiac catheterization -Patient found to have significant stenosis of LAD, however cath not successful -IABP was placed to continue blood flow into coronary arteries. Patient is now s/p IABP removal and asymptomatic -Patient currently on PO imdur will start ranexa upon discharge Hypertension -Continue carvedilol -Start lisinopril considering DM and hypertension DM -ISS-Med -Humalog 75/25 50 Units ACBD -HgA1c 8.9; poorly controlled -Diabetic education BPH s/p TURP -Continue flomax UTI -Secondary to MRSA -Patient currently on vancomycin day 6 -Will repeat urine cultures GI/DVT prophylaxis: Protonix/Lovenox
--- NOTE | 2018-06-27 15:52 | PN ---
DATE: 06/27/2018 SUBJECTIVE: The patient is in room 265 bed 1. Overnight nurse's notes were reviewed. No adverse events documented, reported, or notified. The patient yesterday complained of some scrotal swelling and hanging for which the patient was ordered a scrotal support. The patient denies any chest pain or shortness of breath. Denies nausea, vomiting, diarrhea or constipation. Denies hemoptysis, hematemesis, melena. The patient does not complain of any right groin pain. OBJECTIVE: VITAL SIGNS: T-max 98.5. Telemetry normal sinus rhythm; heart rate 60s, 70s, 74; blood pressure 138/77; O2 sat 95%. HEENT: Head is normocephalic and atraumatic. Eyes; shows pinkish conjunctivae. Anicteric sclerae. No oropharyngeal lesion. NECK: No neck rigidity. CHEST: Kyphosis. LUNGS: Shows no audible crackle, rales, or wheezing. CARDIOVASCULAR: S1, S2, regular rhythm. Questionable soft systolic murmur left sternal border, left second intercostal space, right second intercostal space. ABDOMEN: Morbidly obese. GENITALIA: Male. Positive Diamond catheter. EXTREMITIES: Shows no pitting edema. Trace swelling of the ankles noted. SKIN: Shows diffuse vitiligo. MUSCULOSKELETAL: Shows an elevated body mass index. Motor strength is 5/5. Gait examination not tested. Gait examination is as per the physical therapy evaluation. DIAGNOSTICS DATA: On 06/27/2018; WBC 8.9, hemoglobin/hematocrit 11.2/34.3, platelet 236. Sodium 135, potassium 4.2, chloride 97, CO2 33, BUN 12, creatinine 0.6, glucose 102, calcium 923, phosphorus 5.1, magnesium 2.3. LFTs are within normal limit. IMPRESSION: 1. Acute myocardial infarction with elevated troponin. 2. Coronary artery disease. 3. Attempted left anterior descending artery angioplasty with acute left anterior descending artery dissection and acute occlusion . 4. Left anterior descending artery dissection and occlusion myocardial infarction with elevated troponin. 5. Insulin-requiring diabetes mellitus. 6. Uncontrolled insulin-requiring diabetes mellitus with elevated hemoglobin A1c and fructosamine. 7. Voiding dysfunction with neurogenic bladder with chronic indwelling Diamond catheter. 8. Methicillin-resistant Staphylococcus aureus urinary tract infection. 9. Morbid obesity. 10. History of femur fracture, open reduction internal fixation. 11. History of constipation. 12. Diabetic neuropathy. 13. Normocytic anemia. 14. Transient hyponatremia. 15. Diabetic neuropathy. 16. History of prostatic carcinoma. 17. History of vitiligo. 18. Unstable angina. 19. Hyperlipidemia. 20. Transient hypotension. 21. Diabetic neuropathy. 22. Gait dysfunction. PLAN: At this time, we are awaiting for the repeat urine cultures to evaluate if the patient's urine is sterile and since the patient is on IV vancomycin for MRSA urinary tract infection. The patient will be continued on medications as per the MAR of today which was reviewed and revised and updated. The patient will be continued on the patient's repeat urine cultures are pending. The patient is awaiting further evaluation and recommendation by Cardiology. The patient will be continued on all the medications as per the MAR. The patient will be continued on daily physical therapy, occupational therapy, ambulation therapy, gait training, daily out of bed to chair has been ordered. SCDs, LOU stockings, GI, DVT prophylaxis has been ordered. The patient's Zestril was stopped yesterday by Dr. Hermilo Finch for concern of hypotension. The patient will be continued on beta-blockers, statins, aspirin and other medications as per the MAR, which reviewed. Once the patient's urine cultures are negative, the patient can be switched over to p.o. antibiotic for MRSA urinary tract infection treatment and the patient can be discharged needed to TCU if accepted or to subacute rehab if accepted and if the patient and the family agrees, otherwise the patient will be discharged home with home services through [facility]. The patient has been explained about the details of all the medical condition, diagnosis, test results, treatment plan, recommendation, all discussed and explained to the patient in layman's language and all questions concerned answered. The patient has been reemphasized and the patient's family has been reemphasized multiple times about close outpatient followup with medical doctor and Cardiology and other physicians. Dictated and electronically signed, not read. Tramaine Griffith MD
--- NOTE | 2018-06-27 22:31 | PCM.URO ---
Urology Progress Note - General General: No Complaints, Tolerating Diet - Subjective Abdominal Pain: No Flank Pain: No Nausea: No Vomiting: No Voiding Well: No (catheter in place) Stone Passed: No Dsypnea: No Chest Pain: No Fever & Chills: No - Objective Lab Results Last 24 Hours: Laboratory Results - last 24 hr 06/23/18 06/23/18 06/23/18 12:01 16:27 21:08 WBC RBC Hgb Hct MCV MCH MCHC RDW Plt Count MPV Neut % (Auto) Lymph % (Auto) Victoria % (Auto) Eos % (Auto) Baso % (Auto) Lymph # (Auto) Victoria # (Auto) Eos # (Auto) Baso # (Auto) Absolute Neuts (auto) Sodium Potassium Chloride Carbon Dioxide Anion Gap BUN Creatinine Est GFR ( Amer) Est GFR (Non-Af Amer) POC Glucose (mg/dL) 336 H 231 H 224 H Random Glucose Calcium Phosphorus Magnesium Total Bilirubin Direct Bilirubin AST ALT Alkaline Phosphatase Total Protein Albumin Globulin Albumin/Globulin Ratio 06/24/18 06/24/18 06/24/18 07:04 11:59 16:22 WBC RBC Hgb Hct MCV MCH MCHC RDW Plt Count MPV Neut % (Auto) Lymph % (Auto) Victoria % (Auto) Eos % (Auto) Baso % (Auto) Lymph # (Auto) Victoria # (Auto) Eos # (Auto) Baso # (Auto) Absolute Neuts (auto) Sodium Potassium Chloride Carbon Dioxide Anion Gap BUN Creatinine Est GFR ( Amer) Est GFR (Non-Af Amer) POC Glucose (mg/dL) 234 H 227 H 236 H Random Glucose Calcium Phosphorus Magnesium Total Bilirubin Direct Bilirubin AST ALT Alkaline Phosphatase Total Protein Albumin Globulin Albumin/Globulin Ratio 06/24/18 06/25/18 06/25/18 21:26 07:22 11:16 WBC RBC Hgb Hct MCV MCH MCHC RDW Plt Count MPV Neut % (Auto) Lymph % (Auto) Victoria % (Auto) Eos % (Auto) Baso % (Auto) Lymph # (Auto) Victoria # (Auto) Eos # (Auto) Baso # (Auto) Absolute Neuts (auto) Sodium Potassium Chloride Carbon Dioxide Anion Gap BUN Creatinine Est GFR ( Amer) Est GFR (Non-Af Amer) POC Glucose (mg/dL) 157 H 107 192 H Random Glucose Calcium Phosphorus Magnesium Total Bilirubin Direct Bilirubin AST ALT Alkaline Phosphatase Total Protein Albumin Globulin Albumin/Globulin Ratio 06/25/18 06/25/18 06/26/18 16:37 17:55 07:34 WBC RBC Hgb Hct MCV MCH MCHC RDW Plt Count MPV Neut % (Auto) Lymph % (Auto) Victoria % (Auto) Eos % (Auto) Baso % (Auto) Lymph # (Auto) Victoria # (Auto) Eos # (Auto) Baso # (Auto) Absolute Neuts (auto) Sodium Potassium Chloride Carbon Dioxide Anion Gap BUN Creatinine Est GFR ( Amer) Est GFR (Non-Af Amer) POC Glucose (mg/dL) 145 H 121 H 144 H Random Glucose Calcium Phosphorus Magnesium Total Bilirubin Direct Bilirubin AST ALT Alkaline Phosphatase Total Protein Albumin Globulin Albumin/Globulin Ratio 06/26/18 06/26/18 06/26/18 11:26 16:23 21:39 WBC RBC Hgb Hct MCV MCH MCHC RDW Plt Count MPV Neut % (Auto) Lymph % (Auto) Victoria % (Auto) Eos % (Auto) Baso % (Auto) Lymph # (Auto) Victoria # (Auto) Eos # (Auto) Baso # (Auto) Absolute Neuts (auto) Sodium Potassium Chloride Carbon Dioxide Anion Gap BUN Creatinine Est GFR ( Amer) Est GFR (Non-Af Amer) POC Glucose (mg/dL) 186 H 177 H 149 H Random Glucose Calcium Phosphorus Magnesium Total Bilirubin Direct Bilirubin AST ALT Alkaline Phosphatase Total Protein Albumin Globulin Albumin/Globulin Ratio 06/27/18 06/27/18 06/27/18 06:00 06:00 07:51 WBC 8.9 RBC 3.97 Hgb 11.2 L Hct 34.3 L MCV 86.4 MCH 28.2 MCHC 32.7 RDW 15.9 H Plt Count 236 MPV 10.9 Neut % (Auto) 54.0 Lymph % (Auto) 35.7 H Victoria % (Auto) 8.4 H Eos % (Auto) 1.7 Baso % (Auto) 0.2 Lymph # (Auto) 3.2 Victoria # (Auto) 0.8 H Eos # (Auto) 0.2 Baso # (Auto) 0.02 Absolute Neuts (auto) 4.83 Sodium 135 Potassium 4.2 Chloride 97 L Carbon Dioxide 33 Anion Gap 10 BUN 12 Creatinine 0.6 L Est GFR ( Amer) > 60 Est GFR (Non-Af Amer) > 60 POC Glucose (mg/dL) 110 Random Glucose 102 Calcium 9.3 Phosphorus 5.1 H Magnesium 2.3 H Total Bilirubin 0.4 Direct Bilirubin 0.2 AST 37 ALT 33 Alkaline Phosphatase 88 Total Protein 7.8 Albumin 3.9 Globulin 3.9 Albumin/Globulin Ratio 1.0 L 06/27/18 06/27/18 06/27/18 11:10 16:29 21:41 WBC RBC Hgb Hct MCV MCH MCHC RDW Plt Count MPV Neut % (Auto) Lymph % (Auto) Victoria % (Auto) Eos % (Auto) Baso % (Auto) Lymph # (Auto) Victoria # (Auto) Eos # (Auto) Baso # (Auto) Absolute Neuts (auto) Sodium Potassium Chloride Carbon Dioxide Anion Gap BUN Creatinine Est GFR ( Amer) Est GFR (Non-Af Amer) POC Glucose (mg/dL) 225 H 176 H 102 Random Glucose Calcium Phosphorus Magnesium Total Bilirubin Direct Bilirubin AST ALT Alkaline Phosphatase Total Protein Albumin Globulin Albumin/Globulin Ratio Intake & Output: Intake & Output 06/27/18 06/27/18 06/28/18 06:59 18:59 06:59 Intake Total 1740 960 Output Total 2520 600 Balance -780 360 Weight 224 lb 6.4 oz Intake: Oral 1740 960 Output: Urine 2520 600 Urethral (Diamond) 2520 600 Other: # Bowel Movements 2 1 Vital Signs: Vital Signs - 24 hr 06/27/18 06/27/18 06/27/18 00:01 02:00 05:43 Temperature 97.8 F 98.5 F Pulse Rate 61 70 59 L Respiratory 18 18 Rate Blood Pressure 132/68 138/77 O2 Sat by Pulse 97 95 Oximetry 06/27/18 06/27/18 06/27/18 12:00 12:06 18:00 Temperature 98.2 F 98.3 F Pulse Rate 73 93 H 72 Respiratory 18 18 Rate Blood Pressure 157/79 H 150/76 O2 Sat by Pulse Oximetry 06/27/18 18:05 Temperature Pulse Rate 92 H Respiratory Rate Blood Pressure 150/76 O2 Sat by Pulse Oximetry - Physical Exam Abdominal Exam: Soft, Non-Tender, Non-Distended Urinary Catheter Draining Well: Yes Urine Color: Clear, Yellow - Plan Catheter Care: Yes Intake & Output: Yes Additional Information: Imp: urologically sable. Catheter indwelling. Cardiac disease. P: as above. Catheter in place. Pt reports probable discharge soon. Therefore, outpt f/u. YS. YS - Date & Time of Note Date: 06/27/18 Time: 02:05
[2018-06-28] MEDS: Pantoprazole 40 mg EC Tab PO SCH (06:58)
[2018-06-28] MEDS: Insulin Lispro (humaLOG) MIX 75/25(10 ml) SC SCH ×2 (07:30→17:21)
[2018-06-28] MEDS: Insulin Lispro (HUMAlog) HIGH Coverage SC SCH ×4 (07:30→22:18)
[2018-06-28] MEDS: Vancomycin 500mg in NS 500 MG/100 ML BAG IVPB SCH ×2 (09:44→22:23)
[2018-06-28] MEDS: POLYETHYLENE GLYCOL 3350 17 GM/Dose PACKET PO SCH ×2 (09:44→17:22)
[2018-06-28 10:46] LABS: BASO # 0.02 K/mm3 (0.0-2.0); BASO % 0.2 % (0.0-3.0); EOS # 0.2 (0.0-0.7); EOS % 2.9 % (1.5-5.0); HEMOGLOBIN 10.8 g/dL (14.0-18.0); LYMPH # 2.8 (1.2-3.4); LYMPH % 33.5 % (22.0-35.0); MEAN CELL VOLUME 86.1 fl (80.0-105.0); MEAN CORPUSCULAR HEMOGLOBIN 28.4 pg (25.0-35.0); MEAN PLATELET VOLUME 10.2 fl (7.0-11.0); MONO % 12.4 % (1.0-6.0); RBC 3.8 10^6/uL (3.5-6.1); WHITE BLOOD COUNT 8.4 10^3/uL (4.5-11.0)
[2018-06-28] MEDS: MEROPENEM 500 MG in NS 500 MG/50 ML BAG IVPB SCH ×3 (10:52→22:24)
[2018-06-28 11:03] LABS: ALBUMIN 3.7 g/dL (3.0-4.8); ALT/SGPT 38 U/L (7-56); AST/SGOT 37 U/L (17-59); BLOOD UREA NITROGEN 15 mg/dL (7-21); CALCIUM 9.1 mg/dL (8.4-10.5); GFR NON-AFRICAN AMERICAN > 60
--- NOTE | 2018-06-28 11:07 | CP.PCM.CON ---
<Facundo Martell - Last Filed: 06/28/18 12:14> History of Present Illness - History of Present Illness History of Present Illness: ID Consult Note 82 year old male with past medical history of HTN, HLD, DM, hip fracture, vitiligo, BPH s/p TURP, UTI, urinary incontinence, and urinary retention with indwelling sharp catheter presented the hospital with chest pain. Patient was found to have NSTEMI. Patient also had an indwelling sharp catheter for urinary retention. Patient states he is feeling well today with no complaints. He admits to occasional penile pain when his catheter isn't changed on time. Denies chest pain, shortness of breath, nausea, vomiting, diarrhea, fever, chills, dysuria, numbness, tingling. Medical Hx: As above Social Hx: Denies tobacco, alcohol, or drug abuse Surgical Hx:Right femur ORIF, BPH s/p TURP Allergies: NKDA Medications: Reviewed, as per MAR Review of Systems - Review of Systems Review of Systems: 12 point ROS as per HPI, otherwise negative Past Patient History - Infectious Disease Hx of Infectious Diseases: None - Tetanus Immunizations Tetanus Immunization: Unknown - Past Social History Smoking Status: Former Smoker Cigar Use: No Alcohol: None Drugs: Denies - CARDIAC Hx Hypercholesterolemia: Yes Hx Hypertension: Yes - PULMONARY Hx Respiratory Disorders: Yes (USED TO SMOKE 2 PPD. QUIT 50 YRS AGO.) - NEUROLOGICAL Hx Neurological Disorder: No - HEENT Hx HEENT Problems: Yes (eyeglasses) Hx Cataracts: Yes (L EYE SX) - RENAL Hx Chronic Kidney Disease: No - ENDOCRINE/METABOLIC Hx Endocrine Disorders: Yes Hx Diabetes Mellitus Type 1: Yes - HEMATOLOGICAL/ONCOLOGICAL Hx Blood Disorders: Yes Hx Anemia: Yes (BLOOD TRANSFUSION.) Hx Cancer: Yes (prostate w/ radiation in 2004) - INTEGUMENTARY Hx Dermatological Problems: Yes (VITILIGO) - MUSCULOSKELETAL/RHEUMATOLOGICAL Hx Musculoskeletal Disorders: Yes (b/l knee SX) Hx Falls: No Hx Fractures: Yes (RIGHT FEMUR FX 2016 ORIF) - GASTROINTESTINAL Hx Gastrointestinal Disorders: No - GENITOURINARY/GYNECOLOGICAL Hx Genitourinary Disorders: Yes (has 2 way sharp) Hx Urinary Tract Infection: Yes - PSYCHIATRIC Hx Psychophysiologic Disorder: No Hx Substance Use: No - SURGICAL HISTORY Hx Surgeries: Yes (BILATERAL KNEE SX,LEFT EYE SX,PROSTATE SX.) Other/Comment: Right femur ORIF (12/07/2015) - ANESTHESIA Hx Anesthesia Reactions: No Hx Malignant Hyperthermia: No Meds Home Medications: Home Medication List Medication Instructions Recorded Confirmed Type Aspirin [Ecotrin] 81 mg PO DAILY #90 tabec 06/26/18 Rx Polyethylene Glycol 3350 [Miralax] 17 gm PO BID packet 06/26/18 Rx Allergies/Adverse Reactions: Allergies Allergy/AdvReac Type Severity Reaction Status Date / Time No Known Allergies Allergy Verified 01/07/18 09:50 - Medications Medications: Current Medications Acetaminophen (Tylenol 325mg Tab) 650 mg PO Q6 PRN PRN Reason: TEMP>=99.5F Last Admin: 06/24/18 21:55 Dose: 650 mg Acetaminophen (Tylenol 650 Mg Supp) 650 mg RC Q6H PRN PRN Reason: TEMP>=99.5F Aspirin (Ecotrin) 81 mg PO DAILY [facility] Last Admin: 06/28/18 09:43 Dose: 81 mg Atorvastatin Calcium (Lipitor) 20 mg PO DAILY [facility] Last Admin: 06/28/18 09:43 Dose: 20 mg Carvedilol (Coreg) 3.125 mg PO BID [facility] Last Admin: 06/28/18 09:43 Dose: 3.125 mg Dextrose (Dextrose 50% Inj) 0 ml IV STAT PRN; Protocol PRN Reason: Hypoglycemia Protocol Docusate Sodium (Colace) 100 mg PO TID [facility] Last Admin: 06/28/18 09:43 Dose: 100 mg Vancomycin HCl (Vancomycin 500mg In Ns) 500 mg in 100 mls @ 200 mls/hr IVPB Q12 [id number]; Protocol Last Admin: 06/28/18 09:44 Dose: 200 mls/hr Meropenem/Sodium Chloride (Merrem Iv 500 Mg/Ns 50 Ml) 500 mg in 50 mls @ 100 mls/hr IVPB Q8 [id number]; Protocol Stop: 06/28/18 14:29 Last Admin: 06/28/18 10:52 Dose: 100 mls/hr Insulin Human Lispro (Humalog High) 0 units SC ACHS [facility]; Protocol Last Admin: 06/27/18 22:35 Dose: Not Given Insulin Lispro Protam/Lispro Human (Humalog Mix 75/25) 50 units SC ACBD [facility] Last Admin: 06/27/18 18:06 Dose: 50 u Montelukast Sodium (Singulair) 10 mg PO DAILY [facility] Last Admin: 06/28/18 09:43 Dose: 10 mg Ondansetron HCl (Zofran Inj) 4 mg IVP Q4H PRN PRN Reason: Nausea/Vomiting Last Admin: 06/22/18 12:54 Dose: 4 mg Pantoprazole Sodium (Protonix Ec Tab) 40 mg PO 0600 [facility] Last Admin: 06/28/18 06:58 Dose: 40 mg Polyethylene Glycol (Miralax) 17 gm PO BID [facility] Last Admin: 06/28/18 09:44 Dose: 17 gm Pregabalin (Lyrica) 100 mg PO TID [facility] Last Admin: 06/28/18 09:43 Dose: 100 mg Tamsulosin HCl (Flomax) 0.4 mg PO BID [facility] Last Admin: 06/28/18 09:43 Dose: 0.4 mg Physical Exam - Constitutional Appears: Non-toxic, No Acute Distress - Head Exam Head Exam: ATRAUMATIC, NORMAL INSPECTION, NORMOCEPHALIC - ENT Exam ENT Exam: Mucous Membranes Moist - Respiratory Exam Respiratory Exam: Clear to Auscultation Bilateral, NORMAL BREATHING PATTERN - Cardiovascular Exam Cardiovascular Exam: RRR, +S1, +S2 - GI/Abdominal Exam GI & Abdominal Exam: Normal Bowel Sounds, Soft. absent: Tenderness - Extremities Exam Extremities exam: Positive for: normal inspection. Negative for: pedal edema - Neurological Exam Neurological exam: Alert, Oriented x3 - Psychiatric Exam Psychiatric exam: Normal Affect, Normal Mood - Skin Skin Exam: Dry, Intact, Warm Results - Vital Signs Recent Vital Signs: Last Vital Signs Temp 98.3 F 06/28/18 06:00 Pulse 72 06/28/18 10:00 Resp 20 06/28/18 06:00 BP 130/70 06/28/18 09:43 Pulse Ox 100 06/28/18 00:01 - Labs Result Diagrams: 06/28/18 10:30 06/28/18 10:30 Labs: Laboratory Results - last 24 hr 06/23/18 06/23/18 06/23/18 12:01 16:27 21:08 WBC RBC Hgb Hct MCV MCH MCHC RDW Plt Count MPV Neut % (Auto) Lymph % (Auto) [place]ois % (Auto) Eos % (Auto) Baso % (Auto) Lymph # (Auto) [place] # (Auto) Eos # (Auto) Baso # (Auto) Absolute Neuts (auto) Sodium Potassium Chloride Carbon Dioxide Anion Gap BUN Creatinine Est GFR ( Amer) Est GFR (Non-Af Amer) POC Glucose (mg/dL) 336 H 231 H 224 H Random Glucose Calcium Total Bilirubin AST ALT Alkaline Phosphatase Total Protein Albumin Globulin Albumin/Globulin Ratio 06/24/18 06/24/18 06/24/18 07:04 11:59 16:22 WBC RBC Hgb Hct MCV MCH MCHC RDW Plt Count MPV Neut % (Auto) Lymph % (Auto) [place]ois % (Auto) Eos % (Auto) Baso % (Auto) Lymph # (Auto) [place] # (Auto) Eos # (Auto) Baso # (Auto) Absolute Neuts (auto) Sodium Potassium Chloride Carbon Dioxide Anion Gap BUN Creatinine Est GFR ( Amer) Est GFR (Non-Af Amer) POC Glucose (mg/dL) 234 H 227 H 236 H Random Glucose Calcium Total Bilirubin AST ALT Alkaline Phosphatase Total Protein Albumin Globulin Albumin/Globulin Ratio 06/24/18 06/25/18 06/25/18 21:26 07:22 11:16 WBC RBC Hgb Hct MCV MCH MCHC RDW Plt Count MPV Neut % (Auto) Lymph % (Auto) [place] % (Auto) Eos % (Auto) Baso % (Auto) Lymph # (Auto) [place] # (Auto) Eos # (Auto) Baso # (Auto) Absolute Neuts (auto) Sodium Potassium Chloride Carbon Dioxide Anion Gap BUN Creatinine Est GFR ( Amer) Est GFR (Non-Af Amer) POC Glucose (mg/dL) 157 H 107 192 H Random Glucose Calcium Total Bilirubin AST ALT Alkaline Phosphatase Total Protein Albumin Globulin Albumin/Globulin Ratio 06/25/18 06/25/18 06/26/18 16:37 17:55 07:34 WBC RBC Hgb Hct MCV MCH MCHC RDW Plt Count MPV Neut % (Auto) Lymph % (Auto) [place]ois % (Auto) Eos % (Auto) Baso % (Auto) Lymph # (Auto) [place] # (Auto) Eos # (Auto) Baso # (Auto) Absolute Neuts (auto) Sodium Potassium Chloride Carbon Dioxide Anion Gap BUN Creatinine Est GFR ( Amer) Est GFR (Non-Af Amer) POC Glucose (mg/dL) 145 H 121 H 144 H Random Glucose Calcium Total Bilirubin AST ALT Alkaline Phosphatase Total Protein Albumin Globulin Albumin/Globulin Ratio 06/26/18 06/26/18 06/26/18 11:26 16:23 21:39 WBC RBC Hgb Hct MCV MCH MCHC RDW Plt Count MPV Neut % (Auto) Lymph % (Auto) [place]ois % (Auto) Eos % (Auto) Baso % (Auto) Lymph # (Auto) [place] # (Auto) Eos # (Auto) Baso # (Auto) Absolute Neuts (auto) Sodium Potassium Chloride Carbon Dioxide Anion Gap BUN Creatinine Est GFR ( Amer) Est GFR (Non-Af Amer) POC Glucose (mg/dL) 186 H 177 H 149 H Random Glucose Calcium Total Bilirubin AST ALT Alkaline Phosphatase Total Protein Albumin Globulin Albumin/Globulin Ratio 06/27/18 06/27/18 06/27/18 07:51 11:10 16:29 WBC RBC Hgb Hct MCV MCH MCHC RDW Plt Count MPV Neut % (Auto) Lymph % (Auto) [place]ois % (Auto) Eos % (Auto) Baso % (Auto) Lymph # (Auto) [place] # (Auto) Eos # (Auto) Baso # (Auto) Absolute Neuts (auto) Sodium Potassium Chloride Carbon Dioxide Anion Gap BUN Creatinine Est GFR ( Amer) Est GFR (Non-Af Amer) POC Glucose (mg/dL) 110 225 H 176 H Random Glucose Calcium Total Bilirubin AST ALT Alkaline Phosphatase Total Protein Albumin Globulin Albumin/Globulin Ratio 06/27/18 06/28/18 06/28/18 21:41 07:29 10:30 WBC 8.4 RBC 3.80 Hgb 10.8 L Hct 32.7 L MCV 86.1 MCH 28.4 MCHC 33.0 RDW 16.0 H Plt Count 228 MPV 10.2 Neut % (Auto) 51.0 Lymph % (Auto) 33.5 Dubois % (Auto) 12.4 H Eos % (Auto) 2.9 Baso % (Auto) 0.2 Lymph # (Auto) 2.8 Dubois # (Auto) 1.0 H Eos # (Auto) 0.2 Baso # (Auto) 0.02 Absolute Neuts (auto) 4.30 Sodium Potassium Chloride Carbon Dioxide Anion Gap BUN Creatinine Est GFR ( Amer) Est GFR (Non-Af Amer) POC Glucose (mg/dL) 102 88 Random Glucose Calcium Total Bilirubin AST ALT Alkaline Phosphatase Total Protein Albumin Globulin Albumin/Globulin Ratio 06/28/18 10:30 WBC RBC Hgb Hct MCV MCH MCHC RDW Plt Count MPV Neut % (Auto) Lymph % (Auto) [place]ois % (Auto) Eos % (Auto) Baso % (Auto) Lymph # (Auto) [place] # (Auto) Eos # (Auto) Baso # (Auto) Absolute Neuts (auto) Sodium 134 Potassium 4.8 Chloride 95 L Carbon Dioxide 33 Anion Gap 10 BUN 15 Creatinine 0.7 L Est GFR ( Amer) > 60 Est GFR (Non-Af Amer) > 60 POC Glucose (mg/dL) Random Glucose 183 H Calcium 9.1 Total Bilirubin 0.4 AST 37 ALT 38 Alkaline Phosphatase 83 Total Protein 7.5 Albumin 3.7 Globulin 3.8 Albumin/Globulin Ratio 1.0 L Assessment & Plan - Assessment and Plan (Free Text) Plan: Indwelling sharp catheter with MRSA Hx of CAD Hx of NSTEMI Hx of HTN Hx of HLD Hx of DM2 Hx of BPH s/p TURP Hx of urinary retention Hx of Vitiligo Plan Patient with MRSA on urine culture Will repeat urine cultures at this time Continue Vancomycin for total of 7-10 days Sharp changed yesterday Continue to monitor closely Jasbir PGY-3 <Sam Bernal S - Last Filed: 06/28/18 15:19> Meds - Medications Medications: Current Medications Acetaminophen (Tylenol 325mg Tab) 650 mg PO Q6 PRN PRN Reason: TEMP>=99.5F Last Admin: 06/24/18 21:55 Dose: 650 mg Acetaminophen (Tylenol 650 Mg Supp) 650 mg RC Q6H PRN PRN Reason: TEMP>=99.5F Aspirin (Ecotrin) 81 mg PO DAILY [facility] Last Admin: 06/28/18 09:43 Dose: 81 mg Atorvastatin Calcium (Lipitor) 20 mg PO DAILY [facility] Last Admin: 06/28/18 09:43 Dose: 20 mg Carvedilol (Coreg) 3.125 mg PO BID [facility] Last Admin: 06/28/18 09:43 Dose: 3.125 mg Dextrose (Dextrose 50% Inj) 0 ml IV STAT PRN; Protocol PRN Reason: Hypoglycemia Protocol Docusate Sodium (Colace) 100 mg PO TID [facility] Last Admin: 06/28/18 14:13 Dose: 100 mg Vancomycin HCl (Vancomycin 500mg In Ns) 500 mg in 100 mls @ 200 mls/hr IVPB Q12 [facility]; Protocol Last Admin: 06/28/18 09:44 Dose: 200 mls/hr Insulin Human Lispro (Humalog High) 0 units SC ACHS [facility]; Protocol Last Admin: 06/28/18 12:58 Dose: 2 u Insulin Lispro Protam/Lispro Human (Humalog Mix 75/25) 50 units SC ACBD [facility] Last Admin: 06/28/18 07:30 Dose: Not Given Montelukast Sodium (Singulair) 10 mg PO DAILY [facility] Last Admin: 06/28/18 09:43 Dose: 10 mg Ondansetron HCl (Zofran Inj) 4 mg IVP Q4H PRN PRN Reason: Nausea/Vomiting Last Admin: 06/22/18 12:54 Dose: 4 mg Pantoprazole Sodium (Protonix Ec Tab) 40 mg PO 0600 [facility] Last Admin: 06/28/18 06:58 Dose: 40 mg Polyethylene Glycol (Miralax) 17 gm PO BID [facility] Last Admin: 06/28/18 09:44 Dose: 17 gm Pregabalin (Lyrica) 100 mg PO TID [facility] Last Admin: 06/28/18 14:11 Dose: 100 mg Tamsulosin HCl (Flomax) 0.4 mg PO BID [facility] Last Admin: 06/28/18 09:43 Dose: 0.4 mg Results - Vital Signs Recent Vital Signs: Last Vital Signs Temp 98.7 F 06/28/18 12:00 Pulse 64 06/28/18 12:00 Resp 19 06/28/18 12:00 BP 150/84 06/28/18 12:00 Pulse Ox 100 06/28/18 00:01 - Labs Result Diagrams: 06/28/18 10:30 06/28/18 10:30 Labs: Laboratory Results - last 24 hr 06/23/18 06/23/18 06/23/18 12:01 16:27 21:08 WBC RBC Hgb Hct MCV MCH MCHC RDW Plt Count MPV Neut % (Auto) Lymph % (Auto) [place]ois % (Auto) Eos % (Auto) Baso % (Auto) Lymph # (Auto) [place] # (Auto) Eos # (Auto) Baso # (Auto) Absolute Neuts (auto) Sodium Potassium Chloride Carbon Dioxide Anion Gap BUN Creatinine Est GFR ( Amer) Est GFR (Non-Af Amer) POC Glucose (mg/dL) 336 H 231 H 224 H Random Glucose Calcium Total Bilirubin AST ALT Alkaline Phosphatase Total Protein Albumin Globulin Albumin/Globulin Ratio 06/24/18 06/24/18 06/24/18 07:04 11:59 16:22 WBC RBC Hgb Hct MCV MCH MCHC RDW Plt Count MPV Neut % (Auto) Lymph % (Auto) [place] % (Auto) Eos % (Auto) Baso % (Auto) Lymph # (Auto) [place] # (Auto) Eos # (Auto) Baso # (Auto) Absolute Neuts (auto) Sodium Potassium Chloride Carbon Dioxide Anion Gap BUN Creatinine Est GFR ( Amer) Est GFR (Non-Af Amer) POC Glucose (mg/dL) 234 H 227 H 236 H Random Glucose Calcium Total Bilirubin AST ALT Alkaline Phosphatase Total Protein Albumin Globulin Albumin/Globulin Ratio 06/24/18 06/25/18 06/25/18 21:26 07:22 11:16 WBC RBC Hgb Hct MCV MCH MCHC RDW Plt Count MPV Neut % (Auto) Lymph % (Auto) [place] % (Auto) Eos % (Auto) Baso % (Auto) Lymph # (Auto) [place] # (Auto) Eos # (Auto) Baso # (Auto) Absolute Neuts (auto) Sodium Potassium Chloride Carbon Dioxide Anion Gap BUN Creatinine Est GFR ( Amer) Est GFR (Non-Af Amer) POC Glucose (mg/dL) 157 H 107 192 H Random Glucose Calcium Total Bilirubin AST ALT Alkaline Phosphatase Total Protein Albumin Globulin Albumin/Globulin Ratio 06/25/18 06/25/18 06/26/18 16:37 17:55 07:34 WBC RBC Hgb Hct MCV MCH MCHC RDW Plt Count MPV Neut % (Auto) Lymph % (Auto) [place] % (Auto) Eos % (Auto) Baso % (Auto) Lymph # (Auto) [place] # (Auto) Eos # (Auto) Baso # (Auto) Absolute Neuts (auto) Sodium Potassium Chloride Carbon Dioxide Anion Gap BUN Creatinine Est GFR ( Amer) Est GFR (Non-Af Amer) POC Glucose (mg/dL) 145 H 121 H 144 H Random Glucose Calcium Total Bilirubin AST ALT Alkaline Phosphatase Total Protein Albumin Globulin Albumin/Globulin Ratio 06/26/18 06/26/18 06/26/18 11:26 16:23 21:39 WBC RBC Hgb Hct MCV MCH MCHC RDW Plt Count MPV Neut % (Auto) Lymph % (Auto) [place] % (Auto) Eos % (Auto) Baso % (Auto) Lymph # (Auto) [place] # (Auto) Eos # (Auto) Baso # (Auto) Absolute Neuts (auto) Sodium Potassium Chloride Carbon Dioxide Anion Gap BUN Creatinine Est GFR ( Amer) Est GFR (Non-Af Amer) POC Glucose (mg/dL) 186 H 177 H 149 H Random Glucose Calcium Total Bilirubin AST ALT Alkaline Phosphatase Total Protein Albumin Globulin Albumin/Globulin Ratio 06/27/18 06/27/18 06/27/18 07:51 11:10 16:29 WBC RBC Hgb Hct MCV MCH MCHC RDW Plt Count MPV Neut % (Auto) Lymph % (Auto) [place] % (Auto) Eos % (Auto) Baso % (Auto) Lymph # (Auto) [place] # (Auto) Eos # (Auto) Baso # (Auto) Absolute Neuts (auto) Sodium Potassium Chloride Carbon Dioxide Anion Gap BUN Creatinine Est GFR ( Amer) Est GFR (Non-Af Amer) POC Glucose (mg/dL) 110 225 H 176 H Random Glucose Calcium Total Bilirubin AST ALT Alkaline Phosphatase Total Protein Albumin Globulin Albumin/Globulin Ratio 06/27/18 06/28/18 06/28/18 21:41 07:29 10:30 WBC 8.4 RBC 3.80 Hgb 10.8 L Hct 32.7 L MCV 86.1 MCH 28.4 MCHC 33.0 RDW 16.0 H Plt Count 228 MPV 10.2 Neut % (Auto) 51.0 Lymph % (Auto) 33.5 Dubois % (Auto) 12.4 H Eos % (Auto) 2.9 Baso % (Auto) 0.2 Lymph # (Auto) 2.8 [place]ois # (Auto) 1.0 H Eos # (Auto) 0.2 Baso # (Auto) 0.02 Absolute Neuts (auto) 4.30 Sodium Potassium Chloride Carbon Dioxide Anion Gap BUN Creatinine Est GFR ( Amer) Est GFR (Non-Af Amer) POC Glucose (mg/dL) 102 88 Random Glucose Calcium Total Bilirubin AST ALT Alkaline Phosphatase Total Protein Albumin Globulin Albumin/Globulin Ratio 06/28/18 10:30 WBC RBC Hgb Hct MCV MCH MCHC RDW Plt Count MPV Neut % (Auto) Lymph % (Auto) [place] % (Auto) Eos % (Auto) Baso % (Auto) Lymph # (Auto) [place] # (Auto) Eos # (Auto) Baso # (Auto) Absolute Neuts (auto) Sodium 134 Potassium 4.8 Chloride 95 L Carbon Dioxide 33 Anion Gap 10 BUN 15 Creatinine 0.7 L Est GFR ( Amer) > 60 Est GFR (Non-Af Amer) > 60 POC Glucose (mg/dL) Random Glucose 183 H Calcium 9.1 Total Bilirubin 0.4 AST 37 ALT 38 Alkaline Phosphatase 83 Total Protein 7.5 Albumin 3.7 Globulin 3.8 Albumin/Globulin Ratio 1.0 L Assessment & Plan - Assessment and Plan (Free Text) Plan: Infectious diseases Attending Physician Attestation Patient seen and examined, discussed with medical biller coder. I have reviewed the patient's history of present illness, past medical, social, personal and family histories, pertinent physical exam findings, course so far in this hospital admission, pertinent laboratory and imaging results. I agree with the above findings, assessment and plan. In addition, continue Vancomycin for complicated UTI with MRSA (with indwelling Sharp catheter present prior to admission). Day 6 today and will recommend 7-10 days of therapy. Will repeat urine cx since the Sharp was changed yesterday.
--- NOTE | 2018-06-28 14:36 | CP.PCM.PN ---
Subjective - Date & Time of Evaluation Date of Evaluation: 06/28/18 Time of Evaluation: 06:45 - Subjective Subjective: Patient seen and examined at bedside in no acute distress. Has no complaints overnight, states he slept well. Objective - Vital Signs/Intake and Output Vital Signs (last 24 hours): Temp Pulse Resp BP Pulse Ox 98.7 F 64 19 150/84 100 06/28/18 12:00 06/28/18 12:00 06/28/18 12:00 06/28/18 12:00 06/28/18 00:01 Intake and Output: 06/28/18 06/28/18 06:59 18:59 Intake Total 1380 Output Total 2700 Balance -1320 - Medications Medications: Current Medications Acetaminophen (Tylenol 325mg Tab) 650 mg PO Q6 PRN PRN Reason: TEMP>=99.5F Last Admin: 06/24/18 21:55 Dose: 650 mg Acetaminophen (Tylenol 650 Mg Supp) 650 mg RC Q6H PRN PRN Reason: TEMP>=99.5F Aspirin (Ecotrin) 81 mg PO DAILY [facility] Last Admin: 06/28/18 09:43 Dose: 81 mg Atorvastatin Calcium (Lipitor) 20 mg PO DAILY [facility] Last Admin: 06/28/18 09:43 Dose: 20 mg Carvedilol (Coreg) 3.125 mg PO BID [facility] Last Admin: 06/28/18 09:43 Dose: 3.125 mg Dextrose (Dextrose 50% Inj) 0 ml IV STAT PRN; Protocol PRN Reason: Hypoglycemia Protocol Docusate Sodium (Colace) 100 mg PO TID [facility] Last Admin: 06/28/18 14:13 Dose: 100 mg Vancomycin HCl (Vancomycin 500mg In Ns) 500 mg in 100 mls @ 200 mls/hr IVPB Q12 [facility]; Protocol Last Admin: 06/28/18 09:44 Dose: 200 mls/hr Insulin Human Lispro (Humalog High) 0 units SC ACHS [facility]; Protocol Last Admin: 06/28/18 12:58 Dose: 2 u Insulin Lispro Protam/Lispro Human (Humalog Mix 75/25) 50 units SC ACBD [facility] Last Admin: 06/28/18 07:30 Dose: Not Given Montelukast Sodium (Singulair) 10 mg PO DAILY [facility] Last Admin: 06/28/18 09:43 Dose: 10 mg Ondansetron HCl (Zofran Inj) 4 mg IVP Q4H PRN PRN Reason: Nausea/Vomiting Last Admin: 06/22/18 12:54 Dose: 4 mg Pantoprazole Sodium (Protonix Ec Tab) 40 mg PO 0600 [facility] Last Admin: 06/28/18 06:58 Dose: 40 mg Polyethylene Glycol (Miralax) 17 gm PO BID [facility] Last Admin: 06/28/18 09:44 Dose: 17 gm Pregabalin (Lyrica) 100 mg PO TID [facility] Last Admin: 06/28/18 14:11 Dose: 100 mg Tamsulosin HCl (Flomax) 0.4 mg PO BID [facility] Last Admin: 06/28/18 09:43 Dose: 0.4 mg - Labs Labs: 06/28/18 10:30 06/28/18 10:30 PT 12.8 SECONDS (9.4-12.5) H 06/23/18 05:00 INR 1.13 06/23/18 05:00 APTT 27.6 Seconds (26.9-38.3) 06/23/18 05:00 Assessment and Plan - Assessment and Plan (Free Text) Assessment: Patient is a 82 year old male with a past medical history of hypertension, hyperlipidemia, NIDDM, hip fracture, vitiligo, BPH s/p TURP, urinary incontinence, UTI, who presented to the Emergency department complaining of Left Sided Chest Pain which began 8:30 am 06/20. Patient is now S/P IABP; now removed and patient is asymptomatic on imdur with the plan to start ranexa once discharged. Chest pain ACS r/o s/p IABP placement and removal due to unsuccessful cardiac catheterization -Patient found to have significant stenosis of LAD, however cath not successful -IABP was placed to continue blood flow into coronary arteries. Patient is now s/p IABP removal and asymptomatic -Will start ranexa upon discharge Hypertension -Continue carvedilol -Start lisinopril considering DM and hypertension DM -ISS-Med -Humalog 75/25 50 Units ACBD -HgA1c 8.9; poorly controlled -Diabetic education BPH s/p TURP -Continue flomax UTI -Secondary to MRSA -Patient currently on vancomycin day 7 -Called lab at [facility] which states sensitivies will be available tomorrow morning. Repeated urine cultures reveal gram negative kurtis; started on merrem. GI/DVT prophylaxis: Protonix/Lovenox
--- NOTE | 2018-06-28 16:02 | PN ---
DATE: 06/28/2018 CARDIOLOGY FOLLOWUP SUBJECTIVE: The patient is ambulating without symptoms. No chest pain noted. PHYSICAL EXAMINATION: VITAL SIGNS: Blood pressure is 130/70, heart rate is in the 70s, normal sinus rhythm. NECK: Negative JVD. LUNGS: Without rales. HEART: S1, S2. EXTREMITIES: Without edema. LABORATORY DATA: BUN and creatinine are unremarkable. Potassium is 4.2, hemoglobin is 10.8. IMPRESSION: 1. Status post non-ST elevation myocardial infarction. 2. Coronary artery disease. 3. Hypercholesterolemia. 4. Retained Diamond. 5. Urinary tract infection. Given these findings, the patient's cardiac status is stable. The patient is currently on intravenous antibiotics. Hermilo Finch MD
[2018-06-28] MEDS ORDERED: MEROPENEM 500 MG in NS 500 MG/50 ML BAG IVPB SCH (16:15)
--- NOTE | 2018-06-28 19:09 | PN ---
DATE: 06/28/2018 SUBJECTIVE: The patient is seen lying in the bed in room 265, bed 1. The patient is still on isolation. The patient was seen and examined with a personal protective equipment. The patient is alert, awake, and responsive. Chest pain negative. Shortness of breath negative. Nausea, vomiting, or diarrhea negative. Abdominal pain negative. The patient's overnight nurses' notes were reviewed. The patient had some trace swelling of the lower extremity. OBJECTIVE: VITAL SIGNS: T-max 98.3 to 98.7. Telemetry shows normal sinus rhythm, heart rate in 70s and 60s. Blood pressure 150/84, 130/70, 131/77, and 150/76. Intake and output; output is 2100. GENERAL: The patient is seen lying in the bed. The patient is having breakfast. HEENT: Head; normocephalic and atraumatic. HEENT examination shows pinkish conjunctivae. Anicteric sclerae. No oropharyngeal lesion. NECK: No neck rigidity. CHEST: Kyphosis. LUNGS: Shows no audible crackle, rales, or wheezing. CARDIOVASCULAR: S1 and S2, regular rhythm. Questionable soft systolic murmur left sternal border, right second intercostal space, left second intercostal space. ABDOMEN: Morbidly obese. No palpable hepatosplenomegaly. GENITALIA: Male. Positive Diamond catheter. EXTREMITIES: Shows positive SCDs. Questionable trace swelling of the lower extremity. MUSCULOSKELETAL: Shows a body mass index of 32. NEUROLOGIC: The patient is alert, awake, and oriented x3, is able to move upper and lower extremity without assistance. Gait examination is not tested. VASCULAR: Palpable pulses. DIAGNOSTIC DATA: On 06/28/2018; WBC 8.4, hemoglobin and hematocrit 11 and 32.7, and platelet 228. Sodium 134, potassium 4.8, chloride 95, CO2 of 33, anion gap 10, BUN 15, creatinine 0.7, and glucose 183. Sodium 134, potassium 4.8, chloride 95, CO2 of 33, anion gap 10, BUN 15, creatinine 0.7, GFR greater than 60, glucose 183, and calcium 9.1. LFTs are normal. Urine cultures from 06/26/2018 Gram-negative rods. Urine cultures from 06/22/2018 MRSA. IMPRESSION AND PLAN: 1. Acute myocardial infarction. 2. Coronary artery disease with acute left anterior artery dissection and acute occlusion and closure with post left anterior descending artery attempted angioplasty and acute left anterior descending artery dissection and occlusion myocardial infarction. 3. Methicillin-resistant Staphylococcus aureus urinary tract infection. 4. Neurogenic bladder. 5. Voiding dysfunction with indwelling Diamond catheter. 6. Gram-negative kurtis urinary tract infection. 7. History of prostate carcinoma. 8. Hypertension. 9. Episodic bradycardia. 10. Normocytic anemia. 11. Elevated erythrocyte sedimentation rate of 43. 12. Transient hyponatremia. 13. Metabolic alkalosis. 14. Uncontrolled insulin-requiring diabetes mellitus with hemoglobin A1c of 8.9 and fructosamine of greater than 300. 15. Acute non-ST elevation myocardial infarction with elevated troponin. 16. Morbid obesity. 17. Gait dysfunction. 18. Morbid obesity with elevated body mass index of 32. 19. Methicillin-resistant Staphylococcus aureus and Gram-negative kurtis urinary tract infection with proteinuria, microscopic hematuria, pyuria, and bacteriuria. 20. Left ventricular ejection fraction of 55% with mild apical hypokinesis. 21. thickened aortic valve. 22. Thickened mitral valve with trace mitral regurgitation. 23. Mild tricuspid regurgitation. 24. Apical hypokinesis. 25. Grade 1 abnormal relaxation pattern. 26. 90% tortuous and long left anterior descending artery stenosis. 27. Post acute dissection of the left anterior descending and post acute occlusion of the left anterior descending angina and non-ST elevation myocardial infarction. 28. Status post intra-aortic balloon pump placement. 29. Chronic neurogenic bladder with indwelling Diamond catheter. 30. Severe dietary noncompliance. Plan at this time, the patient's telemetry has been discontinued. Repeat labs ordered. Repeat urine cultures ordered. Infectious Disease consultation recommendations noted. Current consultation; Cardiology, Infectious Disease, and Urology. Diabetic education. TCU evaluation ordered. Current medications; Colace 100 mg three times a day, Coreg 3.125 twice a day, aspirin 81 mg daily, Flomax 0.4 mg daily, Humalog high-dose sliding scale coverage with Humalog mix 75/25 50 units with breakfast and dinner, Lipitor 20 mg daily, Lyrica 100 mg three times a day, MiraLax 17 g twice a day, Protonix 40 mg daily, Singulair 10 mg daily, Tylenol 650 every 6 hours p.o. suppository p.r.n., vancomycin 500 mg IV every 12 hours, Zofran 4 mg IV every 4 hours p.r.n., and incentive spirometry has been ordered. Chest oxygen 2 L, out of bed, physical therapy, and occupational therapy ordered. The patient will be given a dose of meropenem until further evaluation recommendation by Infectious Disease until further results of repeat urine cultures. The patient's further management will be dependent upon the patient's clinical condition, hemodynamic status and as per the patient response to therapeutic intervention, as per recommendation by all the physician involved in the care of the patient. At present, the patient's case is also referred for physical therapy, occupational therapy, ambulation therapy, and discharge planning. The patient was advised to contact Copyist and work with Copyist with discharge planning options. The patient updated about his condition, diagnosis, treatment plan, and treatment options at length. All questions concerned answered, which he acknowledged and understand. Dictated and electronically signed, not read. Tramaine Griffith MD
[2018-06-29 04:29] LABS: BASO # 0.02 K/mm3 (0.0-2.0); BASO % 0.3 % (0.0-3.0); EOS # 0.3 (0.0-0.7); EOS % 3.2 % (1.5-5.0); HEMOGLOBIN 10.5 g/dL (14.0-18.0); LYMPH # 3.2 (1.2-3.4); LYMPH % 40.6 % (22.0-35.0); MEAN CELL VOLUME 86.7 fl (80.0-105.0); MEAN CORPUSCULAR HGB CONC 32.3 g/dl (31.0-37.0); MEAN PLATELET VOLUME 10.9 fl (7.0-11.0); MONO # 0.8 (0.1-0.6); MONO % 10.2 % (1.0-6.0); RBC 3.75 10^6/uL (3.5-6.1); WHITE BLOOD COUNT 7.8 10^3/uL (4.5-11.0)
[2018-06-29 04:32] LABS: ALBUMIN 3.6 g/dL (3.0-4.8); ALT/SGPT 35 U/L (7-56); AST/SGOT 30 U/L (17-59); BILIRUBIN,DIRECT 0.2 mg/dL (0.0-0.4); BLOOD UREA NITROGEN 16 mg/dL (7-21); CALCIUM 9.2 mg/dL (8.4-10.5); GFR NON-AFRICAN AMERICAN > 60
[2018-06-29] MEDS: MEROPENEM 500 MG in NS 500 MG/50 ML BAG IVPB SCH (05:02)
[2018-06-29] MEDS: Pantoprazole 40 mg EC Tab PO SCH (05:02)
[2018-06-29] MEDS: Insulin Lispro (humaLOG) MIX 75/25(10 ml) SC SCH ×2 (08:45→18:06)
[2018-06-29] MEDS: Insulin Lispro (HUMAlog) HIGH Coverage SC SCH ×3 (08:50→18:07)
[2018-06-29] MEDS: POLYETHYLENE GLYCOL 3350 17 GM/Dose PACKET PO SCH ×2 (10:19→18:08)
[2018-06-29] MEDS: Vancomycin 500mg in NS 500 MG/100 ML BAG IVPB SCH ×2 (10:20→21:25)
[2018-06-29] MEDS ORDERED: Cefepime 1gm in NS 100ml 1 GM/100 ML BAG IVPB SCH (13:45)
--- NOTE | 2018-06-29 14:00 | CP.PCM.PN ---
<Facundo Martell - Last Filed: 06/29/18 13:57> Subjective - Date & Time of Evaluation Date of Evaluation: 06/29/18 Time of Evaluation: 08:00 - Subjective Subjective: ID Progress Note Patient seen and examined. Patient complains of intermittent penile pain. Denies chest pain, trouble urinating, fevers. Objective - Vital Signs/Intake and Output Vital Signs (last 24 hours): Temp Pulse Resp BP Pulse Ox 98.7 F 56 L 19 134/79 94 L 06/29/18 12:00 06/29/18 12:00 06/29/18 12:00 06/29/18 12:00 06/29/18 06:00 Intake and Output: 06/29/18 06/29/18 06:59 18:59 Intake Total 500 Output Total 2050 Balance -1550 - Medications Medications: Current Medications Acetaminophen (Tylenol 325mg Tab) 650 mg PO Q6 PRN PRN Reason: TEMP>=99.5F Last Admin: 06/24/18 21:55 Dose: 650 mg Acetaminophen (Tylenol 650 Mg Supp) 650 mg RC Q6H PRN PRN Reason: TEMP>=99.5F Acetaminophen (Tylenol 325mg Tab) 650 mg PO Q6H PRN PRN Reason: Pain, Mild (1-3) Last Admin: 06/29/18 01:02 Dose: 650 mg Aspirin (Ecotrin) 81 mg PO DAILY [facility] Last Admin: 06/29/18 10:18 Dose: 81 mg Atorvastatin Calcium (Lipitor) 20 mg PO DAILY [facility] Last Admin: 06/29/18 10:18 Dose: 20 mg Carvedilol (Coreg) 3.125 mg PO BID [facility] Last Admin: 06/29/18 10:18 Dose: 3.125 mg Cyclobenzaprine HCl (Flexeril) 10 mg PO HS [facility] Dextrose (Dextrose 50% Inj) 0 ml IV STAT PRN; Protocol PRN Reason: Hypoglycemia Protocol Docusate Sodium (Colace) 100 mg PO TID [facility] Last Admin: 06/29/18 10:18 Dose: 100 mg Vancomycin HCl (Vancomycin 500mg In Ns) 500 mg in 100 mls @ 200 mls/hr IVPB Q12 [facility]; Protocol Last Admin: 06/29/18 10:20 Dose: 200 mls/hr Cefepime HCl (Maxipime 2gm) 2 gm in 100 mls @ 100 mls/hr IVPB Q8 [facility]; Protocol Stop: 07/04/18 14:01 Insulin Human Lispro (Humalog High) 0 units SC ACHS [facility]; Protocol Last Admin: 06/29/18 12:29 Dose: Not Given Insulin Lispro Protam/Lispro Human (Humalog Mix 75/25) 50 units SC ACBD [facility] Last Admin: 06/29/18 08:45 Dose: 50 units Montelukast Sodium (Singulair) 10 mg PO HS [facility] Ondansetron HCl (Zofran Inj) 4 mg IVP Q4H PRN PRN Reason: Nausea/Vomiting Last Admin: 06/22/18 12:54 Dose: 4 mg Pantoprazole Sodium (Protonix Ec Tab) 40 mg PO 0600 [facility] Last Admin: 06/29/18 05:02 Dose: 40 mg Polyethylene Glycol (Miralax) 17 gm PO BID [facility] Last Admin: 06/29/18 10:19 Dose: 17 gm Pregabalin (Lyrica) 100 mg PO TID [facility] Last Admin: 06/29/18 10:18 Dose: 100 mg Tamsulosin HCl (Flomax) 0.4 mg PO BID [facility] Last Admin: 06/29/18 10:18 Dose: 0.4 mg - Labs Labs: 06/29/18 04:00 06/29/18 04:00 PT 12.8 SECONDS (9.4-12.5) H 06/23/18 05:00 INR 1.13 06/23/18 05:00 APTT 27.6 Seconds (26.9-38.3) 06/23/18 05:00 - Constitutional Appears: Non-toxic, No Acute Distress - Head Exam Head Exam: ATRAUMATIC, NORMAL INSPECTION, NORMOCEPHALIC - Respiratory Exam Respiratory Exam: Clear to Ausculation Bilateral, NORMAL BREATHING PATTERN - Cardiovascular Exam Cardiovascular Exam: RRR, +S1, +S2 - GI/Abdominal Exam GI & Abdominal Exam: Soft, Normal Bowel Sounds (Trace b/l). absent: Tenderness - Exam Additional comments: Sharp in place - Neurological Exam Neurological Exam: Alert, Awake, Oriented x3 - Psychiatric Exam Psychiatric exam: Normal Affect, Normal Mood - Skin Skin Exam: Dry, Intact, Warm Assessment and Plan - Assessment and Plan (Free Text) Plan: Indwelling sharp catheter with MRSA and Pseudomonas aeruginosa Hx of CAD Hx of NSTEMI Hx of HTN Hx of HLD Hx of DM2 Hx of BPH s/p TURP Hx of urinary retention Hx of Vitiligo Plan Patient with MRSA on urine culture and Pseudomonas on repeat culture Will start patient on Cefepime for total of 7 days due to prolonged QT Last day of Vancomycin Continue to monitor closely Jasbir, PGY-3 <Sam Bernal S - Last Filed: 06/29/18 16:47> Objective - Vital Signs/Intake and Output Vital Signs (last 24 hours): Temp Pulse Resp BP Pulse Ox 98.7 F 56 L 19 134/79 94 L 06/29/18 12:00 06/29/18 12:00 06/29/18 12:00 06/29/18 12:00 06/29/18 06:00 Intake and Output: 06/29/18 06/29/18 06:59 18:59 Intake Total 500 Output Total 2050 Balance -1550 - Medications Medications: Current Medications Acetaminophen (Tylenol 325mg Tab) 650 mg PO Q6 PRN PRN Reason: TEMP>=99.5F Last Admin: 06/24/18 21:55 Dose: 650 mg Acetaminophen (Tylenol 650 Mg Supp) 650 mg RC Q6H PRN PRN Reason: TEMP>=99.5F Acetaminophen (Tylenol 325mg Tab) 650 mg PO Q6H PRN PRN Reason: Pain, Mild (1-3) Last Admin: 06/29/18 01:02 Dose: 650 mg Aspirin (Ecotrin) 81 mg PO DAILY [facility] Last Admin: 06/29/18 10:18 Dose: 81 mg Atorvastatin Calcium (Lipitor) 20 mg PO DAILY [facility] Last Admin: 06/29/18 10:18 Dose: 20 mg Carvedilol (Coreg) 3.125 mg PO BID [facility] Last Admin: 06/29/18 10:18 Dose: 3.125 mg Cyclobenzaprine HCl (Flexeril) 10 mg PO HS [facility] Dextrose (Dextrose 50% Inj) 0 ml IV STAT PRN; Protocol PRN Reason: Hypoglycemia Protocol Docusate Sodium (Colace) 100 mg PO TID [facility] Last Admin: 06/29/18 14:36 Dose: 100 mg Vancomycin HCl (Vancomycin 500mg In Ns) 500 mg in 100 mls @ 200 mls/hr IVPB Q12 [facility]; Protocol Stop: 06/29/18 23:00 Last Admin: 06/29/18 10:20 Dose: 200 mls/hr Cefepime HCl (Maxipime 2gm) 2 gm in 100 mls @ 100 mls/hr IVPB Q8 [facility]; Protocol Stop: 07/04/18 14:01 Last Admin: 06/29/18 14:37 Dose: 100 mls/hr Insulin Human Lispro (Humalog High) 0 units SC ACHS [facility]; Protocol Last Admin: 06/29/18 12:29 Dose: Not Given Insulin Lispro Protam/Lispro Human (Humalog Mix 75/25) 50 units SC ACBD [facility] Last Admin: 06/29/18 08:45 Dose: 50 units Montelukast Sodium (Singulair) 10 mg PO HS [facility] Ondansetron HCl (Zofran Inj) 4 mg IVP Q4H PRN PRN Reason: Nausea/Vomiting Last Admin: 06/22/18 12:54 Dose: 4 mg Pantoprazole Sodium (Protonix Ec Tab) 40 mg PO 0600 [facility] Last Admin: 06/29/18 05:02 Dose: 40 mg Polyethylene Glycol (Miralax) 17 gm PO BID [facility] Last Admin: 06/29/18 10:19 Dose: 17 gm Pregabalin (Lyrica) 100 mg PO TID [facility] Last Admin: 06/29/18 14:37 Dose: 100 mg Tamsulosin HCl (Flomax) 0.4 mg PO BID [facility] Last Admin: 06/29/18 10:18 Dose: 0.4 mg - Labs Labs: 06/29/18 04:00 06/29/18 04:00 PT 12.8 SECONDS (9.4-12.5) H 06/23/18 05:00 INR 1.13 06/23/18 05:00 APTT 27.6 Seconds (26.9-38.3) 06/23/18 05:00 Assessment and Plan - Assessment and Plan (Free Text) Plan: Infectious diseases Attending Physician Attestation Patient seen and examined, discussed with medical office assistant instructor. I have reviewed the patient's history of present illness, past medical, social, personal and family histories, pertinent physical exam findings, course so far in this hospital admission, pertinent laboratory and imaging results. I agree with the above findings, assessment and plan. In addition, day 7 of Vancomycin today (of 7 days) for MRSA complicated UTI. Now with Pseudomonas - will start cefepime and s sakinauld get 7 days.
[2018-06-29] MEDS: Cefepime IV 2 gm in NS 2 GM/100 ML BAG IVPB SCH ×2 (14:37→21:24)
--- NOTE | 2018-06-29 14:39 | PN ---
DATE: 06/29/2018 SUBJECTIVE: The patient is without shortness of breath, without chest pain. PHYSICAL EXAMINATION: VITAL SIGNS: Blood pressure 130/60, heart rates in the 60s. NECK: Negative JVD. LUNGS: Without rales. HEART: S1, S2. EXTREMITIES: Without edema. LABORATORY DATA: Glucose is 124, hemoglobin is 10.5. IMPRESSION: 1. Stable angina. 2. Status post non-ST elevation myocardial infarction. 3. Coronary artery disease. 4. Diabetes mellitus. 5. Anemia. PLAN: Given these findings, the patient is doing well. The patient needs to continue his antibiotics for his urinary tract infection. Hermilo Finch MD
--- NOTE | 2018-06-29 19:23 | CP.PCM.PN ---
Subjective - Date & Time of Evaluation Date of Evaluation: 06/29/18 Time of Evaluation: 07:10 - Subjective Subjective: Patient seen and examined at bedside in no acute distress. No complaints at this time. Patient states he has no pain with urination. Physical exam - Constitutional Appears: Non-toxic - Head Exam Head Exam: ATRAUMATIC, NORMAL INSPECTION, NORMOCEPHALIC - Eye Exam Eye Exam: EOMI - ENT Exam ENT Exam: Mucous Membranes Moist - Cardiovascular Exam Cardiovascular Exam: REGULAR RHYTHM, +S1, +S2 - GI/Abdominal Exam GI & Abdominal Exam: Soft, Normal Bowel Sounds - Neurological Exam Neurological Exam: Alert, Awake, CN II-XII Intact Neuro motor strength exam: Left Upper Extremity: 4, Right Upper Extremity: 4, Left Lower Extremity: 4, Right Lower Extremity: 4 - Psychiatric Exam Psychiatric exam: Normal Affect, Normal Mood - Skin Skin Exam: Dry, Intact, Warm Additional comments: vitiligo Objective - Vital Signs/Intake and Output Vital Signs (last 24 hours): Temp Pulse Resp BP Pulse Ox 97.1 F L 70 19 106/76 94 L 06/29/18 18:00 06/29/18 18:07 06/29/18 18:00 06/29/18 18:07 06/29/18 06:00 - Medications Medications: Current Medications Acetaminophen (Tylenol 325mg Tab) 650 mg PO Q6 PRN PRN Reason: TEMP>=99.5F Last Admin: 06/24/18 21:55 Dose: 650 mg Acetaminophen (Tylenol 650 Mg Supp) 650 mg RC Q6H PRN PRN Reason: TEMP>=99.5F Acetaminophen (Tylenol 325mg Tab) 650 mg PO Q6H PRN PRN Reason: Pain, Mild (1-3) Last Admin: 06/29/18 01:02 Dose: 650 mg Aspirin (Ecotrin) 81 mg PO DAILY [facility] Last Admin: 06/29/18 10:18 Dose: 81 mg Atorvastatin Calcium (Lipitor) 20 mg PO DAILY [facility] Last Admin: 06/29/18 10:18 Dose: 20 mg Carvedilol (Coreg) 3.125 mg PO BID [facility] Last Admin: 06/29/18 18:07 Dose: 3.125 mg Cyclobenzaprine HCl (Flexeril) 10 mg PO HS [facility] Dextrose (Dextrose 50% Inj) 0 ml IV STAT PRN; Protocol PRN Reason: Hypoglycemia Protocol Docusate Sodium (Colace) 100 mg PO TID [facility] Last Admin: 06/29/18 18:08 Dose: 100 mg Vancomycin HCl (Vancomycin 500mg In Ns) 500 mg in 100 mls @ 200 mls/hr IVPB Q12 [facility]; Protocol Stop: 06/29/18 23:00 Last Admin: 06/29/18 10:20 Dose: 200 mls/hr Cefepime HCl (Maxipime 2gm) 2 gm in 100 mls @ 100 mls/hr IVPB Q8 [facility]; Protocol Stop: 07/04/18 14:01 Last Admin: 06/29/18 14:37 Dose: 100 mls/hr Insulin Human Lispro (Humalog High) 0 units SC ACHS [facility]; Protocol Last Admin: 06/29/18 18:07 Dose: 4 u Insulin Lispro Protam/Lispro Human (Humalog Mix 75/25) 50 units SC ACBD [facility] Last Admin: 06/29/18 18:06 Dose: 50 units Montelukast Sodium (Singulair) 10 mg PO HS [facility] Ondansetron HCl (Zofran Inj) 4 mg IVP Q4H PRN PRN Reason: Nausea/Vomiting Last Admin: 06/22/18 12:54 Dose: 4 mg Pantoprazole Sodium (Protonix Ec Tab) 40 mg PO 0600 [facility] Last Admin: 06/29/18 05:02 Dose: 40 mg Polyethylene Glycol (Miralax) 17 gm PO BID [facility] Last Admin: 06/29/18 18:08 Dose: 17 gm Pregabalin (Lyrica) 100 mg PO TID [facility] Last Admin: 06/29/18 18:08 Dose: 100 mg Tamsulosin HCl (Flomax) 0.4 mg PO BID [facility] Last Admin: 06/29/18 18:08 Dose: 0.4 mg - Labs Labs: 06/29/18 04:00 06/29/18 04:00 PT 12.8 SECONDS (9.4-12.5) H 06/23/18 05:00 INR 1.13 06/23/18 05:00 APTT 27.6 Seconds (26.9-38.3) 06/23/18 05:00 Assessment and Plan - Assessment and Plan (Free Text) Assessment: Patient is a 82 year old male with a past medical history of hypertension, hyperlipidemia, NIDDM, hip fracture, vitiligo, BPH s/p TURP, urinary incontinence, UTI, who presented to the Emergency department complaining of Left Sided Chest Pain which began 8:30 am 06/20. Patient is now S/P IABP; now removed and patient is asymptomatic on imdur with the plan to start ranexa once discharged. Chest pain ACS r/o s/p IABP placement and removal due to unsuccessful cardiac catheterization -Patient found to have significant stenosis of LAD, however cath not successful -IABP was placed to continue blood flow into coronary arteries. Patient is now s/p IABP removal and asymptomatic -Will start ranexa upon discharge Hypertension -Continue carvedilol -Start lisinopril considering DM and hypertension DM -ISS-Med -Humalog 75/25 50 Units ACBD -HgA1c 8.9; poorly controlled -Diabetic education BPH s/p TURP -Continue flomax UTI -Secondary to MRSA -Patient has c ompleted course of vancomycin for MRSA -Repeat cultures reveal pseudomonas. Patient was on merrem day 2, will complete treatment with 7 days of cefepime GI/DVT prophylaxis: Protonix/Lovenox Dispo: Subacute rehab
--- NOTE | 2018-06-30 03:44 | DS ---
HISTORY OF PRESENT ILLNESS: The patient is seen in room 265, bed 1. The patient is sitting up in the bed. The patient is alert, awake, responsive. PHYSICAL EXAMINATION: VITAL SIGNS: T-max is 97.4, heart rate 57, 60, 67, blood pressure 130/60, 133/ 64, respiration 20, O2 sat 94% to 95%. INTAKE AND OUTPUT: Intake is 620, output 1100. Today's intake of 500, output 2050. HEENT: Head is normocephalic, atraumatic. HEENT examination shows pinkish conjunctiva. Anicteric sclerae. No oropharyngeal lesion. NECK:: No neck rigidity. CHEST: Kyphosis. LUNGS: Shows no audible crackle, rales or wheezing. CARDIOVASCULAR: S1, S2, regular rhythm. ABDOMEN: Protuberant, obese. Positive bowel sound. GENITALIA: Male. Positive Diamond catheter. EXTREMITIES: Shows trace swelling of the lower extremity. SKIN: Shows positive diffuse vitiligo. MUSCULOSKELETAL: Shows an elevated body mass index of 31. Motor strength is 5/5 in upper extremity. NEUROLOGIC: The patient is alert, awake, oriented x3. DIAGNOSTICS: On 06/29/2018, WBC 7.8, hemoglobin and hematocrit 10.5, 32.5, platelet 243. Sodium 136, potassium 4.1, chloride 97, CO2 33, anion gap 9, BUN 16, creatinine 0.8, GFR greater than 60, glucose 124, calcium 9.2, magnesium 2.3. LFTs are within normal limit. Urine cultures were noted. FINAL IMPRESSION, PLAN AND DISCHARGE DIAGNOSES: 1. Coronary artery disease. 2. Status post attempted angioplasty of the left anterior descending complicated by acute left anterior descending artery dissection and acute occlusion with post attempted angioplasty, post unsuccessful angioplasty, angina and non-ST elevation myocardial infarction. 3. Methicillin-resistant Staphylococcus aureus urinary tract infection with Pseudomonas aeruginosa urinary tract infection. 4. Neurogenic bladder. 5. Voiding dysfunction. 6. History of prostate carcinoma. 7. Indwelling Diamond catheter placement. 8. Urinary retention. 9. Normocytic anemia. 10. Elevated erythrocyte sedimentation rate. 11. Uncontrolled insulin-requiring diabetes mellitus with elevated hemoglobin A1c of 8.9 and fructosamine of 305. 12. Morbid obesity with elevated body mass index of 32. 13. Methicillin-resistant Staphylococcus aureus and Pseudomonas aeruginosa urinary tract infection with proteinuria, microscopic hematuria, pyuria, bacteriuria. 14. Gait dysfunction. 15. Deconditioning. 16. Left ventricular ejection fraction of 50% to 55%. 17. Mild apical hypokinesis. 18. Thickened aortic valve. 19. Thickened mitral valve with trace mitral regurgitation and thickened tricuspid valve with mild tricuspid regurgitation. 20. Status post non-ST elevation myocardial infarction. 21. Coronary artery disease. 22. Unstable angina. 23. Constipation. 24. Diabetic neuropathy. 25. Prostatic hypertrophy. PLAN: At this time, the patient will be considered for discharge if the patient is cleared by Infectious Disease since the patient has completed almost 10 days of IV vancomycin for MRSA urinary tract infection and the patient's Pseudomonas aeruginosa UTI and sensitive to Cipro, cefepime, gentamicin, meropenem and Zosyn. If the patient can be switched to oral antibiotic, the patient will be considered for discharge home versus subacute rehab versus TCU whichever are discharge option is acceptable to the patient and the family and whatever at this time recommended. At present, the patient's current medications, Colace 100 mg three times a day, Coreg 3.125 twice a day, aspirin 81 mg daily, Flexeril 10 mg at bedtime, Flomax 0.4 mg twice a day, Humalog high-dose sliding coverage, lispro 75/25, 50 units with breakfast and dinner, Lipitor 20 mg daily, Lyrica 100 mg three times a day, meropenem 500 IV every 8, MiraLax 17 g twice a day, Protonix 40 mg daily, Singulair 10 mg at bedtime, Tylenol p.r.n., vancomycin 500 IV every 12, Zofran four IV every 4 p.r.n. In addition if the patient is cleared for discharge by all subspecialty, the patient will continue on aspirin 81 daily, Coreg 3.125 twice a day, Glucotrol 10 mg twice a day, insulin 75/25, 50 units breakfast and dinner, Xyzal 5 mg daily, Linzess 290 mcg daily, metformin 1000 mg twice a day, Myrbetriq 50 mg daily, Singulair 10 mg daily, Protonix 40 mg daily, Zocor 40 mg daily. In addition, the patient will be discharged on p.o. antibiotics as per Infectious Disease recommendation. The patient will be considered for discharge home after the patient cleared by Infectious Disease and switched over to oral antibiotics. The patient will be considered for either discharged to TCU if accepted, discharged to subacute rehab if accepted and eligible, otherwise the patient will be discharge home as long as the patient is started and switched over to p.o. antibiotic. Dictated and electronically signed, not read. Tramaine Griffith MD
[2018-06-30 06:11] VITALS: PULSE 64; O2SAT 97
[2018-06-30] MEDS: Pantoprazole 40 mg EC Tab PO SCH (06:13)
[2018-06-30] MEDS: Cefepime IV 2 gm in NS 2 GM/100 ML BAG IVPB SCH ×2 (06:13→13:34)
[2018-06-30] MEDS: Insulin Lispro (HUMAlog) HIGH Coverage SC SCH ×2 (08:09→12:37)
[2018-06-30] MEDS: Insulin Lispro (humaLOG) MIX 75/25(10 ml) SC SCH (08:26)
[2018-06-30] MEDS: POLYETHYLENE GLYCOL 3350 17 GM/Dose PACKET PO SCH (10:07)
--- NOTE | 2018-06-30 10:50 | CP.PCM.PN ---
Subjective - Date & Time of Evaluation Date of Evaluation: 06/30/18 Time of Evaluation: 08:15 - Subjective Subjective: (covering for Dr. Griffith) Patient is seen this morning. He is lying in bed. He denies pain. No new complaints. Objective - Vital Signs/Intake and Output Vital Signs (last 24 hours): Temp Pulse Resp BP Pulse Ox 98.6 F 64 20 148/88 97 06/30/18 06:00 06/30/18 06:00 06/30/18 06:00 06/30/18 10:07 06/30/18 06:00 Intake and Output: 06/30/18 06/30/18 06:59 18:59 Intake Total 600 Output Total 2000 Balance -1400 - Medications Medications: Current Medications Acetaminophen (Tylenol 325mg Tab) 650 mg PO Q6 PRN PRN Reason: TEMP>=99.5F Last Admin: 06/24/18 21:55 Dose: 650 mg Acetaminophen (Tylenol 650 Mg Supp) 650 mg RC Q6H PRN PRN Reason: TEMP>=99.5F Acetaminophen (Tylenol 325mg Tab) 650 mg PO Q6H PRN PRN Reason: Pain, Mild (1-3) Last Admin: 06/29/18 01:02 Dose: 650 mg Aspirin (Ecotrin) 81 mg PO DAILY [facility] Last Admin: 06/30/18 10:07 Dose: 81 mg Atorvastatin Calcium (Lipitor) 20 mg PO DAILY [facility] Last Admin: 06/30/18 10:07 Dose: 20 mg Carvedilol (Coreg) 3.125 mg PO BID [facility] Last Admin: 06/30/18 10:07 Dose: 3.125 mg Cyclobenzaprine HCl (Flexeril) 10 mg PO HS [facility] Last Admin: 06/29/18 21:25 Dose: 10 mg Dextrose (Dextrose 50% Inj) 0 ml IV STAT PRN; Protocol PRN Reason: Hypoglycemia Protocol Docusate Sodium (Colace) 100 mg PO TID [facility] Last Admin: 06/30/18 10:07 Dose: 100 mg Cefepime HCl (Maxipime 2gm) 2 gm in 100 mls @ 100 mls/hr IVPB Q8 [facility]; Protocol Stop: 07/04/18 14:01 Last Admin: 06/30/18 06:13 Dose: 100 mls/hr Insulin Human Lispro (Humalog High) 0 units SC ACHS [facility]; Protocol Last Admin: 06/30/18 08:09 Dose: Not Given Insulin Lispro Protam/Lispro Human (Humalog Mix 75/25) 50 units SC ACBD [facility] Last Admin: 06/30/18 08:26 Dose: 50 units Montelukast Sodium (Singulair) 10 mg PO HS [facility] Last Admin: 06/29/18 21:25 Dose: 10 mg Ondansetron HCl (Zofran Inj) 4 mg IVP Q4H PRN PRN Reason: Nausea/Vomiting Last Admin: 06/22/18 12:54 Dose: 4 mg Pantoprazole Sodium (Protonix Ec Tab) 40 mg PO 0600 [facility] Last Admin: 06/30/18 06:13 Dose: 40 mg Polyethylene Glycol (Miralax) 17 gm PO BID [facility] Last Admin: 06/30/18 10:07 Dose: 17 gm Pregabalin (Lyrica) 100 mg PO TID [facility] Last Admin: 06/30/18 10:07 Dose: 100 mg Tamsulosin HCl (Flomax) 0.4 mg PO BID [facility] Last Admin: 06/30/18 10:07 Dose: 0.4 mg - Labs Labs: 06/29/18 04:00 06/29/18 04:00 PT 12.8 SECONDS (9.4-12.5) H 06/23/18 05:00 INR 1.13 06/23/18 05:00 APTT 27.6 Seconds (26.9-38.3) 06/23/18 05:00 - Constitutional Appears: No Acute Distress - Head Exam Head Exam: ATRAUMATIC, NORMOCEPHALIC - Respiratory Exam Respiratory Exam: Clear to Ausculation Bilateral, NORMAL BREATHING PATTERN - Cardiovascular Exam Cardiovascular Exam: REGULAR RHYTHM, +S1, +S2 - GI/Abdominal Exam GI & Abdominal Exam: Soft, Normal Bowel Sounds - Extremities Exam Extremities Exam: Normal Inspection - Neurological Exam Neurological Exam: Alert, Awake, Oriented x3 Assessment and Plan - Assessment and Plan (Free Text) Assessment: Pseudomonas urinary tract infection History of CAD History of NSTEMI HTN Hyperlipidemia Diabetes mellitus BPH s/p TURP Plan: Patient is seen this morning. He has no new complaints. Catheterized urine sample is growing pseudomonas. Patient is on IV Cefepime. As per infectious disease, he is to complete a total of 7 days of IV antibiotics. Patient awaiting transfer to [facility] where he will complete the course of antibiotics.
--- NOTE | 2018-06-30 11:44 | PN ---
DATE: 06/30/2018 SUBJECTIVE: The patient is asymptomatic. PHYSICAL EXAMINATION: VITAL SIGNS: Stable. Physical exam is unchanged. LABORATORY DATA: Hemoglobin is 10.5. Chemistries; BUN and creatinine were not done today. Glucose is 121. IMPRESSION: 1. Status post non-ST elevation myocardial infarction. 2. Stable angina. 3. Coronary artery disease. 4. Diabetes mellitus. 5. Hypercholesterolemia. Given these findings, the patient is currently on vancomycin for urinary tract infection due to indwelling catheter. The patient's cardiac status is stable. We will continue his aspirin, statin therapy, and carvedilol. Hermilo Finch MD
[2018-06-30 13:52] VITALS: BP 113/65; RESP 18; TEMP 98.4
--- NOTE | 2018-06-30 15:34 | CP.PCM.PN ---
Subjective - Date & Time of Evaluation Date of Evaluation: 06/30/18 Time of Evaluation: 11:30 - Subjective Subjective: No fevers, not in distress, no pain in the bladder and penis, no fevers, no hematuria but states he had an episode yesterday. Objective - Vital Signs/Intake and Output Vital Signs (last 24 hours): Temp Pulse Resp BP Pulse Ox 98.4 F 64 18 113/65 97 06/30/18 12:00 06/30/18 12:00 06/30/18 12:00 06/30/18 12:00 06/30/18 06:00 Intake and Output: 06/30/18 06/30/18 06:59 18:59 Intake Total 600 Output Total 2000 Balance -1400 - Labs Labs: 06/29/18 04:00 06/29/18 04:00 PT 12.8 SECONDS (9.4-12.5) H 06/23/18 05:00 INR 1.13 06/23/18 05:00 APTT 27.6 Seconds (26.9-38.3) 06/23/18 05:00 - Constitutional Appears: Chronically Ill - Head Exam Head Exam: NORMAL INSPECTION - ENT Exam ENT Exam: Mucous Membranes Moist - Neck Exam Neck Exam: absent: Meningismus - Respiratory Exam Respiratory Exam: Decreased Breath Sounds - Cardiovascular Exam Cardiovascular Exam: +S1, +S2 - GI/Abdominal Exam GI & Abdominal Exam: Soft. absent: Tenderness Assessment and Plan - Assessment and Plan (Free Text) Plan: Assessment complicated UTI with MRSA and now Pseudomonas in this patient with chronic Diamnod Catheter use anemia probably secondary to hematuria dyslipidemia HTN DM history of hip fracture history of UTI in the past Plan completed 7 days of Vancomycin; will continue Cefepime day 2 of 7 days follow up further Urology recommendations
--- NOTE | 2018-06-30 17:56 | DS ---
CHIEF COMPLAINT: The patient's insurance finally gave authorization for subacute rehab at [place], which the patient and the family was notified of and that the patient and the family agreed for that. The patient is discharged from room 265, bed 1. PHYSICAL EXAMINATION: VITAL SIGNS: T-max 98.6, heart rate 64, blood pressure 119/69, 148/88, respirations 20, O2 sat 97%. The patient was seen during the day by and Dr. Hermilo Finch. FINAL IMPRESSION, PLAN AND DISCHARGE DIAGNOSES 1. Coronary artery disease. 2. Acute myocardial infarction, post-attempted angioplasty of the left anterior descending artery complicated by acute left anterior descending artery dissection and acute occlusion and closure of the post-attempted angioplasty, unsuccessful angioplasty of the left anterior descending artery with post unsuccessful angioplasty, angina, and non-ST elevation myocardial infarction. 3. Methicillin-resistant Staphylococcus aureus urinary tract infection. 4. Pseudomonas aeruginosa urinary tract infection. 5. Normocytic anemia. 6. Uncontrolled insulin-requiring diabetes mellitus with elevated hemoglobin A1c of 8.9 and fructosamine of 305. 7. Acute myocardial infarction with elevated troponin. 8. History of hyperlipidemia. 9. Morbid obesity. 10. Elevated body mass index. 11. Voiding dysfunction. 12. History of prostate carcinoma. 13. Voiding dysfunction. 14. Neurogenic bladder with indwelling Diamond catheter. 15. Gait dysfunction. 16. Morbid obesity with elevated body mass index of 32. 17. Gait dysfunction. 18. Deconditioning. 19. Methicillin-resistant Staphylococcus aureus and Pseudomonas aeruginosa urinary tract infection. CURRENT MEDICATIONS: The patient's current medications as of today's MAR: 1. Colace 100 mg three times a day. 2. Coreg 3.125 twice a day. 3. Ecotrin 81 mg daily. 4. Flexeril 10 mg at bedtime. 5. Flomax 0.4 mg twice a day. 6. Humalog high-dose sliding scale coverage a.c. and at bedtime. 7. Humalog Mix 75/25, 50 units with breakfast and dinner. 8. Lipitor 20 mg daily. 9. Lyrica 100 mg p.o. three times a day. 10. Cefepime 2 g IV every 8 hours. 11. MiraLax 17 g twice a day. 12. Protonix 40 mg daily. 13. Singulair 10 mg at bedtime. 14. Tylenol 650 mg p.o. suppository every 6 hours p.r.n. 15. Zofran 4 mg IV every 4 hours p.r.n. The patient's discharge ambulatory home medications. The patient is on Lyrica 100 mg three times a day. The patient is on Myrbetriq 50 mg daily. The patient also takes Soma 350 mg at bedtime, Ecotrin 81 mg daily, Coreg 3.125 twice a day, cefepime 2 g IV every 8 hours for 7 days, Glucotrol and glipizide 10 mg twice a day, insulin 70/30, 50 units after breakfast and after dinner, Xyzal 5 mg daily, Linzess 290 mcg daily, metformin 1000 mg twice a day and 500 mg with lunch, Myrbetriq 50 mg daily, Singulair 10 mg daily, Protonix 40 mg daily, MiraLax 17 g twice a day, Lyrica 100 mg three times a day, Zocor 40 mg daily, Flomax 0.4 mg twice a day. The patient is discharged to subacute rehab at [place] as per the patient's insurance authorization. Next discharge followup with Dr. Griffith and Dr. Hermilo Finch after discharge from subacute rehab. During this hospitalization, the patient, the patient's family including the patient's daughter and the grandchildren were advised and explained about the patient's condition, diagnosis, test results and overall guarded to poor prognosis on multiple occasions and all questions and concerned were answered. The patient and the patient's family was advised about the patient's outpatient close Cardiology followup and medical followup and strict compliance with medication, diet and weight loss. Time spent in the discharge process more than 45 minutes. Dictated and electronically signed, not read. Tramaine Griffith MD
== END 2018-06-30 14:57 | DRG 270 ==
LOC: ED 10:23 → ERH 11:41 → 2RSO 13:18 → ICU 06-21 11:14 → OBSVTOIN 06-21 16:19 → 2RNO 06-25 17:30
PROVIDERS: ADMIT Internal Medicine; ATTEND Internal Medicine
PROC: 5A02210 Assistance with Cardiac Output using Balloon Pump, Continuous (ICD-10-PCS; principal; 2018-06-21)
PROC: 4A023N7 Measurement of Cardiac Sampling and Pressure, Left Heart, Percutaneous Approach (ICD-10-PCS; 2018-06-21)
PROC: B211YZZ Fluoroscopy of Multiple Coronary Arteries using Other Contrast (ICD-10-PCS; 2018-06-21)
PROC: B215YZZ Fluoroscopy of Left Heart using Other Contrast (ICD-10-PCS; 2018-06-21)
DX: I97.190 Other postprocedural cardiac functional disturbances following cardiac surgery (principal); I21.4 Non-ST elevation (NSTEMI) myocardial infarction; I25.42 Coronary artery dissection; I25.110 Atherosclerotic heart disease of native coronary artery with unstable angina pectoris; T83.518A Infection and inflammatory reaction due to other urinary catheter, initial encounter; N39.0 Urinary tract infection, site not specified; E87.1 Hypo-osmolality and hyponatremia; E87.3 Alkalosis; I97.89 Other postprocedural complications and disorders of the circulatory system, not elsewhere classified; E11.40 Type 2 diabetes mellitus with diabetic neuropathy, unspecified; E11.65 Type 2 diabetes mellitus with hyperglycemia; E78.00 Pure hypercholesterolemia, unspecified; E78.1 Pure hyperglyceridemia; I10 Essential (primary) hypertension; N40.1 Benign prostatic hyperplasia with lower urinary tract symptoms; N39.498 Other specified urinary incontinence; N31.9 Neuromuscular dysfunction of bladder, unspecified; R33.8 Other retention of urine; N50.89 Other specified disorders of the male genital organs; B95.62 Methicillin resistant Staphylococcus aureus infection as the cause of diseases classified elsewhere; B96.5 Pseudomonas (aeruginosa) (mallei) (pseudomallei) as the cause of diseases classified elsewhere; E66.01 Morbid (severe) obesity due to excess calories; Y84.0 Cardiac catheterization as the cause of abnormal reaction of the patient, or of later complication, without mention of misadventure at the time of the procedure; Y84.6 Urinary catheterization as the cause of abnormal reaction of the patient, or of later complication, without mention of misadventure at the time of the procedure; D64.9 Anemia, unspecified; E78.5 Hyperlipidemia, unspecified; K59.00 Constipation, unspecified; R26.9 Unspecified abnormalities of gait and mobility; L80 Vitiligo; Z68.32 Body mass index [BMI] 32.0-32.9, adult; Z79.4 Long term (current) use of insulin; Z85.46 Personal history of malignant neoplasm of prostate; Z90.79 Acquired absence of other genital organ(s); Z91.11 Patient's noncompliance with dietary regimen; Z87.440 Personal history of urinary (tract) infections; Z92.3 Personal history of irradiation; Z87.81 Personal history of (healed) traumatic fracture; Z87.891 Personal history of nicotine dependence

== ENCOUNTER 2018-07-16 19:26 | Emergency (ER) | payer OTHER ==
[2018-07-16 19:28] VITALS: BMI 31.8
--- NOTE | 2018-07-16 19:49 | ED PDOC ---
Arrival/HPI - General Chief Complaint: Male Genitourinary Time Seen by Provider: 07/16/18 19:32 Historian: Patient - History of Present Illness Narrative History of Present Illness (Text): 07/16/18 19:44 Patient is an 82 year old male with a past medical history of hypertension, hyperlipidemia, DM, hip fracture, vitiligo, BPH s/p TURP, and prostrate CA, presents to the ED for arvizu catheter placement. Patient informs experiencing hematuria and suprapubic pain when he contacted Dr. Joyner and was advised to take out the arvizu ctaheter at 4 pm. Patient reports urinary incontinence following the removal of arvizu catheter associated with lower abdominal pain. Patient denies any other associated somatic complaints. Patient denies any fevers, chills, headache, dizziness, chest pain, shortness of breath, dyspnea on exertion, cough, nausea, vomiting, diarrhea, back pain, neck pain, or any other complaints. Time/Duration: Prior to Arrival Symptom Onset: Gradual Symptom Course: Unchanged Activities at Onset: Light Context: Home Past Medical History - Provider Review Nursing Documentation Reviewed: Yes - Past History Past History: Non-Contributing - Infectious Disease Hx of Infectious Diseases: None - Tetanus Immunization Tetanus Immunization: Unknown - Reproductive Currently Lactating: No - Cardiac Hx Hypertension: Yes - Pulmonary Hx Respiratory Disorders: Yes (USED TO SMOKE 2 PPD. QUIT 50 YRS AGO.) - Neurological Hx Neurological Disorder: No - HEENT Hx HEENT Disorder: Yes (eyeglasses) Hx Cataracts: Yes (L EYE SX) - Renal Hx Renal Disorder: No - Endocrine/Metabolic Hx Endocrine Disorders: Yes Hx Diabetes Mellitus Type 1: Yes - Hematological/Oncological Hx Blood Disorders: Yes Hx Anemia: Yes (BLOOD TRANSFUSION.) Hx Cancer: Yes (prostate w/ radiation in 2004) - Integumentary Hx Dermatological Disorder: Yes (VITILIGO) - Musculoskeletal/Rheumatological Hx Musculoskeletal Disorders: Yes (b/l knee SX) Hx Falls: No Hx Fractures: Yes (RIGHT FEMUR FX 2016 ORIF) - Gastrointestinal Hx Gastrointestinal Disorders: No - Genitourinary/Gynecological Hx Genitourinary Disorders: Yes (has 2 way arvizu) Hx Urinary Tract Infection: Yes - Psychiatric Hx Psychophysiologic Disorder: No Hx Substance Use: No - Surgical History Other/Comment: Right femur ORIF (12/07/2015) - Anesthesia Hx Anesthesia Reactions: No Hx Malignant Hyperthermia: No - Suicidal Assessment Feels Threatened In Home Enviroment: No Family/Social History - Physician Review Nursing Documentation Reviewed: Yes Family/Social History: Unknown Family HX Smoking Status: Former Smoker Hx Alcohol Use: No Hx Substance Use: No Hx Substance Use Treatment: No Allergies/Home Meds Allergies/Adverse Reactions: Allergies No Known Allergies Allergy (Verified 01/07/18 09:50) Home Medications: Home Meds Medication Instructions Recorded Confirmed Carvedilol [Coreg] 3.125 mg PO BID 04/07/18 06/20/18 GlipiZIDE [Glucotrol] 10 mg PO BID 04/07/18 06/20/18 Levocetirizine Dihydrochloride 5 mg PO DAILY 04/07/18 06/20/18 Metformin HCl [Fortamet] 1,500 mg PO BID 04/07/18 06/23/18 Montelukast [Singulair] 10 mg PO DAILY 04/07/18 06/20/18 Pantoprazole [Protonix EC Tab] 40 mg PO DAILY 04/07/18 06/20/18 Pregabalin [Lyrica] 100 mg PO TID 04/07/18 06/20/18 Simvastatin [Zocor] 40 mg PO DAILY 04/07/18 06/20/18 Tamsulosin [Flomax] 0.4 mg PO BID 04/07/18 06/20/18 Insulin Aspar/Insulin N 70/30 50 unit SC BID 06/20/18 06/20/18 Linaclotide [Linzess] 290 mcg PO DAILY 06/20/18 06/20/18 Mirabegron [Myrbetriq] 50 mg PO DAILY 06/23/18 06/23/18 Review of Systems - Physician Review All systems were reviewed & negative as marked: Yes - Review of Systems Constitutional: absent: Fevers Respiratory: absent: SOB, Cough Cardiovascular: absent: Chest Pain Gastrointestinal: absent: Abdominal Pain, Diarrhea, Nausea Genitourinary Male: Hematuria, Other (arvizu catheter removal) Musculoskeletal: absent: Back Pain, Neck Pain Skin: absent: Rash Neurological: absent: Headache, Dizziness Psychiatric: absent: Anxiety Physical Exam - Physical Exam Narrative Physical Exam (Text): 07/16/18 19:51 Gen: VS reviewed, alert, well developed, well nourished, nontoxic, mild distress. ENT: normal pharynx. Eye: EOMI, PERRL. Neck: no JVD, supple, no adenopathy. CV: regular rate, regular rhythm, no rubs, no murmur, no gallops, S1, S2, pulses equal and strong. Pulm: no distress, clear to auscultation, no wheeze, no rhonchi, breath sounds equal, no rales. Abd: soft, mild suprapubic tenderness, no guarding, no rebound, no rigidity, normal bowel sounds. Ext: no edema. Skin: good color, no rash, no cyanosis. Psych: responds appropriately to questions, normal affect. Neuro: oriented x 3, CN2-12 intact grossly, motor intact, sensation intact. Appearance: Positive for: Well-Appearing, Non-Toxic, Comfortable Pain Distress: None Mental Status: Positive for: Alert and Oriented X 3 Medical Decision Making ED Course and Treatment: 07/16/18 19:52 Impression: 82 year old male presents to the ED for arvizu catheter placement. Plan: -- Labs -- Urine Culture -- Urinalysis -- Arvizu catheter placement -- Reassess and disposition Prior Visits: Notes and results from previous visits were reviewed. Progress Notes: 07/16/18 21:53 will tx for uti, arvizu catheter placed and functioning properly, stable for dc 07/16/18 23:[address] levy, agrees with discharge. case discussed with dr. joyner, he would like to see patient for follow up this week. patient was seen for suprapubic pain with suspected urine retention.this is a recurrent issue with the patient as he has a complicated prostate and urethral hx and neurogenic bladder. patient did tolerate arvizu catheter placement with good resultant urine flow. it is unlikely that that the patient was in urine retention. doroteot did remove his arvizu catheter but it was not under the current direction of his regular physicians (done at home). perhaps the patient caused trauma at home. despite CT finding, the patient does not have diffuse abd pain,vomting, or diarrhea to match. pain controlled after single dose of percocet. stable for dc. patient understands and us agreeable to plan and states he will call dr. joyner for follow up this week. patient has chronic arvizu catheter and the current UA is unreliable. 07/16/18 23:48 - RAD Interpretation Narrative RAD Interpretations (Text): 07/16/18 23:32 CT Abdomen and Pelvis without IV contrast CLINICAL HISTORY: SUPAPUBIC PAIN - S/O ARVIZU PLACEMENT TECHNIQUE: Axial computed tomography images of the abdomen and pelvis without intravenous contrast. 1134.76 mGy-cm CONTRAST: Without COMPARISON: None provided. FINDINGS: LUNG BASES: The lung bases appear clear. No pleural effusions are seen. LIVER: Hepatomegaly. The liver measured an estimated 19.6 cm in the midclavicular line. GALLBLADDER AND BILE DUCTS: The gallbladder appears within normal limits; and is slightly contracted. No radioopaque gallstones are seen. No biliary ductal dilatation is evident. PANCREAS: Unremarkable. SPLEEN: Unremarkable. ADRENAL GLANDS: Unremarkable. KIDNEYS, URETERS, AND BLADDER: The kidneys are normal in size and position. A 3.6 x 3.9 cm cyst arises from the inferior right renal pole . There is no hydronephrosis or hydroureter. No urinary calculi are seen. The urinary bladder is not well visualized since it is drained by a Arvizu catheter. STOMACH AND BOWEL: Unremarkable appearance of the stomach. No evidence of bowel obstruction. There is mild mucosal wall thickening of the small intestinal tract thought compatible with diffuse enteritis. Infectious or inflammatory etiologies are thought most likely. APPENDIX: No evidence of acute appendicitis on CT examination. PERITONEUM: No free fluid. No free air. LYMPH NODES: No lymphadenopathy is evident. REPRODUCTIVE: There appears to have been prior prostatectomy. The seminal vesicles appeared normal and symmetrical. VASCULATURE: No evidence of abdominal aortic aneurysm. Moderate atherosclerotic vascular plaquing is present. BONES: No aggressive appearing osseous lesion. No acute osseous pathology evident. streak artifact arises from a right femoral intramedullary kurtis. Mild extrinsic compression defect is noted in the superior endplate of L2; possibly consistent with Schmorl's node herniation. IMPRESSION: 1. Evidence of diffuse enteritis. 2. Hepatomegaly. Measurement is given above. 3. A 3.6 x 3.9 cm cyst arises from the inferior right renal pole. 4. Questionable Schmorl's node herniation in the central superior endplate of L2. 5. There appears to have been prior prostatectomy. 6. A Arvizu catheter is present within the urinary bladder. 7. Moderate atherosclerotic vascular plaquing. Air Director: Radiologist Procedures - Time-Out Type of Procedure: arvizu catheter insertion Site of Procedure: urethra Correct Patient (with visual ID + MR# on ID Band): Yes Correct Procedure: Yes Correct Site Marked: Yes (timeout performed) Medication Reconciliation / Bloodwork / Allergies Checked: Yes Physician Name: Eran - Additional Procedures Progress: a 20F coude catheter was placed by myself with good urine return. sterile technique maintained throughout procedure. patient tolerated procedure well. Minimal amount of yellow urine returned. - Scribe Statement The provider has reviewed the documentation as recorded by the Scribe Celena Winters. All medical record entries made by the Scribe were at my direction and personally dictated by me. I have reviewed the chart and agree that the record accurately reflects my personal performance of the history, physical exam, medical decision making, and the department course for this patient. I have also personally directed, reviewed, and agree with the discharge instructions and disposition. Disposition/Present on Arrival - Present on Arrival Any Indicators Present on Arrival: No History of DVT/PE: No History of Uncontrolled Diabetes: Yes Urinary Catheter: Yes History of Decub. Ulcer: No History Surgical Site Infection Following: None - Disposition Have Diagnosis and Disposition been Completed?: Yes Diagnosis: Neurogenic bladder Disposition: HOME/ ROUTINE Disposition Time: 21:55 Patient Plan: Discharge Patient Problems: Current Active Problems Problem Status Onset Neurogenic bladder Acute Urinary tract infection Acute Condition: STABLE Discharge Instructions (ExitCare): Neurogenic Bladder, Adult (DC) Additional Instructions: return for any new or worsening symptoms. follow up with dr. joyner this week-he is expecting your phone call-call tomorrow to make an appointment. Referrals: Tramaine Levy MD [Primary Care Provider] - Follow up with primary Forms: [employer] ([place])
[2018-07-16 20:01] VITALS: RESP 18; TEMP 98.1
[2018-07-16 21:04] LABS: BASO # 0.02 K/mm3 (0.0-2.0); BASO % 0.2 % (0.0-3.0); EOS # 0.2 (0.0-0.7); EOS % 1.9 % (1.5-5.0); HEMOGLOBIN 10.9 g/dL (14.0-18.0); LYMPH # 3.3 (1.2-3.4); LYMPH % 35.6 % (22.0-35.0); MEAN CELL VOLUME 87.1 fl (80.0-105.0); MEAN CORPUSCULAR HEMOGLOBIN 28.6 pg (25.0-35.0); MEAN CORPUSCULAR HGB CONC 32.8 g/dl (31.0-37.0); MEAN PLATELET VOLUME 10.5 fl (7.0-11.0); MONO # 0.9 (0.1-0.6); MONO % 9.3 % (1.0-6.0); RBC 3.81 10^6/uL (3.5-6.1); RED CELL DISTRIBUTION WIDTH 15.9 % (11.5-14.5); WHITE BLOOD COUNT 9.4 10^3/uL (4.5-11.0)
[2018-07-16 21:05] LABS: BLOOD UREA NITROGEN 18 mg/dL (7-21); CALCIUM 9.5 mg/dL (8.4-10.5); GFR NON-AFRICAN AMERICAN > 60
[2018-07-16 21:31] LABS: PH,URINE 6.5 (4.7-8.0); URINE BILIRUBIN NEGATIVE (NEGATIVE); URINE BLOOD MODERATE (NEGATIVE); URINE GLUCOSE (UA) NEGATIVE (NEGATIVE); URINE LEUKOCYTE ESTERASE LARGE Leu/uL (NEGATIVE); URINE PROTEIN 30 mg/dL (<30 mg/dL); URINE UROBILINOGEN 0.2 E.U./dL (<1 E.U./dL)
[2018-07-16 21:42] LABS: URINE APPEARANCE CLEAR (CLEAR); URINE COLOR YELLOW (YELLOW)
[2018-07-16] MEDS ORDERED: Oxycodone/Acetaminophen 5/325 mg Tab PO STA (21:57)
[2018-07-16 22:18] LABS: URINE WBC 25 - 30 /hpf (0-6)
[2018-07-16 22:19] LABS: URINE BACTERIA MANY /hpf
[2018-07-17 00:36] VITALS: BP 110/62; PULSE 69; O2SAT 100
--- NOTE | 2018-07-17 08:52 | CT ---
Date of service: 07/16/2018 PROCEDURE: CT Abdomen and Pelvis without intravenous contrast HISTORY: suprapubic pain, s/p sharp placement COMPARISON: 04/07/2018 TECHNIQUE: Without contrast.. Contrast dose: Radiation dose: Total exam DLP = 1134.76 mGy-cm. This CT exam was performed using one or more of the following dose reduction techniques: Automated exposure control, adjustment of the mA and/or kV according to patient size, and/or use of iterative reconstruction technique. FINDINGS: LOWER THORAX: Unremarkable. LIVER: Unremarkable. No gross lesion or ductal dilatation. GALLBLADDER AND BILE DUCTS: Unremarkable. PANCREAS: Unremarkable. No gross lesion or ductal dilatation. SPLEEN: Unremarkable. ADRENALS: Unremarkable. No mass. KIDNEYS AND URETERS: Unremarkable. No hydronephrosis. No solid mass. VASCULATURE: Unremarkable. No aortic aneurysm. Aortic calcification BOWEL: Unremarkable. No obstruction. No gross mural thickening. APPENDIX: Unremarkable. Normal appendix. PERITONEUM: Unremarkable. No free fluid. No free air. LYMPH NODES: Unremarkable. No enlarged lymph nodes. BLADDER: There is a Sharp catheter decompressing the bladder. Mild diffuse mural thickening REPRODUCTIVE: Previous prostatectomy. BONES: No acute fracture. OTHER FINDINGS: The report concurs with the preliminary [facility] report IMPRESSION: No acute intra-abdominal abnormalities
== END 2018-07-17 00:05 | disposition home or self-care (01) ==
LOC: ED 19:26
DX: N31.9 Neuromuscular dysfunction of bladder, unspecified (principal)

== ENCOUNTER 2018-10-03 14:21 | Outpatient (CLI) | payer OTHER | END 2018-10-03 14:22 | disposition home or self-care (01) | LOC: RAD 14:21 ==

== ENCOUNTER 2018-10-08 13:50 | Outpatient (CLI) | payer OTHER | END 2018-10-08 13:51 | disposition home or self-care (01) | LOC: RAD 13:51 | DX: I73.9 Peripheral vascular disease, unspecified (principal) ==

== ENCOUNTER 2018-10-25 00:01 | Emergency (ER) | payer OTHER ==
[2018-10-25 00:02] VITALS: BMI 31.8
[2018-10-25 00:12] VITALS: BP 146/77; PULSE 85; RESP 18; TEMP 98.4; O2SAT 95
--- NOTE | 2018-10-25 00:28 | ED PDOC ---
Arrival/HPI - General Chief Complaint: Male Genitourinary Time Seen by Provider: 10/25/18 00:05 Historian: Patient - History of Present Illness Narrative History of Present Illness (Text): 10/25/18 00:20 Chi Khan is an 82 year old male, whose past medical history of hypertension, hyperlipidemia, DM, hip fracture, vitiligo, BPH s/p TURP, and prostrate CA, who presents to the ED complaining of penile discomfort. Patient states he has been experiencing some pain to the tip of his penis since 17:00 with some light blood tinged area to diaper pant. Patient recently had a Sharp placed today at his urologist office, which has been draining well with no issues. Patient denies any fever, chills, nausea, vomiting, back pain, headache, dizziness, or any other complaints. Urologist: Dr. Joyner Symptom Onset: Gradual Symptom Course: Unchanged Activities at Onset: Light Context: Home Past Medical History - Provider Review Nursing Documentation Reviewed: Yes Primary Care Provider: Tramaine Griffith - Past History Past History: Non-Contributing - Infectious Disease Hx of Infectious Diseases: None - Tetanus Immunization Tetanus Immunization: Unknown - Reproductive Currently Lactating: No - Cardiac Hx Hypertension: Yes - Pulmonary Hx Respiratory Disorders: Yes (USED TO SMOKE 2 PPD. QUIT 50 YRS AGO.) - Neurological Hx Neurological Disorder: No - HEENT Hx HEENT Disorder: Yes (eyeglasses) Hx Cataracts: Yes (L EYE SX) - Renal Hx Renal Disorder: No - Endocrine/Metabolic Hx Endocrine Disorders: Yes Hx Diabetes Mellitus Type 1: Yes - Hematological/Oncological Hx Blood Disorders: Yes Hx Anemia: Yes (BLOOD TRANSFUSION.) Hx Cancer: Yes (prostate w/ radiation in 2004) - Integumentary Hx Dermatological Disorder: Yes (VITILIGO) - Musculoskeletal/Rheumatological Hx Musculoskeletal Disorders: Yes (b/l knee SX) Hx Falls: No Hx Fractures: Yes (RIGHT FEMUR FX 2016 ORIF) - Gastrointestinal Hx Gastrointestinal Disorders: No - Genitourinary/Gynecological Hx Genitourinary Disorders: Yes (has 2 way sharp) Hx Urinary Tract Infection: Yes - Psychiatric Hx Psychophysiologic Disorder: No Hx Substance Use: No - Surgical History Other/Comment: Right femur ORIF (12/07/2015) - Anesthesia Hx Anesthesia Reactions: No Hx Malignant Hyperthermia: No - Suicidal Assessment Feels Threatened In Home Enviroment: No Family/Social History - Physician Review Nursing Documentation Reviewed: Yes Family/Social History: Unknown Family HX Smoking Status: Former Smoker Hx Alcohol Use: No Hx Substance Use: No Hx Substance Use Treatment: No Allergies/Home Meds Allergies/Adverse Reactions: Allergies No Known Allergies Allergy (Verified 01/07/18 09:50) Home Medications: Home Meds Medication Instructions Recorded Confirmed Carvedilol [Coreg] 3.125 mg PO BID 04/07/18 06/20/18 GlipiZIDE [Glucotrol] 10 mg PO BID 04/07/18 06/20/18 Levocetirizine Dihydrochloride 5 mg PO DAILY 04/07/18 06/20/18 Metformin HCl [Fortamet] 1,500 mg PO BID 04/07/18 06/23/18 Montelukast [Singulair] 10 mg PO DAILY 04/07/18 06/20/18 Pantoprazole [Protonix EC Tab] 40 mg PO DAILY 04/07/18 06/20/18 Pregabalin [Lyrica] 100 mg PO TID 04/07/18 06/20/18 Simvastatin [Zocor] 40 mg PO DAILY 04/07/18 06/20/18 Tamsulosin [Flomax] 0.4 mg PO BID 04/07/18 06/20/18 Insulin Aspar/Insulin N 70/30 50 unit SC BID 06/20/18 06/20/18 Linaclotide [Linzess] 290 mcg PO DAILY 06/20/18 06/20/18 Mirabegron [Myrbetriq] 50 mg PO DAILY 06/23/18 06/23/18 Review of Systems - Physician Review All systems were reviewed & negative as marked: Yes - Review of Systems Constitutional: absent: Fevers Genitourinary Male: Other (+penile discomfort) Musculoskeletal: absent: Back Pain, Neck Pain Physical Exam Vital Signs Reviewed: Yes Vital Signs Temp Pulse Resp BP Pulse Ox 10/25/18 00:04 98.4 F 85 18 146/77 95 Temperature: Afebrile Blood Pressure: Normal Pulse: Regular Respiratory Rate: Normal Appearance: Positive for: Well-Appearing, Non-Toxic, Comfortable Pain Distress: None Mental Status: Positive for: Alert and Oriented X 3 - Systems Exam Head: Present: Atraumatic, Normocephalic Pupils: Present: PERRL Extroacular Muscles: Present: EOMI Conjunctiva: Present: Normal Mouth: Present: Moist Mucous Membranes Neck: Present: Normal Range of Motion Respiratory/Chest: Present: Clear to Auscultation, Good Air Exchange. No: Respiratory Distress, Accessory Muscle Use Cardiovascular: Present: Regular Rate and Rhythm, Normal S1, S2. No: Murmurs Abdomen: No: Tenderness, Distention, Peritoneal Signs Genitourinary Male: Present: Normal External Genitalia, Other (Sharp in place, draining urine well). No: Penile Discharge, Penile Swelling, Masses, Erythema Back: Present: Normal Inspection Upper Extremity: Present: Normal Inspection. No: Cyanosis, Edema Lower Extremity: Present: Normal Inspection. No: Edema Neurological: Present: GCS=15, CN II-XII Intact, Speech Normal Skin: Present: Warm, Dry, Normal Color. No: Rashes Psychiatric: Present: Alert, Oriented x 3, Normal Insight, Normal Concentration Medical Decision Making ED Course and Treatment: 10/25/18 00:20 Impression: 82 year old male complaining of pain to the tip of his penis. Plan: -- Xylocaine -- Reassess and disposition Prior Visits: Notes and results from previous visits were reviewed. Progress Notes: 10/25/18 00:[address] Joyner, pt's urologist, who recommends placing pt on prophylactic antibiotics states pt can follow-up in his office tomorrow. Attachment of Sharp catheter rearranged with improvement as well as lidocaine gel applied locally. - Scribe Statement The provider has reviewed the documentation as recorded by the James Overton Provider Scribe Attestation: All medical record entries made by the Scribe were at my direction and personally dictated by me. I have reviewed the chart and agree that the record accurately reflects my personal performance of the history, physical exam, medical decision making, and the department course for this patient. I have also personally directed, reviewed, and agree with the discharge instructions and disposition. Disposition/Present on Arrival - Present on Arrival Any Indicators Present on Arrival: No History of DVT/PE: No History of Uncontrolled Diabetes: Yes Urinary Catheter: Yes History of Decub. Ulcer: No History Surgical Site Infection Following: None - Disposition Have Diagnosis and Disposition been Completed?: Yes Diagnosis: Penile irritation Disposition: HOME/ ROUTINE Disposition Time: 01:03 Patient Plan: Discharge Condition: GOOD Additional Instructions: Avoid pulling on the sharp catheter/take meds as prescribed/follow up with this week Prescriptions: Cephalexin [cephalexin] 500 mg PO BID #10 cap Referrals: Tramaine Griffith MD [Primary Care Provider] - Follow up with primary Forms: [employer] (Amharic)
[2018-10-25] MEDS ORDERED: Lidocaine 2% Jelly (Uro-Jet) TOP ONE (00:35)
== END 2018-10-25 01:16 | disposition home or self-care (01) ==
LOC: ED 00:01
DX: N48.89 Other specified disorders of penis (principal)